=== PATIENT | male | born 1935 | race Caucasian/White ===

== ENCOUNTER → 2017-10-11 14:30 | Outpatient (CLI) | payer MEDICARE, OTHER, SELFPAY ==
[2016-02-13 13:00] VITALS: BMI 25.7
[2016-02-25 13:01] VITALS: BMI 23.8
[2016-02-25 14:18] VITALS: BP 111/87; BP 119/60; BP 97/48
[2016-02-25 15:38] VITALS: BP 110/47
[2017-10-11 15:34] LABS: Absolute Lymphocyte Count 1.27 X10^3/ul (0.83-4.51); Absolute Neutrophil Count 0.9 X10^3/uL (2.0-7.7); Eosinophil# 0.01 X10^3/uL; Eosinophils% 0.4 % (0-5); Hematocrit 30.5 % (40-54); Hemoglobin 10.1 g/dl (13.0-16.5); Lymphocyte # 1.27 X10^3/ul (4.0); Lymphocyte % 46.7 % (19-41); Mean Corp Hgb Conc 33.1 g/gl (32-36); Mean Corpuscular Hgb 30.1 pg (27.0-32.0); Mean Platelet Vol. 11.2 fl (6.2-12.0); Monocyte# 0.53 X10^3/uL; Monocyte% 19.5 % (0-10); Platelet Count 86 K/mm3 (150-450); RBC Distribution Width CV 15.6 % (11.6-14.6); RBC Distribution Width SD 50.6 fl (35.1-43.9); Red Blood Count 3.35 M/mm3 (4.6-6.2); White Blood Count 2.7 K/mm3 (4.4-11.0)
[2017-10-11 15:35] LABS: Differential Indicated SCAN CRITERIA MET; POSITIVE COUNT NO; POSITIVE DIFFERENTIAL YES; POSITIVE MORPHOLOGY NO
[2017-10-11 15:52] LABS: Differential Comment SCANNED
[2017-10-11 15:56] LABS: ALB/GLOB Ratio 1.3 RATIO (0.9-2.4); AST(SGOT) 17 U/L (15-37); Alanine Aminotransfer ALT/SGPT 32 U/L (16-61); Albumin, Serum 4.1 g/dL (3.2-5.0); Alkaline Phosphatase 85 U/L (45-117); Anion Gap 8 (5-15); BUN 29 mg/dL (7-18); BUN/Creat Ratio 25.7 RATIO (10-20); Calcium,Total 9.1 mg/dL (8.5-10.1); Chloride 102 mmol/L (98-107); Creatinine, Serum 1.13 mg/dL (0.70-1.30); EST Glomerular Filtration Rate 66 mL/min (>60); Est Glom Filt Rate - Afr Amer 80 mL/min (>60); Globulin 3.1 g/dL (2.2-4.2); Glucose 96 mg/dL (74-106); Potassium 4.6 mmol/L (3.5-5.1); Protein, Total 7.2 g/dL (6.4-8.2); Sodium Level 143 mmol/L (136-145)
== END ==
PROVIDERS: Family Provider Internal Medicine; PCP Internal Medicine; Visit Provider Internal Medicine Rheumatology
DX: M06.00 Rheumatoid arthritis without rheumatoid factor, unspecified site (principal); E11.9 Type 2 diabetes mellitus without complications; F32.89 Other specified depressive episodes; D46.9 Myelodysplastic syndrome, unspecified; I48.91 Unspecified atrial fibrillation; H35.52 Pigmentary retinal dystrophy
CPT/HCPCS: 36415; 80053; 85025

== ENCOUNTER → 2018-03-28 14:52 | Outpatient (CLI) | payer MEDICARE, OTHER, SELFPAY ==
[2016-02-13 13:00] VITALS: BMI 25.7
[2018-03-28 17:58] LABS: Absolute Lymphocyte Count 1.26 X10^3/ul (0.83-4.51); Absolute Neutrophil Count 2.6 X10^3/uL (2.0-7.7); Basophil# 0.01 X10^3/uL; Basophil% 0.2 % (0-1); Eosinophil# 0.01 X10^3/uL; Eosinophils% 0.2 % (0-5); Hematocrit 33.3 % (40-54); Hemoglobin 11.4 g/dl (13.0-16.5); Lymphocyte # 1.26 X10^3/ul (4.0); Lymphocyte % 25.7 % (19-41); Mean Corp Hgb Conc 34.2 g/gl (32-36); Mean Corpuscular Hgb 31.3 pg (27.0-32.0); Mean Corpuscular Volume 91.5 fL (80-94); Mean Platelet Vol. 12.3 fl (6.2-12.0); Monocyte# 0.98 X10^3/uL; Neutrophil # 2.63 X10^3/uL (2.7-7.7); Neutrophil % 53.5 % (47-70); Platelet Count 100 K/mm3 (150-450); RBC Distribution Width CV 14.8 % (11.6-14.6); RBC Distribution Width SD 48.1 fl (35.1-43.9); Red Blood Count 3.64 M/mm3 (4.6-6.2); White Blood Count 4.9 K/mm3 (4.4-11.0)
[2018-03-28 18:00] LABS: ALB/GLOB Ratio 1.2 RATIO (0.9-2.4); AST(SGOT) 16 U/L (15-37); Alanine Aminotransfer ALT/SGPT 37 U/L (16-61); Albumin, Serum 4.2 g/dL (3.2-5.0); Alkaline Phosphatase 97 U/L (45-117); Anion Gap 7 (5-15); BUN 32 mg/dL (7-18); BUN/Creat Ratio 26.4 RATIO (10-20); Calcium,Total 9.5 mg/dL (8.5-10.1); Chloride 102 mmol/L (98-107); Creatinine, Serum 1.21 mg/dL (0.70-1.30); EST Glomerular Filtration Rate 61 mL/min (>60); Est Glom Filt Rate - Afr Amer 74 mL/min (>60); Globulin 3.4 g/dL (2.2-4.2); Glucose 148 mg/dL (74-106); Potassium 4.9 mmol/L (3.5-5.1); Protein, Total 7.6 g/dL (6.4-8.2); Sodium Level 143 mmol/L (136-145)
[2018-03-28 18:21] LABS: POSITIVE COUNT NO; POSITIVE DIFFERENTIAL NO; POSITIVE MORPHOLOGY NO
== END ==
PROVIDERS: Family Provider Internal Medicine; PCP Internal Medicine; Visit Provider Internal Medicine Rheumatology
DX: M06.00 Rheumatoid arthritis without rheumatoid factor, unspecified site (principal); E11.9 Type 2 diabetes mellitus without complications; F32.89 Other specified depressive episodes; D46.9 Myelodysplastic syndrome, unspecified; I48.91 Unspecified atrial fibrillation; H35.52 Pigmentary retinal dystrophy
CPT/HCPCS: 36415; 80053; 85025

== ENCOUNTER → 2018-08-02 11:06 | Outpatient (CLI) | payer MEDICARE, OTHER, SELFPAY ==
[2016-02-13 13:00] VITALS: BMI 25.7
[2016-02-25 13:01] VITALS: BMI 23.8
[2018-08-02 12:02] LABS: AST(SGOT) 14 U/L (15-37); Alanine Aminotransfer ALT/SGPT 31 U/L (16-61); Albumin, Serum 4.1 g/dL (3.2-5.0); Alkaline Phosphatase 89 U/L (45-117); Bilirubin, Direct 0.18 mg/dL (0.00-0.30); Cholesterol 91 mg/dL (200); Globulin 3.2 g/dL (2.2-4.2); High Density Lipoprotein 39 mg/dL; Protein, Total 7.3 g/dL (6.4-8.2); Triglycerides 58 mg/dL; Very Low Density Lipoprotein 12 mg/dL (5-40)
--- OUTSIDE RECORDS SUMMARY | 2018-09-14 02:54 | XMS RPT_ITS ---
:1935 Author Organization OHIP Care Team Providers Name Role Phone VAN LOPEZ Referring Unavailable KRISTIN MCKAYMAN Referring Unavailable WOODY, LAPMAN Referring Unavailable WOODY, LAPMAN Referring Unavailable WOODY, KRISTINMAN Referring Unavailable WOODY, MOHIT Referring Unavailable PRESLEY ORTIZ Attending Unavailable PRESLEY ORTIZ Referring Unavailable KRISTIN MCKAYMAN Referring Unavailable KRISTIN MCKAYMAN Attending Unavailable KRISTIN MCKAYMAN Referring Unavailable WOODY LAPMAN Referring Unavailable SAMPSON LOVELL Referring Unavailable SAMPSON LOVELL Attending Unavailable DEBBIE MENDIETA) Attending Unavailable DEBBIE MENDIETA (SHIVAM) Referring Unavailable DEBBIE MENDIETA) Referring Unavailable MOHIT MCKAY Referring Unavailable WOODY, MOHIT Referring Unavailable SAMPSON LOVELL Referring Unavailable SAMPSON LOVELL Attending Unavailable SAMPSON LOVELL Referring Unavailable WOODY, LAPMAN Referring Unavailable WOODY, LAPMAN Referring Unavailable TESTRAKE, PRESLEY Attending Unavailable TESTRAKE, PRESLEY Referring Unavailable WOODY, LAPMAN Referring Unavailable WOODY, LAPMAN Referring Unavailable WOODY, LAPMAN Referring Unavailable WOODY, LAPMAN Referring Unavailable WOODY, LAPMAN Referring Unavailable WOODY, LAPMAN Referring Unavailable WOODY, LAPMAN Referring Unavailable WOODY, LAPMAN Referring Unavailable MASCI, VAN A Referring Unavailable WOODY, LAPMAN Referring Unavailable WOODY, LAPMAN Referring Unavailable WOODY, LAPMAN Attending Unavailable WOODY, LAPMAN Referring Unavailable WOODY, LAPMAN Referring Unavailable LOVELL, KYLE Attending Unavailable LOVELL, KYLE Referring Unavailable Vellanki, Margaux Attending Unavailable Vellanki, Margaux Referring Unavailable Lovell, Sampson Primary Care Unavailable Vellanki, Margaux Attending Unavailable Vellanki, Margaux Referring Unavailable Lovell, Sampson Primary Care Unavailable Praneeth, [place] Attending Unavailable Praneeth, Roland Referring Unavailable Lovell, Sampson Primary Care Unavailable Praneeth, [place] Attending Unavailable Lovell, Sampson Referring Unavailable PROBLEMS PROBLEMS DATE TYPE CONDITION / CODE ATTENDING STATUS SOURCE 08/04/2018 Unknown I48.92 - Praneeth, Roland Active [facility] atrial flutter / Hospital I48.92(ICD-10) Repository 08/04/2018 Unknown E78.5 - Praneeth, [place] Active [facility] Hyperlipidemia, Community unspecified / Hospital E78.5(ICD-10) Repository 12/24/2017 Active Other nursing home NA Active [facility] (current) drug [facility] [place] therapy / Repository Z79.899(ICD-10) 10/16/2013 Active Anemia in other NA Active [facility] chronic diseases [facility] [place] classified Repository elsewhere / D63.8(ICD-10) 08/27/2017 Active Unknown / NA Active [facility] UNK(Unknown) [place] Repository 07/30/2010 Active 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 [address] [place] [address] OFFICE VISIT Date of Service: 08/04/18 MR#: [id number] Acct: [id number] Name: JULIANE FISHER Rep #: [id number] : 1935 Provider: Roland Dacosta MD Age/Sex: 82/M [place] [facility] [place] Status: Signed [facility] Chief Complaint: Follow-up visit Details: JULIANE FISHER, is a 82 M who presents to the office today for a follow-up visit. He is a gentleman with a history of paroxysmal atrial fibrillation, equivocal mitral valve prolapse, and diabetes mellitus. He returns for routine follow- up visit he has been doing quite well he denies any chest pain or shortness of breath or paroxysmal nocturnal dyspnea or pedal edema he has not had any recurrence of his atrial fibrillation flutter. He has been compliant with all his medications. His physical exam today demonstrates clear lung huston regular rate and rhythm and no pedal edema. 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 Accompanied by: Is patient in pain?: No Allergies No Known Allergies Allergy (Verified 08/04/18 13:12) Medications B6/FA/B12/Co Q10/Herb No.225 [Healthy Heart Complex Tablet] 1 ea PO DAILY 05/03/15 [History Confirmed 08/04/18] Metformin HCl [Glucophage] 1,000 mg PO BIDCM 05/03/15 [History Confirmed 08/04/18] Multivit-Min/FA/Lycopen/Lutein [Centrum Silver Tablet] 1 ea PO DAILY 05/03/15 [History Confirmed 08/04/18] Pioglitazone HCl 15 mg PO DAILY 05/03/15 [History Confirmed 08/04/18] Magnesium Oxide [Mag-Ox 400] 400 mg PO BIDCM #60 tab 08/29/15 [Rx Confirmed 08/04/18] Polyethylene Glycol 3350 [Miralax] 17 gm PO DAILY #30 packet 08/29/15 [Rx Confirmed 08/04/18] Prednisone 2.5 mg PO DAILY 09/03/15 [History Confirmed 08/04/18] Lactulose 30 gm PO DAILY #1 ml 01/21/16 [Rx Confirmed 08/04/18] metoprolol tartrate 25 mg tablet 12.5 mg PO BID #30 tab 10/12/17 [Rx Confirmed 08/04/18] PFSH Medical History Diabetes mellitus (Chronic) Surgical History History of corneal transplant (Resolved) History of prostate surgery (Resolved) Hx of cataract surgery (Resolved) Family History Father Cancer Diabetes Social History Smoking Status: Never smoker ROS Const Const: Negative for fatigue, weakness, night sweats, excessive sweating, frequent falls, headache(s) or daytime sleepiness Eyes Eyes: Negative for loss of peripheral vision, transient loss of vision, blind spots, double vision or blurry vision ENT ENT: Negative for headache(s), dizziness, balance problems, Nosebleed/epistaxis, tongue swelling or lip swelling Cardio Chest Pain: No Palpitations: No Edema: Bilateral Muscle aches with walking: None Resp Respiratory: Negative for SOB at rest, SOB orthopnea\SOB lying down, Cough, paroxysmal nocturnal dyspnea or SOB with activity GI GI: Negative nausea, vomiting, heartburn, black,tarry stools or bright, red blood in stools : Negative for hematuria Musc Musc: Negative for balance problems, muscle aches/ myalgia, muscle weakness or joint pain Skin Skin: Negative non-healing lesions, unusual bruising or rash Neuro Neuro: Negative for weakness, frequent falls, headache(s), double vision, dizziness, lightheadedness, orthostatic symptoms, blurry vision or lack of coordination Dante Hematologic/Lymphatic: Negative for easy bruising or easy bleeding Endo Endo: Negative for fatigue, excessive sweating, cold intolerance, heat intolerance, increased thirst/drinking or hair loss Psych Psych: Negative for anxiety or depression Allergy Allergy/Immunology: Negative for throat swelling, Negative for tongue swelling, Negative for hives, Negative for rash, Negative for lip swelling Cardiology Exam Const Appearance: cooperative, healthy appearing, well developed, well groomed and no acute distress Nutritional Appearance: well nourished and average body habitus Orientation: alert, awake and oriented x3 Head Head: normal to inspection, normocephalic and atraumatic Ears: hearing grossly normal bilaterally and external ears normal Nose: external nose normal, nasal mucous membranes and turbinates normal, nares normal, septum normal, no nasal discharge Face and Sinus: face symmetric Mouth: oral mucosae normal, tongue normal, oropharynx normal and moist mucous membranes Teeth and gingiva: dentition normal Throat: posterior oropharynx normal, tonsils normal and uvula midline Eyes General: appearance normal, both eyes and all related structures Eyelids: eyelids normal Conjunctivae: conjunctivae normal Pupils: PERRL, normal by confrontation and accommodation normal EOM: EOM intact bilaterally Neck Neck: normal visual inspection, trachea midline and no JVD JVD: +5 Carotids: normal carotid upstroke and bounding pulses Chest Chest inspection: normal inspection of the chest, symmetric chest movement and normal respiratory effort Auscultation: Bilateral: Clear to Auscultation Cardio Palpation: normal PMI Rate: regular rate Rhythm: regular rhythm Heart sounds: S1 normal, S2 normal and normal, physiologic split S2; negative rub, gallop or murmur GI GI: normal to inspection, soft, no hepatosplenomegaly and bowel sounds present Neuro General: alert, awake, oriented x3, no focal sensory deficit, gait normal and moves all extremities Skin Skin: no rashes or lesions noted Extremities Pulses: Normal: Right Femoral Pulse, Left Femoral Pulse, Right Dorsalis Pedis Pulse, Left Dorsalis Pedis Pulse, Right Posterior Tibial Pulse, Left Posterior Tibial Pulse, Right Radial Pulse, Left Radial Pulse Lower Extremity Edema: None: Bilateral Musculoskel Musculoskeletal: No joint tenderness Psych Psychological: normal affect Assessment AND Plan 1. Atrial flutter with rapid ventricular response I48.92 Plan He has had paroxysmal atrial fibrillation but no recurrences recently at this my recommendation be for him to remain on his beta-ronnie the same dose together with his aspirin. No other changes will be made. His last echocardiogram was reassuring with an ejection fraction of 55%, equivocal mitral valve prolapse, and mild mitral and tricuspid regurgitation. 2. Hyperlipidemia E78.5 Plan His lipid profile was also excellent with a total cholesterol of 91, LDL of 40, and HDL of 39. Thank you for allowing me to participate in the care of your patient. 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) Coding Level of Care Code Off vis,est,level 3 Diagnoses Atrial flutter with rapid ventricular response I48.92 Hyperlipidemia E78.5 Coding Level of Care Code Off vis,est,level 3 Diagnoses Atrial flutter with rapid ventricular response I48.92 Hyperlipidemia E78.5 08/04/18 1344 <Electronically signed by Roland Dacosta MD> Date Roland Dacosta MD Cosigner Signature: Date (if applicable) CC: Sampson Lovell MD LIVER PROFILE Collected: 08/02/2018 Status: F Source: [facility] 11:15 AM [facility] REPOSITORY Order Comment: Order Date: 08/06/17 Order Info: [id number] - *Hepatic Function Panel Order Info: [id number] - *Lipid Profile CC PCP Comments: 12 hours fasting, may have water. TYPE CODE TESTS RESULT OUT OF RANGE REFERENCE UNITS LAB L501.1500 6.4-8.2 g/dL Normal T PROT 7.3 LAB L501.1800 3.2-5.0 g/dL Normal ALB 4.1 LAB L501.1950 2.2-4.2 g/dL Normal GLOB 3.2 LAB L501.4100 15-37 U/L Low AST 14 LAB L501.4305 45-117 U/L Normal ALK P 89 LAB L501.4405 16-61 U/L Normal ALT 31 LAB L501.4600 0.20-1.00 mg/dL Normal T BILI 0.70 LAB L501.4700 0.00-0.30 mg/dL Normal D BILI 0.18 Performed By: #### L500.3400 #### [facility] [place], [address] LIPID PROFILE Collected: 08/02/2018 Status: F Source: [facility] 11:15 AM [facility] Order Comment: Order Date: 08/06/17 Order Info: [id number] - *Hepatic Function Panel Order Info: [id number] - *Lipid Profile CC PCP Comments: 12 hours fasting, may have water. TYPE CODE TESTS RESULT OUT OF RANGE REFERENCE UNITS LAB L501.4900 200 mg/dL Normal CHOL 91 Result Comment: <200 mg/dL Desirable 200-240 mg/dL Borderline >240 mg/dL High Risk LAB L501.5000 mg/dL Normal TRIG 58 Result Comment: The drugs N-Acetylcysteine and Metamizole may falsely depress this assay. Serum Triglycerides Reference Interval Normal <150 mg/dL Borderline high 150 - 199 mg/dL High 200 - 499 mg/dL Very High > or = 500 mg/dL LAB L501.6400 mg/dL Low HDL 39 Result Comment: The drugs N-Acetylcysteine and Metamizole may falsely depress this assay. Reference Range HDL <40 mg/dL Low HDL Cholesterol HDL >or= 60 mg/dL High HDL Cholesterol LAB L501.6500 0-130 mg/dL Normal LDL 40 LAB L501.6600 5-40 mg/dL Normal VLDL 12 Performed By: #### L500.4100 #### [facility] [address] [place] [address]. [place], [address] PROGRESS Observed: 07/04/2018 Status: COMPLETED Source: [place] 4:11 PM [facility] [place] REPOSITORY [facility] ID: [id number] Author: Sampson Lovell Service: (none) Author Type: Physician Type: Progress Notes Filed: 07/05/2018 8:54 AM Note Text: This note was created using NoteWriter. Subjective Juliane Fisher is a 82 year old male here for follow up. He was doing reasonably well. His listed conditions were controlled, and stable. His arthritis was controlled. His anemia was stable and monitoring was less frequent now. 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 magnesium oxide (MAG-OX) 400 mg tablet Take 1 tablet by mouth twice daily. blood sugar diagnostic (BLOOD GLUCOSE TEST) test strip Test blood sugar(s) two times daily. Insulin: No. labile blood glucoses, uncontrolled DM. No insulin. 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 aspirin, enteric coated (ASPIRIN, ENTERIC COATED) 81 mg EC tablet Take 1 tablet by mouth once daily. ketoconazole (NIZORAL) 2 % cream Apply 1 application to affected area twice daily. mirtazapine (REMERON) 15 mg tablet Take 1 tablet by mouth daily at bedtime. Dr. Blake memantine (NAMENDA) 10 mg tablet [address] Blake. donepezil (ARICEPT) 10 mg tablet Take 1 tablet by mouth daily at bedtime. metoprolol tartrate, short acting, (LOPRESSOR) 25 mg tablet Take 0.5 tablets by mouth twice daily. Blood-Glucose Meter monitoring kit Glucose Meter of Choice - Kit. Check 4 times a day. Hypoglycemia, labile blood glucoses, uncontrolled DM. No insulin. predniSONE (DELTASONE) 2.5 mg tablet Take 1 tablet by mouth once daily. No current facility-administered medications for this visit. Review of Systems Constitutional: Negative. HENT: Negative. Respiratory: Negative. Cardiovascular: Negative. Gastrointestinal: Negative. Genitourinary: Negative. Musculoskeletal: Negative. Neurological: Negative. Objective BP 120/58 (BP Site: Right Arm, BP Position: Sitting, BP Cuff Size: Regular Adult) Pulse 61 Temp 36.7 ?C (98 ?F) (Tympanic) Resp 14 Ht 174.5 cm (5' 8.7) Wt 77.1 kg (170 lb) SpO2 98% BMI 25.32 kg/m? Physical Exam Constitutional: No distress. HENT: Head: Normocephalic. Eyes: Conjunctivae are normal. Neck: No JVD present. Cardiovascular: Normal heart sounds. Exam reveals no gallop. No murmur heard. Pulmonary/Chest: Breath sounds normal. Abdominal: Soft. Musculoskeletal: He exhibits no edema or tenderness. Neurological: He is alert. A sensory deficit is present. He exhibits normal muscle tone. Coordination normal. Ambulatory with cane. Feet: Shoes and socks removed, No deformities, ulcers, calluses, normal distal pulses and not sensitive to monofilament in the toes. Component Latest Ref Rng AND Units 07/01/2018 Protein, Total 6.3 - 8.0 g/dL 6.8 Albumin 3.9 - 4.9 g/dL 4.5 Calcium 8.5 - 10.2 mg/dL 9.9 Bilirubin, Total 0.2 - 1.3 mg/dL 0.5 Alkaline Phosphatase 38 - 113 U/L 90 AST 14 - 40 U/L 22 Glucose 74 - 99 mg/dL 163 (H) BUN 7 - 21 mg/dL 29 (H) Creatinine 0.73 - 1.22 mg/dL 1.11 Sodium 136 - 144 mmol/L 136 Potassium 3.7 - 5.1 mmol/L 4.8 Chloride 97 - 105 mmol/L 98 CO2 22 - 30 mmol/L 32 (H) Anion Gap 9 - 18 mmol/L 6 (L) ALT 10 - 54 U/L 26 eGFR- >60 eGFR-All Other Races . >60 Hemoglobin A1C 4.3 - 5.6 % 6.5 (H) Estimated Average Glucose mg/dL 140 Assessment and Plan 1. Medicare annual wellness visit, subsequent - ICD9: V70.0, ICD10: Z00.00 (primary diagnosis) Other note. 2. 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 - Continue current medications 3. Senile dementia, uncomplicated - ICD9: 290.0, ICD10: F03.90 Stable. 4. FRENCH on CPAP - ICD9: 327.23, V46.8, ICD10: G47.33, Z99.89 Using CPAP. 5. Rheumatoid arthritis with negative rheumatoid factor, involving unspecified site (HCC) - ICD9: 714.0, ICD10: M06.00 Stable on treatment from Dr. Champagne. 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 Gallegos Signs: INH, Rifapentine, B6. - Actinic keratosis 1997 - Acute gastritis without mention of hemorrhage - Anemia of chronic disease 10/16/2013 - Anemia, unspecified - Devine's palsy 1995 - Cervical spondylosis without myelopathy 09/27/2012 - Delayed sleep phase syndrome 09/19/2014 - Dermatophytosis of foot 05/30/2010 - Dermatophytosis of nail 05/30/2010 - Diverticulosis of colon (without mention of hemorrhage) - Esophageal reflux 04/22/2005 - Hypertrophy of prostate with urinary obstruction and other lower urinary tract symptoms (LUTS) 04/26/2007 - Hypertrophy of prostate without urinary obstruction and other lower urinary tract symptoms (LUTS) 04/22/2005 - Internal hemorrhoids without mention of complication - Legal blindness, as defined in [place] 04/22/2005 - MDS (myelodysplastic syndrome), low grade (HCC) 07/30/2010 - Myelodysplastic syndrome, low grade (HCC) 07/31/2010 - FRENCH on CPAP 06/29/2017 - Paroxysmal atrial fibrillation (HCC) 04/11/2009 Dr. Ruperto Dacosta. - Personal history of skin cancer 06/26/2009 Dr. Yeni Adhikari. 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 Mckay Champagne. - Senile dementia, uncomplicated 06/29/2016 Dr. Blake - Squamous cell carcinoma of left hand 09/02/2015 - Thrombocytopenia (HCC) - Type II or unspecified type diabetes mellitus without mention of complication, uncontrolled 04/22/2005 - Unspecified constipation - Urge incontinence 04/07/2012 PAST SURGICAL HISTORY Procedure Laterality Date - COLONOSCOP W/ OR W/O [facility] SPEC 08/11/2001 Colonoscopy - COLONOSCOP W/ OR W/O [facility] SPEC 09/21/06 - COLONOSCOP W/ OR W/O [facility] SPEC 09/12/2015 Colonoscopy - CONTACT LASER VAPORIZATION PROSTATE 09/12/2013 - EGD W/O [facility] SPECIMEN W/BX 09/21/06 - PAST SURGICAL HISTORY OF 1979 Goiter removal - REMV 2ND CATARACT,CORN-SCLER SECTN Insert lens prosthesis - SKIN BX, 1 LESION Skin biopsy Patient has no known allergies. 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 Legally blind. Juliane is more or less sedentary occasionally exercising in the form of calisthenics. He watches his diet for sodium, low fat and low cholesterol some of the time. List of current specialists seen: Dr. Mckay, hematology. Dr. Champagne, rheumotology. Dr. Mariee, ophthalmology. Dr. Calle, retinal specialist. Dr. Ortiz, podiatry. Dr. Dacosta, cardiology. Dr. Brito, neurology. SHIVAM Amos urology. End of Live Planning discussed including patients advanced directive wishes: No I am willing to follow Juliane's advanced directives. Depression screen He in the past two weeks denies having felt down, depressed, hopeless or with little interest or pleasure in doing things. Functional Ability/Safety Screen 1. Was the patient's timed Up and Go test unsteady or longer than 30 seconds? No 2. Does the patient need help with the phone, transportation, shopping,preparing meals, housework, laundry, medications or managing money? No 3. Does your home have rugs in the hallway, lack of grab bars in the bathroom, lack of handrails on the stairs or have poor lighting? No Hearing Evaluation: hard of hearing PHYSICAL EXAM BP 120/58 (BP Site: Right Arm, BP Position: Sitting, BP Cuff Size: Regular Adult) Pulse 61 Temp 36.7 ?C (98 ?F) (Tympanic) Resp 14 Ht 174.5 cm (5' 8.7) Wt 77.1 kg (170 lb) SpO2 98% BMI 25.32 kg/m? Alert and oriented X 3: YES Body mass index is 25.32 kg/m?. Visual acuity: legally blind. ASSESSMENT/PLAN: 82 year old male The following prevention plan was discussed during the office visit and provided to the patient: - Fall avoidance - Vaccines recommended: Shingrix recommended previously, awaiting availability. Sampson Lovell MD CNOV Observed: 07/04/2018 Status: COMPLETED Source: [place] 3:00 PM [facility] REPOS[facility] Office Visit (INTMWS) JULIANE FISHER ([id number]) 1935 M BLD Date Time Provider Department 07/04/18 3:00 PM SAMPSON LOVELL INTMWS During your visit today, we recorded the following information about you: Temperature Pulse Respiration Blood pressure 98 degrees 61/minute 14/minute 120/58 Weight Height 77.1 kg 1.745 m Sampson Lovell MD 07/05/2018 8:54 AM Signed Medicare Yearly Visit Medical B eligibilty date 09/2000 Date of last exam 06/29/2017 PAST MEDICAL HISTORY Diagnosis Date - (QFT) 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 Gallegos Signs: INH, Rifapentine, B6. - Actinic keratosis 1997 - Acute gastritis without mention of hemorrhage - Anemia of chronic disease 10/16/2013 - Anemia, unspecified - Devine's palsy 1995 - Cervical spondylosis without myelopathy 09/27/2012 - Delayed sleep phase syndrome 09/19/2014 - Dermatophytosis of foot 05/30/2010 - Dermatophytosis of nail 05/30/2010 - Diverticulosis of colon (without mention of hemorrhage) - Esophageal reflux 04/22/2005 - Hypertrophy of prostate with urinary obstruction and other lower urinary tract symptoms (LUTS) 04/26/2007 - Hypertrophy of prostate without urinary obstruction and other lower urinary tract symptoms (LUTS) 04/22/2005 - Internal hemorrhoids without mention of complication - Legal blindness, as defined in [place] 04/22/2005 - MDS (myelodysplastic syndrome), low grade (HCC) 07/30/2010 - Myelodysplastic syndrome, low grade (HCC) 07/31/2010 - FRENCH on CPAP 06/29/2017 - Paroxysmal atrial fibrillation (HCC) 04/11/2009 Dr. Ruperto Dacosta. - Personal history of skin cancer 06/26/2009 Dr. Yeni Adhikari. 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 Mckay Champagne. - Senile dementia, uncomplicated 06/29/2016 Dr. Blake - Squamous cell carcinoma of left hand 09/02/2015 - Thrombocytopenia (HCC) - Type II or unspecified type diabetes mellitus without mention of complication, uncontrolled 04/22/2005 - Unspecified constipation - Urge incontinence 04/07/2012 PAST SURGICAL HISTORY Procedure Laterality Date - COLONOSCOP W/ OR W/O [facility] SPEC 08/11/2001 Colonoscopy - COLONOSCOP W/ OR W/O [facility] SPEC 09/21/06 - COLONOSCOP W/ OR W/O [facility] SPEC 09/12/2015 Colonoscopy - CONTACT LASER VAPORIZATION PROSTATE 09/12/2013 - EGD W/O [facility] SPECIMEN W/BX 09/21/06 - PAST SURGICAL HISTORY OF 1979 Goiter removal - REMV 2ND CATARACT,CORN-SCLER SECTN Insert lens prosthesis - SKIN BX, 1 LESION Skin biopsy Patient has no known allergies. 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 Legally blind. Juliane is more or less sedentary occasionally exercising in the form of calisthenics. He watches his diet for sodium, low fat and low cholesterol some of the time. List of current specialists seen: Dr. Mckay, hematology. Dr. Champagne, rheumotology. Dr. Mariee, ophthalmology. Dr. aClle, retinal specialist. Dr. Ortiz, podiatry. Dr. Dacosta, cardiology. Dr. Brito, neurology. Debbie Mendieta, PA urology. End of Live Planning discussed including patients advanced directive wishes: No I am willing to follow Juliane's advanced directives. Depression screen He in the past two weeks denies having felt down, depressed, hopeless or with little interest or pleasure in doing things. Functional Ability/Safety Screen 1. Was the patient's timed Up and Go test unsteady or longer than 30 seconds? No 2. Does the patient need help with the phone, transportation, shopping,preparing meals, housework, laundry, medications or managing money? No 3. Does your home have rugs in the hallway, lack of grab bars in the bathroom, lack of handrails on the stairs or have poor lighting? No Hearing Evaluation: hard of hearing PHYSICAL EXAM BP 120/58 (BP Site: Right Arm, BP Position: Sitting, BP Cuff Size: Regular Adult) Pulse 61 Temp 36.7 ?C (98 ?F) (Tympanic) Resp 14 Ht 174.5 cm (5' 8.7) Wt 77.1 kg (170 lb) SpO2 98% BMI 25.32 kg/m? Alert and oriented X 3: YES Body mass index is 25.32 kg/m?. Visual acuity: legally blind. ASSESSMENT/PLAN: 82 year old male The following prevention plan was discussed during the office visit and provided to the patient: - Fall avoidance - Vaccines recommended: Shingrix recommended previously, awaiting availability. MD Sampson Daniels MD 07/05/2018 8:54 AM Signed This note was created using Yillioriter. Subjective Juliane Fisher is a 82 year old male here for follow up. He was doing reasonably well. His listed conditions were controlled, and stable. His arthritis was controlled. His anemia was stable and monitoring was less frequent now. 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 magnesium oxide (MAG-OX) 400 mg tablet Take 1 tablet by mouth twice daily. blood sugar diagnostic (BLOOD GLUCOSE TEST) test strip Test blood sugar(s) two times daily. Insulin: No. labile blood glucoses, uncontrolled DM. No insulin. Uncontrolled type 2 diabetes with neuropathy ([facility]) - ICD9: 250.62, 357.2, ICD10: E11.40, E11.65 metFORMIN (GLUCOPHAGE) 1,000 mg tablet Take 1 tablet by mouth daily with breakfast. aspirin, enteric coated (ASPIRIN, ENTERIC COATED) 81 mg EC tablet Take 1 tablet by mouth once daily. ketoconazole (NIZORAL) 2 % cream Apply 1 application to affected area twice daily. mirtazapine (REMERON) 15 mg tablet Take 1 tablet by mouth daily at bedtime. Dr. Blake memantine (NAMENDA) 10 mg tablet [address] Blake. donepezil (ARICEPT) 10 mg tablet Take 1 tablet by mouth daily at bedtime. metoprolol tartrate, short acting, (LOPRESSOR) 25 mg tablet Take 0.5 tablets by mouth twice daily. Blood-Glucose Meter monitoring kit Glucose Meter of Choice - Kit. Check 4 times a day. Hypoglycemia, labile blood glucoses, uncontrolled DM. No insulin. predniSONE (DELTASONE) 2.5 mg tablet Take 1 tablet by mouth once daily. No current facility-administered medications for this visit. Review of Systems Constitutional: Negative. HENT: Negative. Respiratory: Negative. Cardiovascular: Negative. Gastrointestinal: Negative. Genitourinary: Negative. Musculoskeletal: Negative. Neurological: Negative. Objective BP 120/58 (BP Site: Right Arm, BP Position: Sitting, BP Cuff Size: Regular Adult) Pulse 61 Temp 36.7 ?C (98 ?F) (Tympanic) Resp 14 Ht 174.5 cm (5' 8.7) Wt 77.1 kg (170 lb) SpO2 98% BMI 25.32 kg/m? Physical Exam Constitutional: No distress. HENT: Head: Normocephalic. Eyes: Conjunctivae are normal. Neck: No JVD present. Cardiovascular: Normal heart sounds. Exam reveals no gallop. No murmur heard. Pulmonary/Chest: Breath sounds normal. Abdominal: Soft. Musculoskeletal: He exhibits no edema or tenderness. Neurological: He is alert. A sensory deficit is present. He exhibits normal muscle tone. Coordination normal. Ambulatory with cane. Feet: Shoes and socks removed, No deformities, ulcers, calluses, normal distal pulses and not sensitive to monofilament in the toes. Component Latest Ref Rng AND Units 07/01/2018 Protein, Total 6.3 - 8.0 g/dL 6.8 Albumin 3.9 - 4.9 g/dL 4.5 Calcium 8.5 - 10.2 mg/dL 9.9 Bilirubin, Total 0.2 - 1.3 mg/dL 0.5 Alkaline Phosphatase 38 - 113 U/L 90 AST 14 - 40 U/L 22 Glucose 74 - 99 mg/dL 163 (H) BUN 7 - 21 mg/dL 29 (H) Creatinine 0.73 - 1.22 mg/dL 1.11 Sodium 136 - 144 mmol/L 136 Potassium 3.7 - 5.1 mmol/L 4.8 Chloride 97 - 105 mmol/L 98 CO2 22 - 30 mmol/L 32 (H) Anion Gap 9 - 18 mmol/L 6 (L) ALT 10 - 54 U/L 26 eGFR- >60 eGFR-All Other Races . >60 Hemoglobin A1C 4.3 - 5.6 % 6.5 (H) Estimated Average Glucose mg/dL 140 Assessment and Plan 1. Medicare annual wellness visit, subsequent - ICD9: V70.0, ICD10: Z00.00 (primary diagnosis) Other note. 2. 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 - Continue current medications 3. Senile dementia, uncomplicated - ICD9: 290.0, ICD10: F03.90 Stable. 4. FRENCH on CPAP - ICD9: 327.23, V46.8, ICD10: G47.33, Z99.89 Using CPAP. 5. Rheumatoid arthritis with negative rheumatoid factor, involving unspecified site (HCC) - ICD9: 714.0, ICD10: M06.00 Stable on treatment from Dr. Champagne. Sampson Lovell MD Referring Provider: SAMPSON LOVELL [[id number]] Allergies As of Date: 07/04/2018 (No Known Allergies) Date Reviewed: 07/04/2018 Reviewed by: Phyllis Enciso [facility] - Fully Assessed Reason for Visit: Medicare Wellness Exam [4060] Primary Visit Diagnosis:Medicare annual wellness visit, subsequent [Z00.00] Other Visit Diagnoses:Controlled type 2 diabetes with neuropathy (HCC) [E11.40] Senile dementia, uncomplicated [F03.90] FRENCH on CPAP [G47.33, Z99.89] Rheumatoid arthritis with negative rheumatoid factor, involving unspecified site (HCC) [M06.00] Prescriptions as of 07/04/2018 Sig: PIOGLITAZONE 15 MG TABLET TAKE 1 TABLET BY MOUTH IN THE* POLYETHYLENE GLYCOL 3350 17 G* DISSOLVE 1 PACKET IN WATER AND * IPRATROPIUM BROMIDE 0.03 % NA* Use 2 Sprays in the nose ever* MAGNESIUM OXIDE 400 MG (241.3* Take 1 tablet by mouth twice * BLOOD SUGAR DIAGNOSTIC STRIPS Test blood sugar(s) two times* METFORMIN 1,000 MG TABLET Take 1 tablet by mouth daily * ASPIRIN 81 MG TABLET,DELAYED * Take 1 tablet by mouth once d* KETOCONAZOLE 2 % TOPICAL CREAM Apply 1 application to affect* MIRTAZAPINE 15 MG TABLET Take 1 tablet by mouth daily * MEMANTINE 10 MG TABLET [address] Anaya* DONEPEZIL 10 MG TABLET Take 1 tablet by mouth daily * METOPROLOL TARTRATE 25 MG TAB* Take 0.5 tablets by mouth twi* BLOOD-GLUCOSE METER KIT Glucose Meter of Choice - Kit* PREDNISONE 2.5 MG TABLET Take 1 tablet by mouth once d* Problem List As Of Date 07/04/2018 Noted Resolved DIABETES MELLITUS TYPE II-UNCOMPL [E11.9] INVALID FOR*06/05/2015 ESOPHAGEAL REFLUX [K21.9] INVALID FOR*07/05/2008 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 More... Ingrowing nail [L60.0] INVALID FOR*10/18/2013 Pain in limb [M79.609] INVALID FOR*09/06/2013 DM Neuro Manif Type II [E11.49] INVALID FOR*06/05/2015 Cellulitis and abscess of toe, unspecified [L03*INVALID FOR*09/06/2013 Thrombocytopenia [D69.6] INVALID FOR* MDS (myelodysplastic syndrome), low grade [D46.*INVALID FOR* Other acquired deformity of toe [M20.5X9] INVALID FOR*01/31/2014 Anemia [D64.9] INVALID FOR*10/16/2013 Frequency of urination [R35.0] INVALID FOR*01/31/2014 Urge incontinence [N39.41] INVALID FOR*01/31/2014 BPH (benign prostatic hyperplasia) [N40.0] INVALID FOR* Nocturia [R35.1] INVALID FOR* Cervical spondylosis without myelopathy [M47.81*INVALID FOR*01/31/2014 Cervicalgia [M54.2] INVALID FOR*09/06/2013 Pain due to onychomycosis of toenail [B35.1, M7*INVALID FOR*01/31/2014 Anemia of chronic disease [D63.8] INVALID FOR* (QFT) 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 Rheumatoid arthritis with negative rheumatoid f*INVALID FOR* More... 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 FRENCH on CPAP [G47.33, Z99.89] INVALID FOR* More... Urine retention [R33.9] INVALID FOR* Nocturnal leg cramps [G47.62] INVALID FOR* Disposition: Return in about 6 months (around 01/02/2019). Follow-up and Disposition History Recorded Encounter Status:Closed by SAMPSON LOVELL MD on 07/05/18 PROGRESS Observed: 07/01/2018 Status: COMPLETED Source: [place] 2:50 PM [facility] [place] REPOSITORY HNO ID: [id number] Author: Mohit Mckay Service: (none) Author Type: Physician Type: Progress Notes Filed: 07/02/2018 8:18 AM Note Text: PATIENT NAME: JULIANE FISHER ? CLINIC NO.: [id number] ? ATTENDING PHYSICIAN: Mohit Mckay MD ?? 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 HISTORY OF PRESENT ILLNESS: Mr. Fisher is a 82-year-old gentleman with a low-grade myelodysplastic syndrome/ refractory anemia. Patient had not require blood transfusion since his diagnosis of refractory anemia. ?? Current treatment: Aranesp - last injection was in November for refractory anemia ?? Interim history:? Patient denied fever, chills or night sweats. He has mild fatigue, but no shortness of breath. Patient denied increased bleeding or bruising despite thrombocytopenia.? Patient denies chest pain or palpitation. He has no?headaches or dizziness. 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 All medications AND?allergies updated reviewed by me. ?? PHYSICAL EXAM: Mr. Fisher appeared to be in no acute distress. ? performance status 80% BP 126/58 Pulse 54 Temp (Src) 98.6 (Oral) Wt 174 lb (78.9kg) HEENT: Sclerae anicteric. Neck: Supple, no palpable thyromegaly. Chest: Clear to auscultation. ? Cardiac is unremarkable. Abdomen: Soft and nontender, no masses or hepatosplenomegaly. Extremities show no edema, ecchymosis, or petechiae. Neurologic exam is nonfocal. He is alert and oriented ?3 ?? LABS: Component Latest Ref Rng AND Units 07/01/2018 WBC, [place] 3.70 - 11.00 k/uL 4.01 RBC, [place] 4.20 - 6.00 m/uL 3.54 (L) Hemoglobin, [place] 13.0 - 17.0 g/dL 10.8 (L) Hematocrit, [place] 39.0 - 51.0 % 32.6 (L) MCV, [place] 80.0 - 100.0 fL 92.1 MCH, [place] 26.0 - 34.0 pg 30.5 MCHC, [place] 30.5 - 36.0 g/dL 33.1 RDW, [place] 11.5 - 15.0 % 14.5 Platelet Cnt, [place] 150 - 400 k/uL 101 (L) MPV, [place] 9.0 - 12.7 fL 12.1 Absol Gran Count 1.45 - 7.50 k/uL 1.67 ? Component Latest Ref Rng AND Units 07/01/2018 Protein, Total 6.3 - 8.0 g/dL 6.8 Albumin 3.9 - 4.9 g/dL 4.5 Calcium 8.5 - 10.2 mg/dL 9.9 Bilirubin, Total 0.2 - 1.3 mg/dL 0.5 Alkaline Phosphatase 38 - 113 U/L 90 AST 14 - 40 U/L 22 Glucose 74 - 99 mg/dL 163 (H) BUN 7 - 21 mg/dL 29 (H) Creatinine 0.73 - 1.22 mg/dL 1.11 Sodium 136 - 144 mmol/L 136 Potassium 3.7 - 5.1 mmol/L 4.8 Chloride 97 - 105 mmol/L 98 CO2 22 - 30 mmol/L 32 (H) Anion Gap 9 - 18 mmol/L 6 (L) ALT 10 - 54 U/L 26 eGFR- >60 eGFR-All Other Races . >60 Iron 41 - 186 ug/dL 111 TIBC 232 - 386 ug/dL 249 Transferrin Saturation 15 - 57 % 45 LD 135 - 225 U/L 132 (L) Ferritin 30.3 - 565.7 ng/mL 255.2 IMPRESSION:?Mr. 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 Patient had pancytopenia (leukopenia and?thrombocytopenia), and?anemia had in stable for the last 6 months without any treatment. ?No signs of Active infection or bleeding. ? PLAN:? Continue aspirin 81 mg daily. Monitor CBC every other months X 3 Resume Aranesp if hemoglobin less than 10 gm/dL or if he is symptomatic from anemia. Repeat CBC, CMP, LDH and iron study office visit in 6?months. flu vaccine given today. Mohit Mckay MD [place] ABS GR + CBC Collected: 07/01/2018 Status: F Source: [place] 2:19 PM [facility] REPOSITORY TYPE CODE TESTS RESULT OUT OF REFERENCE UNITS RANGE LAB WWBC 3.70-11.00 k/uL [place] WBC 4.01 LAB WRBC 4.20-6.00 m/uL Low [place] RBC 3.54 LAB WHGB 13.0-17.0 g/dL Low [place] Hemoglobin 10.8 LAB WHCT 39.0-51.0 % Low [place] Hematocrit 32.6 LAB WMCV 80.0-100.0 fL [place] MCV 92.1 LAB WMCH 26.0-34.0 pg [place] MCH 30.5 LAB WMCHC 30.5-36.0 g/dL [place] MCHC 33.1 LAB WRDW 11.5-15.0 % [place] RDW 14.5 LAB WPLT 150-400 k/uL Low [place] Platelet Cnt 101 LAB WMPV 9.0-12.7 fL [place] MPV 12.1 Result Comment: Test performed at: [facility] [place], [address] [place] [address]. LAB ABGRAN 1.45-7.50 k/uL Absol Gran 1.67 Count COMP METABOLIC PANEL Collected: 07/01/2018 Status: F Source: [place] 2:19 PM [facility] REPOSITORY TYPE CODE TESTS RESULT OUT OF REFERENCE UNITS RANGE LAB TP 6.3-8.0 g/dL Protein, Total 6.8 LAB ALB 3.9-4.9 g/dL Albumin 4.5 LAB CA 8.5-10.2 mg/dL Calcium, Total 9.9 LAB TBIL 0.2-1.3 mg/dL Bilirubin, Total 0.5 LAB ALKP 38-113 U/L Alkaline Phosphatase 90 LAB AST 14-40 U/L AST 22 LAB GLU 74-99 mg/dL Glucose High 163 LAB BUN 7-21 mg/dL BUN High 29 LAB CRET 0.73-1.22 mg/dL Creatinine 1.11 LAB NA 136-144 mmol/L Sodium 136 LAB K 3.7-5.1 mmol/L Potassium 4.8 LAB CL 97-105 mmol/L Chloride 98 LAB CO2 22-30 mmol/L CO2 High 32 LAB AGAP 9-18 mmol/L Anion Gap Low 6 LAB ALT 10-54 U/L ALT 26 LAB GFRAA eGFR- >60 Amer. LAB GFRNAA . eGFR-All Other Races >60 Result Comment: eGFR (Estimated GFR) Units of measure: mL/min/1.73 meters squared eGFR is derived from the reexpressed MDRD Study equation using the following parameters: serum creatinine, age, gender and race. The creatinine assay has been calibrated to be traceable to IDMS. An eGFR <60 mL/min/1.73m2 for >3 months is consistent with chronic kidney disease. Refer to KDOQI guidelines for clinical interpretation. In patients with unstable renal function, e.g. those with acute kidney injury, the eGFR may not accurately reflect actual GFR. LD Collected: 07/01/2018 Status: F Source: [facility] 2:19 PM [facility] REPOSITORY TYPE CODE TESTS RESULT OUT OF RANGE REFERENCE UNITS LAB LD 135-225 U/L Low LD 132 Performed By: #### IRON, FERR #### [facility] [address] [place] [address] IRON AND TIBC Collected: 07/01/2018 Status: F Source: [place] 2:19 PM [facility] REPOSITORY TYPE CODE TESTS RESULT OUT OF REFERENCE UNITS RANGE LAB IRN 41-186 ug/dL Iron 111 LAB TIBC 232-386 ug/dL TIBC 249 LAB SAT 15-57 % Transferrin Saturatn 45 Performed By: #### IRON, FERR #### [facility] [address] [address] FERRITIN Collected: 07/01/2018 Status: F Source: [place] 2:19 PM [facility] REPOSITORY TYPE CODE TESTS RESULT OUT OF REFERENCE UNITS RANGE LAB FERR 30.3-565.7 ng/mL Ferritin 255.2 Performed By: #### IRON, FERR #### [facility] [address] [address] HEMOGLOBIN A1C Collected: 07/01/2018 Status: F Source: [place] 2:19 PM [facility] REPOSITORY TYPE CODE TESTS RESULT OUT OF REFERENCE UNITS RANGE LAB HGBA1C 4.3-5.6 % High Hemoglobin A1c 6.5 LAB HBA0 mg/dL Est. Average Glucose 140 Result Comment: eAG: (Estimated average glucose) is a calculated value from HgbA1c and is packaging sales representative of the average blood glucose level in the last 2-3 month period. Performed By: #### HBA1C #### [facility] [address] [address] CNOVSP Observed: 07/01/2018 Status: COMPLETED Source: [place] 2:10 PM [facility] REPOSITORY Visit (SP) Office ([facility]) JULIANE FISHER ([id number]) 1935 M BLD Date Time Provider Department 07/01/18 2:10 PM MOHIT MCKAY During your visit today, we recorded the following information about you: Temperature Pulse Blood pressure Weight 98.6 degrees 54/minute 126/58 78.9 kg Mohit Mckay MD 07/02/2018 8:18 AM Signed PATIENT NAME: JULIANE FISHER ? CLINIC NO.: [id number] ? ATTENDING PHYSICIAN: Mohit Mckay MD ?? 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 HISTORY OF PRESENT ILLNESS: Mr. Fisher is a 82-year-old gentleman with a low-grade myelodysplastic syndrome/ refractory anemia. Patient had not require blood transfusion since his diagnosis of refractory anemia. ?? Current treatment: Aranesp - last injection was in November for refractory anemia ?? Interim history:? Patient denied fever, chills or night sweats. He has mild fatigue, but no shortness of breath. Patient denied increased bleeding or bruising despite thrombocytopenia.? Patient denies chest pain or palpitation. He has no?headaches or dizziness. 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 All medications AND?allergies updated reviewed by me. ?? PHYSICAL EXAM: Mr. Fisher appeared to be in no acute distress. ? performance status 80% BP 126/58 Pulse 54 Temp (Src) 98.6 (Oral) Wt 174 lb (78.9kg) HEENT: Sclerae anicteric. Neck: Supple, no palpable thyromegaly. Chest: Clear to auscultation. ? Cardiac is unremarkable. Abdomen: Soft and nontender, no masses or hepatosplenomegaly. Extremities show no edema, ecchymosis, or petechiae. Neurologic exam is nonfocal. He is alert and oriented ?3 ?? LABS: Component Latest Ref Rng AND Units 07/01/2018 WBC, [place] 3.70 - 11.00 k/uL 4.01 RBC, [place] 4.20 - 6.00 m/uL 3.54 (L) Hemoglobin, [place] 13.0 - 17.0 g/dL 10.8 (L) Hematocrit, [place] 39.0 - 51.0 % 32.6 (L) MCV, [place] 80.0 - 100.0 fL 92.1 MCH, [place] 26.0 - 34.0 pg 30.5 MCHC, [place] 30.5 - 36.0 g/dL 33.1 RDW, [place] 11.5 - 15.0 % 14.5 Platelet Cnt, [place] 150 - 400 k/uL 101 (L) MPV, [place] 9.0 - 12.7 fL 12.1 Absol Gran Count 1.45 - 7.50 k/uL 1.67 ? Component Latest Ref Rng AND Units 07/01/2018 Protein, Total 6.3 - 8.0 g/dL 6.8 Albumin 3.9 - 4.9 g/dL 4.5 Calcium 8.5 - 10.2 mg/dL 9.9 Bilirubin, Total 0.2 - 1.3 mg/dL 0.5 Alkaline Phosphatase 38 - 113 U/L 90 AST 14 - 40 U/L 22 Glucose 74 - 99 mg/dL 163 (H) BUN 7 - 21 mg/dL 29 (H) Creatinine 0.73 - 1.22 mg/dL 1.11 Sodium 136 - 144 mmol/L 136 Potassium 3.7 - 5.1 mmol/L 4.8 Chloride 97 - 105 mmol/L 98 CO2 22 - 30 mmol/L 32 (H) Anion Gap 9 - 18 mmol/L 6 (L) ALT 10 - 54 U/L 26 eGFR- >60 eGFR-All Other Races . >60 Iron 41 - 186 ug/dL 111 TIBC 232 - 386 ug/dL 249 Transferrin Saturation 15 - 57 % 45 LD 135 - 225 U/L 132 (L) Ferritin 30.3 - 565.7 ng/mL 255.2 IMPRESSION:?Mr. 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 Patient had pancytopenia (leukopenia and?thrombocytopenia), and?anemia had in stable for the last 6 months without any treatment. ?No signs of Active infection or bleeding. ? PLAN:? Continue aspirin 81 mg daily. Monitor CBC every other months X 3 Resume Aranesp if hemoglobin less than 10 gm/dL or if he is symptomatic from anemia. Repeat CBC, CMP, LDH and iron study office visit in 6?months. flu vaccine given today. MD Brittany Mcgrath, SHAHANA, [employer]STRUCTION [employer]ER 07/01/2018 2:55 PM Signed Influenza Vaccine Documentation: ? Patient is identified by name and date of : Yes ? Patient is older than 6 months of age: Yes ? Patient denies a severe allergy to any vaccine component or to a previous dose of influenza vaccine: Yes FOR EGG ALLERGY CONCERNS, REFER TO PROVIDER. ? Denies allergy to gelatin, formaldehyde, thimerosol :Yes ? Patient is afebrile and not moderately or severely ill: Yes ? Does the patient have a history of Guillain ?[place] Syndrome (a severe paralytic illness): No ? Denies bone marrow transplant prior 6 months or solid organ transplant prior 3 months: Yes ? Denies a history of fainting after a prior injection or medical procedure? Yes If patient has fainted in the past, the CDC recommends sitting or lying down for 15 minutes after the vaccination. ? VIS sheet provided: Yes ? See Immunization Form in [facility] for details of immunizations administered today. If patient reports dizziness, vision changes or ringing in the ears post vaccination ? please have patient sit or lie down for 15 minutes. Flu vaccine administered, right deltiod, tolerated well, no immediate adverse reactions noted. Brittany Hicks LPN Referring Provider: MOHIT MCKAY [[id number]] Allergies As of Date: 07/01/2018 (No Known Allergies) Date Reviewed: 07/01/2018 Reviewed by: Dariana Aguirre - Fully Assessed Reason for Visit: Established Patient [175] Primary Visit Diagnosis:Senile dementia, uncomplicated [F03.90] Other Visit Diagnoses:Anemia of chronic disease [D63.8] MDS (myelodysplastic syndrome), low grade (HCC) [D46.20] Order(s):[] influenza vaccine 180 mcg (Patients 65 years and older) (PF) (FLUZONE HIGH DOSE )Disp: Rfl: Level of Service: EST PATIENT VISIT LEVEL 3 [02510] Disposition: Return in about 6 months (around 12/30/2018). Follow-up and Disposition History Recorded Prescriptions as of 07/01/2018 Sig: PIOGLITAZONE 15 MG TABLET TAKE 1 TABLET BY MOUTH IN THE* POLYETHYLENE GLYCOL 3350 17 G* DISSOLVE 1 PACKET IN WATER AND * IPRATROPIUM BROMIDE 0.03 % NA* Use 2 Sprays in the nose ever* MAGNESIUM OXIDE 400 MG (241.3* Take 1 tablet by mouth twice * BLOOD SUGAR DIAGNOSTIC STRIPS Test blood sugar(s) two times* METFORMIN 1,000 MG TABLET Take 1 tablet by mouth daily * ASPIRIN 81 MG TABLET,DELAYED * Take 1 tablet by mouth once d* KETOCONAZOLE 2 % TOPICAL CREAM Apply 1 application to affect* MIRTAZAPINE 15 MG TABLET Take 1 tablet by mouth daily * MEMANTINE 10 MG TABLET [address] Anaya* DONEPEZIL 10 MG TABLET Take 1 tablet by mouth daily * METOPROLOL TARTRATE 25 MG TAB* Take 0.5 tablets by mouth twi* BLOOD-GLUCOSE METER KIT Glucose Meter of Choice - Kit* PREDNISONE 2.5 MG TABLET Take 1 tablet by mouth once d* Problem List As Of Date 07/01/2018 Noted Resolved DIABETES MELLITUS TYPE II-UNCOMPL [E11.9] INVALID FOR*06/05/2015 ESOPHAGEAL REFLUX [K21.9] INVALID FOR*07/05/2008 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 More... Ingrowing nail [L60.0] INVALID FOR*10/18/2013 Pain in limb [M79.609] INVALID FOR*09/06/2013 DM Neuro Manif Type II [E11.49] INVALID FOR*06/05/2015 Cellulitis and abscess of toe, unspecified [L03*INVALID FOR*09/06/2013 Thrombocytopenia [D69.6] INVALID FOR* MDS (myelodysplastic syndrome), low grade [D46.*INVALID FOR* Other acquired deformity of toe [M20.5X9] INVALID FOR*01/31/2014 Anemia [D64.9] INVALID FOR*10/16/2013 Frequency of urination [R35.0] INVALID FOR*01/31/2014 Urge incontinence [N39.41] INVALID FOR*01/31/2014 BPH (benign prostatic hyperplasia) [N40.0] INVALID FOR* Nocturia [R35.1] INVALID FOR* Cervical spondylosis without myelopathy [M47.81*INVALID FOR*01/31/2014 Cervicalgia [M54.2] INVALID FOR*09/06/2013 Pain due to onychomycosis of toenail [B35.1, M7*INVALID FOR*01/31/2014 Anemia of chronic disease [D63.8] INVALID FOR* (QFT) 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 Rheumatoid arthritis with negative rheumatoid f*INVALID FOR* More... 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 FRENCH on CPAP [G47.33, Z99.89] INVALID FOR* More... Urine retention [R33.9] INVALID FOR* Nocturnal leg cramps [G47.62] INVALID FOR* Visit Notes: >> Brittany Gupta (Shahana) SHAHANA Hicks WedJul 01, 2018 2:53 PM Status: Signed Influenza Vaccine Documentation: ? Patient is identified by name and date of : Yes ? Patient is older than 6 months of age: Yes ? Patient denies a severe allergy to any vaccine component or to a previous dose of influenza vaccine: Yes FOR EGG ALLERGY CONCERNS, REFER TO PROVIDER. ? Denies allergy to gelatin, formaldehyde, thimerosol :Yes ? Patient is afebrile and not moderately or severely ill: Yes ? Does the patient have a history of Guillain ?[place] Syndrome (a severe paralytic illness): No ? Denies bone marrow transplant prior 6 months or solid organ transplant prior 3 months: Yes ? Denies a history of fainting after a prior injection or medical procedure? Yes If patient has fainted in the past, the CDC recommends sitting or lying down for 15 minutes after the vaccination. ? VIS sheet provided: Yes ? See Immunization Form in [facility] for details of immunizations administered today. If patient reports dizziness, vision changes or ringing in the ears post vaccination ? please have patient sit or lie down for 15 minutes. Flu vaccine administered, right deltiod, tolerated well, no immediate adverse reactions noted. Brittany Hicks LPN Encounter Status:Closed by MOHIT MCKAY MD on 07/02/18 [place] ABS GR + CBC Collected: 06/03/2018 Status: F Source: [place] 2:09 PM [facility] REPOSITORY TYPE CODE TESTS RESULT OUT OF REFERENCE UNITS RANGE LAB WWBC 3.70-11.00 k/uL [place] WBC 4.11 Result Comment: Result checked and verified No clot detected. LAB WRBC 4.20-6.00 m/uL [place] RBC Low 3.67 LAB WHGB 13.0-17.0 g/dL [place] Low Hemoglobin 11.3 LAB WHCT 39.0-51.0 % [place] Low Hematocrit 33.9 LAB WMCV 80.0-100.0 fL [place] MCV 92.4 LAB WMCH 26.0-34.0 pg [place] MCH 30.8 LAB WMCHC 30.5-36.0 g/dL [place] MCHC 33.3 LAB WRDW 11.5-15.0 % [place] RDW 14.4 LAB WPLT 150-400 k/uL [place] Low Platelet Cnt 94 LAB WMPV 9.0-12.7 fL [place] MPV 11.2 Result Comment: Test performed at: [address] [place] [address]. LAB ABGRAN 1.45-7.50 k/uL 1.68 Absol Gran Count LAB ABSNUC <0.01 k/uL Preliminary Absolute nRBC result. Interpret with caution. Final results may vary. Results requested and read back by: Result Comment: WBC=4.32 Performed By: #### WAGCBC #### [facility] [address] [place], [place] [address] [place] ABS GR + CBC Collected: 05/06/2018 Status: F Source: [place] 3:27 PM [facility] REPOSITORY TYPE CODE TESTS RESULT OUT OF REFERENCE UNITS RANGE LAB WWBC 3.70-11.00 k/uL [place] WBC 4.33 LAB WRBC 4.20-6.00 m/uL Low [place] RBC 3.46 LAB WHGB 13.0-17.0 g/dL Low [place] Hemoglobin 10.6 LAB WHCT 39.0-51.0 % Low [place] Hematocrit 31.9 LAB WMCV 80.0-100.0 fL [place] MCV 92.2 LAB WMCH 26.0-34.0 pg [place] MCH 30.6 LAB WMCHC 30.5-36.0 g/dL [place] MCHC 33.2 LAB WRDW 11.5-15.0 % [place] RDW 14.4 LAB WPLT 150-400 k/uL Low [place] Platelet Cnt 89 LAB WMPV 9.0-12.7 fL [place] MPV 11.2 Result Comment: Test performed at: [facility], [address] [place] [address] Rd[address] [place] [address]. LAB ABGRAN 1.45-7.50 k/uL 1.63 Absol Gran Count LAB ABSNUC <0.01 k/uL Preliminary Absolute nRBC result. Interpret with caution. Final results may vary. Results requested and read back by: Result Comment: WBC=4.37 Absolute NRBC=0.00 Performed By: #### WAGCBC #### [facility] [address] [place], [place] [address] [facility] ABS GR + CBC Collected: 04/08/2018 Status: F Source: [place] 2:29 PM [facility] REPOSITORY TYPE CODE TESTS RESULT OUT OF REFERENCE UNITS RANGE LAB WWBC 3.70-11.00 k/uL [place] WBC 5.10 Result Comment: Result rechecked. Sample checked for a clot. LAB WRBC 4.20-6.00 m/uL [place] RBC Low 3.56 LAB WHGB 13.0-17.0 g/dL [place] Low Hemoglobin 11.0 LAB WHCT 39.0-51.0 % [place] Low Hematocrit 32.8 LAB WMCV 80.0-100.0 fL [place] MCV 92.1 LAB WMCH 26.0-34.0 pg [place] MCH 30.9 LAB WMCHC 30.5-36.0 g/dL [place] MCHC 33.5 LAB WRDW 11.5-15.0 % [place] RDW 14.6 LAB WPLT 150-400 k/uL [place] Low Platelet Cnt 97 LAB WMPV 9.0-12.7 fL [place] MPV 10.8 Result Comment: Test performed at: [facility] [place], [address] [place] [address]. LAB ABGRAN 1.45-7.50 k/uL 2.13 Absol Gran Count LAB ABSNUC <0.01 k/uL Preliminary Absolute nRBC result. Interpret with caution. Final results may vary. Results requested and read back by: Result Comment: WBC=5.20 Performed By: #### WAGCBC #### [facility] [address] [place], [place] [address] COMPREHENSIVE METABOLIC Collected: 03/28/2018 Status: F Source: [place] 2:56 PM [facility] REPOSITORY TYPE CODE TESTS RESULT OUT OF RANGE REFERENCE UNITS LAB L501.0100 74-106 mg/dL High GLU 148 Result Comment: Fasting Glucose result greater than or equal to 126 mg/dL suggests DIABETES MELLITUS per A.D.A. criteria. Please note revised GLUCOSE reference range effective 2017. LAB L501.1000 7-18 mg/dL High BUN 32 LAB L501.1100 0.70-1.30 mg/dL Normal CREAT,SERUM 1.21 Result Comment: The validity of the calculated GFR AND GFRAA in patients over 70 years has not been determined. Clinical correlation is essential. LAB L501.1110 >60 mL/min Normal EST GFR 61 Result Comment: Non- GFR Calc LAB L501.1115 >60 mL/min Normal EST GFR - AA 74 Result Comment: GFR Calc LAB L501.1300 10-20 RATIO High BUN/CRE 26.4 LAB L501.1500 6.4-8.2 g/dL T Normal PROT 7.6 LAB L501.1800 3.2-5.0 g/dL Normal ALB 4.2 LAB L501.1950 2.2-4.2 g/dL Normal GLOB 3.4 LAB L501.2000 0.9-2.4 RATIO Normal A/G 1.2 LAB L501.2200 8.5-10.1 mg/dL CA Normal 9.5 LAB L501.4100 15-37 U/L Normal AST 16 LAB L501.4305 45-117 U/L Normal ALK P 97 LAB L501.4405 16-61 U/L Normal ALT 37 LAB L501.4600 0.20-1.00 mg/dL T Normal BILI 0.40 LAB L501.5300 136-145 mmol/L NA Normal 143 LAB L501.5600 3.5-5.1 mmol/L K Normal 4.9 LAB L501.5900 98-107 mmol/L CL Normal 102 LAB L501.6100 21.0-32.0 mmol/L High CO2 34.0 LAB L501.6200 5-15 Normal GAP 7 Performed By: #### L500.4050 #### [facility] [address] [place], [address] CBC W/DIFF, AUTOMATED Collected: 03/28/2018 Status: F Source: [place] 2:56 PM [facility] REPOSITORY TYPE CODE TESTS RESULT OUT OF RANGE REFERENCE UNITS LAB L100.1000 4.4-11.0 K/mm3 Normal WBC 4.9 LAB L100.1200 4.6-6.2 M/mm3 Low RBC 3.64 LAB L100.1300 13.0-16.5 g/dl Low HGB 11.4 LAB L100.1400 40-54 % Low HCT 33.3 LAB L100.1500 80-94 fL Normal MCV 91.5 LAB L100.1600 27.0-32.0 pg Normal MCH 31.3 LAB L100.1700 32-36 g/gl Normal MCHC 34.2 LAB L100.1810 11.6-14.6 % High [place]DW CV 14.8 LAB L100.1820 35.1-43.9 fl High RDW SD 48.1 LAB L100.1900 150-450 K/mm3 Low PLT 100 LAB L100.2000 6.2-12.0 fl High MPV 12.3 LAB L100.2100 47-70 % Normal NEUT% 53.5 LAB L100.2200 19-41 % Normal LY% 25.7 LAB L100.2300 0-10 % High MONO% 20.0 LAB L100.2400 0-5 % Normal EO% 0.2 LAB L100.2500 0-1 % Normal BASO% 0.2 LAB L100.2550 0.0-0.9 % Normal IM GRAN % 0.400 Result Comment: IG% - Immature Granulocytes (promyelocytes, myelocytes and metamyelocytes) > 1% indicates that a LEFT SHIFT is Present. LAB L100.2620 2.0-7.7 X10 3/uL Normal Absolute Neut 2.6 LAB L100.2720 0.83-4.51 X10 3/ul Normal Absolute Lymph 1.26 Performed By: #### L100.0100 #### [facility] [address] [facility]. [place], [place], [address] [facility] ABS GR + CBC Collected: 03/11/2018 Status: F Source: [place] 2:16 PM [facility] REPOSITORY TYPE CODE TESTS RESULT OUT OF REFERENCE UNITS RANGE LAB WWBC 3.70-11.00 k/uL [place] WBC 4.77 LAB WRBC 4.20-6.00 m/uL Low [place] RBC 3.50 LAB WHGB 13.0-17.0 g/dL Low [place] Hemoglobin 10.7 LAB WHCT 39.0-51.0 % Low [place] Hematocrit 32.5 LAB WMCV 80.0-100.0 fL [place] MCV 92.9 LAB WMCH 26.0-34.0 pg [place] MCH 30.6 LAB WMCHC 30.5-36.0 g/dL [place] MCHC 32.9 LAB WRDW 11.5-15.0 % [place] RDW 14.9 LAB WPLT 150-400 k/uL Low [place] Platelet Cnt 93 LAB WMPV 9.0-12.7 fL [place] MPV 11.0 Result Comment: Test performed at: [facility], [address] [place] [address] [address] [place] [address]. LAB ABGRAN 1.45-7.50 k/uL 2.06 Absol Gran Count LAB ABSNUC <0.01 k/uL Preliminary Absolute nRBC result. Interpret with caution. Final results may vary. Results requested and read back by: Result Comment: WBC=4.77,ARIEL Performed By: #### WAGCBC #### [facility] [address] [place], [place] [address] [place] ABS GR + CBC Collected: 02/11/2018 Status: F Source: [place] 2:26 PM [facility] REPOSITORY TYPE CODE TESTS RESULT OUT OF REFERENCE UNITS RANGE LAB WWBC 3.70-11.00 k/uL [place] WBC 4.98 LAB WRBC 4.20-6.00 m/uL Low [place] RBC 3.46 LAB WHGB 13.0-17.0 g/dL Low [place] Hemoglobin 10.5 LAB WHCT 39.0-51.0 % Low [place] Hematocrit 32.2 LAB WMCV 80.0-100.0 fL [place] MCV 93.1 LAB WMCH 26.0-34.0 pg [place] MCH 30.3 LAB WMCHC 30.5-36.0 g/dL [place] MCHC 32.6 LAB [place]DW 11.5-15.0 % [place] RDW 14.7 LAB WPLT 150-400 k/uL Low [place] Platelet Cnt 104 LAB WMPV 9.0-12.7 fL [place] MPV 11.5 Result Comment: Test performed at: [facility], [address] [place] [address] [address] [place] [address]. LAB ABGRAN 1.45-7.50 k/uL 2.11 Absol Gran Count LAB ABSNUC <0.01 k/uL Preliminary Absolute nRBC result. Interpret with caution. Final results may vary. Results requested and read back by: Result Comment: WBC=5.01,P.DROUHARD Performed By: #### WAGCBC #### [facility] [address] [place], [place] [address] PROGRESS Observed: 02/03/2018 Status: COMPLETED Source: [place] 3:17 PM [facility] REPOSITORY HNO ID: [id number] Author: Presley Ortiz Service: (none) Author Type: Physician Type: Progress Notes Filed: 02/03/2018 3:37 PM Note Text: Presley Ortiz DPM Department of Podiatry [address] [place] [address] Dept: [phone] Dept Diabetic Nail Care SUBJECTIVE: Follow up office visit: This 82 year old male presents to clinic c/o nail care. Patient admits to being diabetic and states that he did not check blood glucose this am. Patient denies claudication type symptoms when walking. No other pedal complaints at this time. No change in medications or medical history since last visit. OBJECTIVE: Patient presents to clinic ambulating in Diabetic Shoes. Vasc: DP and PT pulses are decreased bilateral. CFT is less than 5 seconds bilateral. Skin temperature is warm to cool proximal to distal bilateral. There is moderate edema or varicosities noted. Hair growth absent. Neuro: Protective sensation is absent to the foot and toes when tested with the 5.07 SWM bilateral. Vibratory sensation is absent at the hallux bilateral. significant neurological defecits. Derm: Inspection and palpation performed. Nails 1-5 b/l are discolored-yellow, thick, crumbly, dystrophic and with subungal debris. Skin is thin and shiny b/l. Pallor noted on elevation b/l. Skin is of normal turgor and texture. Hyperkeratosis no. NO ulcerations, scars, verruca or other lesions noted. Ortho: Ankle joint DF is decreased with the knee extended and decreased with knee flexed. No pain or crepitus noted. STJ, MTJ ROM are full and free of pain or crepitus. Muscle strength is 5/5 for dorsiflexors, plantarflexors, inverters, everters. ASSESSMENT: (B35.1) Onychomycosis (primary encounter diagnosis) q8 modifer (E11.42) Diabetic polyneuropathy associated with type 2 diabetes mellitus (HCC) (I87.2) Venous insufficiency PLAN: Patient was seen and evaluated. Nails 1-5 bilateral were debrided in length and thickness. Will have patient use avila wraps for swelling. Compression stockings were not covered by insurance. Patient with no wounds on exam. If wounds develop, he is to contact office immediately. Patient was instructed on the continued importance of diabetic foot care along with proper diet and keeping their blood sugar under control to prevent complications. Patient is to RTC in 3-4 months. Presley Ortiz DPM CNOV Observed: 02/03/2018 Status: COMPLETED Source: [place] 2:20 PM [facility] REPOSITORY Office Visit (PODIWS) PHILLIPJULIANE Aracely ([id number]) 1935 M BLD Date Time Provider Department 02/03/18 2:20 PM PRESLEY ORTIZ During your visit today, we recorded the following information about you: Presley Ortiz DPM 02/03/2018 3:37 PM Signed Presley Ortiz DPM Department of Podiatry [address] [facility] [address] Dept: [phone] Dept Diabetic Nail Care SUBJECTIVE: Follow up office visit: This 82 year old male presents to clinic c/o nail care. Patient admits to being diabetic and states that he did not check blood glucose this am. Patient denies claudication type symptoms when walking. No other pedal complaints at this time. No change in medications or medical history since last visit. OBJECTIVE: Patient presents to clinic ambulating in Diabetic Shoes. Vasc: DP and PT pulses are decreased bilateral. CFT is less than 5 seconds bilateral. Skin temperature is warm to cool proximal to distal bilateral. There is moderate edema or varicosities noted. Hair growth absent. Neuro: Protective sensation is absent to the foot and toes when tested with the 5.07 SWM bilateral. Vibratory sensation is absent at the hallux bilateral. significant neurological defecits. Derm: Inspection and palpation performed. Nails 1-5 b/l are discolored-yellow, thick, crumbly, dystrophic and with subungal debris. Skin is thin and shiny b/l. Pallor noted on elevation b/l. Skin is of normal turgor and texture. Hyperkeratosis no. NO ulcerations, scars, verruca or other lesions noted. Ortho: Ankle joint DF is decreased with the knee extended and decreased with knee flexed. No pain or crepitus noted. STJ, MTJ ROM are full and free of pain or crepitus. Muscle strength is 5/5 for dorsiflexors, plantarflexors, inverters, everters. ASSESSMENT: (B35.1) Onychomycosis (primary encounter diagnosis) q8 modifer (E11.42) Diabetic polyneuropathy associated with type 2 diabetes mellitus (HCC) (I87.2) Venous insufficiency PLAN: Patient was seen and evaluated. Nails 1-5 bilateral were debrided in length and thickness. Will have patient use avila wraps for swelling. Compression stockings were not covered by insurance. Patient with no wounds on exam. If wounds develop, he is to contact office immediately. Patient was instructed on the continued importance of diabetic foot care along with proper diet and keeping their blood sugar under control to prevent complications. Patient is to RTC in 3-4 months. Presley Ortiz DPM Referring Provider: PRESLEY ORTZI [[id number]] Allergies As of Date: 02/03/2018 (No Known Allergies) Date Reviewed: 12/28/2017 Reviewed by: Katie Juarez LPN - Fully Assessed Reason for Visit: Diabetic Foot Care [916] Primary Visit Diagnosis:Onychomycosis [B35.1] Other Visit Diagnoses:Diabetic polyneuropathy associated with type 2 diabetes mellitus (HCC) [E11.42] Venous insufficiency [I87.2] Prescriptions as of 02/03/2018 Sig: IPRATROPIUM BROMIDE 0.03 % NA* Use 2 Sprays in the nose ever* MAGNESIUM OXIDE 400 MG TABLET Take 1 tablet by mouth twice * BLOOD SUGAR DIAGNOSTIC STRIPS Test blood sugar(s) two times* METFORMIN 1,000 MG TABLET Take 1 tablet by mouth daily * POLYETHYLENE GLYCOL 3350 17 G* Take 1 Packet by mouth once d* PIOGLITAZONE 15 MG TABLET Take 1 tablet by mouth every * ASPIRIN 81 MG TABLET,DELAYED * Take 1 tablet by mouth once d* KETOCONAZOLE 2 % TOPICAL CREAM Apply 1 application to affect* MIRTAZAPINE 15 MG TABLET Take 1 tablet by mouth daily * MEMANTINE 10 MG TABLET [address] 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 More... Ingrowing nail [L60.0] INVALID FOR*10/18/2013 Pain in limb [M79.609] INVALID FOR*09/06/2013 DM Neuro Manif Type II [E11.49] INVALID FOR*06/05/2015 Cellulitis and abscess of toe, unspecified [L03*INVALID FOR*09/06/2013 Thrombocytopenia [D69.6] INVALID FOR* MDS (myelodysplastic syndrome), low grade [D46.*INVALID FOR* Other acquired deformity of toe [M20.5X9] INVALID FOR*01/31/2014 Anemia [D64.9] INVALID FOR*10/16/2013 Frequency of urination [R35.0] INVALID FOR*01/31/2014 Urge incontinence [N39.41] INVALID FOR*01/31/2014 BPH (benign prostatic hyperplasia) [N40.0] INVALID FOR* Nocturia [R35.1] INVALID FOR* Cervical spondylosis without myelopathy [M47.81*INVALID FOR*01/31/2014 Cervicalgia [M54.2] INVALID FOR*09/06/2013 Pain due to onychomycosis of toenail [B35.1, M7*INVALID FOR*01/31/2014 Anemia of chronic disease [D63.8] INVALID FOR* (QFT) 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 Rheumatoid arthritis with negative rheumatoid f*INVALID FOR* More... 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 FRENCH on CPAP [G47.33, Z99.89] INVALID FOR* More... Urine retention [R33.9] INVALID FOR* Nocturnal leg cramps [G47.62] INVALID FOR* Encounter Status:Closed by PRESLEY ORTIZ DPM on 02/03/18 [place] ABS GR + CBC Collected: 01/14/2018 Status: F Source: [place] 2:57 PM [facility] REPOSITORY TYPE CODE TESTS RESULT OUT OF REFERENCE UNITS RANGE LAB WWBC 3.70-11.00 k/uL [place] WBC 4.10 Result Comment: Result rechecked. No clot detected. LAB WRBC 4.20-6.00 m/uL [place] RBC Low 3.54 LAB WHGB 13.0-17.0 g/dL [place] Low Hemoglobin 10.7 LAB WHCT 39.0-51.0 % [place] Low Hematocrit 32.8 LAB WMCV 80.0-100.0 fL [place] MCV 92.7 LAB WMCH 26.0-34.0 pg [place] MCH 30.2 LAB WMCHC 30.5-36.0 g/dL [place] MCHC 32.6 LAB WRDW 11.5-15.0 % [place] RDW 14.5 LAB WPLT 150-400 k/uL [place] Low Platelet Cnt 104 LAB WMPV 9.0-12.7 fL [place] MPV 11.7 Result Comment: Test performed at: [facility], [address] [place] [address]. LAB ABGRAN 1.45-7.50 k/uL Absol Gran 2.17 Count Performed By: #### WAGCBC #### [facility] [address] [place], [place] [address] PROGRESS Observed: 12/28/2017 Status: COMPLETED Source: [place] 3:32 PM [facility] REPOSITORY HNO ID: [id number] Author: Sampson Lovell Service: (none) Author Type: Physician Type: Progress Notes Filed: 12/28/2017 3:36 PM Note Text: This note was created using NoteWriter. Subjective Juliane Fisher is a 82 year old male here for follow up. DM was controlled. Symptoms of hypoglycemia were infrequent. He complained of nocturnal leg cramps for several weeks, easily relieved by getting up and applying pressure on the feet. He slept curled on his side. Sleep was otherwise good. His sacral pain resolved with removal of his indwelling mahmood catheter. 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 blood sugar diagnostic (BLOOD GLUCOSE TEST) test strip Test blood sugar(s) two times daily. Insulin: No. labile blood glucoses, uncontrolled DM. No insulin. 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 polyethylene glycol 3350 (MIRALAX, GLYCOLAX) 17 gram packet Take 1 Packet by mouth once daily. pioglitazone (ACTOS) 15 mg tablet Take 1 tablet by mouth every morning. aspirin, enteric coated (ASPIRIN, ENTERIC COATED) 81 mg EC tablet Take 1 tablet by mouth once daily. ketoconazole (NIZORAL) 2 % cream Apply 1 application to affected area twice daily. mirtazapine (REMERON) 15 mg tablet Take 1 tablet by mouth daily at bedtime. Dr. Blake memantine (NAMENDA) 10 mg tablet [address] Blake. donepezil (ARICEPT) 10 mg tablet Take 1 tablet by mouth daily at bedtime. metoprolol tartrate, short acting, (LOPRESSOR) 25 mg tablet Take 0.5 tablets by mouth twice daily. Blood-Glucose Meter monitoring kit Glucose Meter of Choice - Kit. Check 4 times a day. Hypoglycemia, labile blood glucoses, uncontrolled DM. No insulin. predniSONE (DELTASONE) 2.5 mg tablet Take 1 tablet by mouth once daily. Ipratropium [place] (ATROVENT) 0.03 % nasal spray Use 2 Sprays in the nose every 12 hours. No current facility-administered medications for this visit. Review of Systems Constitutional: Negative. HENT: Positive for postnasal drip, rhinorrhea and sneezing. Respiratory: Negative. Cardiovascular: Negative. Genitourinary: Negative. Musculoskeletal: See HPI. Objective BP 128/56 (BP Site: Left Arm, BP Position: Sitting, BP Cuff Size: Regular Adult) Pulse (!) 56 Temp 36.2 ?C (97.1 ?F) (Left Tympanic) Resp 16 Wt 73 kg (161 lb) BMI 22.45 kg/m2 Physical Exam Constitutional: No distress. Cardiovascular: Normal heart sounds. Pulmonary/Chest: Breath sounds normal. Musculoskeletal: He exhibits no edema or tenderness. Neurological: He is alert. Coordination normal. Hemoglobin A1C (%) Date Value 12/24/2017 6.1 06/25/2017 6.0 ) Cholesterol, Total (mg/dL) Date Value 12/24/2017 90 12/25/2016 86 HDL Cholesterol (mg/dL) Date Value 12/24/2017 35 12/25/2016 38 LDL Cholesterol (mg/dL) Date Value 12/24/2017 45 12/25/2016 38 Triglyceride (mg/dL) Date Value 12/24/2017 52 12/25/2016 50 Assessment and Plan ASSESSMENT/PLAN: 1. 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 - Continue current medications - ALBUMIN/CREAT RATIO RND UR - BASIC METABOLIC PNL - HGB A1C 2. Postnasal drip - ICD9: 784.91, ICD10: R09.82 Discussed medication dosage, usage, goals of therapy, and side effects. - IPRATROPIUM BROMIDE 0.03 % NASAL SPRAY 3. Nocturnal leg cramps - ICD9: 327.52, ICD10: G47.62 Options discussed. Symptoms were easily relieved by position change. No medication recommended. Avoid sleeping with ankle in dorsiflexion. 4. Paroxysmal atrial fibrillation (HCC) - ICD9: 427.31, ICD10: I48.0 Controlled. Sampson Lovell MD CNOV Observed: 12/28/2017 Status: COMPLETED Source: [place] 2:00 PM [facility] REPOSITORY Office Visit (INTMWS) JULIANE FISHER ([id number]) 1935 M BLD Date Time Provider Department 12/28/17 2:00 PM SAMPSON LOVELL INTMWS During your visit today, we recorded the following information about you: Temperature Pulse Respiration Blood pressure 97.1 degrees 56/minute 16/minute 128/56 Weight 73 kg Sampson Lovell MD 12/28/2017 3:36 PM Signed This note was created using [employer]. Subjective Juliane Fisher is a 82 year old male here for follow up. DM was controlled. Symptoms of hypoglycemia were infrequent. He complained of nocturnal leg cramps for several weeks, easily relieved by getting up and applying pressure on the feet. He slept curled on his side. Sleep was otherwise good. His sacral pain resolved with removal of his indwelling mahmood catheter. 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 blood sugar diagnostic (BLOOD GLUCOSE TEST) test strip Test blood sugar(s) two times daily. Insulin: No. labile blood glucoses, uncontrolled DM. No insulin. 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 polyethylene glycol 3350 (MIRALAX, GLYCOLAX) 17 gram packet Take 1 Packet by mouth once daily. pioglitazone (ACTOS) 15 mg tablet Take 1 tablet by mouth every morning. aspirin, enteric coated (ASPIRIN, ENTERIC COATED) 81 mg EC tablet Take 1 tablet by mouth once daily. ketoconazole (NIZORAL) 2 % cream Apply 1 application to affected area twice daily. mirtazapine (REMERON) 15 mg tablet Take 1 tablet by mouth daily at bedtime. Dr. Blake memantine (NAMENDA) 10 mg tablet [address] Blake. donepezil (ARICEPT) 10 mg tablet Take 1 tablet by mouth daily at bedtime. metoprolol tartrate, short acting, (LOPRESSOR) 25 mg tablet Take 0.5 tablets by mouth twice daily. Blood-Glucose Meter monitoring kit Glucose Meter of Choice - Kit. Check 4 times a day. Hypoglycemia, labile blood glucoses, uncontrolled DM. No insulin. predniSONE (DELTASONE) 2.5 mg tablet Take 1 tablet by mouth once daily. Ipratropium [place] (ATROVENT) 0.03 % nasal spray Use 2 Sprays in the nose every 12 hours. No current facility-administered medications for this visit. Review of Systems Constitutional: Negative. HENT: Positive for postnasal drip, rhinorrhea and sneezing. Respiratory: Negative. Cardiovascular: Negative. Genitourinary: Negative. Musculoskeletal: See HPI. Objective BP 128/56 (BP Site: Left Arm, BP Position: Sitting, BP Cuff Size: Regular Adult) Pulse (!) 56 Temp 36.2 ?C (97.1 ?F) (Left Tympanic) Resp 16 Wt 73 kg (161 lb) BMI 22.45 kg/m2 Physical Exam Constitutional: No distress. Cardiovascular: Normal heart sounds. Pulmonary/Chest: Breath sounds normal. Musculoskeletal: He exhibits no edema or tenderness. Neurological: He is alert. Coordination normal. Hemoglobin A1C (%) Date Value 12/24/2017 6.1 06/25/2017 6.0 ) Cholesterol, Total (mg/dL) Date Value 12/24/2017 90 12/25/2016 86 HDL Cholesterol (mg/dL) Date Value 12/24/2017 35 12/25/2016 38 LDL Cholesterol (mg/dL) Date Value 12/24/2017 45 12/25/2016 38 Triglyceride (mg/dL) Date Value 12/24/2017 52 12/25/2016 50 Assessment and Plan ASSESSMENT/PLAN: 1. 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 - Continue current medications - ALBUMIN/CREAT RATIO RND UR - BASIC METABOLIC PNL - HGB A1C 2. Postnasal drip - ICD9: 784.91, ICD10: R09.82 Discussed medication dosage, usage, goals of therapy, and side effects. - IPRATROPIUM BROMIDE 0.03 % NASAL SPRAY 3. Nocturnal leg cramps - ICD9: 327.52, ICD10: G47.62 Options discussed. Symptoms were easily relieved by position change. No medication recommended. Avoid sleeping with ankle in dorsiflexion. 4. Paroxysmal atrial fibrillation (HCC) - ICD9: 427.31, ICD10: I48.0 Controlled. 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) [E11.40] Other Visit Diagnoses:Postnasal drip [R09.82] Nocturnal leg cramps [G47.62] Paroxysmal atrial fibrillation (HCC) [I48.0] Order(s):ALBUMIN/CREAT RATIO RND UR [SQUACR] Order #: [id number] FUTURE Ipratropium [place] (ATROVENT) 0.03 % nasal sprayUse 2 Sprays in the nose every 12 hours.Disp: 1 BottleRfl: 1 BASIC METABOLIC PNL [SQBMP] Order #: [id number] FUTURE HGB A1C [LBNKA4S] Order #: [id number] FUTURE Prescriptions as of 12/28/2017 Sig: MAGNESIUM OXIDE 400 MG TABLET Take 1 tablet by mouth twice * BLOOD SUGAR DIAGNOSTIC STRIPS Test blood sugar(s) two times* METFORMIN 1,000 MG TABLET Take 1 tablet by mouth daily * POLYETHYLENE GLYCOL 3350 17 G* Take 1 Packet by mouth once d* PIOGLITAZONE 15 MG TABLET Take 1 tablet by mouth every * ASPIRIN 81 MG TABLET,DELAYED * Take 1 tablet by mouth once d* KETOCONAZOLE 2 % TOPICAL CREAM Apply 1 application to affect* MIRTAZAPINE 15 MG TABLET Take 1 tablet by mouth daily * MEMANTINE 10 MG TABLET [address] Anaya* DONEPEZIL 10 MG TABLET Take 1 tablet by mouth daily * METOPROLOL TARTRATE 25 MG TAB* Take 0.5 tablets by mouth twi* BLOOD-GLUCOSE METER KIT Glucose Meter of Choice - Kit* PREDNISONE 2.5 MG TABLET Take 1 tablet by mouth once d* IPRATROPIUM BROMIDE 0.03 % NA* Use 2 Sprays in the nose ever* Medication notes this encounter KETOCONAZOLE 2 % TOPICAL CREAM >> Katie Juarez LPN 12/28/2017 2:08 PM >> KATIE JUAREZ LPN WedDec 28, 2017 2:08 PM PRN BLOOD-GLUCOSE METER KIT >> Katie Juarez LPN 12/28/2017 2:07 PM >> KATIE JUAREZ LPN WedDec 28, 2017 2:07 PM Patient testing blood sugars x2 daily. Problem List As Of Date 12/28/2017 Noted Resolved DIABETES MELLITUS TYPE II-UNCOMPL [E11.9] INVALID FOR*06/05/2015 ESOPHAGEAL REFLUX [K21.9] INVALID FOR*07/05/2008 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 More... Ingrowing nail [L60.0] INVALID FOR*10/18/2013 Pain in limb [M79.609] INVALID FOR*09/06/2013 DM Neuro Manif Type II [E11.49] INVALID FOR*06/05/2015 Cellulitis and abscess of toe, unspecified [L03*INVALID FOR*09/06/2013 Thrombocytopenia [D69.6] INVALID FOR* MDS (myelodysplastic syndrome), low grade [D46.*INVALID FOR* Other acquired deformity of toe [M20.5X9] INVALID FOR*01/31/2014 Anemia [D64.9] INVALID FOR*10/16/2013 Frequency of urination [R35.0] INVALID FOR*01/31/2014 Urge incontinence [N39.41] INVALID FOR*01/31/2014 BPH (benign prostatic hyperplasia) [N40.0] INVALID FOR* Nocturia [R35.1] INVALID FOR* Cervical spondylosis without myelopathy [M47.81*INVALID FOR*01/31/2014 Cervicalgia [M54.2] INVALID FOR*09/06/2013 Pain due to onychomycosis of toenail [B35.1, M7*INVALID FOR*01/31/2014 Anemia of chronic disease [D63.8] INVALID FOR* (QFT) 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 Rheumatoid arthritis with negative rheumatoid f*INVALID FOR* More... 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 FRENCH on CPAP [G47.33, Z99.89] INVALID FOR* More... Urine retention [R33.9] INVALID FOR* Nocturnal leg cramps [G47.62] INVALID FOR* Prescriptions ordered this encounter Disp Refills Start End IPRATROPIUM BROMIDE 0.03 % NASAL SPR* 1 Jarad* 1 12/28/2017 Route: NASAL Sig: Use 2 Sprays in the nose every 12 hours. Disposition: Return in about 6 months (around 06/29/2018). Follow-up and Disposition History Recorded Encounter Status:Closed by SAMPSON LOVELL MD on 12/28/17 LIPID PANEL, BASIC Collected: 12/24/2017 Status: F Source: [place] 7:58 AM [facility] [place] REPOSITORY TYPE CODE TESTS RESULT OUT OF REFERENCE UNITS RANGE LAB CHOL <200 mg/dL Cholesterol 90 Result Comment: <200 mg/dL, Desirable 200-239 mg/dL, Borderline high >239 mg/dL, High LAB TRIGLY <150 mg/dL Triglyceride 52 Result Comment: <150 mg/dL, Normal 150-199 mg/dL, Borderline high 200-499 mg/dL, High >499 mg/dL, Very high LAB HDL >39 mg/dL HDL-Cholesterol Low 35 Result Comment: 40-59 mg/dL, Acceptable >59 mg/dL, High: Negative risk factor for coronary heart disease <40 mg/dL, Low: Positive risk factor for coronary heart disease LAB LDL <100 mg/dL LDL-Cholesterol 45 Result Comment: <100 mg/dL, Optimal 100-129 mg/dL, Near optimal/above optimal 130-159 mg/dL, Borderline high 160-189 mg/dL, High >189 mg/dL, Very high Secondary prevention optimal LDL Cholesterol levels are recommended to be < 70 mg/dL LAB NONHDL <130 mg/dL Non HDL Cholesterol 55 Result Comment: <130 mg/dL, Optimal 130-159 mg/dL, Near optimal/above optimal 160-189 mg/dL, Borderline high 190-219 mg/dL, High >219 mg/dL, Very high Secondary prevention optimal non HDL Cholesterol levels are recommended to be < 100 mg/dL LAB FT hrs Fasting Time 12 LAB VLDL <30 mg/dL VLDL Cholesterol 10 LAB TCHDL <5.10 TC:HDL Ratio 2.57 LAB LDLHDL <2.54 LDL:HDL Ratio 1.29 Result Comment: Reference: 1. National Cholesterol Education Program ATP III Guideline At-A-Glance Quick Desk Reference: National Heart, Lung, and Blood [place]. National Institutes of Health. 2001: NIH Publication No. 01-3305. 2. An International Atherosclerosis Society position paper: global recommendations for the management of dyslipidemia: executive summary, Atherosclerosis. 2014: 232(2):410-413. Performed By: #### LIPB, HBA1C #### [facility] [address] [place], [place] [address] HEMOGLOBIN A1C Collected: 12/24/2017 Status: F Source: [place] 7:58 AM [facility] REPOSITORY TYPE CODE TESTS RESULT OUT OF REFERENCE UNITS RANGE LAB HGBA1C 4.3-5.6 % High Hemoglobin A1c 6.1 LAB HBA0 mg/dL Est. Average Glucose 128 Result Comment: eAG: (Estimated average glucose) is a calculated value from HgbA1c and is packaging sales representative of the average blood glucose level in the last 2-3 month period. Performed By: #### LIPB, HBA1C #### [facility] [address] [id number] LAURENCE ABS GR + CBC Collected: 12/17/2017 Status: F Source: [place] 2:36 PM [facility] REPOSITORY TYPE CODE TESTS RESULT OUT OF REFERENCE UNITS RANGE LAB WWBC 3.70-11.00 k/uL [place] WBC 4.28 Result Comment: Result rechecked. LAB WRBC 4.20-6.00 m/uL [place] RBC Low 3.39 LAB WHGB 13.0-17.0 g/dL [place] Hemoglobin 10.4 LAB WHCT 39.0-51.0 % [place] Hematocrit 31.5 LAB WMCV 80.0-100.0 fL [place] MCV 92.9 LAB WMCH 26.0-34.0 pg [place] MCH 30.7 LAB WMCHC 30.5-36.0 g/dL [place] MCHC 33.0 LAB WRDW 11.5-15.0 % [place] RDW 14.3 LAB WPLT 150-400 k/uL [place] Platelet Cnt 98 LAB WMPV 9.0-12.7 fL [place] MPV 11.1 Result Comment: Test performed at: [facility] [place], [address] [place] [address]. LAB ABGRAN 1.45-7.50 k/uL Absol Gran 1.66 Count Performed By: #### WAGCBC #### [facility] [address] [place], [place] [address] CNNURSE Observed: 12/16/2017 Status: COMPLETED Source: [place] 2:00 PM [facility] RE[facility]IT[facility] Nurse Visit (UROLWS) JULIANE FISHER ([id number]) 1935 M BLD Date Time Provider Department 12/16/17 2:00 PM NURSE UROL [facility] UROLWS During your visit today, we recorded the following information about you: Francheska Fernandez Ma 12/17/2017 3:26 PM Signed Pt had mahmood removed last week. States he has been voiding comfortably with no leakage. Voided within the hour and unable to void currently. Bladder scan ordered per Debbie Mendieta PA-C was 188 ml. Per SHIVAM Amos this is improved and pt to follow up as needed. Francheska Fernandez Ma Referring Provider: DEBBIE MENDIETA (SHIVAM) [[id number]] Allergies As of Date: 12/16/2017 (No Known Allergies) Date Reviewed: 12/10/2017 Reviewed by: Francheska Fernandez Ma - Fully Assessed Reason for Visit: Nurse Visit [792] bladder scan [Other] Primary Visit Diagnosis:Urine retention [R33.9] Order(s):US MSR POST-VOID RESID URINE [[id number]] Order #: [id number] Prescriptions as of 12/16/2017 Sig: MAGNESIUM OXIDE 400 MG TABLET Take 1 tablet by mouth twice * BLOOD SUGAR DIAGNOSTIC STRIPS Test blood sugar(s) two times* METFORMIN 1,000 MG TABLET Take 1 tablet by mouth daily * POLYETHYLENE GLYCOL 3350 17 G* Take 1 Packet by mouth once d* PIOGLITAZONE 15 MG TABLET Take 1 tablet by mouth every * ASPIRIN 81 MG TABLET,DELAYED * Take 1 tablet by mouth once d* KETOCONAZOLE 2 % TOPICAL CREAM Apply 1 application to affect* MIRTAZAPINE 15 MG TABLET Take 1 tablet by mouth daily * MEMANTINE 10 MG TABLET [address] Anaya* DONEPEZIL 10 MG TABLET Take 1 tablet by mouth daily * METOPROLOL TARTRATE 25 MG TAB* Take 0.5 tablets by mouth twi* BLOOD-GLUCOSE METER KIT Glucose Meter of Choice - Kit* PREDNISONE 2.5 MG TABLET Take 1 tablet by mouth once d* Problem List As Of Date 12/16/2017 Noted Resolved DIABETES MELLITUS TYPE II-UNCOMPL [E11.9] INVALID FOR*06/05/2015 ESOPHAGEAL REFLUX [K21.9] INVALID FOR*07/05/2008 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 More... Ingrowing nail [L60.0] INVALID FOR*10/18/2013 Pain in limb [M79.609] INVALID FOR*09/06/2013 DM Neuro Manif Type II [E11.49] INVALID FOR*06/05/2015 Cellulitis and abscess of toe, unspecified [L03*INVALID FOR*09/06/2013 Thrombocytopenia [D69.6] INVALID FOR* MDS (myelodysplastic syndrome), low grade [D46.*INVALID FOR* Other acquired deformity of toe [M20.5X9] INVALID FOR*01/31/2014 Anemia [D64.9] INVALID FOR*10/16/2013 Frequency of urination [R35.0] INVALID FOR*01/31/2014 Urge incontinence [N39.41] INVALID FOR*01/31/2014 BPH (benign prostatic hyperplasia) [N40.0] INVALID FOR* Nocturia [R35.1] INVALID FOR* Cervical spondylosis without myelopathy [M47.81*INVALID FOR*01/31/2014 Cervicalgia [M54.2] INVALID FOR*09/06/2013 Pain due to onychomycosis of toenail [B35.1, M7*INVALID FOR*01/31/2014 Anemia of chronic disease [D63.8] INVALID FOR* (QFT) 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 Rheumatoid arthritis with negative rheumatoid f*INVALID FOR* More... 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 FRENCH on CPAP [G47.33, Z99.89] INVALID FOR* More... Urine retention [R33.9] INVALID FOR* Encounter Status:Closed by DEBBIE MENDIETA PA-C on 12/17/17 PROGRESS Observed: 12/16/2017 Status: COMPLETED Source: [place] 1:31 PM [facility] REPOSIT[facility] HNO ID: [id number] Author: Francheska Fernandez Ma Service: (none) Author Type: (none) Type: Progress Notes Filed: 12/17/2017 3:26 PM Note Text: Pt had mahmood removed last week. States he has been voiding comfortably with no leakage. Voided within the hour and unable to void currently. Bladder scan ordered per Debbie Mendieta PA-C was 188 ml. Per SHIVAM Amos this is improved and pt to follow up as needed. Francheska Fernandez Ma CNPTOUTREACH Observed: 12/14/2017 Status: COMPLETED Source: [place] 12:00 AM [facility] REPOSIT[facility] Patient Outreach (INTMWH) JULIANE FISHER ([id number]) 1935 M BLD Date Time Provider Department [facility]/14[facility] During your visit today, we recorded the following information about you: Allergies As of Date: 12/14/2017 (No Known Allergies) Date Reviewed: 12/10/2017 Reviewed by: Franhceska Fernandez Ma - Fully Assessed Visit Diagnosis:Medication management [Z79.899] Order(s):HGB A1C [[id number]] Order #: [id number] FUTURE LIPID PANEL BASIC [SQLIPB] Order #: [id number] FUTURE Prescriptions as of 12/14/2017 Sig: MAGNESIUM OXIDE 400 MG (241.3* Take 1 tablet by mouth twice * BLOOD SUGAR DIAGNOSTIC STRIPS Test blood sugar(s) two times* METFORMIN 1,000 MG TABLET Take 1 tablet by mouth daily * X POLYETHYLENE GLYCOL 3350 17 G* Take 1 Packet by mouth once d* X PIOGLITAZONE 15 MG TABLET Take 1 tablet by mouth every * ASPIRIN 81 MG TABLET,DELAYED * Take 1 tablet by mouth once d* KETOCONAZOLE 2 % TOPICAL CREAM Apply 1 application to affect* MIRTAZAPINE 15 MG TABLET Take 1 tablet by mouth daily * MEMANTINE 10 MG TABLET [address] Anaya* DONEPEZIL 10 MG TABLET Take 1 tablet by mouth daily * METOPROLOL TARTRATE 25 MG TAB* Take 0.5 tablets by mouth twi* BLOOD-GLUCOSE METER KIT Glucose Meter of Choice - Kit* PREDNISONE 2.5 MG TABLET Take 1 tablet by mouth once d* Problem List As Of Date 12/14/2017 Noted Resolved DIABETES MELLITUS TYPE II-UNCOMPL [E11.9] INVALID FOR*06/05/2015 ESOPHAGEAL REFLUX [K21.9] INVALID FOR*07/05/2008 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 More... Ingrowing nail [L60.0] INVALID FOR*10/18/2013 Pain in limb [M79.609] INVALID FOR*09/06/2013 DM Neuro Manif Type II [E11.49] INVALID FOR*06/05/2015 Cellulitis and abscess of toe, unspecified [L03*INVALID FOR*09/06/2013 Thrombocytopenia [D69.6] INVALID FOR* MDS (myelodysplastic syndrome), low grade [D46.*INVALID FOR* Other acquired deformity of toe [M20.5X9] INVALID FOR*01/31/2014 Anemia [D64.9] INVALID FOR*10/16/2013 Frequency of urination [R35.0] INVALID FOR*01/31/2014 Urge incontinence [N39.41] INVALID FOR*01/31/2014 BPH (benign prostatic hyperplasia) [N40.0] INVALID FOR* Nocturia [R35.1] INVALID FOR* Cervical spondylosis without myelopathy [M47.81*INVALID FOR*01/31/2014 Cervicalgia [M54.2] INVALID FOR*09/06/2013 Pain due to onychomycosis of toenail [B35.1, M7*INVALID FOR*01/31/2014 Anemia of chronic disease [D63.8] INVALID FOR* (QFT) 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 Rheumatoid arthritis with negative rheumatoid f*INVALID FOR* More... 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 FRENCH on CPAP [G47.33, Z99.89] INVALID FOR* More... Urine retention [R33.9] INVALID FOR* Encounter Status:Closed by OLEG MICHELLEUSER on 06/17/18 PROGRESS Observed: 12/10/2017 Status: COMPLETED Source: [place] 4:26 PM [facility] RE[facility] HNO ID: [id number] Author: Francheska Fernandez Ma Service: (none) Author Type: (none) Type: Progress Notes Filed: 12/21/2017 12:38 PM Note Text: Patient here for Trial Void bladder filled with 300cc of sterile water. Catheter removed without difficulty. Patient voided spontaneously around the mahmood, mahmood removed and then voided another 30cc of clear yellow urine spontaneously without control. Bladder Scan was 134cc Per Debbie Mendieta order and pt's request, mahmood was left out and pt will RTO next week for repeat Bladder scan. Pt will remain off of the Oxybutynin and monitor voiding ability and incontinence. ER if unable to void. . Patient instructed to call office with any questions or concerns. Francheska Fernandez Ma CNOV Observed: 12/10/2017 Status: COMPLETED Source: [place] 2:00 PM [facility] RE[facility] Office Visit (UROLWS) JULIANE FISHER ([id number]) 1935 M BLD Date Time Provider Department 12/10/17 2:00 PM DEBBIE MENDIETA) UROLWS During your visit today, we recorded the following information about you: Pulse Blood pressure Weight 64/minute 130/64 73.5 kg Francheska Fernandez Ma 12/10/2017 4:31 PM Signed Patient here for Trial Void bladder filled with 300cc of sterile water. Catheter removed without difficulty. Patient voided spontaneously around the mahmood, mahmood removed and then voided another 30cc of clear yellow urine spontaneously without control. Bladder Scan was 134cc Per Debbie Mendieta order and pt's request, mahmood was left out and pt will RTO next week for repeat Bladder scan. Pt will remain off of the Oxybutynin and monitor voiding ability and incontinence. ER if unable to void. . Patient instructed to call office with any questions or concerns. Francheska Fernandez Ma Referring Provider: DEBBIE MENDIETA (SHIVAM) [[id number]] Allergies As of Date: 12/10/2017 (No Known Allergies) Date Reviewed: 12/10/2017 Reviewed by: Francheska Fernandez Ma - Fully Assessed Reason for Visit: Follow Up [171] BPH [1368] Mahmood [344] Reason For Visit History Recorded Primary Visit Diagnosis:Urinary retention [R33.9] Prescriptions as of 12/10/2017 Sig: MAGNESIUM OXIDE 400 MG TABLET Take 1 tablet by mouth twice * BLOOD SUGAR DIAGNOSTIC STRIPS Test blood sugar(s) two times* TRAMADOL 50 MG TABLET Take 1 tablet by mouth every * METFORMIN 1,000 MG TABLET Take 1 tablet by mouth daily * POLYETHYLENE GLYCOL 3350 17 G* Take 1 Packet by mouth once d* PIOGLITAZONE 15 MG TABLET Take 1 tablet by mouth every * ASPIRIN 81 MG TABLET,DELAYED * Take 1 tablet by mouth once d* KETOCONAZOLE 2 % TOPICAL CREAM Apply 1 application to affect* MIRTAZAPINE 15 MG TABLET Take 1 tablet by mouth daily * MEMANTINE 10 MG TABLET [address] Anaya* DONEPEZIL 10 MG TABLET Take 1 tablet by mouth daily * METOPROLOL TARTRATE 25 MG TAB* Take 0.5 tablets by mouth twi* BLOOD-GLUCOSE METER KIT Glucose Meter of Choice - Kit* PREDNISONE 2.5 MG TABLET Take 1 tablet by mouth once d* Problem List As Of Date 12/10/2017 Noted Resolved DIABETES MELLITUS TYPE II-UNCOMPL [E11.9] INVALID FOR*06/05/2015 ESOPHAGEAL REFLUX [K21.9] INVALID FOR*07/05/2008 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 More... Ingrowing nail [L60.0] INVALID FOR*10/18/2013 Pain in limb [M79.609] INVALID FOR*09/06/2013 DM Neuro Manif Type II [E11.49] INVALID FOR*06/05/2015 Cellulitis and abscess of toe, unspecified [L03*INVALID FOR*09/06/2013 Thrombocytopenia [D69.6] INVALID FOR* MDS (myelodysplastic syndrome), low grade [D46.*INVALID FOR* Other acquired deformity of toe [M20.5X9] INVALID FOR*01/31/2014 Anemia [D64.9] INVALID FOR*10/16/2013 Frequency of urination [R35.0] INVALID FOR*01/31/2014 Urge incontinence [N39.41] INVALID FOR*01/31/2014 BPH (benign prostatic hyperplasia) [N40.0] INVALID FOR* Nocturia [R35.1] INVALID FOR* Cervical spondylosis without myelopathy [M47.81*INVALID FOR*01/31/2014 Cervicalgia [M54.2] INVALID FOR*09/06/2013 Pain due to onychomycosis of toenail [B35.1, M7*INVALID FOR*01/31/2014 Anemia of chronic disease [D63.8] INVALID FOR* (QFT) 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 Rheumatoid arthritis with negative rheumatoid f*INVALID FOR* More... 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 FRENCH on CPAP [G47.33, Z99.89] INVALID FOR* More... Urine retention [R33.9] INVALID FOR* Encounter Status:Closed by DBEBIE MENDIETA PA-C on 12/21/17 PROGRESS Observed: 12/04/2017 Status: COMPLETED Source: [place] 10:14 AM [facility] [place] REPOSITORY HNO ID: [id number] Author: Sampson Lovell Service: (none) Author Type: Physician Type: Progress Notes Filed: 12/04/2017 11:05 AM Note Text: This note was created using Yillioriter. Subjective Juliane Fisher is a 82 year old male was here for buttock pain. Patient reports low back pain with acute onset 5 days ago. The pain is located in sacroiliac region and gluteal region bilaterally without radiation and described as vague, 6/10. Pain is worse with sitting and lying down and better with standing. Other factors were recent insertion of indwelling mahmood for urinary retention. Spouse noted some cloudiness in the tube, one bloody speck, but patient otherwise felt well. He had no abdominal pain or distention to begin with. He came in for medication refill and was found to have urine retention. Follow up with urology was next week. Questions about hydration were discussed. 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 Questions about constipation were discussed. Review of Systems Constitutional: Negative. Gastrointestinal: Positive for constipation. Negative for abdominal pain, nausea, rectal pain and vomiting. Genitourinary: Positive for hematuria. Negative for difficulty urinating and dysuria. Musculoskeletal: Positive for back pain. Objective BP 110/62 Pulse 68 Temp 36.5 ?C (97.7 ?F) (Temporal Artery) Wt 72.1 kg (159 lb) BMI 22.18 kg/m2 Physical Exam Constitutional: No distress. Abdominal: Soft. He exhibits no mass. There is no tenderness. Musculoskeletal: He exhibits no tenderness or deformity. Lumbar back: He exhibits normal range of motion, no tenderness, no bony tenderness and no spasm. Neurological: He is alert. He has normal strength. Coordination normal. Steady gait considering poor vision. Assessment and Plan 1. Urine retention - ICD9: 788.20, ICD10: R33.9 (primary diagnosis) Reassured that some debris is expected with indwelling mahmood. Continue to monitor. Call for pain, fever. 2. Constipation, unspecified constipation type - ICD9: 564.00, ICD10: K59.00 Controlled. - MAGNESIUM OXIDE 400 MG TABLET 3. 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 - BLOOD SUGAR DIAGNOSTIC STRIPS 4. Sacral back pain - ICD9: 724.6, ICD10: M53.3 Acute. Use donut. Discussed medication dosage, usage, goals of therapy, and side effects. - TRAMADOL 50 MG TABLET Sampson Lovell MD CNOV Observed: 12/04/2017 Status: COMPLETED Source: [place] 9:20 AM [facility] REPOSIT[facility] Office Visit (INTMWS) JULIANE FISHER ([id number]) 1935 M [facility] Date Time Provider Department 12/04/17 9:20 AM SAMPSON LOVELL INTMWS During your visit today, we recorded the following information about you: Temperature Pulse Blood pressure Weight 97.7 degrees 68/minute 110/62 72.1 kg Sampson Lovell MD 12/04/2017 11:05 AM Signed This note was created using NoteWriter. Subjective Juliane Fisher is a 82 year old male was here for buttock pain. Patient reports low back pain with acute onset 5 days ago. The pain is located in sacroiliac region and gluteal region bilaterally without radiation and described as vague, 6/10. Pain is worse with sitting and lying down and better with standing. Other factors were recent insertion of indwelling mahmood for urinary retention. Spouse noted some cloudiness in the tube, one bloody speck, but patient otherwise felt well. He had no abdominal pain or distention to begin with. He came in for medication refill and was found to have urine retention. Follow up with urology was next week. Questions about hydration were discussed. 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 Questions about constipation were discussed. Review of Systems Constitutional: Negative. Gastrointestinal: Positive for constipation. Negative for abdominal pain, nausea, rectal pain and vomiting. Genitourinary: Positive for hematuria. Negative for difficulty urinating and dysuria. Musculoskeletal: Positive for back pain. Objective BP 110/62 Pulse 68 Temp 36.5 ?C (97.7 ?F) (Temporal Artery) Wt 72.1 kg (159 lb) BMI 22.18 kg/m2 Physical Exam Constitutional: No distress. Abdominal: Soft. He exhibits no mass. There is no tenderness. Musculoskeletal: He exhibits no tenderness or deformity. Lumbar back: He exhibits normal range of motion, no tenderness, no bony tenderness and no spasm. Neurological: He is alert. He has normal strength. Coordination normal. Steady gait considering poor vision. Assessment and Plan 1. Urine retention - ICD9: 788.20, ICD10: R33.9 (primary diagnosis) Reassured that some debris is expected with indwelling mahmood. Continue to monitor. Call for pain, fever. 2. Constipation, unspecified constipation type - ICD9: 564.00, ICD10: K59.00 Controlled. - MAGNESIUM OXIDE 400 MG TABLET 3. 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 - BLOOD SUGAR DIAGNOSTIC STRIPS 4. Sacral back pain - ICD9: 724.6, ICD10: M53.3 Acute. Use donut. Discussed medication dosage, usage, goals of therapy, and side effects. 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 Insulin: No. labile blood glucoses, uncontrolled DM. No insulin. Uncontrolled type 2 diabetes with neuropathy (HCC) - ICD9: 250.62, 357.2, ICD10: E11.40, E11.65Disp: Rfl: 3 traMADol (ULTRAM) 50 mg tabletTake 1 tablet by mouth every 6 hours as needed for Pain for up to 7 days.Disp: 28 tabletRfl: 0 Prescriptions as of 12/04/2017 Sig: MAGNESIUM OXIDE 400 MG TABLET Take 1 tablet by mouth twice * BLOOD SUGAR DIAGNOSTIC STRIPS Test blood sugar(s) two times* METFORMIN 1,000 MG TABLET Take 1 tablet by mouth daily * POLYETHYLENE GLYCOL 3350 17 G* Take 1 Packet by mouth once d* PIOGLITAZONE 15 MG TABLET Take 1 tablet by mouth every * ASPIRIN 81 MG TABLET,DELAYED * Take 1 tablet by mouth once d* KETOCONAZOLE 2 % TOPICAL CREAM Apply 1 application to affect* MIRTAZAPINE 15 MG TABLET Take 1 tablet by mouth daily * MEMANTINE 10 MG TABLET [address] 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 More... Ingrowing nail [L60.0] INVALID FOR*10/18/2013 Pain in limb [M79.609] INVALID FOR*09/06/2013 DM Neuro Manif Type II [E11.49] INVALID FOR*06/05/2015 Cellulitis and abscess of toe, unspecified [L03*INVALID FOR*09/06/2013 Thrombocytopenia [D69.6] INVALID FOR* MDS (myelodysplastic syndrome), low grade [D46.*INVALID FOR* Other acquired deformity of toe [M20.5X9] INVALID FOR*01/31/2014 Anemia [D64.9] INVALID FOR*10/16/2013 Frequency of urination [R35.0] INVALID FOR*01/31/2014 Urge incontinence [N39.41] INVALID FOR*01/31/2014 BPH (benign prostatic hyperplasia) [N40.0] INVALID FOR* Nocturia [R35.1] INVALID FOR* Cervical spondylosis without myelopathy [M47.81*INVALID FOR*01/31/2014 Cervicalgia [M54.2] INVALID FOR*09/06/2013 Pain due to onychomycosis of toenail [B35.1, M7*INVALID FOR*01/31/2014 Anemia of chronic disease [D63.8] INVALID FOR* (QFT) 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 Rheumatoid arthritis with negative rheumatoid f*INVALID FOR* More... 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 FRENCH on CPAP [G47.33, Z99.89] INVALID FOR* More... Urine retention [R33.9] INVALID FOR* Prescriptions ordered this encounter Disp Refills Start End MAGNESIUM OXIDE 400 MG TABLET 180 * 3 12/04/2017 Route: ORAL Sig: Take 1 tablet by mouth twice daily. BLOOD SUGAR DIAGNOSTIC STRIPS 3 12/04/2017 Class: Med Update Sig: Test blood sugar(s) two times daily. Insulin: No. labile blood glucoses, uncontrolled DM. No insulin. Uncontrolled type 2 diabetes with neuropathy (HCC) - ICD9: 250.62, 357.2, ICD10: E11.40, E11.65 TRAMADOL 50 MG TABLET 28 t* 0 12/04/2017 12/11/2017 Class: Print RX Route: ORAL Sig: Take 1 tablet by mouth every 6 hours as needed for Pain for up to 7 days. Medications Discontinued During This Encounter azithromycin (ZITHROMAX Z-ESTEPHANIA) 250 m* 1 Pa* 0 07/28/2017 12/04/2017 Class: Historical Med Sig: Take 2 tablets day one, then, 1 tablet daily until gone. Disc: Course of therapy completed oxybutynin ER (DITROPAN XL) 10 mg 24* 90 t* 4 11/10/2016 12/04/2017 Route: ORAL Sig: Take 1 tablet by mouth once daily. Disc: Reason for discontinue is not on file. magnesium oxide (MAG-OX) 400 mg tabl* 180 * 3 12/11/2016 12/04/2017 Cmt: This prescription was filled today(08/08/2016). Any refills authorized will be placed on file. Route: ORAL Sig: Take 1 tablet by mouth twice daily. Disc: Reason for discontinue is not on file. blood sugar diagnostic (BLOOD GLUCOS* 450 * 3 11/05/2015 12/04/2017 Class: Print RX Sig: Test blood sugar(s) 5 times daily. Insulin: No. Frequent hypoglycemia, labile blood glucoses, uncontrolled DM. No insulin. 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 Disposition: Return if symptoms worsen or fail to improve. Follow-up and Disposition History Recorded Encounter Status:Closed by SAMPSON LOVELL MD on 12/04/17 CNNURSE Observed: 11/26/2017 Status: COMPLETED Source: [place] 10:00 AM [facility] RE[facility]IT[facility] Nurse Visit (UROLWS) JULIANE FISHER ([id number]) 1935 [facility] Date Time Provider Department 11/26/17 10:00 AM NURSE UROL [facility] UROLWS During your visit today, we recorded the following information about you: Marce Saenz RN 11/26/2017 9:57 AM Signed Patient here to evaluate post void residual. He attempted to empty his bladder and was then scanned for 403 cc residual urine. Debbie LANGLEY notified. Marce Saenz RN 11/26/2017 10:29 AM Signed Sterile technique was used to insert an 18fr coude tip catheter. Leg bag was applied as well as a cath secure bandage. Bladder was drained of a large amount of clear yellow urine. Patient tolerated the procedure well. Patient and were instructed to call with any concerns or questions and follow up appointment was made. Patient was also sent home with a larger mahmood bag for overnight use. Marce Saenz RN Referring Provider: SAMPSON LOVELL [[id number]] Allergies As of Date: 11/26/2017 (No Known Allergies) Date Reviewed: 11/19/2017 Reviewed by: Marissa Espionza LPN - Fully Assessed Primary Visit Diagnosis:Urinary retention [R33.9] Prescriptions as of 11/26/2017 Sig: AZITHROMYCIN 250 MG TABLET Take 2 tablets day one, then,* METFORMIN 1,000 MG TABLET Take 1 tablet by mouth daily * POLYETHYLENE GLYCOL 3350 17 G* Take 1 Packet by mouth once d* PIOGLITAZONE 15 MG TABLET Take 1 tablet by mouth every * MAGNESIUM OXIDE 400 MG TABLET Take 1 tablet by mouth twice * OXYBUTYNIN CHLORIDE ER 10 MG * Take 1 tablet by mouth once d* ASPIRIN 81 MG TABLET,DELAYED * Take 1 tablet by mouth once d* KETOCONAZOLE 2 % TOPICAL CREAM Apply 1 application to affect* MIRTAZAPINE 15 MG TABLET Take 1 tablet by mouth daily * MEMANTINE 10 MG TABLET [address] 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 More... Ingrowing nail [L60.0] INVALID FOR*10/18/2013 Pain in limb [M79.609] INVALID FOR*09/06/2013 DM Neuro Manif Type II [E11.49] INVALID FOR*06/05/2015 Cellulitis and abscess of toe, unspecified [L03*INVALID FOR*09/06/2013 Thrombocytopenia [D69.6] INVALID FOR* MDS (myelodysplastic syndrome), low grade [D46.*INVALID FOR* Other acquired deformity of toe [M20.5X9] INVALID FOR*01/31/2014 Anemia [D64.9] INVALID FOR*10/16/2013 Frequency of urination [R35.0] INVALID FOR*01/31/2014 Urge incontinence [N39.41] INVALID FOR*01/31/2014 BPH (benign prostatic hyperplasia) [N40.0] INVALID FOR* Nocturia [R35.1] INVALID FOR* Cervical spondylosis without myelopathy [M47.81*INVALID FOR*01/31/2014 Cervicalgia [M54.2] INVALID FOR*09/06/2013 Pain due to onychomycosis of toenail [B35.1, M7*INVALID FOR*01/31/2014 Anemia of chronic disease [D63.8] INVALID FOR* (QFT) 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 Rheumatoid arthritis with negative rheumatoid f*INVALID FOR* More... 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 FRENCH on CPAP [G47.33, Z99.89] INVALID FOR* More... Visit Notes: >> Marce Saenz RN WedNov 26, 2017 9:56 AM Status: Signed Patient here to evaluate post void residual. He attempted to empty his bladder and was then scanned for 403 cc residual urine. Debbie LANGLEY notified. Marce Saenz RN >> Marce Saenz RN WedNov 26, 2017 10:23 AM Status: Signed Sterile technique was used to insert an 18fr coude tip catheter. Leg bag was applied as well as a cath secure bandage. Bladder was drained of a large amount of clear yellow urine. Patient tolerated the procedure well. Patient and were instructed to call with any concerns or questions and follow up appointment was made. Patient was also sent home with a larger mahmood bag for overnight use. Marce Saenz RN Encounter Status:Closed by MARCE SAENZ RN on 11/29/17 PROGRESS Observed: 11/19/2017 Status: COMPLETED Source: [place] 1:51 PM [facility] REPOSITORY HNO ID: [id number] Author: Mohit Mckay Service: (none) Author Type: Physician Type: Progress Notes Filed: 11/20/2017 9:36 AM Note Text: PATIENT NAME: JULIANE FISHER ? CLINIC NO.: [id number] ? ATTENDING PHYSICIAN: Mohit Mckay MD ?? 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 HISTORY OF PRESENT ILLNESS: Mr. Fisher is a 82-year-old gentleman with a low-grade myelodysplastic syndrome/ refractory anemia. Patient had not require blood transfusion since his diagnosis of refractory anemia. ?? Current treatment: Aranesp for refractory anemia ?? Interim history:? Patient denied fever, chills or night sweats. He has mild fatigue, but no shortness of breath. Patient denied increased bleeding or bruising despite thrombocytopenia.? Patient denies chest pain or palpitation. He has no?headaches or dizziness. His appetitie and?weight loss have improved.?No swelling of his leg or ankles. Blood pressure is normal ?? All medications AND?allergies updated reviewed by me. ?? Physical exam: Mr. Fisher appeared to be in no acute distress. ? performance status 80% ?BP 154/70 Pulse 56 Temp 97.8 Wt 163 lb 8 oz (74.2kg) HEENT: Sclerae anicteric. Neck: Supple, no palpable thyromegaly. Chest: Clear to auscultation. ? Cardiac is unremarkable. Abdomen: Soft and nontender, no masses or hepatosplenomegaly. Extremities show no edema, ecchymosis, or petechiae. Neurologic exam is nonfocal. He is alert and oriented ?3 ?? LABS: Component Latest Ref Rng AND Units 11/19/2017 WBC, Laurence 3.70 - 11.00 k/uL 3.19 (L) RBC, Derwent 4.20 - 6.00 m/uL 3.47 (L) Hemoglobin, Laurence 13.0 - 17.0 g/dL 10.6 (L) Hematocrit, Laurence 39.0 - 51.0 % 31.9 (L) MCV, [place]went 80.0 - 100.0 fL 91.9 MCH, [place]went 26.0 - 34.0 pg 30.5 MCHC, [place]went 30.5 - 36.0 g/dL 33.2 RDW, Laurence 11.5 - 15.0 % 14.8 Platelet Cnt, Laurence 150 - 400 k/uL 93 (L) MPV, Laurence 9.0 - 12.7 fL 11.7 Absol Gran Count 1.45 - 7.50 k/uL 1.12 (L) Component Latest Ref Rng AND Units 11/19/2017 Iron 41 - 186 ug/dL 95 TIBC 232 - 386 ug/dL 271 Transferrin Saturation 15 - 57 % 35 Ferritin 30.3 - 565.7 ng/mL 309.1 Component Latest Ref Rng AND Units 11/19/2017 Protein, Total 6.3 - 8.0 g/dL 7.4 Albumin 3.9 - 4.9 g/dL 4.8 Calcium 8.5 - 10.2 mg/dL 9.7 Bilirubin, Total 0.2 - 1.3 mg/dL 0.4 Alkaline Phosphatase 36 - 108 U/L 71 AST 14 - 40 U/L 34 Glucose 74 - 99 mg/dL 129 (H) BUN 9 - 24 mg/dL 25 (H) Creatinine 0.73 - 1.22 mg/dL 1.15 Sodium 136 - 144 mmol/L 142 Potassium 3.7 - 5.1 mmol/L 4.7 Chloride 97 - 105 mmol/L 100 CO2 22 - 30 mmol/L 33 (H) Anion Gap 9 - 18 mmol/L 9 ALT 10 - 54 U/L 48 eGFR- >60 eGFR-All Other Races . >60 LD 135 - 225 U/L 107 (L) IMPRESSION:?Mr. 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 Patient had moderate pancytopenia (leukopenia and?thrombocytopenia), and anemia had improved?with Aranesp injection. ?No signs of infection or bleeding. PLAN:?Continue ?Aranesp 200 ?g subcutaneous every 4?weeks if hemoglobin less than 10.0 gm/dL for refractory anemia. Continue aspirin 81 mg daily. Monitor CBC every 28 days?x 6. Repeat CBC, CMP, LDH and iron study office visit in 6?months. ?? Mohit Mckay MD CNOVSP Observed: 11/19/2017 Status: COMPLETED Source: [place] 1:50 PM [facility] RE[facility] Visit (SP) Office ([place]) JULIANE FISHER ([id number]) 1935 M [facility] Date Time Provider Department 11/19/17 1:50 PM MOHIT MCKAY During your visit today, we recorded the following information about you: Temperature Pulse Blood pressure Weight 97.8 degrees 56/minute 154/70 74.2 kg Marissa Espinoza LPN 11/19/2017 2:08 PM Signed Est patient. Four month ov. Discuss recent labs. Marissa Mckay MD 11/20/2017 9:36 AM Signed PATIENT NAME: JULIANE FISHER ? CLINIC NO.: [id number] ? ATTENDING PHYSICIAN: Mohit Mckay MD ?? 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 HISTORY OF PRESENT ILLNESS: Mr. Fisher is a 82-year-old gentleman with a low-grade myelodysplastic syndrome/ refractory anemia. Patient had not require blood transfusion since his diagnosis of refractory anemia. ?? Current treatment: Aranesp for refractory anemia ?? Interim history:? Patient denied fever, chills or night sweats. He has mild fatigue, but no shortness of breath. Patient denied increased bleeding or bruising despite thrombocytopenia.? Patient denies chest pain or palpitation. He has no?headaches or dizziness. His appetitie and?weight loss have improved.?No swelling of his leg or ankles. Blood pressure is normal ?? All medications ANDamp;?allergies updated reviewed by me. ?? Physical exam: Mr. Fisher appeared to be in no acute distress. ? performance status 80% ?BP 154/70 Pulse 56 Temp 97.8 Wt 163 lb 8 oz (74.2kg) HEENT: Sclerae anicteric. Neck: Supple, no palpable thyromegaly. Chest: Clear to auscultation. ? Cardiac is unremarkable. Abdomen: Soft and nontender, no masses or hepatosplenomegaly. Extremities show no edema, ecchymosis, or petechiae. Neurologic exam is nonfocal. He is alert and oriented ?3 ?? LABS: Component Latest Ref Rng ANDamp; Units 11/19/2017 WBC, [place] 3.70 - 11.00 k/uL 3.19 (L) RBC, [place] 4.20 - 6.00 m/uL 3.47 (L) Hemoglobin, [place] 13.0 - 17.0 g/dL 10.6 (L) Hematocrit, [place] 39.0 - 51.0 % 31.9 (L) MCV, [place] 80.0 - 100.0 fL 91.9 MCH, [place] 26.0 - 34.0 pg 30.5 MCHC, [place] 30.5 - 36.0 g/dL 33.2 RDW, [place] 11.5 - 15.0 % 14.8 Platelet Cnt, [place] 150 - 400 k/uL 93 (L) MPV, [place] 9.0 - 12.7 fL 11.7 Absol Gran Count 1.45 - 7.50 k/uL 1.12 (L) Component Latest Ref Rng ANDamp; Units 11/19/2017 Iron 41 - 186 ug/dL 95 TIBC 232 - 386 ug/dL 271 Transferrin Saturation 15 - 57 % 35 Ferritin 30.3 - 565.7 ng/mL 309.1 Component Latest Ref Rng ANDamp; Units 11/19/2017 Protein, Total 6.3 - 8.0 g/dL 7.4 Albumin 3.9 - 4.9 g/dL 4.8 Calcium 8.5 - 10.2 mg/dL 9.7 Bilirubin, Total 0.2 - 1.3 mg/dL 0.4 Alkaline Phosphatase 36 - 108 U/L 71 AST 14 - 40 U/L 34 Glucose 74 - 99 mg/dL 129 (H) BUN 9 - 24 mg/dL 25 (H) Creatinine 0.73 - 1.22 mg/dL 1.15 Sodium 136 - 144 mmol/L 142 Potassium 3.7 - 5.1 mmol/L 4.7 Chloride 97 - 105 mmol/L 100 CO2 22 - 30 mmol/L 33 (H) Anion Gap 9 - 18 mmol/L 9 ALT 10 - 54 U/L 48 eGFR- ANDgt;60 eGFR-All Other Races . ANDgt;60 LD 135 - 225 U/L 107 (L) IMPRESSION:?Mr. 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 Patient had moderate pancytopenia (leukopenia and?thrombocytopenia), and anemia had improved?with Aranesp injection. ?No signs of infection or bleeding. PLAN:?Continue ?Aranesp 200 ?g subcutaneous every 4?weeks if hemoglobin less than 10.0 gm/dL for refractory anemia. Continue aspirin 81 mg daily. Monitor CBC every 28 days?x 6. Repeat CBC, CMP, LDH and iron study office visit in 6?months. ?? Mohit Mckay MD Referring Provider: MOHIT MCKAY [[id number]] Allergies As of Date: 11/19/2017 (No Known Allergies) Date Reviewed: 11/19/2017 Reviewed by: Marissa Espinoza LPN - Fully Assessed Reason for Visit: Established Patient [175] Primary Visit Diagnosis:MDS (myelodysplastic syndrome), low grade (HCC) [D46.20] Other Visit Diagnoses:Anemia of chronic disease [D63.8] Thrombocytopenia (HCC) [D69.6] Level of Service: EST PATIENT VISIT LEVEL 3 [[id number]] Disposition: Return in about 6 months (around 05/22/2018). Follow-up and Disposition History Recorded Prescriptions as of 11/19/2017 Sig: METFORMIN 1,000 MG TABLET Take 1 tablet by mouth daily * POLYETHYLENE GLYCOL 3350 17 G* Take 1 Packet by mouth once d* PIOGLITAZONE 15 MG TABLET Take 1 tablet by mouth every * MAGNESIUM OXIDE 400 MG TABLET Take 1 tablet by mouth twice * OXYBUTYNIN CHLORIDE ER 10 MG * Take 1 tablet by mouth once d* ASPIRIN 81 MG TABLET,DELAYED * Take 1 tablet by mouth once d* KETOCONAZOLE 2 % TOPICAL CREAM Apply 1 application to affect* MIRTAZAPINE 15 MG TABLET Take 1 tablet by mouth daily * MEMANTINE 10 MG TABLET [address] Anaya* DONEPEZIL 10 MG TABLET Take 1 tablet by mouth daily * BLOOD SUGAR DIAGNOSTIC STRIPS Test blood sugar(s) 5 times d* METOPROLOL TARTRATE 25 MG TAB* Take 0.5 tablets by mouth twi* BLOOD-GLUCOSE METER KIT Glucose Meter of Choice - Kit* PREDNISONE 2.5 MG TABLET Take 1 tablet by mouth once d* AZITHROMYCIN 250 MG TABLET Take 2 tablets day one, then,* Medication notes this encounter AZITHROMYCIN 250 MG TABLET >> Marissa Espinoza LPN 11/19/2017 1:46 PM >> MARISSA ESPINOZA LPN Fri Nov 19, 2017 1:46 PM completed Problem List As Of Date 11/19/2017 Noted Resolved DIABETES MELLITUS TYPE II-UNCOMPL [E11.9] INVALID FOR*06/05/2015 ESOPHAGEAL REFLUX [K21.9] INVALID FOR*07/05/2008 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 More... Ingrowing nail [L60.0] INVALID FOR*10/18/2013 Pain in limb [M79.609] INVALID FOR*09/06/2013 DM Neuro Manif Type II [E11.49] INVALID FOR*06/05/2015 Cellulitis and abscess of toe, unspecified [L03*INVALID FOR*09/06/2013 Thrombocytopenia [D69.6] INVALID FOR* MDS (myelodysplastic syndrome), low grade [D46.*INVALID FOR* Other acquired deformity of toe [M20.5X9] INVALID FOR*01/31/2014 Anemia [D64.9] INVALID FOR*10/16/2013 Frequency of urination [R35.0] INVALID FOR*01/31/2014 Urge incontinence [N39.41] INVALID FOR*01/31/2014 BPH (benign prostatic hyperplasia) [N40.0] INVALID FOR* Nocturia [R35.1] INVALID FOR* Cervical spondylosis without myelopathy [M47.81*INVALID FOR*01/31/2014 Cervicalgia [M54.2] INVALID FOR*09/06/2013 Pain due to onychomycosis of toenail [B35.1, M7*INVALID FOR*01/31/2014 Anemia of chronic disease [D63.8] INVALID FOR* (QFT) 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 Rheumatoid arthritis with negative rheumatoid f*INVALID FOR* More... 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 FRENCH on CPAP [G47.33, Z99.89] INVALID FOR* More... Visit Notes: >> Marissa Espinoza LPN WedNov 19, 2017 1:47 PM Status: Signed Est patient. Four month ov. Discuss recent labs. Marissa Espinoza LPN Encounter Status:Closed by MOHIT MCKAY MD on 11/20/17 [place] ABS GR + CBC Collected: 11/19/2017 Status: F Source: [place] 1:35 PM [facility] REPOSITORY TYPE CODE TESTS RESULT OUT OF REFERENCE UNITS RANGE LAB WWBC 3.70-11.00 k/uL Low [place] WBC 3.19 LAB WRBC 4.20-6.00 m/uL Low [place] RBC 3.47 LAB WHGB 13.0-17.0 g/dL Low [place] Hemoglobin 10.6 LAB WHCT 39.0-51.0 % Low [place] Hematocrit 31.9 LAB WMCV 80.0-100.0 fL [place] MCV 91.9 LAB WMCH 26.0-34.0 pg [place] MCH 30.5 LAB WMCHC 30.5-36.0 g/dL [place] MCHC 33.2 LAB [place] 11.5-15.0 % [place] RDW 14.8 LAB WPLT 150-400 k/uL Low [place] Platelet Cnt 93 LAB WMPV 9.0-12.7 fL [place] MPV 11.7 Result Comment: Test performed at: [facility] [place], [address] [place] [address]. LAB ABGRAN 1.45-7.50 k/uL Low Absol 1.12 Gran Count COMP METABOLIC PANEL Collected: 11/19/2017 Status: F Source: [place] 1:35 PM [facility] [place] REPOSITORY TYPE CODE TESTS RESULT OUT OF REFERENCE UNITS RANGE LAB TP 6.3-8.0 g/dL Protein, Total 7.4 LAB ALB 3.9-4.9 g/dL Albumin 4.8 LAB CA 8.5-10.2 mg/dL Calcium, Total 9.7 LAB TBIL 0.2-1.3 mg/dL Bilirubin, Total 0.4 LAB ALKP 36-108 U/L Alkaline Phosphatase 71 LAB AST 14-40 U/L AST 34 LAB GLU 74-99 mg/dL Glucose High 129 Result Comment: The [place] [employer] (ADA) provides guidance for cutoff values for fasting glucose and random glucose. The ADA defines fasting as no caloric intake for at least 8 hours. Fas ting plasma glucose results between 100 to 125 mg/dL indicate increased risk for diabetes (prediabetes). Fasting plasma glucose results greater than or equal to 126 mg/dL meet the criteria for diagnosis of diabetes. In the absence of unequivocal hyperglycemia, results should be confirmed by repeat testing. In a patient with classic symptoms of hyperglycemia or hyperglycemic crisis, random plasma glucose results greater than or equal to 200 mg/dL meet the criteria for diagnosis of diabetes. Reference: Standards of Medical Care in Diabetes 2016, [place] [employer]. Diabetes Care. 2016.39(Suppl 1). LAB BUN 9-24 mg/dL BUN High 25 LAB CRET 0.73-1.22 mg/dL Creatinine 1.15 LAB NA 136-144 mmol/L Sodium 142 LAB K 3.7-5.1 mmol/L Potassium 4.7 LAB CL 97-105 mmol/L Chloride 100 LAB CO2 22-30 mmol/L CO2 High 33 LAB AGAP 9-18 mmol/L Anion Gap 9 LAB ALT 10-54 U/L ALT 48 LAB GFRAA eGFR- Amer. >60 LAB GFRNAA . eGFR-All Other Races >60 Result Comment: eGFR (Estimated GFR) Units of measure: mL/min/1.73 meters squared eGFR is derived from the reexpressed MDRD Study equation using the following parameters: serum creatinine, age, gender and race. The creatinine assay has been calibrated to be traceable to IDMS. An eGFR <60 mL/min/1.73m2 for >3 months is consistent with chronic kidney disease. Refer to KDOQI guidelines for clinical interpretation. In patients with unstable renal function, e.g. those with acute kidney injury, the eGFR may not accurately reflect actual GFR. Performed By: #### CMP, IRON, LD6, FERR #### [facility] [address] [place] [address] IRON AND TIBC Collected: 11/19/2017 Status: F Source: [place] 1:35 PM [facility] REPOSITORY TYPE CODE TESTS RESULT OUT OF REFERENCE UNITS RANGE LAB IRN 41-186 ug/dL Iron 95 LAB TIBC 232-386 ug/dL TIBC 271 LAB SAT 15-57 % Transferrin Saturatn 35 Performed By: #### CMP, IRON, LD6, FERR #### [facility] [address] [place] [address] LD Collected: 11/19/2017 Status: F Source: [facility] 1:35 PM [facility] REPOSITORY TYPE CODE TESTS RESULT OUT OF RANGE REFERENCE UNITS LAB LD 135-225 U/L Low LD 107 Performed By: #### CMP, IRON, LD6, FERR #### [facility] [place] [address] FERRITIN Collected: 11/19/2017 Status: F Source: [place] 1:35 PM [facility] REPOSITORY TYPE CODE TESTS RESULT OUT OF REFERENCE UNITS RANGE LAB FERR 30.3-565.7 ng/mL Ferritin 309.1 Performed By: #### CMP, IRON, LD6, FERR #### [facility] [address] [place] [address] PROGRESS Observed: 11/04/2017 Status: COMPLETED Source: [place] 1:57 PM [facility] REPOSITORY HNO ID: [id number] Author: Presley Ortiz Service: (none) Author Type: Physician Type: Progress Notes Filed: 11/04/2017 2:05 PM Note Text: Subjective: Patient presents to clinic c/o painful toenails. They state that the nails are especially painful with shoe gear and pressure. Patient states that nails b/l hallux are painful. Patient admits to being diabetic and states that their blood sugar was 120-140 mg/dL this AM. Patient does complain of swelling of feet but no pain. No other pedal complaints at this time. Patient states no change in medications or medical history since last visit. Objective: Patient presents to clinic ambulating in diabetic shoes Vasc: DP and PT pulses are faint bilateral. CFT is less than 5 seconds bilateral. Skin temperature is warm to cool proximal to distal bilateral. There is moderate edema or varicosities noted. Neuro: Protective sensation is decreased to the foot and toes when tested with the 5.07 SWM bilateral. Vibratory sensation is absent at the hallux IPJ bilateral. The hallux is downgoing bilateral. Derm: Nails 1-5 b/l are painful, discolored-yellow, thick, crumbly, dystrophic and with subungal debris. Skin is of normal turgor, texture and hair growth is present bilateral. There are no hyperkeratosis, ulcerations, scars, verruca or other lesions noted. Ortho: Muscle strength is 5/5 for all pedal groups tested. Ankle joint DF is decreased with the knee extended with no pain or crepitus noted. 1st MPJ ROM is decreased bilateral. Assessment: (B35.1) Onychomycosis (primary encounter diagnosis) (M79.675) Pain in toe of left foot (M79.674) Pain in toe of right foot (E11.42) Diabetic polyneuropathy associated with type 2 diabetes mellitus (HCC) (I87.2) Venous insufficiency Plan: Patient was seen and evaluated. Nails 1-5 bilateral were debrided in length and thickness. Compression stockings ordered for swelling. Patient was instructed on the continued importance of diabetic foot care along with proper diet and keeping their blood sugar under control to prevent complications. Patient is to RTC in 3-4 months. Presley Ortiz DPM CNOV Observed: 11/04/2017 Status: COMPLETED Source: [place] 1:20 PM [facility] REPOSITORY Office Visit (PODIWS) JULIANE FISHER ([id number]) 1935 M BLD Date Time Provider Department 11/04/17 1:20 PM PRESLEY ORTIZ PODIWS During your visit today, we recorded the following information about you: Presley Ortiz DPM 11/04/2017 2:05 PM Signed Subjective: Patient presents to clinic c/o painful toenails. They state that the nails are especially painful with shoe gear and pressure. Patient states that nails b/l hallux are painful. Patient admits to being diabetic and states that their blood sugar was 120-140 mg/dL this AM. Patient does complain of swelling of feet but no pain. No other pedal complaints at this time. Patient states no change in medications or medical history since last visit. Objective: Patient presents to clinic ambulating in diabetic shoes Vasc: DP and PT pulses are faint bilateral. CFT is less than 5 seconds bilateral. Skin temperature is warm to cool proximal to distal bilateral. There is moderate edema or varicosities noted. Neuro: Protective sensation is decreased to the foot and toes when tested with the 5.07 SWM bilateral. Vibratory sensation is absent at the hallux IPJ bilateral. The hallux is downgoing bilateral. Derm: Nails 1-5 b/l are painful, discolored-yellow, thick, crumbly, dystrophic and with subungal debris. Skin is of normal turgor, texture and hair growth is present bilateral. There are no hyperkeratosis, ulcerations, scars, verruca or other lesions noted. Ortho: Muscle strength is 5/5 for all pedal groups tested. Ankle joint DF is decreased with the knee extended with no pain or crepitus noted. 1st MPJ ROM is decreased bilateral. Assessment: (B35.1) Onychomycosis (primary encounter diagnosis) (M79.675) Pain in toe of left foot (M79.674) Pain in toe of right foot (E11.42) Diabetic polyneuropathy associated with type 2 diabetes mellitus (HCC) (I87.2) Venous insufficiency Plan: Patient was seen and evaluated. Nails 1-5 bilateral were debrided in length and thickness. Compression stockings ordered for swelling. Patient was instructed on the continued importance of diabetic foot care along with proper diet and keeping their blood sugar under control to prevent complications. Patient is to RTC in 3-4 months. Presley Ortiz DPM Referring Provider: PRESLEY ORTIZ [[id number]] Allergies As of Date: 11/04/2017 (No Known Allergies) Date Reviewed: 11/04/2017 Reviewed by: Amy Garcia Ma - Fully Assessed Reason for Visit: Diabetic Foot Care [916] Primary Visit Diagnosis:Onychomycosis [B35.1] Other Visit Diagnoses:Pain in toe of left foot [M79.675] Pain in toe of right foot [M79.674] Diabetic polyneuropathy associated with type 2 diabetes mellitus (HCC) [E11.42] Venous insufficiency [I87.2] Order(s):CHAUNCEY KNEE HI 20-30WT [[id number]] Order #: [id number] Prescriptions as of 11/04/2017 Sig: AZITHROMYCIN 250 MG TABLET Take 2 tablets day one, then,* METFORMIN 1,000 MG TABLET Take 1 tablet by mouth daily * POLYETHYLENE GLYCOL 3350 17 G* Take 1 Packet by mouth once d* PIOGLITAZONE 15 MG TABLET Take 1 tablet by mouth every * MAGNESIUM OXIDE 400 MG TABLET Take 1 tablet by mouth twice * OXYBUTYNIN CHLORIDE ER 10 MG * Take 1 tablet by mouth once d* ASPIRIN 81 MG TABLET,DELAYED * Take 1 tablet by mouth once d* KETOCONAZOLE 2 % TOPICAL CREAM Apply 1 application to affect* MIRTAZAPINE 15 MG TABLET Take 1 tablet by mouth daily * MEMANTINE 10 MG TABLET [address] 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 More... Ingrowing nail [L60.0] INVALID FOR*10/18/2013 Pain in limb [M79.609] INVALID FOR*09/06/2013 DM Neuro Manif Type II [E11.49] INVALID FOR*06/05/2015 Cellulitis and abscess of toe, unspecified [L03*INVALID FOR*09/06/2013 Thrombocytopenia [D69.6] INVALID FOR* MDS (myelodysplastic syndrome), low grade [D46.*INVALID FOR* Other acquired deformity of toe [M20.5X9] INVALID FOR*01/31/2014 Anemia [D64.9] INVALID FOR*10/16/2013 Frequency of urination [R35.0] INVALID FOR*01/31/2014 Urge incontinence [N39.41] INVALID FOR*01/31/2014 BPH (benign prostatic hyperplasia) [N40.0] INVALID FOR* Nocturia [R35.1] INVALID FOR* Cervical spondylosis without myelopathy [M47.81*INVALID FOR*01/31/2014 Cervicalgia [M54.2] INVALID FOR*09/06/2013 Pain due to onychomycosis of toenail [B35.1, M7*INVALID FOR*01/31/2014 Anemia of chronic disease [D63.8] INVALID FOR* (QFT) 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 Rheumatoid arthritis with negative rheumatoid f*INVALID FOR* More... 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 FRENCH on CPAP [G47.33, Z99.89] INVALID FOR* More... Encounter Status:Closed by PRESLEY ORTIZ DPM on 11/04/17 [place] ABS GR + CBC Collected: 10/22/2017 Status: F Source: [place] 2:45 PM [facility] REPOSITORY TYPE CODE TESTS RESULT OUT OF REFERENCE UNITS RANGE LAB WWBC 3.70-11.00 k/uL [place] WBC 3.72 LAB WRBC 4.20-6.00 m/uL Low [place] RBC 3.40 LAB WHGB 13.0-17.0 g/dL Low [place] Hemoglobin 10.3 LAB WHCT 39.0-51.0 % Low [place] Hematocrit 31.2 LAB WMCV 80.0-100.0 fL [place] MCV 91.8 LAB WMCH 26.0-34.0 pg [place] MCH 30.3 LAB WMCHC 30.5-36.0 g/dL [place] MCHC 33.0 LAB [place] 11.5-15.0 % [place] High [place] 15.4 LAB WPLT 150-400 k/uL Low [place] Platelet Cnt 93 LAB WMPV 9.0-12.7 fL [place] MPV 11.8 Result Comment: Test performed at: [facility] [place] [address] [place], [place] [address] [place] [address]. LAB ABGRAN 1.45-7.50 k/uL Absol Gran 1.45 Count Performed By: #### WAGCBC #### [facility] [address] [place], [place] [address] CBC W/DIFF, AUTOMATED Collected: 10/11/2017 Status: F Source: [place] 2:37 PM [facility] REPOSITORY TYPE CODE TESTS RESULT OUT OF RANGE REFERENCE UNITS LAB L100.1000 4.4-11.0 K/mm3 Low WBC 2.7 LAB L100.1200 4.6-6.2 M/mm3 Low RBC 3.35 LAB L100.1300 13.0-16.5 g/dl Low HGB 10.1 LAB L100.1400 40-54 % Low HCT 30.5 LAB L100.1500 80-94 fL Normal MCV 91.0 LAB L100.1600 27.0-32.0 pg Normal MCH 30.1 LAB L100.1700 32-36 g/gl Normal MCHC 33.1 LAB L100.1810 11.6-14.6 % High [place] CV 15.6 LAB L100.1820 35.1-43.9 fl High [place] SD 50.6 LAB L100.1900 150-450 K/mm3 Low PLT 86 LAB L100.2000 6.2-12.0 fl Normal MPV 11.2 LAB L100.2100 47-70 % Low NEUT% 33.0 LAB L100.2200 19-41 % High LY% 46.7 LAB L100.2300 0-10 % High MONO% 19.5 LAB L100.2400 0-5 % Normal EO% 0.4 LAB L100.2500 0-1 % Normal BASO% 0.0 LAB L100.2550 0.0-0.9 % Normal IM GRAN % 0.400 Result Comment: IG% - Immature Granulocytes (promyelocytes, myelocytes and metamyelocytes) > 1% indicates that a LEFT SHIFT is Present. LAB L100.2620 2.0-7.7 X10 3/uL Low Absolute Neut 0.9 LAB L100.2720 0.83-4.51 X10 3/ul Normal Absolute Lymph 1.27 LAB L100.4500 Normal SMEAR COMMENT SCANNED Result Comment: NEUTROPENIA NOTED Performed By: #### L100.0100 #### [facility] [address] [place], [address] COMPREHENSIVE METABOLIC Collected: 10/11/2017 Status: F Source: [place] GONZAL[facility] 2:37 PM [facility] REPOSITORY TYPE CODE TESTS RESULT OUT OF RANGE REFERENCE UNITS LAB L501.0100 74-106 mg/dL Normal GLU 96 LAB L501.1000 7-18 mg/dL High BUN 29 LAB L501.1100 0.70-1.30 mg/dL Normal 1.13 CREAT,SERUM Result Comment: The validity of the calculated GFR AND GFRAA in patients over 70 years has not been determined. Clinical correlation is essential. LAB L501.1110 >60 mL/min Normal EST GFR 66 Result Comment: Non- GFR Calc LAB L501.1115 >60 mL/min Normal EST GFR - AA 80 Result Comment: GFR Calc LAB L501.1300 10-20 RATIO High BUN/CRE 25.7 LAB L501.1500 6.4-8.2 g/dL T Normal PROT 7.2 LAB L501.1800 3.2-5.0 g/dL Normal ALB 4.1 LAB L501.1950 2.2-4.2 g/dL Normal GLOB 3.1 LAB L501.2000 0.9-2.4 RATIO Normal A/G 1.3 LAB L501.2200 8.5-10.1 mg/dL CA Normal 9.1 LAB L501.4100 15-37 U/L Normal AST 17 LAB L501.4305 45-117 U/L Normal ALK P 85 LAB L501.4405 16-61 U/L Normal ALT 32 Result Comment: Please note revised ALT reference range effective 2017. LAB L501.4600 0.20-1.00 mg/dL Normal T BILI 0.60 LAB L501.5300 136-145 mmol/L Normal NA 143 LAB L501.5600 3.5-5.1 mmol/L Normal K 4.6 LAB L501.5900 98-107 mmol/L Normal CL 102 LAB L501.6100 21.0-32.0 mmol/L High CO2 33.0 LAB L501.6200 5-15 Normal GAP 8 Performed By: #### L500.4050 #### [facility] [address], [address] HOSP Observed: 09/24/2017 Status: COMPLETED Source: [place] 2:15 PM [facility] REPOSITORY Infusion Center ([facility]) JULIANE [place] ([id number]) 1935 M BLD Date Time Provider Department 09/24/17 2:15 PM [facility] During your visit today, we recorded the following information about you: Marissa Espinoza LPN 09/24/2017 2:45 PM Signed Injection deferred, parameters not met. Hgb 10.3. Marissa Espinoza LPN Referring Provider: MOHIT MCKAY [[id number]] Allergies As of Date: 09/24/2017 (No Known Allergies) Date Reviewed: 07/28/2017 Reviewed by: Carrol Mcgill Medical Sonographer - Fully Assessed Primary Visit Diagnosis:Anemia of chronic disease [D63.8] Prescriptions as of 09/24/2017 Sig: AZITHROMYCIN 250 MG TABLET Take 2 tablets day one, then,* METFORMIN 1,000 MG TABLET Take 1 tablet by mouth daily * POLYETHYLENE GLYCOL 3350 17 G* Take 1 Packet by mouth once d* PIOGLITAZONE 15 MG TABLET Take 1 tablet by mouth every * MAGNESIUM OXIDE 400 MG TABLET Take 1 tablet by mouth twice * OXYBUTYNIN CHLORIDE ER 10 MG * Take 1 tablet by mouth once d* ASPIRIN 81 MG TABLET,DELAYED * Take 1 tablet by mouth once d* KETOCONAZOLE 2 % TOPICAL CREAM Apply 1 application to affect* MIRTAZAPINE 15 MG TABLET Take 1 tablet by mouth daily * MEMANTINE 10 MG TABLET [address] Anaya* DONEPEZIL 10 MG TABLET Take 1 tablet by mouth daily * BLOOD SUGAR DIAGNOSTIC STRIPS Test blood sugar(s) 5 times d* METOPROLOL TARTRATE 25 MG TAB* Take 0.5 tablets by mouth twi* BLOOD-GLUCOSE METER KIT Glucose Meter of Choice - Kit* PREDNISONE 2.5 MG TABLET Take 1 tablet by mouth once d* Problem List As Of Date 09/24/2017 Noted Resolved DIABETES MELLITUS TYPE II-UNCOMPL [E11.9] INVALID FOR*06/05/2015 ESOPHAGEAL REFLUX [K21.9] INVALID FOR*07/05/2008 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 More... Ingrowing nail [L60.0] INVALID FOR*10/18/2013 Pain in limb [M79.609] INVALID FOR*09/06/2013 DM Neuro Manif Type II [E11.49] INVALID FOR*06/05/2015 Cellulitis and abscess of toe, unspecified [L03*INVALID FOR*09/06/2013 Thrombocytopenia [D69.6] INVALID FOR* MDS (myelodysplastic syndrome), low grade [D46.*INVALID FOR* Other acquired deformity of toe [M20.5X9] INVALID FOR*01/31/2014 Anemia [D64.9] INVALID FOR*10/16/2013 Frequency of urination [R35.0] INVALID FOR*01/31/2014 Urge incontinence [N39.41] INVALID FOR*01/31/2014 BPH (benign prostatic hyperplasia) [N40.0] INVALID FOR* Nocturia [R35.1] INVALID FOR* Cervical spondylosis without myelopathy [M47.81*INVALID FOR*01/31/2014 Cervicalgia [M54.2] INVALID FOR*09/06/2013 Pain due to onychomycosis of toenail [B35.1, M7*INVALID FOR*01/31/2014 Anemia of chronic disease [D63.8] INVALID FOR* (QFT) 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 Rheumatoid arthritis with negative rheumatoid f*INVALID FOR* More... 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 FRENCH on CPAP [G47.33, Z99.89] INVALID FOR* More... Visit Notes: >> Marissa Espinoza LPN WedSep 24, 2017 2:43 PM Status: Signed Injection deferred, parameters not met. Hgb 10.3. Marissa Espinoza LPN Encounter Status:Closed by MARISSA ESPINOZA LPN on 09/24/17 ALURENCE ABS GR + CBC Collected: 09/24/2017 Status: F Source: [place] 2:08 PM [facility] [place] REPOSITORY TYPE CODE TESTS RESULT OUT OF REFERENCE UNITS RANGE LAB WWBC 3.70-11.00 k/uL [place] WBC 3.17 LAB WRBC 4.20-6.00 m/uL [place] RBC 3.50 LAB WHGB 13.0-17.0 g/dL Low [place] Hemoglobin 10.3 LAB WHCT 39.0-51.0 % [place] Hematocrit 31.6 LAB WMCV 80.0-100.0 fL [place] MCV 90.3 LAB WMCH 26.0-34.0 pg [place] MCH 29.4 LAB WMCHC 30.5-36.0 g/dL [place] MCHC 32.6 LAB WRDW 11.5-15.0 % [place] High RDW 15.5 LAB WPLT 150-400 k/uL [place] Platelet Cnt 84 LAB WMPV 9.0-12.7 fL [place] MPV 11.8 Result Comment: Test performed at: [facility] [place] [address] [place], [place] [address]norberto [address] [place] [address]. LAB ABGRAN 1.45-7.50 k/uL Low Absol 1.12 Gran Count HOSP Observed: 08/27/2017 Status: COMPLETED Source: [place] 2:15 PM [facility] ([facility]) JULIANE FISHER ([id number]) 1935 M BLD Date Time Provider Department 08/27/17 2:15 PM [facility] During your visit today, we recorded the following information about you: Marissa Espinoza LPN 08/27/2017 2:16 PM Signed Injection deferred, parameters not met, HGB 11.1. Marissa Espinoza LPN Referring Provider: MOHIT MCKAY [[id number]] Allergies As of Date: 08/27/2017 (No Known Allergies) Date Reviewed: 07/28/2017 Reviewed by: Carrol Mcgill Medical Sonographer - Fully Assessed Primary Visit Diagnosis:Anemia of chronic disease [D63.8] Prescriptions as of 08/27/2017 Sig: AZITHROMYCIN 250 MG TABLET Take 2 tablets day one, then,* METFORMIN 1,000 MG TABLET Take 1 tablet by mouth daily * POLYETHYLENE GLYCOL 3350 17 G* Take 1 Packet by mouth once d* PIOGLITAZONE 15 MG TABLET Take 1 tablet by mouth every * MAGNESIUM OXIDE 400 MG TABLET Take 1 tablet by mouth twice * OXYBUTYNIN CHLORIDE ER 10 MG * Take 1 tablet by mouth once d* ASPIRIN 81 MG TABLET,DELAYED * Take 1 tablet by mouth once d* KETOCONAZOLE 2 % TOPICAL CREAM Apply 1 application to affect* MIRTAZAPINE 15 MG TABLET Take 1 tablet by mouth daily * MEMANTINE 10 MG TABLET [address] Anaya* DONEPEZIL 10 MG TABLET Take 1 tablet by mouth daily * BLOOD SUGAR DIAGNOSTIC STRIPS Test blood sugar(s) 5 times d* METOPROLOL TARTRATE 25 MG TAB* Take 0.5 tablets by mouth twi* BLOOD-GLUCOSE METER KIT Glucose Meter of Choice - Kit* PREDNISONE 2.5 MG TABLET Take 1 tablet by mouth once d* Problem List As Of Date 08/27/2017 Noted Resolved DIABETES MELLITUS TYPE II-UNCOMPL [E11.9] INVALID FOR*06/05/2015 ESOPHAGEAL REFLUX [K21.9] INVALID FOR*07/05/2008 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 More... Ingrowing nail [L60.0] INVALID FOR*10/18/2013 Pain in limb [M79.609] INVALID FOR*09/06/2013 DM Neuro Manif Type II [E11.49] INVALID FOR*06/05/2015 Cellulitis and abscess of toe, unspecified [L03*INVALID FOR*09/06/2013 Thrombocytopenia [D69.6] INVALID FOR* MDS (myelodysplastic syndrome), low grade [D46.*INVALID FOR* Other acquired deformity of toe [M20.5X9] INVALID FOR*01/31/2014 Anemia [D64.9] INVALID FOR*10/16/2013 Frequency of urination [R35.0] INVALID FOR*01/31/2014 Urge incontinence [N39.41] INVALID FOR*01/31/2014 BPH (benign prostatic hyperplasia) [N40.0] INVALID FOR* Nocturia [R35.1] INVALID FOR* Cervical spondylosis without myelopathy [M47.81*INVALID FOR*01/31/2014 Cervicalgia [M54.2] INVALID FOR*09/06/2013 Pain due to onychomycosis of toenail [B35.1, M7*INVALID FOR*01/31/2014 Anemia of chronic disease [D63.8] INVALID FOR* (QFT) 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 Rheumatoid arthritis with negative rheumatoid f*INVALID FOR* More... 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 FRENCH on CPAP [G47.33, Z99.89] INVALID FOR* More... Visit Notes: >> Marissa Espinoza LPN WedAug 27, 2017 2:16 PM Status: Signed Injection deferred, parameters not met, HGB 11.1. Marissa Espinoza LPN Encounter Status:Closed by MARISSA ESPINOZA LPN on 08/27/17 LAURENCE ABS GR + CBC Collected: 08/27/2017 Status: F Source: [place] 1:06 PM [facility] REPOSITORY TYPE CODE TESTS RESULT OUT OF REFERENCE UNITS RANGE LAB WWBC 3.70-11.00 k/uL [place] WBC 2.99 LAB WRBC 4.20-6.00 m/uL [place] RBC 3.83 LAB WHGB 13.0-17.0 g/dL [place] Hemoglobin 11.1 LAB WHCT 39.0-51.0 % Low [place] Hematocrit 33.5 LAB WMCV 80.0-100.0 fL [place] MCV 87.5 LAB WMCH 26.0-34.0 pg [place] MCH 29.0 LAB WMCHC 30.5-36.0 g/dL [place] MCHC 33.1 LAB WRDW 11.5-15.0 % [place] RDW 14.8 LAB WPLT 150-400 k/uL Low [place] Platelet Cnt 78 LAB WMPV 9.0-12.7 fL [place] MPV 11.4 Result Comment: Test performed at: [facility] [address] [place] [address]. LAB ABGRAN 1.45-7.50 k/uL Low Absol 0.93 Gran Count ALLERGIES ALLERGIES DATE TYPE / CODE NAME / CODE REACTION SEVERITY SOURCE 08/04/[address] [facility] Allergy/416 Allergies/L83761 Hospital 945224(SNOM 0388(RXNORM) Repository ED CT) Drug NO KNOWN [facility] Class/56684 ALLERGIES [facility] [place] 1003(SNOMED Repository CT) ENCOUNTERS ENCOUNTERS ADMIT/DISCHARGE ACCOUNT ADMITTING ENCOUNTER LOCATION SOURCE NUMBER CLASS 08/04/2018/08/04/20 [id number] Ambulatory BMSBuilding:B [place] 18 [facility] Repository 08/02/2018 [id number] Ambulatory [facility] ing:LAB Repository 07/04/2018/07/06/20 [id number] Ambulatory [place] [facility] [place] Repository 07/01/2018/07/01/20 [id number] Ambulatory [address] [place] Repository 07/01/2018/07/01/20 [id number] Ambulatory [address] [facility] [place] Repository 07/01/2018/07/06/20 [id number] Ambulatory [facility] [place] Repository 06/03/2018/06/03/20 [id number] Ambulatory [place] [facility] [place] Repository 06/03/2018/06/03/20 [id number] Ambulatory [facility] [place] Repository 05/06/2018/05/06/20 [id number] Ambulatory [facility] [place] Repository 05/06/2018/05/06/20 [id number] Ambulatory [facility] [place] Repository 04/08/2018/04/08/20 [id number] Ambulatory [place] [facility] [place] Repository 04/08/2018/04/08/20 [id number] Ambulatory [facility] [place] Repository 03/28/2018 [id number] Ambulatory [facility] ing:MTLAB Repository 03/11/2018/03/11/20 [id number] Ambulatory [place] [facility] [place] Repository 03/11/2018/03/11/20 [id number] Ambulatory [place] 18 [facility] [place] Repository 02/11/2018/02/12/20 [id number] Ambulatory [place] [facility] [place] Repository 02/11/2018/02/12/20 [id number] Ambulatory [place] [facility] [place] Repository 02/03/2018/02/05/20 [id number] Ambulatory [facility] [place] Repository 01/14/2018/01/15/20 [id number] Ambulatory [facility] [place] Repository 01/14/2018/01/15/20 [id number] Ambulatory [facility] [place] Repository 12/28/2017/12/30/19 [id number] Ambulatory [facility] [place] Repository 12/24/2017/12/25/19 [id number] Ambulatory [facility] [place] Repository 12/17/2017/12/18/19 [id number] Ambulatory [facility] [place] Repository 12/17/2017/12/18/19 [id number] Ambulatory [facility] [place] Repository 12/16/2017/12/22/19 [id number] Ambulatory [facility] [place] Repository 12/10/2017/12/22/19 [id number] Ambulatory [facility] [place] Repository 12/04/2017/12/05/19 [id number] Ambulatory [facility] [place] Repository 11/26/2017/11/27/19 [id number] Ambulatory [facility] [place] Repository 11/19/2017/11/20/19 [id number] Ambulatory [facility] [place] Repository 11/19/2017/11/20/19 [id number] Ambulatory [facility] [place] Repository 11/19/2017/11/23/19 [id number] Ambulatory [facility] [place] Repository 11/04/2017/11/10/19 [id number] Ambulatory [facility] [place] Repository 10/22/2017/10/22/19 [id number] Ambulatory [facility] [place] Repository 10/22/2017 [id number] [facility] [place] Repository 10/11/2017 [id number] Ambulatory [facility] ing:MTLAB Repository 09/24/2017/09/24/19 [id number] Ambulatory [facility] [place] Repository 09/24/2017/09/24/19 [id number] Ambulatory [facility] [place] Repository 08/27/2017/08/27/20 [id number] Ambulatory [facility] [place] Repository 08/27/2017/08/27/[id number] Repository PAYERS PAYERS ENCOUNTER GUARANTOR PAYER SUBSCRIBER SOURCE 08/04/2018 JULIANE J Primary JULIANE J [place] [id number] Insurance:MEDICARE MARTINDOB: Community SILVER PART A [place]lic [id number] Number[place] Repository [id number]: [phone] [id number] [phone] (HP) Date:2017-08-18 08/04/2018 Secondary UJLIANE J [place] Insurance:AETNA SR MARTINDOB: Community SUPPLEMENT INSPolicy [id number] Hospital Number: Repository [id number] Date:[id number] SENIOR SUPPLEMENT [address] [place] [address]ET: 08/04/2018 Tertiary NOT GIVENUNK [place] Insurance:SELF PAY [facility] Number: Effective Repository Date:2018-08-04 08/02/2018 JULIANE J Primary JULIANE J [place] [id number] Insurance:MEDICARE MARTINDOB: Community SILVER PART A [facility] [id number] Number: Repository [id number]: 330 [id number] [phone] () Date:2018-08-02 08/02/2018 Secondary JULIANE J [place] Insurance:AETNA SR MARTINDOB: Community [facility] [id number] Hospital Number: Repository [id number] Date:[id number] SENIOR SUPPLEMENT [address] [place] [id number]: 08/02/2018 Tertiary NOT GIVENUNK [place] Insurance:SELF PAY [facility] Number: Effective Repository Date:2018-08-02 03/28/2018 Juliane J Primary Juliane J [place] [id number] Insurance:MEDICARE MartinDOB: Community Silver PART A [facility] [id number] Number: Repository [id number]: [phone] [id number] [phone] () Date:2018-03-28 03/28/2018 Secondary Juliane J [place] Insurance:AETNA SR FisherDOB: Community SUPPLEMENT [facility] [id number] Hospital Number: Repository [id number] Date:[id number] SENIOR SUPPLEMENT [address] [address] [address]JF: 03/28/2018 Tertiary NOT GIVENUNK [place] Insurance:SELF PAY [facility] Number: Effective Repository Date:2018-03-28 10/11/2017 Juliane J Primary Juliane J [place] [id number] Insurance:MEDICARE PhillipB: Community Silver PART A [facility] [id number] Number: Repository [id number]: [phone] [id number] [phone] () Date:2017-10-11 10/11/2017 Secondary Juliane J [place] [facility]FER [facility] SU[facility]LEMENT [facility] [id number] Hospital Number: Repository [id number] Date:4296-07-24EHBRI SENIOR SUPPLEMENT [address] [address], [place] [address]GQ: 10/11/2017 Tertiary NOT GIVENUNK [place] Insurance:SELF PAY [facility] Number: Effective Repository Date:2017-10-11
== END ==
PROVIDERS: Family Provider Internal Medicine; PCP Internal Medicine; Referring Provider Internal Medicine Cardiovascular Disease; Visit Provider Internal Medicine Cardiovascular Disease
DX: I34.1 Nonrheumatic mitral (valve) prolapse (principal); I48.0 Paroxysmal atrial fibrillation; I36.1 Nonrheumatic tricuspid (valve) insufficiency; E11.9 Type 2 diabetes mellitus without complications
CPT/HCPCS: 36415; 80061; 80076

== ENCOUNTER → 2018-11-04 15:24 | Outpatient (CLI) | payer MEDICARE, OTHER, SELFPAY ==
[2016-02-13 13:00] VITALS: BMI 25.7
[2018-08-04 13:11] VITALS: BMI 26.4
[2018-11-04 17:35] LABS: Absolute Lymphocyte Count 1.28 X10^3/ul (0.83-4.51); Absolute Neutrophil Count 1.3 X10^3/uL (2.0-7.7); Eosinophil# 0.01 X10^3/uL; Eosinophils% 0.3 % (0-5); Hematocrit 33.1 % (40-54); Hemoglobin 11.2 g/dl (13.0-16.5); Lymphocyte # 1.28 X10^3/ul (4.0); Lymphocyte % 37.4 % (19-41); Mean Corp Hgb Conc 33.8 g/gl (32-36); Mean Corpuscular Hgb 31.6 pg (27.0-32.0); Mean Corpuscular Volume 93.5 fL (80-94); Mean Platelet Vol. 11.8 fl (6.2-12.0); Monocyte# 0.78 X10^3/uL; Monocyte% 22.8 % (0-10); Neutrophil # 1.34 X10^3/uL (2.7-7.7); Neutrophil % 39.2 % (47-70); Platelet Count 90 K/mm3 (150-450); RBC Distribution Width CV 14.5 % (11.6-14.6); RBC Distribution Width SD 47.1 fl (35.1-43.9); Red Blood Count 3.54 M/mm3 (4.6-6.2); White Blood Count 3.4 K/mm3 (4.4-11.0)
[2018-11-04 17:38] LABS: POSITIVE COUNT NO; POSITIVE DIFFERENTIAL NO; POSITIVE MORPHOLOGY NO
[2018-11-04 17:41] LABS: ALB/GLOB Ratio 1.4 RATIO (0.9-2.4); AST(SGOT) 16 U/L (15-37); Alanine Aminotransfer ALT/SGPT 31 U/L (16-61); Albumin, Serum 4.2 g/dL (3.2-5.0); Alkaline Phosphatase 88 U/L (45-117); Anion Gap 8 (5-15); BUN 28 mg/dL (7-18); BUN/Creat Ratio 23.7 RATIO (10-20); Chloride 103 mmol/L (98-107); Creatinine, Serum 1.18 mg/dL (0.70-1.30); EST Glomerular Filtration Rate 63 mL/min (>60); Est Glom Filt Rate - Afr Amer 76 mL/min (>60); Globulin 3.1 g/dL (2.2-4.2); Glucose 146 mg/dL (74-106); Potassium 4.7 mmol/L (3.5-5.1); Protein, Total 7.3 g/dL (6.4-8.2); Sodium Level 143 mmol/L (136-145)
== END ==
PROVIDERS: Family Provider Internal Medicine; PCP Internal Medicine; Referring Provider Internal Medicine Rheumatology; Visit Provider Internal Medicine Rheumatology
DX: M06.00 Rheumatoid arthritis without rheumatoid factor, unspecified site (principal); E11.9 Type 2 diabetes mellitus without complications; F32.89 Other specified depressive episodes; D46.9 Myelodysplastic syndrome, unspecified; I48.91 Unspecified atrial fibrillation; H35.52 Pigmentary retinal dystrophy
CPT/HCPCS: 36415; 80053; 85025

== ENCOUNTER → 2019-04-25 20:24 | Outpatient (CLI) | payer MEDICARE, OTHER, SELFPAY ==
[2016-02-13 13:00] VITALS: BMI 25.7
[2018-08-04 13:11] VITALS: BMI 26.4
== END ==
PROVIDERS: Family Provider Internal Medicine; PCP Internal Medicine; Referring Provider Nurse Practitioner Family; Visit Provider Nurse Practitioner Family
DX: G47.33 Obstructive sleep apnea (adult) (pediatric) (principal)
CPT/HCPCS: 95811

== ENCOUNTER → 2019-07-04 13:08 | Outpatient (CLI) | payer MEDICARE, OTHER, SELFPAY ==
[2016-02-13 13:00] VITALS: BMI 25.7
[2018-08-04 13:11] VITALS: BMI 26.4
[2019-07-04 15:21] LABS: Absolute Lymphocyte Count 1.35 X10^3/uL (0.83-4.51); Absolute Neutrophil Count 2.2 X10^3/uL (2.0-7.7); Basophil# 0.01 X10^3/uL; Basophil% 0.2 % (0-1); Eosinophil# 0.01 X10^3/uL; Eosinophils% 0.2 % (0-5); Hematocrit 34.8 % (40-54); Hemoglobin 11.7 g/dL (13.0-16.5); Lymphocyte # 1.35 X10^3/ul (4.0); Lymphocyte % 29.9 % (19-41); Mean Corp Hgb Conc 33.6 g/dL (32-36); Mean Corpuscular Hgb 30.2 pg (27.0-32.0); Mean Corpuscular Volume 89.7 fL (80-94); Monocyte# 0.88 X10^3/uL; Monocyte% 19.5 % (0-10); NRBC Flagged by Analyzer 0 % (0-5); Neutrophil # 2.21 X10^3/uL (2.7-7.7); Neutrophil % 49.1 % (47-70); Platelet Count 135 K/mm3 (150-450); RBC Distribution Width SD 45.3 fl (35.1-43.9); Red Blood Count 3.88 M/mm3 (4.6-6.2); White Blood Count 4.5 K/mm3 (4.4-11.0)
[2019-07-04 15:44] LABS: ALB/GLOB Ratio 1.2 RATIO (0.9-2.4); AST(SGOT) 14 U/L (15-37); Alanine Aminotransfer ALT/SGPT 27 U/L (16-61); Albumin, Serum 4.1 g/dL (3.2-5.0); Alkaline Phosphatase 106 U/L (45-117); BUN 38 mg/dL (7-18); BUN/Creat Ratio 27.3 RATIO (10-20); Calcium,Total 9.8 mg/dL (8.5-10.1); Creatinine, Serum 1.39 mg/dL (0.70-1.30); EST Glomerular Filtration Rate 52 mL/min (>60); Est Glom Filt Rate - Afr Amer 63 mL/min (>60); Globulin 3.5 g/dL (2.2-4.2); Glucose 252 mg/dL (74-106); Protein, Total 7.6 g/dL (6.4-8.2)
[2019-07-04 15:45] LABS: Anion Gap 4 (5-15); Chloride 100 mmol/L (98-107); Potassium 4.1 mmol/L (3.5-5.1); Sodium Level 138 mmol/L (136-145)
== END ==
PROVIDERS: Family Provider Internal Medicine; PCP Internal Medicine; Referring Provider Internal Medicine Rheumatology; Visit Provider Internal Medicine Rheumatology
DX: M06.00 Rheumatoid arthritis without rheumatoid factor, unspecified site (principal); E11.9 Type 2 diabetes mellitus without complications; F32.89 Other specified depressive episodes; D46.9 Myelodysplastic syndrome, unspecified; I48.91 Unspecified atrial fibrillation; H35.52 Pigmentary retinal dystrophy
CPT/HCPCS: 36415; 80053; 85025

== ENCOUNTER → 2019-07-10 10:00 | Outpatient (CLI) | payer MEDICARE, OTHER, SELFPAY ==
[2016-02-13 13:00] VITALS: BMI 25.7
[2018-08-04 13:11] VITALS: BMI 26.4
== END ==
PROVIDERS: Family Provider Internal Medicine; PCP Internal Medicine; Referring Provider Nurse Practitioner Family; Visit Provider Nurse Practitioner Family
DX: Z46.89 Encounter for fitting and adjustment of other specified devices (principal)
CPT/HCPCS: 98960; G0463

== ENCOUNTER → 2019-08-08 11:42 | Outpatient (CLI) | payer MEDICARE, OTHER, SELFPAY ==
[2016-02-13 13:00] VITALS: BMI 25.7
[2018-08-04 13:11] VITALS: BMI 26.4
[2019-08-08 12:53] LABS: AST(SGOT) 16 U/L (15-37); Alanine Aminotransfer ALT/SGPT 31 U/L (16-61); Albumin, Serum 4.2 g/dL (3.2-5.0); Alkaline Phosphatase 106 U/L (45-117); Bilirubin, Direct 0.15 mg/dL (0.00-0.30); Cholesterol 105 mg/dL (200); Globulin 3.4 g/dL (2.2-4.2); High Density Lipoprotein 36 mg/dL; Protein, Total 7.6 g/dL (6.4-8.2); Triglycerides 94 mg/dL; Very Low Density Lipoprotein 19 mg/dL (5-40)
== END ==
PROVIDERS: Family Provider Internal Medicine; PCP Internal Medicine; Referring Provider Internal Medicine Cardiovascular Disease; Visit Provider Internal Medicine Cardiovascular Disease
DX: E78.00 Pure hypercholesterolemia, unspecified (principal)
CPT/HCPCS: 36415; 80061; 80076

== ENCOUNTER → 2020-07-10 09:30 | Outpatient (CLI) | payer MEDICARE, OTHER, SELFPAY ==
[2016-02-13 13:00] VITALS: BMI 25.7
[2019-08-10 12:59] VITALS: BMI 27.0
== END ==
PROVIDERS: PCP Internal Medicine; Referring Provider Physician Assistant Medical; Visit Provider Physician Assistant Medical
DX: I48.92 Unspecified atrial flutter (principal)
CPT/HCPCS: 93225; 93226

== ENCOUNTER → 2020-08-21 16:43 | Outpatient (CLI) | payer MEDICARE, OTHER, SELFPAY ==
[2016-02-13 13:00] VITALS: BMI 25.7
[2020-08-13 09:42] VITALS: BMI 27.2
[2020-08-21 17:07] LABS: Absolute Lymphocyte Count 1.55 X10^3/uL (0.83-4.51); Absolute Neutrophil Count 2.3 X10^3/uL (2.0-7.7); Eosinophil# 0.01 X10^3/uL; Eosinophils% 0.2 % (0-5); Hematocrit 35.8 % (40-54); Hemoglobin 11.7 g/dL (13.0-16.5); Lymphocyte # 1.55 X10^3/ul (4.0); Lymphocyte % 30.7 % (19-41); Mean Corp Hgb Conc 32.7 g/dL (32-36); Mean Corpuscular Hgb 29.9 pg (27.0-32.0); Mean Corpuscular Volume 91.6 fL (80-94); Mean Platelet Vol. 10.6 fl (6.2-12.0); Monocyte# 1.09 X10^3/uL; Monocyte% 21.6 % (0-10); NRBC Flagged by Analyzer 0 % (0-5); Neutrophil # 2.34 X10^3/uL (2.7-7.7); Neutrophil % 46.3 % (47-70); Platelet Count 155 K/mm3 (150-450); RBC Distribution Width CV 13.6 % (11.6-14.6); Red Blood Count 3.91 M/mm3 (4.6-6.2); White Blood Count 5.1 K/mm3 (4.4-11.0)
[2020-08-21 17:22] LABS: ALB/GLOB Ratio 1.1 RATIO (0.9-2.4); AST(SGOT) 14 U/L (15-37); Alanine Aminotransfer ALT/SGPT 25 U/L (16-61); Albumin, Serum 3.9 g/dL (3.2-5.0); Alkaline Phosphatase 105 U/L (45-117); Anion Gap 4 (5-15); BUN 24 mg/dL (7-18); BUN/Creat Ratio 20.7 RATIO (10-20); Chloride 101 mmol/L (98-107); Creatinine, Serum 1.16 mg/dL (0.70-1.30); EST Glomerular Filtration Rate 64 mL/min (>60); Est Glom Filt Rate - Afr Amer 77 mL/min (>60); Globulin 3.5 g/dL (2.2-4.2); Glucose 214 mg/dL (74-106); Potassium 4.2 mmol/L (3.5-5.1); Protein, Total 7.4 g/dL (6.4-8.2); Sodium Level 138 mmol/L (136-145)
== END ==
PROVIDERS: PCP Internal Medicine; Referring Provider Internal Medicine Rheumatology; Visit Provider Internal Medicine Rheumatology
DX: M06.00 Rheumatoid arthritis without rheumatoid factor, unspecified site (principal); E11.9 Type 2 diabetes mellitus without complications; F32.89 Other specified depressive episodes; D46.9 Myelodysplastic syndrome, unspecified; I48.91 Unspecified atrial fibrillation; H35.52 Pigmentary retinal dystrophy
CPT/HCPCS: 36415; 80053; 85025

== ENCOUNTER → 2020-10-01 20:00 | Outpatient (CLI) | payer MEDICARE, OTHER, SELFPAY ==
[2016-02-13 13:00] VITALS: BMI 25.7
[2020-08-13 09:42] VITALS: BMI 27.2
[2020-10-01] MEDS: Mirtazapine 30 MG Tablet PO (21:36)
--- NOTE | 2020-10-01 21:39 | NURSING ---
This RN administered 30 mg Mirtazapine tablet. No ID bracelet on pt so manual V-number applied and verified name/birthday verbally with patient.
== END ==
PROVIDERS: PCP Internal Medicine; Visit Provider Psychiatry & Neurology Sleep Medicine
DX: G47.33 Obstructive sleep apnea (adult) (pediatric) (principal); F51.04 Psychophysiologic insomnia; G47.20 Circadian rhythm sleep disorder, unspecified type
CPT/HCPCS: 95810

== ENCOUNTER 2021-04-30 22:07 | Observation (INO) | payer MEDICARE, OTHER, SELFPAY ==
[2016-02-13 13:00] VITALS: BMI 25.7
[2021-04-30] VITALS (8 sets, daily range): BP systolic 141–142; BP diastolic 59–61; PULSE 60–65; RESP 14–18; TEMP 36.6; O2SAT 97–100; BMI 23.4
--- NOTE | 2021-04-30 22:19 | CT_ITS ---
STUDY: CT HEAD STROKE PROTOCOL W/O CONTRAST INJECTION REASON FOR EXAM: Male, 85 years old. No deficit. Acute stroke suspected. Expressive aphasia, now resolved. TECHNIQUE: Transaxial CT imaging of the brain was performed without administration of intravenous contrast material. Individualized dose optimization techniques were used for this CT. COMPARISON: MRI of the brain, 09/25/2015. FINDINGS: Normal soft tissue structures. Normal calvarium. There is mild cerebral atrophy with widening of the extra-axial spaces and ventricular dilatation. There are areas of decreased attenuation within the white matter tracts of the supratentorial brain, consistent with microvascular disease changes. Normal basal ganglia and thalami. Normal brainstem. Normal cerebellum. There is no intracranial hemorrhage. There are no findings of an acute ischemic infarction. Normal visualized paranasal sinuses. ASPECT score: 10 CT/STROKE Brain/Head without Cont IMPRESSION: Chronic involutional changes without acute intracranial or calvarial abnormality. N.B. : The above Results were Read Back by Jason Shepherd DO to Carter Baker MD, and understanding confirmed on 04/30/2021 23:04:48 (ET). Electronically Signed: Jason Shepherd DO at 23:06 EDT Tel [phone], Service support ,
--- NOTE | 2021-04-30 22:19 | EKG12_ITS ---
Test Reason : NEURO Blood Pressure : / mmHG Vent. Rate : 067 BPM Atrial Rate : 067 BPM P-R Int : 184 ms QRS Dur : 082 ms QT Int : 416 ms P-R-T Axes : 050 -17 009 degrees QTc Int : 439 ms Normal sinus rhythm Normal ECG Confirmed by JOE DUKES, VAN ([id number]), newspaper managing editor MAXIMUS COVINGTON ([id number]) on 05/05/2021 10:41:12 AM Referred By: Confirmed By:VAN DIAZ MD
[2021-04-30 22:29] LABS: Absolute Lymphocyte Count 1.83 X10^3/uL (0.83-4.51); Absolute Neutrophil Count 1.7 X10^3/uL (2.0-7.7); Eosinophil# 0.02 X10^3/uL; Eosinophils% 0.4 % (0-5); Hematocrit 33.9 % (40-54); Lymphocyte # 1.83 X10^3/ul (0.83-4.51); Lymphocyte % 34.9 % (19-41); Mean Corp Hgb Conc 32.4 g/dL (32-36); Mean Corpuscular Hgb 30.3 pg (27.0-32.0); Mean Corpuscular Volume 93.4 fL (80-94); Mean Platelet Vol. 10.2 fl (6.2-12.0); Monocyte# 1.68 X10^3/uL; Monocyte% 32.1 % (0-10); NRBC Flagged by Analyzer 0 % (0-5); Neutrophil # 1.69 X10^3/uL (2.7-7.7); Neutrophil % 32.2 % (47-70); POSITIVE DIFFERENTIAL YES; Platelet Count 173 K/mm3 (150-450); RBC Distribution Width CV 13.9 % (11.6-14.6); RBC Distribution Width SD 47.8 fl (35.1-43.9); Red Blood Count 3.63 M/mm3 (4.6-6.2); White Blood Count 5.2 K/mm3 (4.4-11.0)
--- NOTE | 2021-04-30 22:32 | ED.RN ---
Pt legally blind in both eyes.
[2021-04-30 22:33] LABS: Differential Indicated SCAN CRITERIA MET
[2021-04-30 22:41] LABS: International Normalized Ratio 1.2; Prothrombin Time (Protime)PT. 14.5 SECONDS (11.7-14.9)
[2021-04-30 22:42] LABS: Partial Thromboplast Time 34.2 Seconds (24.1-36.2)
[2021-04-30 22:49] LABS: Anion Gap -1 (5-15); BUN 28 mg/dL (7-18); BUN/Creat Ratio 17.9 RATIO (10-20); Calcium,Total 9.5 mg/dL (8.5-10.1); Chloride 108 mmol/L (98-107); Creatinine, Serum 1.56 mg/dL (0.70-1.30); EST Glomerular Filtration Rate 45 mL/min (>60); Est Glom Filt Rate - Afr Amer 55 mL/min (>60); Estimated Creatinine Clearance 36.87 ml/min; Glucose 115 mg/dL (74-106); Potassium 3.9 mmol/L (3.5-5.1); Sodium Level 144 mmol/L (136-145); Troponin-I HS 12 pg/mL (3.0-78.0)
[2021-04-30 22:59] LABS: Differential Comment SCANNED
--- NOTE | 2021-04-30 23:05 | RAD_ITS ---
STUDY: X-RAY CHEST REASON FOR EXAM: Male, 85 years old. Deficit. Acute stroke suspected. Expressive aphasia now resolved. TECHNIQUE: Single AP portable view of the chest. COMPARISON: 09/25/2015. FINDINGS: Improvement inspiratory effort when compared to the prior study. There is a stable small granuloma in the lateral aspect of the right upper lobe no acute infiltrate or mass. There is no demonstrated pleural abnormality. Normal size heart. Normal mediastinum and jatinder. Normal visualized pulmonary arteries. There is atherosclerotic calcification of the aortic arch with tortuosity. Normal visualized thoracic spine. There is degenerative osteoarthritis of the bilateral shoulders. There is no demonstrated abnormality of the visualized soft tissue structures of the upper abdomen. RAD/Chest 1 View IMPRESSION: Old granulomatous disease without acute cardiopulmonary process. Electronically Signed: Jason Shepherd DO at 23:29 EDT Tel [phone], Service support ,
--- NOTE | 2021-04-30 23:35 | ED.VIS.STROK ---
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 Stroke order set was initiated. Son states onset was 2139. Duration was 15 minutes. He presently has no complaints. He states he is okay and would like to go home. Prior similar symptoms: No Recent Illness/Hospitalization: No [facility] Medical History (Updated 04/30/21 @ 23:[address] Carter Baker MD) Anemia of chronic disease Atrial flutter with rapid ventricular response (09/2015) Cellulitis and abscess Chronic constipation Chronic rheumatic arthritis Diabetes mellitus MDS (myelodysplastic syndrome) Obstructive sleep apnea Paroxysmal atrial flutter Personal history of immunosupression therapy Home Medications [id number] U96-dzis no.225 1 ea PO DAILY 05/03/15 [History Last Taken 08/23/15] metformin 1,000 mg PO DAILY 05/03/15 [History Last Taken 09/23/15] erqrllbl-qmm-IJ-lycopen-lutein 1 ea PO DAILY 05/03/15 [History Last Taken 09/23/15] magnesium oxide 400 mg PO BIDCM #60 tab 08/29/15 [Rx Last Taken 09/23/15] polyethylene glycol 3350 17 gm PO DAILY #30 packet 08/29/15 [Rx Last Taken 09/23/15] prednisone 2.5 mg PO DAILY 09/03/15 [History Last Taken 09/23/15] aspirin 81 mg tablet,delayed release 81 mg PO DAILY 08/10/19 [History Last Taken Unknown] donepezil 10 mg tablet 10 mg PO QHS 08/10/19 [History Last Taken Unknown] hydrochlorothiazide 12.5 mg capsule 12.5 mg PO DAILY #90 cap 08/10/19 [History Last Taken Unknown] memantine 10 mg tablet 10 mg PO BID 08/10/19 [History Last Taken Unknown] metoprolol tartrate 25 mg tablet 12.5 mg PO BID #90 ea 09/18/20 [Rx Last Taken Unknown] Glipizide 5 mg PO DAILY 11/05/20 [History Last Taken Unknown] Melatonin 3 mg Tablet 3 mg PO QHS 11/05/20 [History Last Taken Unknown] Mirtazapine 30 mg PO QHS 11/05/20 [History Last Taken Unknown] Allergy/AdvReac Type Severity Reaction Status Date / Time No Known Allergies Allergy Verified 04/30/21 22:10 Family History Father Cancer Diabetes Surgical History History of corneal transplant History of prostate surgery Hx of cataract surgery Social History (Updated 04/30/21 @ 23:[address] 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 ; Denies blurry vision, change in vision or diplopia ENT ENT ED: Denies ear pain, rhinorrhea or sore throat Cardiovascular Cardiovascular: Denies chest pain, palpitations or racing heartbeat Respiratory/Chest Respiratory/Chest: Denies cough, dyspnea or dyspnea on exertion Gastrointestinal Gastrointestinal: Denies abdominal pain, diarrhea, nausea or vomiting Genitourinary Genitourinary ED: Denies dysuria or urinary frequency Musculoskeletal Musculoskeletal: Denies arthralgias, myalgias or neck pain Neurologic Neurologic: Denies headache(s), paresthesias or weakness Endocrine Endocrinology: Denies polydipsia, polyphagia or polyuria Hematologic/Lymphatic Hematologic/Lymphatic: Denies easy bleeding or easy bruising EXAM Physical Exam Const Vital Signs: 04/30/21 22:08 04/30/21 22:19 04/30/21 22:25 Temperature 98 F Temperature Source Temporal Pulse Rate 65 64 Respiratory Rate 18 15 Blood Pressure 141/59 H Blood Pressure Mean 86 Pulse Ox 97 100 100 Oxygen Delivery Method Room Air Room Air Room Air 04/30/21 22:49 04/30/21 23:07 04/30/21 23:19 Temperature Temperature Source Pulse Rate 60 61 63 Respiratory Rate 15 14 Blood Pressure 142/61 H Blood Pressure Mean 88 Pulse Ox 98 98 Oxygen Delivery Method Room Air Room Air Positive well nourished and well developed General Appearance ED: well developed and NAD HEENT Reports TM's clear and moist mucous membranes atraumatic Tympanic Membrane ED: Yes TM's clear Eyes EOMs intact bilaterally; Negative for PERRL General Eye ED: Negative for pale conjunctiva or scleral icterus Neck no lymphadenopathy, supple and no JVD Neck Narrative: Trachea is midline. There is no carotid bruit. Chest Wall inspection of chest normal and palpation of chest normal Resp normal respiratory effort and clear to auscultation bilaterally Cardio no murmurs Rate: regular rate Rhythm: regular rhythm Heart Sounds: S1 normal and S2 normal GI normal to inspection, nondistended, normoactive bowel sounds, soft to palpation and non-tender Back/Spine no CVA tenderness Cervical Spine: Negative for cervical spine tenderness Thoracic Spine / Upper Back: Negative for thoracic spinal tenderness Lumbar Spine / Lower Back: Negative for lumbar spinal tenderness Extremity normal to inspection General Extremety ED: Negative for deformity, edema or tenderness General Extremity: Negative for deformity or edema Neuro oriented x3, CN's II-XII intact bilaterally and no sensory deficits noted [place] Coma Scale: document GCS findings Spontaneous Obeys Commands Oriented 15 Sensorium / Orientation: alert Motor Exam: strength 5/5 throughout Psych mental status grossly normal Skin no wounds Lesions: no lesions Rashes: no rashes STROKE Vital Signs/Narrative: Vital Signs Temp Pulse Resp BP Pulse Ox 04/30/21 23:19 63 14 98 04/30/21 23:07 61 04/30/21 22:49 60 15 142/61 H 98 04/30/21 22:25 100 04/30/21 22:19 64 15 100 04/30/21 22:08 98 F 65 18 141/59 H 97 NIHSS Initial: 1a Level of Consciousness: 0 1b LOC Questions (Score 2 if aphasic/stupor): 0 1c LOC Commands (Only score 1st attempt): 0 2 Best Gaze (If aphasic, use reflexive mvmts.): 0 3 Visual: 0 (Patient is blind and unable to assess) 4 Facial Palsy: 0 5 Motor Arm Right (UN = amputation/fusion): 0 5 Motor Arm Left: 0 6 Motor Leg Right: 0 6 Motor Leg Left: 0 7 Limb ataxia (Only + if out of proportion): 0 8 Sensory (Aphasia/stupor=0 or 1, coma=2): 0 9 Best Language: 0 10 Dysarthria (mute, coma=2, intubated=UN): 0 11 Extinction and Inattention (only scored if +): 0 Total Score: 0 MDM MDM MDM Narrative Medical decision making narrative: Patient presents with strokelike symptoms. Symptoms are resolved. Onset 2139. Patient family states he is never had a stroke before. Lab Data Attestation: I reviewed the patient's lab results. Labs: Laboratory Results - last 24 hr 04/30/21 04/30/21 04/30/21 22:22 22:22 22:27 WBC 5.2 RBC 3.63 L Hgb 11.0 L Hct 33.9 L MCV 93.4 MCH 30.3 MCHC 32.4 RDW Std Deviation 47.8 H RDW Coeff of Zak 13.9 Plt Count 173 MPV 10.2 Immature Gran % (Auto) 0.400 Neut % (Auto) 32.2 L Lymph % (Auto) 34.9 [place] % (Auto) 32.1 H Eos % (Auto) 0.4 Baso % (Auto) 0.0 Absolute Neuts (auto) 1.7 L Absolute Lymphs (auto) 1.83 Nucleated RBC % 0 Differential Comment SCANNED PT 14.5 INR 1.2 APTT 34.2 Sodium 144 Potassium 3.9 Chloride 108 H Carbon Dioxide 37.0 H Anion Gap -1 L BUN 28 H Creatinine 1.56 H Estim Creat Clear Calc 36.87 Est GFR (MDRD) Af Amer 55 L Est GFR (MDRD) Non-Af 45 L BUN/Creatinine Ratio 17.9 Glucose 115 H Calcium 9.5 Troponin I High Sens 12 Radiography Diagnostic Testing: Radiology Impression Brain CT 04/30/21 22:19 IMPRESSION: Chronic involutional changes without acute intracranial or calvarial abnormality. N.B. : The above Results were Read Back by Jason Shepherd DO to Carter Baker MD, and understanding confirmed on 04/30/2021 23:04:48 (ET). Electronically Signed: Jason Shepherd DO at 23:06 EDT Tel [phone], Service support , ADDENDUM: 04/30/21 2313 IMPRESSION: Chronic involutional changes without acute intracranial or calvarial abnormality. N.B. : The above Results were Read Back by Jason Shepherd DO to Carter Baker MD, and understanding confirmed on 04/30/2021 23:04:48 (ET). Electronically Signed: Jason Shepherd DO at 23:06 EDT Tel [phone], Service support , Chest X-Ray 04/30/21 23:05 IMPRESSION: Old granulomatous disease without acute cardiopulmonary process. Electronically Signed: Jason Shepherd DO at 23:29 EDT Tel [phone], Service support , EKG Initial EKG: Attestation: I personally reviewed and interpreted this EKG as follows: Interpretation: Sinus Rhythm (The EKG is normal. Ventricular rate is 67. 4 ms. QS duration 82 ms. QT duration 460 ms. [place] is normal.) Stroke Documentation Questions Stroke Team Activated: No Reviewed Inclusion/Exclusion criteria: No Was Patient considered for Endovascular Intervention?: No IV Alteplase (t-PA) Administered: No No contraindications for IV Alteplase (t-PA) administration.: No Alteplase (t-PA) risks, benefits, alternative discussed: No Discharge Plan Triage Chief Complaint: Neuro S/Sx ED Provider: Carter Baker Dx/Rx/DC Orders Clinical Impression: Brain TIA Prescriptions: No Action donepezil 10 mg tablet 10 mg PO QHS RF: 0 memantine 10 mg tablet 10 mg PO BID RF: 0 hydrochlorothiazide 12.5 mg capsule 12.5 mg PO DAILY Qty: 90 RF: 0 aspirin [Adult Aspirin Regimen] 81 mg tablet,delayed release (DR/EC) 81 mg PO DAILY RF: 0 metformin 1,000 MG tablet 1,000 mg PO DAILY RF: 0 mzabqcam-cto-IM-lycopen-lutein 1 EACH tablet 1 ea PO DAILY RF: 0 [id number] Q73-ukkd no.225 1 EACH tablet 1 ea PO DAILY RF: 0 polyethylene glycol 3350 17 GM packet 17 gm PO DAILY Qty: 30 RF: 0 magnesium oxide 400 MG tablet 400 mg PO BIDCM Qty: 60 RF: 0 prednisone 2.5 MG tablet 2.5 mg PO DAILY RF: 0 Mirtazapine 30 MG tablet 30 mg PO QHS RF: 0 Melatonin 3 mg Tablet 3 MG tablet 3 mg PO QHS RF: 0 Glipizide 5 MG tablet 5 mg PO DAILY RF: 0 metoprolol tartrate 25 mg tablet 12.5 mg PO BID Qty: 90 RF: 3 Primary Care Provider: Sampson Penny Referrals: Sampson Penny MD [Primary Care Provider] - Disposition Disposition: [facility]
--- NOTE | 2021-04-30 23:54 | HP.PCM_ITS ---
Documented by User: LUIGI Cummins 05/01/21 00:14 HPI - General General Date of Admission: 04/30/21 Date of Service: 04/30/21 Chief Complaint: Disorientation HPI Narrative JULIANE SANDOVAL, is a 85 M who presents with reports of disorientation in a.m. trouble word finding. Patient states that he was on the phone with his family when he began to be confused. Family reports that patient was talking but words did not make sense. Patient currently able to speak in comprehensible sentences. Patient family reports episode lasted approximately 15 minutes. Patient reports that he did take his nighttime medications including Remeron prior to episode. Patient denies other symptoms. FORMERLY [facility], [facility] Medical History Anemia of chronic disease Atrial flutter with rapid ventricular response (09/2015) Cellulitis and abscess Chronic constipation Chronic rheumatic arthritis Diabetes mellitus MDS (myelodysplastic syndrome) Obstructive sleep apnea Paroxysmal atrial flutter Personal history of immunosupression therapy Home Medications [id number]-co L25-lkyb no.225 1 ea PO DAILY 05/03/15 [History Last Taken 08/23/15] metformin 1,000 mg PO DAILY 05/03/15 [History Last Taken 09/23/15] etvivdsj-xfc-JQ-lycopen-lutein 1 ea PO DAILY 05/03/15 [History Last Taken 09/23/15] magnesium oxide 400 mg PO BIDCM #60 tab 08/29/15 [Rx Last Taken 09/23/15] polyethylene glycol 3350 17 gm PO DAILY #30 packet 08/29/15 [Rx Last Taken 09/23/15] prednisone 2.5 mg PO DAILY 09/03/15 [History Last Taken 09/23/15] aspirin 81 mg tablet,delayed release 81 mg PO DAILY 08/10/19 [History Last Taken Unknown] donepezil 10 mg tablet 10 mg PO QHS 08/10/19 [History Last Taken Unknown] hydrochlorothiazide 12.5 mg capsule 12.5 mg PO DAILY #90 cap 08/10/19 [History Last Taken Unknown] memantine 10 mg tablet 10 mg PO BID 08/10/19 [History Last Taken Unknown] metoprolol tartrate 25 mg tablet 12.5 mg PO BID #90 ea 09/18/20 [Rx Last Taken Unknown] Glipizide 5 mg PO DAILY 11/05/20 [History Last Taken Unknown] Melatonin 3 mg Tablet 3 mg PO QHS 11/05/20 [History Last Taken Unknown] Mirtazapine 30 mg PO QHS 11/05/20 [History Last Taken Unknown] Allergy/AdvReac Type Severity Reaction Status Date / Time No Known Allergies Allergy Verified 04/30/21 22:10 Family History Father Cancer Diabetes Surgical History History of corneal transplant History of prostate surgery Hx of cataract surgery Social History (Updated 05/01/21 @ 00:42 by Margret Rodriguez) household members: spouse and children housing: house current occupational status: retired Smoking Status: Never smoker alcohol intake: current alcohol intake frequency: other substance use type: does not use ROS Constitutional Constitutional: Denies anorexia, chills, fatigue, malaise or weakness Cardiovascular Cardiovascular: Denies chest pain, edema or syncope Respiratory/Chest Respiratory/Chest: Denies cough, shortness of breath at rest, shortness of breath with exertion or wheezing Gastrointestinal Gastrointestinal: Denies abdominal pain, constipation, diarrhea, nausea or vomiting Genitourinary Genitourinary: Denies dysuria Musculoskeletal Musculoskeletal: Denies back pain, extremity pain, joint pain or joint stiffness Integumentary Integumentary: Denies dry skin Neurologic Neurologic: Reports abnormal speech; Denies abnormal gait, dizziness, focal weakness, syncope or weakness Psychiatric Psychiatric: Denies anxiety or depression Endocrine Endocrinology: Denies change in body appearance Hematologic/Lymphatic Hematologic/Lymphatic: Denies easy bleeding or easy bruising Vital Signs Vital Signs Vital Signs: 04/30/21 22:08 04/30/21 22:19 04/30/21 22:25 Temperature 98 F Temperature Source Temporal Pulse Rate 65 64 Respiratory Rate 18 15 Blood Pressure 141/59 H Blood Pressure Mean 86 Pulse Ox 97 100 100 Oxygen Delivery Method Room Air Room Air Room Air 04/30/21 22:49 04/30/21 23:07 04/30/21 23:19 Temperature Temperature Source Pulse Rate 60 61 63 Respiratory Rate 15 14 Blood Pressure 142/61 H Blood Pressure Mean 88 Pulse Ox 98 98 Oxygen Delivery Method Room Air Room Air 04/30/21 23:30 04/30/21 23:46 Temperature 98 F Temperature Source Temporal Pulse Rate 61 61 Respiratory Rate 14 14 Blood Pressure 142/59 H 142/61 H Blood Pressure Mean 86 88 Pulse Ox 98 98 Oxygen Delivery Method Room Air Room Air Weight Weight: 167 lb 15.876 oz Body Mass Index (BMI) 23.4 Physical Exam Const alert, oriented x3 and no apparent distress General Appearance: cooperative HEENT normocephalic and head/scalp atraumatic Eyes conjunctivae normal and no scleral icterus Neck supple and no JVD General: trachea midline Resp normal respiratory effort, normal air movement and clear to auscultation bilaterally Cardio regular rate, regular rhythm, S1 normal heart sound, S2 normal heart sound and peripheral pulses 2+ throughout GI normal to inspection, nondistended, normoactive bowel sounds, soft to palpation and non-tender Extremity normal capillary refill and no clubbing, cyanosis or edema General Extremity: no tenderness to palpation of joints or extremities Skin General Skin Exam: no breakdown and turgor normal Lesions: no lesions Rashes: no rashes Neuro oriented x3, moves all extremities, no focal motor deficits and no sensory deficits noted Coordination / Balance: [id number]-ja-[id number] test normal and [id number]-xt-[id number] test normal Speech: speech normal Sensory Exam: double simultaneous stimulation for sensation normal Motor Exam: muscle tone normal throughout Psych thought process normal, cooperative and affect normal Appearance: appropriate Results Lab / Micro Data Result Diagrams: 04/30/21 22:22 04/30/21 22:22 Labs: Laboratory Results - last 24 hr 04/30/21 22:22: WBC 5.2, RBC 3.63 L, Hgb 11.0 L, Hct 33.9 L, MCV 93.4, MCH 30.3, MCHC 32.4, RDW Std Deviation 47.8 H, RDW Coeff of Zak 13.9, Plt Count 173, MPV 10.2, Immature Gran % (Auto) 0.400, Neut % (Auto) 32.2 L, Lymph % (Auto) 34.9, [place] % (Auto) 32.1 H, Eos % (Auto) 0.4, Baso % (Auto) 0.0, Absolute Neuts (auto) 1.7 L, Absolute Lymphs (auto) 1.83, Nucleated RBC % 0, Differential Comment SCANNED 04/30/21 22:22: Sodium 144, Potassium 3.9, Chloride 108 H, Carbon Dioxide 37.0 H , Anion Gap -1 L, BUN 28 H, Creatinine 1.56 H, Estim Creat Clear Calc 36.87, Est GFR (MDRD) Af Amer 55 L, Est GFR (MDRD) Non-Af 45 L, BUN/Creatinine Ratio 17.9, Glucose 115 H, Calcium 9.5, Troponin I High Sens 12 04/30/21 22:27: PT 14.5, INR 1.2, APTT 34.[address] 04/30/21 22:19 IMPRESSION: Chronic involutional changes without acute intracranial or calvarial abnormality. N.B. : The above Results were Read Back by Jason Shepherd DO to Carter Baker MD, and understanding confirmed on 04/30/2021 23:04:48 (ET). Electronically Signed: Jason Shepherd DO at 23:06 EDT Tel [phone], Service support , ADDENDUM: 04/30/21 2313 IMPRESSION: Chronic involutional changes without acute intracranial or calvarial abnormality. N.B. : The above Results were Read Back by Jason Shepherd DO to Carter Baker MD, and understanding confirmed on 04/30/2021 23:04:48 (ET). Electronically Signed: Jason Shepherd DO at 23:06 EDT Tel [phone], Service support , Chest X-Ray 04/30/21 23:05 IMPRESSION: Old granulomatous disease without acute cardiopulmonary process. Electronically Signed: Jason Shepherd DO at 23:29 EDT Tel [phone], Service support , Assessment & Plan Assessment/Plan (1) Brain TIA: PLAN: 1. TIA -Admit to PCU for cardiac monitoring and NIH stroke scale evaluation, NIH 0 upon presentation to ER -Obtain echocardiogram in morning -MRI brain and MRA head ordered for a.m. along with carotid duplex -We will obtain CBC, CMP, TSH, magnesium, lipid panel, hemoglobin A1c. -PT and OT to eval and treat -Trend cardiac enzymes -Consult case management for discharge planning -Continuous pulse ox -N.p.o. pending bedside dysphagia screen -Will start on atorvastatin 2. Acute kidney injury superimposed on chronic kidney disease -Normal saline 75 ml/hr -Daily CMP, trend BUN, creatinine and GFR -We will hold Metformin, glipizide, hydrochlorothiazide. 3. Hypertension -Continue home medication regimen 4. Diabetes mellitus type 2 -AC at bedtime blood sugars with sliding scale insulin ordered -We will hold p.o. antidiabetic medications due to NOAH 5. Alzheimer's disease -Continue home medication regimen 6. Myelodysplastic syndrome -Review of labs consistent with baseline. DVT prophylaxis-not indicated, encourage ambulation This patient was seen by RACHEL CumminsC under the supervision of Dr. Funk. Documented by User: Dr. Tawanna Funk MD 05/01/21 01:15 HPI - General General Date of Admission: 04/30/21 FOR[facility]LY [facility], [facility] Medical History Anemia of chronic disease Atrial flutter with rapid ventricular response (09/2015) Cellulitis and abscess Chronic constipation Chronic rheumatic arthritis Diabetes mellitus MDS (myelodysplastic syndrome) Obstructive sleep apnea Paroxysmal atrial flutter Personal history of immunosupression therapy Home Medications [id number]-co E13-liok no.225 1 ea PO DAILY 05/03/15 [History Last Taken 08/23/15] metformin 1,000 mg PO DAILY 05/03/15 [History Last Taken 09/23/15] ylepqxwt-urj-KL-lycopen-lutein 1 ea PO DAILY 05/03/15 [History Last Taken 09/23/15] magnesium oxide 400 mg PO BIDCM #60 tab 08/29/15 [Rx Last Taken 09/23/15] polyethylene glycol 3350 17 gm PO DAILY #30 packet 08/29/15 [Rx Last Taken 09/23/15] prednisone 2.5 mg PO DAILY 09/03/15 [History Last Taken 09/23/15] aspirin 81 mg tablet,delayed release 81 mg PO DAILY 08/10/19 [History Last Taken Unknown] donepezil 10 mg tablet 10 mg PO QHS 08/10/19 [History Last Taken Unknown] hydrochlorothiazide 12.5 mg capsule 12.5 mg PO DAILY #90 cap 08/10/19 [History Last Taken Unknown] memantine 10 mg tablet 10 mg PO BID 08/10/19 [History Last Taken Unknown] metoprolol tartrate 25 mg tablet 12.5 mg PO BID #90 ea 09/18/20 [Rx Last Taken Unknown] Glipizide 5 mg PO DAILY 11/05/20 [History Last Taken Unknown] Melatonin 3 mg Tablet 3 mg PO QHS 11/05/20 [History Last Taken Unknown] Mirtazapine 30 mg PO QHS 11/05/20 [History Last Taken Unknown] Allergy/AdvReac Type Severity Reaction Status Date / Time No Known Allergies Allergy Verified 04/30/21 22:10 Family History Father Cancer Diabetes Surgical History History of corneal transplant History of prostate surgery Hx of cataract surgery Social History (Updated 05/01/21 @ 00:42 by Margret Rodriguez) household members: spouse and children housing: house current occupational status: retired Smoking Status: Never smoker alcohol intake: current alcohol intake frequency: other substance use type: does not use Results Lab / Micro Data Result Diagrams: 04/30/21 22:22 04/30/21 22:22
[2021-05-01] VITALS (12 sets, daily range): BP systolic 119–126; BP diastolic 49–58; PULSE 52–72; RESP 12–16; TEMP 36.6–37; O2SAT 94–98; BMI 24.0
--- NOTE | 2021-05-01 00:17 | CDU_ITS ---
Reason For Study: CVA Rt. Velocities/BP Lt. Velocities/BP Prox CCA 55.2/12.1 cm/sec. Prox CCA 73.9/12.4 cm/sec. Mid CCA 61.7/8.2 cm/sec. Mid CCA 72.8/14.6 cm/sec. Dist CCA 65.6/10.8 cm/sec. Dist CCA 55.3/8 cm/sec. Prox ICA 70.6/11.3 cm/sec. Prox ICA 52/11.3 cm/sec. Mid ICA 61.9/8 cm/sec. Mid ICA 73.9/13.5 cm/sec. Dist ICA 53.1/13.5 cm/sec. Dist ICA 70.6/16.8 cm/sec. Rt. ICA/CCA = 1.14. Lt. ICA/CCA = 1.02. Prox ECA 50.9 cm/sec. Prox ECA 97 cm/sec. Rt. Vert. 47.6/9.1 cm/sec. Lt. Vert. 33.3/10.2 cm/sec. Right Extracranial There is heterogeneous, irregular atherosclerotic plaque noted in the right common carotid artery. There is heterogeneous, irregular atherosclerotic plaque noted in the right internal carotid artery. There is intimal thickening but no significant atherosclerotic plaque noted in the right external carotid artery. Antegrade flow is noted in the right vertebral artery. Left Extracranial There is heterogeneous, irregular atherosclerotic plaque noted in the left common carotid artery. There is homogeneous, irregular atherosclerotic plaque noted in the left internal carotid artery. There is heterogeneous, irregular atherosclerotic plaque noted in the left external carotid artery. Antegrade flow is noted in the left vertebral artery. Procedure Carotid Duplex 44937. This is a Carotid Duplex examination using B-mode, color flow and specral Doppler. Exam performed portable in patient room. 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 Performed By: Smitha Gandhi RVT
--- NOTE | 2021-05-01 00:17 | MRI_ITS ---
ACR Level 3 findings have been noted. An addendum which confirms receipt of the report will follow. HISTORY: CVA, speech difficulty. TECHNIQUE: Multiplanar and multisequence MR images of the brain were obtained without gadolinium. # of images incl. paperwork: 282. COMPARISON: CT prior day, MR 09/25/2015. FINDINGS: BRAIN PARENCHYMA: Moderate-severe T2 FLAIR hyperintense signal in the periventricular white matter. Small foci of restricted diffusion in the bilateral cerebellar hemispheres, adjacent to small chronic infarcts. INTRACRANIAL HEMORRHAGE: No acute intracranial hemorrhage. CSF SPACES: Moderate generalized volume loss. No midline shift or other significant mass effect. No extra-axial fluid collection. VASCULAR SYSTEM: Major intracranial flow-voids maintained. ORBITS: Bilateral lens resections. PARANASAL SINUSES AND MASTOID AIR CELLS: Clear. MRI/Brain without Contrast IMPRESSION: Small acute bilateral cerebellar infarcts. Small chronic bilateral cerebellar infarcts. Advanced chronic small vessel ischemic gliosis and volume loss. at 1048 Reported and signed by: Maile Recio MD Electronically Signed: Maile Recio MD at 10:46 EDT Tel , Service support ,
--- NOTE | 2021-05-01 00:17 | ECHOCS_ITS ---
Version 2 Reason For Study: TIA/CVA Procedure This was a 2D Doppler, Color Flow transthoracic echocardiogram. The study was technically difficult. Contrast injection was performed. Exam performed portable in patient room. Left Ventricle Normal LV size. Left ventricular systolic function is normal. The estimated ejection fraction is 60 %. No regional wall motion abnormalities noted. Right Ventricle Normal RV size. Normal systolic function. Atria Normal left atrium. Normal right atrium. Mitral Valve Normal mitral valve. Mild (1+) mitral valve insufficiency. Tricuspid Valve Normal tricuspid valve. Mild tricuspid valve insufficiency. Pulmonary artery systolic pressure is 37 mmHg. Aortic Valve Trisinus/trileaflet aortic valve. Pulmonic Valve Normal pulmonic valve. Great Vessels Normal aortic root. The pulmonary artery is normal size. Normal inferior vena cava. Pericardium/Pleural No pericardial effusion. Medication Diluted definity 4.0ml given slow IV push to enhance endocardial definition. Performed a rapid injection of agitated mix of 9 cc saline and 1cc air to assess for atrial septal defect. MMode/2D Measurements & Calculations LVIDd: 5.2 cm IVSd: 0.80 cm Ao root diam: 3.7 cm LVIDs: 3.7 cm LVPWd: 0.88 cm RVDd: 4.2 cm FS: 28.6 % LAV(MOD-bp): 46.4 ml LVAd ap4: 37.1 cm2 LVAd ap2: 31.3 cm2 LAV(MOD-bp) Indexed: 23.8 ml/m2 LVLd ap4: 9.0 cm LVLd ap2: 8.1 cm LAV(MOD-sp2): 44.2 ml EDV(MOD-sp4): 130.2 ml EDV(MOD-sp2): 100.6 ml LAV(MOD-sp4): 47.3 ml EDV(sp4-el): 129.2 ml EDV(sp2-el): 101.9 ml LVAs ap4: 22.6 cm2 LVAs ap2: 20.5 cm2 LVLs ap4: 7.6 cm LVLs ap2: 6.8 cm ESV(MOD-sp4): 56.6 ml ESV(MOD-sp2): 52.7 ml ESV(sp4-el): 57.2 ml ESV(sp2-el): 52.6 ml EF(MOD-sp4): 56.6 % EF(MOD-sp2): 47.6 % EF(sp4-el): 55.7 % SV(MOD-sp4): 73.7 ml SV(MOD-sp2): 47.9 ml SV(sp4-el): 72.0 ml LA A4 area: 17.1 cm2 LA dimension(2D): 3.8 cm RA A4 area: 14.8 cm2 Time Measurements MV dec time: 0.21 sec Doppler Measurements & Calculations MV E max prasanth: 91.4 cm/sec Lat Peak E' Prasanth: 9.2 cm/sec Med Peak E' Prasanth: 7.9 cm/sec MV A max prasanth: 78.2 cm/sec E/E' lat: 10.0 E/E' med: 11.5 MV E/A: 1.2 Ao V2 max: 108.1 cm/sec LV V1 max: 74.6 cm/sec PA V2 max: 64.3 cm/sec Ao max P.7 mmHg LV V1 max P.2 mmHg PI end-d prasanth: 74.3 cm/sec TR max prasanth: 287.6 cm/sec TR max P.1 mmHg ECHO/Echo Complete W/ Contrast Interpretation Summary Normal LV size. Left ventricular systolic function is normal. The estimated ejection fraction is 60 %. Mild (1+) mitral valve insufficiency. Pulmonary artery systolic pressure is 37 mmHg. Contrast injection was performed. Ordering Physician: Shira Cutler Referring Physician: Sampson Penny M.D. Performed By: Clarisa Prado, CHRIS, RVT
--- NOTE | 2021-05-01 00:17 | MRI_ITS ---
HISTORY: CVA, speech difficulty. TECHNIQUE: Routine [place]/brain 3D time of flight MR angiogram protocol was performed without gadolinium. 3D reconstructions were reviewed. Number of images including paperwork: 195. COMPARISON: 09/25/2015. FINDINGS: RIGHT VERTEBRAL ARTERY: No occlusion, significant stenosis, or aneurysm. LEFT VERTEBRAL ARTERY: No occlusion, significant stenosis, or aneurysm. BASILAR ARTERY: No occlusion, significant stenosis, or aneurysm. RIGHT SLAT GRADER: No occlusion, significant stenosis, or aneurysm. origin. LEFT SLAT GRADER: No occlusion, significant stenosis, or aneurysm. RIGHT ICA:No occlusion, significant stenosis, or aneurysm. LEFT ICA: No occlusion, significant stenosis, or aneurysm. RIGHT MCA:No occlusion, significant stenosis, or aneurysm. LEFT MCA: No occlusion, significant stenosis, or aneurysm. BILATERAL GUIDO: No occlusion or significant stenosis. Possible small fenestration or variant vessel of the left anterior cerebral artery near the anterior communicating artery again seen. MRI/MRA Head ONLY without Contrast IMPRESSION: No evidence for occlusion or significant stenosis in the [place] region. at 1053 Reported and signed by: Maile Recio MD Electronically Signed: Maile Recio MD at 10:52 EDT Tel , Service support ,
--- NOTE | 2021-05-01 00:23 | PCS.PANDOC ---
PANDEMIC DOCUMENTATION INITIATED: Date: 05/01/2021 Time: 22
[2021-05-01 00:30] LABS: Magnesium 2.3 mg/dL (1.6-2.6); Troponin-I HS 12 pg/mL (3.0-78.0)
[2021-05-01] MEDS: 0.9% Normal Saline 1,000 ML 75 ML IV (01:42)
[2021-05-01] MEDS: 0.9% Saline Lock 10 ML Syringe IV (01:43)
[2021-05-01 02:08] LABS: Hemoglobin A1c 6.9 % (3.8-5.6)
--- NOTE | 2021-05-01 02:15 | CPS ---
Patient states he does not wear a cpap at home and refused to use one when asked about it
[2021-05-01 05:12] LABS: Absolute Lymphocyte Count 1.67 X10^3/uL (0.83-4.51); Absolute Neutrophil Count 1.4 X10^3/uL (2.0-7.7); Eosinophil# 0.01 X10^3/uL; Eosinophils% 0.2 % (0-5); Hematocrit 32.3 % (40-54); Hemoglobin 10.4 g/dL (13.0-16.5); Lymphocyte # 1.67 X10^3/ul (0.83-4.51); Lymphocyte % 36.8 % (19-41); Mean Corp Hgb Conc 32.2 g/dL (32-36); Mean Corpuscular Hgb 29.9 pg (27.0-32.0); Mean Corpuscular Volume 92.8 fL (80-94); Mean Platelet Vol. 11.1 fl (6.2-12.0); Monocyte# 1.42 X10^3/uL; Monocyte% 31.3 % (0-10); NRBC Flagged by Analyzer 0 % (0-5); Neutrophil # 1.42 X10^3/uL (2.7-7.7); Neutrophil % 31.3 % (47-70); Platelet Count 159 K/mm3 (150-450); RBC Distribution Width CV 13.8 % (11.6-14.6); RBC Distribution Width SD 46.4 fl (35.1-43.9); Red Blood Count 3.48 M/mm3 (4.6-6.2); White Blood Count 4.5 K/mm3 (4.4-11.0)
[2021-05-01 06:14] LABS: AST(SGOT) 10 U/L (15-37); Alanine Aminotransfer ALT/SGPT 17 U/L (16-61); Albumin, Serum 3.2 g/dL (3.2-5.0); Alkaline Phosphatase 89 U/L (45-117); Anion Gap 5 (5-15); BUN 26 mg/dL (7-18); BUN/Creat Ratio 20.8 RATIO (10-20); Calcium,Total 8.7 mg/dL (8.5-10.1); Chloride 109 mmol/L (98-107); Cholesterol 68 mg/dL (200); Creatinine, Serum 1.25 mg/dL (0.70-1.30); EST Glomerular Filtration Rate 58 mL/min (>60); Est Glom Filt Rate - Afr Amer 71 mL/min (>60); Estimated Creatinine Clearance 44.61 ml/min; Globulin 3.1 g/dL (2.2-4.2); Glucose 119 mg/dL (74-106); High Density Lipoprotein 24 mg/dL; Potassium 3.6 mmol/L (3.5-5.1); Protein, Total 6.3 g/dL (6.4-8.2); Sodium Level 145 mmol/L (136-145); Thyroid Stim Hormone (TSH) 1.48 uIU/mL (0.358-3.74); Triglycerides 67 mg/dL; Troponin-I HS 12 pg/mL (3.0-78.0); Very Low Density Lipoprotein 13 mg/dL (5-40)
[2021-05-01 09:01] LABS: Bedside Glucose 114 mg/dL (70-110)
[2021-05-01] MEDS: Glucerna Shake 120 ML LIQUID PO (09:08)
[2021-05-01] MEDS: Aspirin E.C. 81 MG Tablet PO (09:09)
[2021-05-01] MEDS: Polyethylene Glycol 3350 17 GM PACKET PO (09:09)
[2021-05-01] MEDS: Memantine Hydrochloride 10 MG Tablet PO (09:09)
[2021-05-01] MEDS: Magnesium Chloride 64 MG Delay Rel.Tablet 128 MG PO (09:09)
[2021-05-01] MEDS: APIXABAN 2.5 MG TABLET PO (09:09)
[2021-05-01] MEDS: Multivitamins,Ther W-Minerals Tablet 1 TABLET PO (09:09)
[2021-05-01] MEDS: Metoprolol Tartrate 25 MG Tablet 12.5 MG PO (09:09)
[2021-05-01] MEDS: predniSONE 5 MG Tablet 2.5 MG PO (09:10)
[2021-05-01 11:35] LABS: Bedside Glucose 203 mg/dL (70-110)
--- NOTE | 2021-05-01 11:44 | TELEMED_ITS ---
[facility] Telemed has confirmed receipt of a request for visit. This document confirms receipt of the order initiating the consult. To find the results of the consultation, please view the patient's reports for the scanned Telemed Consult.
[2021-05-01] MEDS: Insulin Lispro 100 UNIT/ML INSULN.PEN SC (12:06)
--- NOTE | 2021-05-01 14:00 | PCM.DC ---
Discharge Instructions Diet Discharge Diet: Low fat / Low cholesterol, 1800 Calorie Control Diet and 2000 mg Sodium Diet Activity Discharge Activity: May Not Drive (Legally blind.) and - Weight Bearing Status: Weight bearing as tolerated Dressing / Incision Call your doctor if you observe: Fever of 101 or Higher, Coldness, Increased Pain, Numbness or Tingling, Change in Color, Inability to urinate, Inability to have a bowel movement, Shortness of breath, Dizziness, Fainting spells, Swelling in the ankles, Chest pain, Prolonged hiccupping, Increased palpitations (irregular heartbeat), Calf discomfort and Uncontrolled pain Follow Up Care Test Results: Test results from this visit will be discussed in further detail at your follow-up appointment, if applicable. Discharge Plan Admission Admit Date/Time: 04/30/21 23:53 Primary Reason for Your Visit: Bilateral acute cerebellar stroke Attending Provider: Joe Aburto Primary Care Provider: Sampson Penny Discharge Orders/Prescriptions Prescriptions: New atorvastatin 40 mg tablet 40 mg PO QHS Qty: 30 RF: 2 Continued donepezil 10 mg tablet 10 mg PO QHS RF: 0 memantine 10 mg tablet 10 mg PO BID RF: 0 hydrochlorothiazide 12.5 mg capsule 12.5 mg PO DAILY Qty: 90 RF: 0 aspirin [Adult Aspirin Regimen] 81 mg tablet,delayed release (DR/EC) 81 mg PO DAILY RF: 0 metformin 1,000 MG tablet 1,000 mg PO DAILY RF: 0 rlebzesd-spv-VO-lycopen-lutein 1 EACH tablet 1 ea PO DAILY RF: 0 [id number]-co O34-pxfe no.225 1 EACH tablet 1 ea PO DAILY RF: 0 polyethylene glycol 3350 17 GM packet 17 gm PO DAILY Qty: 30 RF: 0 magnesium oxide 400 MG tablet 400 mg PO BIDCM Qty: 60 RF: 0 prednisone 2.5 MG tablet 2.5 mg PO DAILY RF: 0 Mirtazapine 30 MG tablet 30 mg PO QHS RF: 0 Melatonin 3 mg Tablet 3 MG tablet 3 mg PO QHS RF: 0 Glipizide 5 MG tablet 5 mg PO DAILY RF: 0 metoprolol tartrate 25 mg tablet 12.5 mg PO BID Qty: 90 RF: 3 Referrals / Follow Up: Sampson Penny MD [Primary Care Provider] - Disposition Disposition (needs filled in before D/C Order can be placed): Home, Self Care
--- NOTE | 2021-05-01 14:06 | PCM.DC.SUM ---
Providers Date of Admission: 04/30/21 Primary Care Physician: Dr. Sampson Penny MD Reason For Visit: TIA Diagnosis Discharge Diagnosis (1) Brain TIA: Status: Acute Code(s): G45.9 - Transient cerebral ischemic attack, unspecified Medications at Discharge Home Medications [id number]-co R21-juvx no.225 1 ea PO DAILY 05/03/15 metformin 1,000 mg PO DAILY 05/03/15 noilmtio-hju-VY-lycopen-lutein 1 ea PO DAILY 05/03/15 magnesium oxide 400 mg PO BIDCM #60 tab 08/29/15 polyethylene glycol 3350 17 gm PO DAILY #30 packet 08/29/15 prednisone 2.5 mg PO DAILY 09/03/15 aspirin 81 mg tablet,delayed release 81 mg PO DAILY 08/10/19 donepezil 10 mg tablet 10 mg PO QHS 08/10/19 hydrochlorothiazide 12.5 mg capsule 12.5 mg PO DAILY #90 cap 08/10/19 memantine 10 mg tablet 10 mg PO BID 08/10/19 metoprolol tartrate 25 mg tablet 12.5 mg PO BID #90 ea 09/18/20 Glipizide 5 mg PO DAILY 11/05/20 Melatonin 3 mg Tablet 3 mg PO QHS 11/05/20 Mirtazapine 30 mg PO QHS 11/05/20 atorvastatin 40 mg PO QHS #30 tab 05/01/21 Hospital Course Summary of Care Provided Hospital Course: This 85-year-old gentleman was admitted for trouble finding words, disorientation, confusion and incomprehensible speech. His symptoms lasted for 15 minutes and was resolved by the time of admission. On telemetry, patient cardiac rhythm sinus. NIH 0 at time of admission. Troponin negative. Stroke work-up was completed. MRI shows bilateral small acute cerebellar stroke. Head MRA did not show evidence of occlusion or significant stenosis in [place]. Carotid duplex reported less than 50% stenosis of the right internal and external carotid and less than 50% left internal and external carotid. 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 Patient is on baby aspirin and atorvastatin. Patient was well hydrated. 2D echo EF 60% with normal left atrium. Patient follows perinatal coordinator Dr. Dacosta and on review of cardiology visit on 08/13/2020 for paroxysmal A. fib. His Holter monitor did not show evidence of A. fib and therefore not on rate control and also high risk of bleeding/fall with history of legal blindness. NOAH resolved. Creatinine was 1.56, proved to 1.25. 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 Discharge medication reconciliation done. Discharge follow-up instructions completed. Discharge process discussed with the patient and all questions were answered to patient's satisfaction. Total time spent, exact 35 minutes on discharge meds reconciliation, examination, coordination of care with nurses and ancillary staff, review of imaging and blood test and discussion with the patient on follow-up instructions Physical Exam Narrative Patient symptoms of trouble finding words, confusion and sensory aphasia resolved. 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 General: Alert, Oriented x3, Cooperative HEENT: Atraumatic, Normocephalic, legally blind. Oral: No Gingival or Mucosal Lesions/ Ulcerations Neck: Supple, No JVD, Negative Carotid Bruits Lungs: Air entry diminished in bilateral lung bases. No crepitation/rhonchi Cardiovascular: Regular rate, Regular Rhythm, Normal S1, Normal S2, No murmurs Abdomen: Bowel Sounds Present, Soft, Non Tender, Non-Distended : No renal angle tenderness. No suprapubic tenderness. Extremities: No edema, Capillary Refill Less than 3 Seconds Skin: No rashes, No breakdown Musculoskeletal: No Tenderness to Palpation of Joints or Extremities Neurological: Cranial nerves II-XII grossly intact, DTR 2+/4. No appreciable speech abnormality. Psych/Mental Status: Normal Affect, Appropriate. Weight / BMI Weight Weight: 167 lb 12.348 oz Body Mass Index (BMI) 24.0 ABG / Lab / Microbiology Data Result Diagrams: 05/01/21 04:48 05/01/21 04:48 Laboratory: Laboratory Results - last 24 hr 04/30/21 22:22: WBC 5.2, RBC 3.63 L, Hgb 11.0 L, Hct 33.9 L, MCV 93.4, MCH 30.3, MCHC 32.4, RDW Std Deviation 47.8 H, RDW Coeff of Zak 13.9, Plt Count 173, MPV 10.2, Immature Gran % (Auto) 0.400, Neut % (Auto) 32.2 L, Lymph % (Auto) 34.9, [place] % (Auto) 32.1 H, Eos % (Auto) 0.4, Baso % (Auto) 0.0, Absolute Neuts (auto) 1.7 L, Absolute Lymphs (auto) 1.83, Nucleated RBC % 0, Differential Comment SCANNED 04/30/21 22:22: Sodium 144, Potassium 3.9, Chloride 108 H, Carbon Dioxide 37.0 H, Anion Gap -1 L, BUN 28 H, Creatinine 1.56 H, Estim Creat Clear Calc 36.87, Est GFR (MDRD) Af Amer 55 L, Est GFR (MDRD) Non-Af 45 L, BUN/Creatinine Ratio 17.9, Glucose 115 H, Calcium 9.5, Troponin I High Sens 12 04/30/21 22:22: Hemoglobin A1c 6.9 H 04/30/21 22:27: PT 14.5, INR 1.2, APTT 34.2 05/01/21 00:05: Magnesium 2.3, Troponin I High Sens 12 05/01/21 04:48: WBC 4.5, RBC 3.48 L, Hgb 10.4 L, Hct 32.3 L, MCV 92.8, MCH 29.9, MCHC 32.2, RDW Std Deviation 46.4 H, RDW Coeff of Zak 13.8, Plt Count 159, MPV 11.1, Immature Gran % (Auto) 0.400, Neut % (Auto) 31.3 L, Lymph % (Auto) 36.8, [place] % (Auto) 31.3 H, Eos % (Auto) 0.2, Baso % (Auto) 0.0, Absolute Neuts (auto) 1.4 L, Absolute Lymphs (auto) 1.67, Nucleated RBC % 0 05/01/21 04:48: Sodium 145, Potassium 3.6, Chloride 109 H, Carbon Dioxide 31.0, Anion Gap 5, BUN 26 H, Creatinine 1.25, Estim Creat Clear Calc 44.61, Est GFR (MDRD) Af Amer 71, Est GFR (MDRD) Non-Af 58 L, BUN/Creatinine Ratio 20.8 H, Glucose 119 H, Calcium 8.7, Total Bilirubin 0.30, AST 10 L, ALT 17, Alkaline Phosphatase 89, Troponin I High Sens 12, Total Protein 6.3 L, Albumin 3.2, Globulin 3.1, Albumin/Globulin Ratio 1.0, Triglycerides 67, Cholesterol 68, LDL Cholesterol 31, VLDL Cholesterol 13, HDL Cholesterol 24 L, TSH 1.48 05/01/21 06:58: POC Glucose 114 H 05/01/21 11:31: POC Glucose 203 H Radiography Diagnostic Testing: Radiology Impression Brain CT 04/30/21 22:19 IMPRESSION: Chronic involutional changes without acute intracranial or calvarial abnormality. N.B. : The above Results were Read Back by Jason Shepherd DO to Carter Baker MD, and understanding confirmed on 04/30/2021 23:04:48 (ET). Electronically Signed: Jason Shepherd DO at 23:06 EDT Tel [phone], Service support , ADDENDUM: 04/30/21 2313 IMPRESSION: Chronic involutional changes without acute intracranial or calvarial abnormality. N.B. : The above Results were Read Back by Jason Shepherd DO to Carter Baker MD, and understanding confirmed on 04/30/2021 23:04:48 (ET). Electronically Signed: Jason Shepherd DO at 23:06 EDT Tel [phone], Service support , Chest X-Ray 04/30/21 23:05 IMPRESSION: Old granulomatous disease without acute cardiopulmonary process. Electronically Signed: Jason Shepherd DO at 23:29 EDT Tel [phone], Service support , Brain MRI 05/01/21 00:17 IMPRESSION: Small acute bilateral cerebellar infarcts. Small chronic bilateral cerebellar infarcts. Advanced chronic small vessel ischemic gliosis and volume loss. at 1048 Reported and signed by: Maile Recio MD Electronically Signed: Maile Recio MD at 10:46 EDT Tel , Service support , ADDENDUM: 05/01/21 1124 IMPRESSION: Small acute bilateral cerebellar infarcts. Small chronic bilateral cerebellar infarcts. Advanced chronic small vessel ischemic gliosis and volume loss. at 1048 Reported and signed by: Maile Recio MD N.B. : Luciana Bejarano;[phone], RN, confirmed on 05/01/2021 11:17:03 (ET) that the healthcare facility has received the radiology report. 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 Performed By: Smitha Gandhi RVT Head MRA 05/01/21 00:17 IMPRESSION: No evidence for occlusion or significant stenosis in the [place] region. at 1053 Reported and signed by: Maile Recio MD Electronically Signed: Maile Recio MD at 10:52 EDT Tel , Service support , D/C Instructions Discharge Diet: Low fat / Low cholesterol, 1800 Calorie Control Diet and 2000 mg Sodium Diet Weight Bearing Status: Weight bearing as tolerated Call your doctor if you observe: Fever of 101 or Higher, Coldness, Increased Pain, Numbness or Tingling, Change in Color, Inability to urinate, Inability to have a bowel movement, Shortness of breath, Dizziness, Fainting spells, Swelling in the ankles, Chest pain, Prolonged hiccupping, Increased palpitations (irregular heartbeat), Calf discomfort and Uncontrolled pain Meaningful Use Info Meaningful Use Diagnoses (Choose all that apply): Ischemic CVA CVA Therapy Assessed for PT,OT and/or ST?: Yes Ischemic Stroke Antithrombotic order at d/c?: Yes Dx of Atrial fib/flutter?: No Anticoagulant at discharge?: Yes Statins at discharge?: Yes Primary Dx Acute Ischemic CVA?: Yes IV tPA ordered during stay?: No Reason IV t-PA not ordered: Medical Contraindication Discharge Plan Admission Admit Date/Time: 04/30/21 23:53 Primary Reason for Your Visit: Bilateral acute cerebellar stroke Attending Provider: Joe Aburto Primary Care Provider: Sampson Penny Instructions Additional Instructions / Restrictions: Patient Problems: Altered Health Status related to Hospitalization Patient Goals: *Optimal Level of Health *Keep Appointments *Medication Compliance *Remain Safe Discharge Orders/Prescriptions Prescriptions: New atorvastatin 40 mg tablet 40 mg PO QHS Qty: 30 RF: 2 Continued donepezil 10 mg tablet 10 mg PO QHS RF: 0 memantine 10 mg tablet 10 mg PO BID RF: 0 hydrochlorothiazide 12.5 mg capsule 12.5 mg PO DAILY Qty: 90 RF: 0 aspirin [Adult Aspirin Regimen] 81 mg tablet,delayed release (DR/EC) 81 mg PO DAILY RF: 0 metformin 1,000 MG tablet 1,000 mg PO DAILY RF: 0 hinvnuya-dio-KE-lycopen-lutein 1 EACH tablet 1 ea PO DAILY RF: 0 N6-ML-O50-co B60-hold no.225 1 EACH tablet 1 ea PO DAILY RF: 0 polyethylene glycol 3350 17 GM packet 17 gm PO DAILY Qty: 30 RF: 0 magnesium oxide 400 MG tablet 400 mg PO BIDCM Qty: 60 RF: 0 prednisone 2.5 MG tablet 2.5 mg PO DAILY RF: 0 Mirtazapine 30 MG tablet 30 mg PO QHS RF: 0 Melatonin 3 mg Tablet 3 MG tablet 3 mg PO QHS RF: 0 Glipizide 5 MG tablet 5 mg PO DAILY RF: 0 metoprolol tartrate 25 mg tablet 12.5 mg PO BID Qty: 90 RF: 3 Referrals / Follow Up: Sampson Penny MD [Primary Care Provider] - Disposition Disposition (needs filled in before D/C Order can be placed): Home, Self Care Charges/Coding Visit Charges OBSV E&M: 66760 Observation care discharge
--- NOTE | 2021-05-01 14:34 | CHAPLAIN ---
Type of Pastoral Visit _x__ Initial Visit ___ Follow-up Visit ___ On-call Visit ___ General Patient Visit ___ Spiritual Assessment ___ Family Conference ___ Bereavement ___ Rapid Response ___ Code Blue ___ Other (describe below) Pastoral Care Referral From _x_ Patient ___ Family ___ Nurse ___ Physician ___ Combination Window Installer ___ Contingents Supervisor ___ Other (describe below) Sacrament/Intervention _x__ Active listening ___ Anointing ___ Nondenominational ___ Bereavement ___ Communion ___ Maria Luisa exploration ___ _x__ Life review _x__ Prayer ___ Reconciliation ___ Sacrament of Sick _x__ Supportive presence ___ Wedding ___ Other (describe below) Pastoral Comments patient is pleasant and welcoming of visit; pt states that his is also a patient; pt gives life review; no other concerns; prayer is welcomed
--- NOTE | 2021-05-01 14:56 | CASEMGMT ---
PHQ-9 completed w/pt, no indications of depression at this time. NANY Hernández
--- NOTE | 2021-05-01 16:00 | CASEMGMT ---
Addendum entered by Smitha Varma 05/02/21 09:05: 05/01/21 at 1630 This RN CM received a call back from Porsha at [facility] and she stated they can accept pt and will do SOC 05/02/21. Porsha aware to call son, Gallo, to set up SOC, voices understanding. Lucila BOBBY CM Original Note: Per Iefanyi ERNANDEZ, pt/daughter want to have [facility] set up for SN, PT/OT, aide, AWAIS. Call to Porsha at [facility] to notify of referral and pt discharge today, voices understanding and will call this RN CM back. Lucila BOBBY CM
--- NOTE | 2021-05-01 16:05 | PHA.DC.MR ---
Addendum entered and electronically signed by Amy Heller 05/01/21 16:33: Patient's daughter was in the room, counseled her on patient's Lipitor prescription. Answered all questions at this time. Original Note: Pharmacy Service has performed discharge medication reconciliation for this patient. per H/P patient is legally blind and has a history of dementia. Attempted x2 to group counselor patient with family in the room, but family was not in the room when attempted counseling. Medication reconciliation performed. Home Medications T7-[id number]-G80-co K50-dhev no.225 1 ea PO DAILY 05/03/15 metformin 1,000 mg PO DAILY 05/03/15 ujrldokm-lyz-CI-lycopen-lutein 1 ea PO DAILY 05/03/15 magnesium oxide 400 mg PO BIDCM #60 tab 08/29/15 polyethylene glycol 3350 17 gm PO DAILY #30 packet 08/29/15 prednisone 2.5 mg PO DAILY 09/03/15 aspirin 81 mg tablet,delayed release 81 mg PO DAILY 08/10/19 donepezil 10 mg tablet 10 mg PO QHS 08/10/19 hydrochlorothiazide 12.5 mg capsule 12.5 mg PO DAILY #90 cap 08/10/19 memantine 10 mg tablet 10 mg PO BID 08/10/19 metoprolol tartrate 25 mg tablet 12.5 mg PO BID #90 ea 09/18/20 Glipizide 5 mg PO DAILY 11/05/20 Melatonin 3 mg Tablet 3 mg PO QHS 11/05/20 Mirtazapine 30 mg PO QHS 11/05/20 atorvastatin 40 mg PO QHS #30 tab 05/01/21 The patient's discharge medication list was reviewed for discrepancies and discrepancies were resolved.
--- NOTE | 2021-05-01 16:16 | CASEMGMT ---
AWAIS spoke with patient's daughter in the hallway. She said they were working on getting patient into a memory care unit. She is trying to get the Medicaid application completed, but it is hard as she has to find their financial information. She said she and her brother have been doing everything. She is exhausted. She became tearful. SW provided emotional support. Patient did well with therapy and he wants to go home. They have been providing supervision. She was agreeable to home health. AWAIS said we could get SW on board as well. She asked that they call her brother. She would like [facility] since there is a Cna Pct. AWAIS passed along this information to RN QUIANA. Fern JAMA
== END 2021-05-01 14:06 | disposition home health service (06) ==
LOC: ED 23:42 → PCU 05-01 00:19
PROVIDERS: Nurse Practitioner Family; Admitting Provider Family Medicine; Emergency Provider Emergency Medicine; PCP Internal Medicine; Visit Provider Internal Medicine
DX: G45.9 Transient cerebral ischemic attack, unspecified (principal); I48.0 Paroxysmal atrial fibrillation; E11.22 Type 2 diabetes mellitus with diabetic chronic kidney disease; D63.8 Anemia in other chronic diseases classified elsewhere; M06.9 Rheumatoid arthritis, unspecified; G47.33 Obstructive sleep apnea (adult) (pediatric); D46.9 Myelodysplastic syndrome, unspecified; I48.92 Unspecified atrial flutter; N18.9 Chronic kidney disease, unspecified; N17.9 Acute kidney failure, unspecified; I12.9 Hypertensive chronic kidney disease with stage 1 through stage 4 chronic kidney disease, or unspecified chronic kidney disease; F02.80 Dementia in other diseases classified elsewhere, unspecified severity, without behavioral disturbance, psychotic disturbance, mood disturbance, and anxiety; G30.9 Alzheimer's disease, unspecified; F41.9 Anxiety disorder, unspecified; F32.9 Major depressive disorder, single episode, unspecified; R29.700 NIHSS score 0; R47.89 Other speech disturbances; H54.8 Legal blindness, as defined in USA; H35.52 Pigmentary retinal dystrophy; Z79.899 Other long term (current) drug therapy; Z79.52 Long term (current) use of systemic steroids; Z79.82 Long term (current) use of aspirin; Z79.84 Long term (current) use of oral hypoglycemic drugs; Z94.7 Corneal transplant status
CPT/HCPCS: 36415; 70450; 70544; 70551; 71045; 80048; 80053; 80061; 82962; 83036; 83735; 84443; 84484; 85025; 85610; 85730; 92523; 92610; 93005; 93306; 93880; 94762; 96360; 96361; 97162; 97166; 97802; 99218; 99251; 99285; J7030; Q9957; A4216; C8929; G0378; G0463; J3490

== ENCOUNTER 2021-06-27 00:04 | Emergency (ER) | payer MEDICARE, OTHER, SELFPAY ==
[2016-02-13 13:00] VITALS: BMI 25.7
[2021-06-27 00:05] VITALS: BP 112/78; PULSE 62; RESP 18; TEMP 36.6; O2SAT 97; BMI 25.1
--- NOTE | 2021-06-27 00:26 | RAD_ITS ---
STUDY: X-RAY CHEST REASON FOR EXAM: Male, 85 years old. Chest pain TECHNIQUE: PA and lateral views of the chest. COMPARISON: April 30, 2021 chest x-ray FINDINGS: There is a calcification 4 mm right lung periphery stable since prior study. There is no demonstrated pleural abnormality. Normal size heart. Normal mediastinum and jatinder. Normal visualized pulmonary arteries. There is atherosclerotic calcification of the aortic arch with tortuosity. There are diffuse degenerative changes of the visualized thoracic spine. Normal visualized ribs, clavicles, and shoulders. There is no demonstrated abnormality of the visualized soft tissue structures of the upper abdomen. RAD/Chest PA and Lateral IMPRESSION: No demonstrated acute cardiopulmonary process. Electronically Signed: Laura Grey MD at 1:16 EDT Tel , Service support ,
[2021-06-27] MEDS: Aspirin 81 MG TAB.CHEW 324 MG PO (00:46)
[2021-06-27 00:58] LABS: Absolute Lymphocyte Count 1.89 X10^3/uL (0.83-4.51); Absolute Neutrophil Count 2.8 X10^3/uL (2.0-7.7); Basophil# 0.01 X10^3/uL; Basophil% 0.2 % (0-1); Eosinophil# 0.06 X10^3/uL; Eosinophils% 0.9 % (0-5); Hematocrit 31.4 % (40-54); Hemoglobin 10.5 g/dL (13.0-16.5); Lymphocyte # 1.89 X10^3/ul (0.83-4.51); Lymphocyte % 29.1 % (19-41); Mean Corp Hgb Conc 33.4 g/dL (32-36); Mean Corpuscular Hgb 30.3 pg (27.0-32.0); Mean Corpuscular Volume 90.5 fL (80-94); Mean Platelet Vol. 11.2 fl (6.2-12.0); Monocyte# 1.73 X10^3/uL; Monocyte% 26.6 % (0-10); NRBC Flagged by Analyzer 0 % (0-5); Neutrophil # 2.78 X10^3/uL (2.7-7.7); Neutrophil % 42.7 % (47-70); POSITIVE DIFFERENTIAL YES; Platelet Count 197 K/mm3 (150-450); RBC Distribution Width SD 46.3 fl (35.1-43.9); Red Blood Count 3.47 M/mm3 (4.6-6.2); White Blood Count 6.5 K/mm3 (4.4-11.0)
[2021-06-27 01:12] LABS: Differential Indicated SCAN CRITERIA MET
[2021-06-27 01:13] LABS: Acanthocytes RARE; Ovalocyte RARE
[2021-06-27 01:21] LABS: Anion Gap 6 (5-15); BUN 26 mg/dL (7-18); BUN/Creat Ratio 22.8 RATIO (10-20); Calcium,Total 9.2 mg/dL (8.5-10.1); Chloride 95 mmol/L (98-107); Creatinine, Serum 1.14 mg/dL (0.70-1.30); EST Glomerular Filtration Rate 65 mL/min (>60); Est Glom Filt Rate - Afr Amer 78 mL/min (>60); Estimated Creatinine Clearance 50.46 ml/min; Glucose 117 mg/dL (74-106); Potassium 3.5 mmol/L (3.5-5.1); Sodium Level 135 mmol/L (136-145); Troponin-I HS 9 pg/mL (3.0-78.0)
--- NOTE | 2021-06-27 01:27 | EKG12_ITS ---
Test Reason : CP Blood Pressure : / mmHG Vent. Rate : 061 BPM Atrial Rate : 061 BPM P-R Int : 188 ms QRS Dur : 090 ms QT Int : 434 ms P-R-T Axes : 054 -24 023 degrees QTc Int : 436 ms Normal sinus rhythm Normal ECG Confirmed by SHWETA DUKES, QASIM ([id number]), assistant editor MAXIMUS COVINGTON ([id number]) on 07/01/2021 8:44:42 AM Referred By: RYLAN Confirmed By:QASIM ROCK MD
[2021-06-27 01:45] VITALS: PULSE 74; RESP 16; O2SAT 93
--- NOTE | 2021-06-27 03:14 | EDS_ITS ---
HPI History of Present Illness Chief Complaint: Chest Pain Narrative Narrative: Patient is an 85-year-old male who reports that he has had intermittent chest pain for the past 3 to 4 days. Reportedly the pain became more intense this evening and he told family about it and therefore he was brought to the hospital for evaluation. Upon arrival to the ER the patient reports the pain has resolved. He denies any nausea vomiting diaphoresis or shortness of breath associated with the pain. Patient denies any type of trauma prior to the pain beginning. However with his complex medical history there is concern this could be cardiac and he was brought in for evaluation [facility] Medical History (Updated 06/27/21 @ 03:[address] Rich Estrada, DO) Anemia of chronic disease Atrial flutter with rapid ventricular response (09/2015) Cellulitis and abscess Chronic constipation Chronic rheumatic arthritis Diabetes mellitus MDS (myelodysplastic syndrome) Obstructive sleep apnea Paroxysmal atrial flutter Personal history of immunosupression therapy Home Medications [id number] [id number]-[id number] no.225 1 ea PO DAILY 05/03/15 [History Last Taken 08/23/15] metformin 1,000 mg PO DAILY 05/03/15 [History Last Taken 09/23/15] isynvjrd-xeo-UE-lycopen-lutein 1 ea PO DAILY 05/03/15 [History Last Taken 09/23/15] magnesium oxide 400 mg PO BIDCM #60 tab 08/29/15 [Rx Last Taken 09/23/15] polyethylene glycol 3350 17 gm PO DAILY #30 packet 08/29/15 [Rx Last Taken 09/23/15] prednisone 2.5 mg PO DAILY 09/03/15 [History Last Taken 09/23/15] aspirin 81 mg tablet,delayed release 81 mg PO DAILY 08/10/19 [History Last Taken Unknown] donepezil 10 mg tablet 10 mg PO QHS 08/10/19 [History Last Taken Unknown] hydrochlorothiazide 12.5 mg capsule 12.5 mg PO DAILY #90 cap 08/10/19 [History Last Taken Unknown] memantine 10 mg tablet 10 mg PO BID 08/10/19 [History Last Taken Unknown] metoprolol tartrate 25 mg tablet 12.5 mg PO BID #90 ea 09/18/20 [Rx Last Taken Unknown] Glipizide 5 mg PO DAILY 11/05/20 [History Last Taken Unknown] Melatonin 3 mg Tablet 3 mg PO QHS 11/05/20 [History Last Taken Unknown] Mirtazapine 30 mg PO QHS 11/05/20 [History Last Taken Unknown] atorvastatin 40 mg PO QHS #30 tab 05/01/21 [Rx Last Taken Unknown] Allergy/AdvReac Type Severity Reaction Status Date / Time No Known Allergies Allergy Verified 06/27/21 00:07 Family History Father Cancer Diabetes Surgical History History of corneal transplant History of prostate surgery Hx of cataract surgery Social History (Updated 05/01/21 @ 00:42 by Margret Rodriguez) household members: spouse and children housing: house current occupational status: retired Smoking Status: Never smoker alcohol intake: current alcohol intake frequency: other substance use type: does not use ROS ROS ED Constitutional Constitutional ED: Denies chills or fever(s) ENT ENT ED: Denies sore throat Cardiovascular Cardiovascular: Reports chest pain; Denies palpitations or racing heartbeat Respiratory/Chest Respiratory/Chest: Denies cough or dyspnea Gastrointestinal Gastrointestinal: Denies abdominal pain, diarrhea, nausea or vomiting Genitourinary Genitourinary ED: Denies dysuria Musculoskeletal Musculoskeletal: Denies myalgias Integumentary Denies rash Neurologic Neurologic: Denies headache(s) Hematologic/Lymphatic Hematologic/Lymphatic: Denies easy bleeding or easy bruising EXAM Physical Exam Const Vital Signs: 06/27/21 00:05 06/27/21 01:45 Temperature 97.9 F Temperature Source Temporal Pulse Rate 62 74 Respiratory Rate 18 16 Blood Pressure 112/78 Blood Pressure Mean 89 Pulse Ox 97 93 Oxygen Delivery Method Room Air Room Air Positive well nourished and well developed General Appearance ED: well developed Eyes PERRL and EOMs intact bilaterally Neck supple Chest Wall palpation of chest normal Chest Narrative: No bony deformity or crepitance Resp normal respiratory effort and clear to auscultation bilaterally Cardio regular rate and regular rhythm Rate: other Other Details: Radial pulses are +2-4 bilaterally are equal and symmetric GI normal to inspection, nondistended, normoactive bowel sounds, non-tender and non-distended Auscultation: normoactive bowel sounds Palpation: soft Back/Spine no CVA tenderness Extremity normal to inspection Extremity Narrative: No asymmetric edema no pitting edema negative Homans' sign bilaterally Neuro CN's II-XII intact bilaterally Sensorium / Orientation: alert Psych Mood & Affect: depressed Skin no rashes or lesions noted Skin Narrative: No overlying soft tissue changes to suggest trauma or infection MDM MDM MDM Narrative Medical decision making narrative: Patient presented to the ER with spontaneous resolution of his chest pain. His report of chest discomfort was also not classic cardiac in nature. A cardiac work-up was obtained with a normal initial and delta troponin. Patient also had no elevation to his D-dimer to suggest pulmonary embolus as a cause of his symptoms. His chest x-ray revealed no pneumothorax infiltrate or widening of his mediastinum. On reevaluation he is resting comfortably and still reports resolution of his chest pain. Therefore at this time with overall negative work-up and spontaneous improvement of symptoms I feel he is safe for discharge with outpatient follow-up H:0 E:0 A:2 R:1 T:0 total: 3 Lab Data Attestation: I reviewed the patient's lab results. Labs: Laboratory Results - last 24 hr 06/27/21 06/27/21 06/27/21 00:52 00:52 00:52 WBC 6.5 RBC 3.47 L Hgb 10.5 L Hct 31.4 L MCV 90.5 MCH 30.3 MCHC 33.4 RDW Std Deviation 46.3 H RDW Coeff of Zak 14.0 Plt Count 197 MPV 11.2 Immature Gran % (Auto) 0.500 Neut % (Auto) 42.7 L Lymph % (Auto) 29.1 Posey % (Auto) 26.6 H Eos % (Auto) 0.9 Baso % (Auto) 0.2 Absolute Neuts (auto) 2.8 Absolute Lymphs (auto) 1.89 Nucleated RBC % 0 Ovalocytes RARE Acanthocytes (Spur) RARE D-Dimer Quant (PE/DVT) 0.40 Sodium 135 L Potassium 3.5 Chloride 95 L Carbon Dioxide 34.0 H Anion Gap 6 BUN 26 H Creatinine 1.14 Estim Creat Clear Calc 50.46 Est GFR (MDRD) Af Amer 78 Est GFR (MDRD) Non-Af 65 BUN/Creatinine Ratio 22.8 H Glucose 117 H Calcium 9.2 Troponin I High Sens 9 06/27/21 03:00 WBC RBC Hgb Hct MCV MCH MCHC RDW Std Deviation RDW Coeff of Zak Plt Count MPV Immature Gran % (Auto) Neut % (Auto) Lymph % (Auto) Posey % (Auto) Eos % (Auto) Baso % (Auto) Absolute Neuts (auto) Absolute Lymphs (auto) Nucleated RBC % Ovalocytes Acanthocytes (Spur) D-Dimer Quant (PE/DVT) Sodium Potassium Chloride Carbon Dioxide Anion Gap BUN Creatinine Estim Creat Clear Calc Est GFR (MDRD) Af Amer Est GFR (MDRD) Non-Af BUN/Creatinine Ratio Glucose Calcium Troponin I High Sens 9 Radiography Diagnostic Testing: Clinical Impression(s) from Imaging Studies Chest X-Ray 06/27/21 00:26 IMPRESSION: No demonstrated acute cardiopulmonary process. Electronically Signed: Laura Grey MD at 1:16 EDT Tel , Service support , Discharge Plan Triage Chief Complaint: Chest Pain ED Provider: Rich Estrada Dx/Rx/DC Orders Clinical Impression: Nonspecific chest pain Instructions: ED Chest Pain, Uncertain Cause Prescriptions: No Action donepezil 10 mg tablet 10 mg PO QHS RF: 0 memantine 10 mg tablet 10 mg PO BID RF: 0 hydrochlorothiazide 12.5 mg capsule 12.5 mg PO DAILY Qty: 90 RF: 0 aspirin [Adult Aspirin Regimen] 81 mg tablet,delayed release (DR/EC) 81 mg PO DAILY RF: 0 metformin 1,000 MG tablet 1,000 mg PO DAILY RF: 0 ooqutifj-xek-ZY-lycopen-lutein 1 EACH tablet 1 ea PO DAILY RF: 0 [id number]-co D74-oqyg no.225 1 EACH tablet 1 ea PO DAILY RF: 0 polyethylene glycol 3350 17 GM packet 17 gm PO DAILY Qty: 30 RF: 0 magnesium oxide 400 MG tablet 400 mg PO BIDCM Qty: 60 RF: 0 prednisone 2.5 MG tablet 2.5 mg PO DAILY RF: 0 Mirtazapine 30 MG tablet 30 mg PO QHS RF: 0 Melatonin 3 mg Tablet 3 MG tablet 3 mg PO QHS RF: 0 Glipizide 5 MG tablet 5 mg PO DAILY RF: 0 atorvastatin 40 mg tablet 40 mg PO QHS Qty: 30 RF: 2 metoprolol tartrate 25 mg tablet 12.5 mg PO BID Qty: 90 RF: 3 Primary Care Provider: Sampson Penny Referrals: Sampson Penny MD [Primary Care Provider] - Disposition Disposition: Home, Self Care
[2021-06-27 03:24] LABS: Troponin-I HS 9 pg/mL (3.0-78.0)
[2021-06-27 03:37] VITALS: RESP 17
== END 2021-06-27 03:51 | disposition home or self-care (01) ==
PROVIDERS: Emergency Provider Emergency Medicine; PCP Internal Medicine
DX: R07.9 Chest pain, unspecified (principal); I48.0 Paroxysmal atrial fibrillation; I48.92 Unspecified atrial flutter; E11.9 Type 2 diabetes mellitus without complications; D46.9 Myelodysplastic syndrome, unspecified; D63.8 Anemia in other chronic diseases classified elsewhere; M06.9 Rheumatoid arthritis, unspecified; Z79.82 Long term (current) use of aspirin; Z79.84 Long term (current) use of oral hypoglycemic drugs; Z79.899 Other long term (current) drug therapy
CPT/HCPCS: 71046; 80048; 84484; 85025; 85379; 93005; 99283; A4216

== ENCOUNTER 2021-08-21 13:30 | Outpatient (RCR) | payer MEDICARE, OTHER, SELFPAY ==
[2016-02-13 13:00] VITALS: BMI 25.7
--- NOTE | 2021-07-08 11:56 | HP.PTEVAL_ITS ---
Patient's Visit Information JULIANE SANDOVAL is a 85 year old M referred to Physical Therapy by Dr. Bishnu Blake MD with a diagnosis of CVA. Date of Evaluation: 07/08/21 Physical Therapist: Tasha Rivera DPT - Visit Plan Frequency: 2x /Week Duration: 4 Weeks Plan: Pt is blind Gait belt. Focus on LE and core strength/stabilization, ambulation, balance and functional mobility. - Subjective Patient with son today. Son reports that father has had a few strokes and now left leg and arm does not keep up. He lives with his and son- two story but he is on the first floor. He has 24 hour care. 2 steps to enter then 2 more to get inside- he can hold onto rail and he has no problems navigating. Son's biggest concerns is his balance and has fallen 4x in the last few months. When he gets up in the middle of the night to use the restroom- he wears a CPAP and he is taking it off and wobbly and moves very quickly. Son was taking him outside for walks- gait instability and not always smooth. No assistive device. He has very little to no vision- he has lost his vision in the last 1-1.5 years. He gets turned around a lot at home. They have noticed more left sided deficits and tapping of the right toes and humming. He has lost strength in both arms but mostly the left. He fell in the shower so he is hesitant- now has grab bars and a chair- does have help with bathing- and dressing (shoes and puts stuff on backwards). No aches or pains but he has lots of moans and groans. He sits 90% of the day- when he was taken in for the stroke- they had PT/OT at the house and he has been doing the exercises. They discharged him from home health in the beginning/end of May. They gave him sitting and standing exercises. Goals: balance- get moving better and safer. Sleep: light sleeper but no changes since stroke. PMHx/Meds: scanned in chart from Dr. Blake- no changes. - Objective Posture: FH, RS- can correct but does not maintain. Gait: ataxic left lower extremity- circumduction of the left lower leg when fatigued- requires CGA for safety. HR/TR: able with UE A bilateral. SLS: weight shift but unable to SLS. ROM: WFL in all planes with the exception of knee extension- decreased by 25% due to hamstring tightness. Flex: HS: severe- contractures with knee extension, Gastroc: severe. Strength: Core: fair minus, Hip: 4/5 bilateral, Knee: left: 4- /5, right:4+/5, Ankle: left: 4-/5, Right: 5/5. Stairs: step to pattern with CGA - Balance/Special Test Scores Lower Extremity Functional Score: 22 TUG Test Time Seconds: 36 30 Second Chair Rise Test Seconds: 11 - Goals Goal 1:: Patient will be I with HEP and progression Goal Time Frame: 4-6 Weeks Goal 2:: Patient will ambulate >300 feet with a normalized gait pattern with guide from adult Goal Time Frame: 4-6 Weeks Goal 3:: Patient will asc/desc 8 recip with 2 HR with SBA for safety Goal Time Frame: 4-6 Weeks Goal 4:: Patient will perform 11 sit to stands in 30 sec with 1 UE A Goal Time Frame: 4-6 Weeks Goal 5:: Patient will improve TUG test to less than 20 seconds with SBA for safety Goal Time Frame: 4-6 Weeks - Rehabilitation Potential Physical Therapy Diagnosis: Patient presents with hypomobility- he has decrease LE and core strength/stabilization, flexibility, proprioception and muscular endurance leading to poor posture, abnormal gait and decreased ability to perform ADL's safely. Rehabilitation Potential: Fair - Anticipated Interventions Patient/Client Instruction: Educate patient on: Benefits of Fitness Program Therapeutic Exercise to Include: Strength training, Endurance training, Balance training, Agility training, Body mechanics, Postural training, Flexibilty training, Gait and locomotor training, Neuromotor development, Dynamic Lumbar Stabilization For the Purpose of:: To improve muscle performance and motor function Thank you for the opportunity to evaluate your patient. For Medicare and Medicare HMO plans, please review the plan of care and approve it. It will need to be FAXED BACK to us at [phone] for Medicare purposes. For Medicare only, by signing this I certify the plan of care. Please let me know if there are questions or concerns regarding this plan of care. Physician Signature: Da te:
--- NOTE | 2021-07-16 07:50 | HP.OTEVAL ---
Patient's Visit Information JULIANE SANDOVAL is a 85 year old M, referred to Occupational Therapy by Dr. Bishnu Blake MD, with a diagnosis of CVA. Date of Evaluation: 07/15/21 Occupational Therapist: Jeanine Munoz, JENYR/Ella, CHT - Subjective This 85 year male was seen for OT eval with dx of CVA- son states he noticed difficulty with speech son took pt to ER. part may. pt had home therapy and was rec'd to continue outpatient therapy services. pt arrives with son who moved home to assist his parents. pt has 80 who per son does help pt with ADLs. pts son feels pt is weak and limited with safe mobility. - ROM ROM Comments: pt demo BUE ROM WNL - Strength Shoulder: right 4+/5 left 4-/5 Elbow: right 4+/5 left 4-/5 Spaghetti Press Helper: right 45# left 40# Lateral Pinch: right 10# left 8# Tripod Pinch: right 10# left 2# - Sensation Sensation Comments: denies - Quick DASH-Disab of Arm,Shoulder& Hand Quick DASH Score: 54.5450 - Goals Goal:: pt will demo MMT at 4+/5 of UB to increase pts ind. with functional tsf and performance of ADLs by d/C. pt will demo a increase in dwarf tree grower strength by 10# or greater by d.c Goal:: family and pt home modification ed. as needed to increase safety with ADLs. - Rehabilitation General Assessment: pt demo with generalized weakness of left UE following a CVA. this limits pts ind, with ADLs and IADLs and requirement of family to assist with daily tasks. pt would benefit from skilled OT services 2x week for 4 weeks to assist pt and family on exercises to increase pts general strength and endurance to perform ADls and IADLs. pt and pts son agree to POC. . Rehabilitation Potential: Good - Anticipated Interventions Strengthening, Neuro Reeducation, Education re assistive Equipment, Education re Diagnosis, Caregiver Training, Home Program - Visit Plan Frequency: 2-3x /Week Duration: 4 Weeks TEXT: Thank you for the opportunity to evaluate your patient. For Medicare and Medicare HMO plans, please review the plan of care and approve it. It will need to be FAXED BACK to us at [phone] for Medicare purposes. Please let me know if there are questions or concerns regarding this plan of care. Physician Signature: Date:
--- NOTE | 2021-08-06 07:27 | HP.PTREVAL ---
Dr. Bishnu Blake MD, It has been my pleasure to treat JULIANE SANDOVAL over the last 9 visits for CVA. Please see the progress note below for an update on the physical therapy plan of care! Subjective: Son reports that he thinks he is stronger but is still challenged with endurance, balance and ambulation. Worried about him getting up in the middle of the night Objective/Function: Posture: FH, RS- can correct but does not maintain. Gait: ataxic left lower extremity- circumduction of the left lower leg when fatigued- requires CGA for safety. HR/TR: able with UE A bilateral. SLS: weight shift but unable to SLS. ROM: WFL in all planes with the exception of knee extension- decreased by 25% due to hamstring tightness. Flex: HS: severe- contractures with knee extension, Gastroc: severe. Strength: Core: fair minus, Hip: 5/5 bilateral, Knee: 5/5, Ankle: 5/5. Stairs: step to pattern with CGA Plan Plan: Pt is blind Gait belt. Focus on LE and core strength/stabilization, ambulation, balance and functional mobility. 08/05/21: Continue 2x a week for 3 weeks- FOCUS on ambulation and balance Balance/Gait/Functional tests - Balance/Special Test Scores Lower Extremity Functional Score: 41 TUG Test Time Seconds: 36 Tug Test: >30sec.=impaired mobility 30 Second Chair Rise Test Seconds: 11 Goals Goal 1:: Patient will be I with HEP and progression Goal Time Frame: 4-6 Weeks Goal Progress: Progressing Goal 2:: Patient will ambulate >300 feet with a normalized gait pattern with guide from adult Goal Time Frame: 4-6 Weeks Goal Progress: Progressing Goal 3:: Patient will asc/desc 8 recip with 2 HR with SBA for safety Goal Time Frame: 4-6 Weeks Goal Progress: Progressing Goal 4:: Patient will perform 11 sit to stands in 30 sec with 1 UE A Goal Time Frame: 4-6 Weeks Goal Progress: Progressing Goal 5:: Patient will improve TUG test to less than 20 seconds with SBA for safety Goal Time Frame: 4-6 Weeks Goal Progress: Progressing Anticipated Interventions Patient/Client Instruction: Educate patient on: Benefits of Fitness Program Therapeutic Exercise to Include: Strength training, Endurance training, Balance training, Agility training, Body mechanics, Postural training, Flexibilty training, Gait and locomotor training, Neuromotor development, Dynamic Lumbar Stabilization For the Purpose of:: To improve muscle performance and motor function Please do not hesitate to contact me at [phone] by phone or if you have questions or concerns regarding this new plan of care! Sincerely, TREMAYNE GoldsteinT
--- NOTE | 2021-08-20 14:28 | HP.PTDCSUM ---
It has been my pleasure to treat JULIANE SANDOVAL referred by Dr. Bishnu Blake MD, with the diagnosis of CVA for a total of 14 visit(s). Discharge Date: Please see the following information for a summary of their discharge status. Subjective: Son reports no changes since last re-evaluation, he has complained of some back pains % Improvement: 50 Objective/Function: No significant changes since 2 weeks ago re-evaluation with mobility- printed off HEP for son and caregiver to continue at home. Goal 1:: Patient will be I with HEP and progression Goal Progress: Progressing Goal 2:: Patient will ambulate >300 feet with a normalized gait pattern with guide from adult Goal Progress: Progressing Goal 3:: Patient will asc/desc 8 recip with 2 HR with SBA for safety Goal Progress: Progressing Goal 4:: Patient will perform 11 sit to stands in 30 sec with 1 UE A Goal Progress: Progressing Goal 5:: Patient will improve TUG test to less than 20 seconds with SBA for safety Goal Progress: Progressing Plan: Discharge If there are questions or concerns regarding this patient's physical therapy, please feel free to call me at [phone]. Thank you for the referral of this patient. Sincerely, Tasha Rivera, TREMAYNET Balance/Gait/Functional tests - Balance/Special Test Scores Lower Extremity Functional Score: 41 TUG Test Time Seconds: 36 Tug Test: >30sec.=impaired mobility 30 Second Chair Rise Test Seconds: 11
--- NOTE | 2021-08-21 14:04 | HP.OTDCSUM_ITS ---
It has been my pleasure to treat JULIANE SANDOVAL under orders from Dr. Bishnu Blake MD, for the diagnosis of CVA for a total of 10 visit(s). Please see the following information for a summary of their discharge status. % Improvement: 70 Objective/Function: pt demo with increase in bilateral college service officer strength right college service officer 55# left college service officer 70#. pt demo with Increase in MMT of left UE 4+/5 grossly throughout-. pt has met goals and is D/C at this time Patient Goals: Regain Strength Goal:: pt will demo MMT at 4+/5 of UB to increase pts ind. with functional tsf and performance of ADLs by d/C. pt will demo a increase in college service officer strength by 10# or greater by d.c Goal:: family and pt home modification ed. as needed to increase safety with ADLs. Plan: D/C Discharge Comments: pt was seen for 10 OT visits and made gains in left UB strength- this has decreased need of sons assist with some tasks but pt feels he is back to his PLOF. If there are questions or concerns regarding this patient's occupational therapy, please fell free to call me at [phone]. Thank you for the referral of this patient. Sincerely, Jeanine Munoz, OTR/L, CHT
== END 2021-08-21 19:00 | disposition home or self-care (01) ==
LOC: OT 13:30
PROVIDERS: PCP Internal Medicine; Referring Provider Psychiatry & Neurology Sleep Medicine; Visit Provider Psychiatry & Neurology Sleep Medicine
DX: Z86.73 Personal history of transient ischemic attack (TIA), and cerebral infarction without residual deficits (principal)
CPT/HCPCS: 97110; 97162; 97164; 97166; 97530

== ENCOUNTER → 2021-09-01 12:10 | Outpatient (CLI) | payer MEDICARE, OTHER, SELFPAY ==
[2016-02-13 13:00] VITALS: BMI 25.7
[2021-09-01 15:06] LABS: Absolute Lymphocyte Count 1.51 X10^3/uL (0.83-4.51); Absolute Neutrophil Count 2.4 X10^3/uL (2.0-7.7); Hematocrit 34.5 % (40-54); Hemoglobin 11.5 g/dL (13.0-16.5); Lymphocyte # 1.51 X10^3/ul (0.83-4.51); Lymphocyte % 29.4 % (19-41); Mean Corp Hgb Conc 33.3 g/dL (32-36); Mean Corpuscular Hgb 30.3 pg (27.0-32.0); Mean Platelet Vol. 11.3 fl (6.2-12.0); Monocyte# 1.18 X10^3/uL; NRBC Flagged by Analyzer 0 % (0-5); Neutrophil # 2.43 X10^3/uL (2.7-7.7); Neutrophil % 47.2 % (47-70); Platelet Count 214 K/mm3 (150-450); RBC Distribution Width CV 14.6 % (11.6-14.6); RBC Distribution Width SD 48.6 fl (35.1-43.9); Red Blood Count 3.79 M/mm3 (4.6-6.2); White Blood Count 5.1 K/mm3 (4.4-11.0)
[2021-09-01 15:35] LABS: AST(SGOT) 32 U/L (15-37); Alanine Aminotransfer ALT/SGPT 55 U/L (16-61); Albumin, Serum 3.8 g/dL (3.2-5.0); Alkaline Phosphatase 161 U/L (45-117); Anion Gap 4 (5-15); BUN 30 mg/dL (7-18); BUN/Creat Ratio 22.4 RATIO (10-20); Chloride 102 mmol/L (98-107); Creatinine, Serum 1.34 mg/dL (0.70-1.30); EST Glomerular Filtration Rate 54 mL/min (>60); Est Glom Filt Rate - Afr Amer 65 mL/min (>60); Glucose 160 mg/dL (74-106); Potassium 4.3 mmol/L (3.5-5.1); Protein, Total 7.8 g/dL (6.4-8.2); Sodium Level 141 mmol/L (136-145)
== END ==
PROVIDERS: PCP Internal Medicine; Referring Provider Internal Medicine Rheumatology; Visit Provider Internal Medicine Rheumatology
DX: M06.00 Rheumatoid arthritis without rheumatoid factor, unspecified site (principal); E11.9 Type 2 diabetes mellitus without complications; F32.89 Other specified depressive episodes; D46.9 Myelodysplastic syndrome, unspecified; I48.0 Paroxysmal atrial fibrillation; H35.52 Pigmentary retinal dystrophy
CPT/HCPCS: 36415; 80053; 85025

== ENCOUNTER 2022-03-03 15:15 | Outpatient (CLI) | payer MEDICARE, OTHER, SELFPAY ==
[2016-02-13 13:00] VITALS: BMI 25.7
[2022-03-03 15:44] LABS: Absolute Lymphocyte Count 1.65 X10^3/uL (0.83-4.51); Absolute Neutrophil Count 3.2 X10^3/uL (2.0-7.7); Basophil# 0.01 X10^3/uL; Basophil% 0.2 % (0-1); Eosinophil# 0.01 X10^3/uL; Eosinophils% 0.2 % (0-5); Hematocrit 34.2 % (40-54); Hemoglobin 11.5 g/dL (13.0-16.5); Lymphocyte # 1.65 X10^3/ul (0.83-4.51); Lymphocyte % 26.3 % (19-41); Mean Corp Hgb Conc 33.6 g/dL (32-36); Mean Corpuscular Volume 92.2 fL (80-94); Mean Platelet Vol. 11.2 fl (6.2-12.0); Monocyte# 1.29 X10^3/uL; Monocyte% 20.6 % (0-10); NRBC Flagged by Analyzer 0 % (0-5); Neutrophil # 3.23 X10^3/uL (2.7-7.7); Neutrophil % 51.4 % (47-70); Platelet Count 196 K/mm3 (150-450); RBC Distribution Width SD 46.4 fl (35.1-43.9); Red Blood Count 3.71 M/mm3 (4.6-6.2); White Blood Count 6.3 K/mm3 (4.4-11.0)
[2022-03-03 16:15] LABS: ALB/GLOB Ratio 0.9 RATIO (0.9-2.4); AST(SGOT) 22 U/L (15-37); Alanine Aminotransfer ALT/SGPT 48 U/L (16-61); Albumin, Serum 3.7 g/dL (3.2-5.0); Alkaline Phosphatase 129 U/L (45-117); Anion Gap 7 (5-15); BUN 37 mg/dL (7-18); BUN/Creat Ratio 30.6 RATIO (10-20); Calcium,Total 9.8 mg/dL (8.5-10.1); Chloride 100 mmol/L (98-107); Creatinine, Serum 1.21 mg/dL (0.70-1.30); EST Glomerular Filtration Rate 60 mL/min (>60); Est Glom Filt Rate - Afr Amer 73 mL/min (>60); Globulin 3.9 g/dL (2.2-4.2); Glucose 175 mg/dL (74-106); Potassium 4.5 mmol/L (3.5-5.1); Protein, Total 7.6 g/dL (6.4-8.2); Sodium Level 138 mmol/L (136-145)
== END 2022-03-03 23:59 | disposition home or self-care (01) ==
LOC: LAB 15:17
PROVIDERS: PCP Internal Medicine; Visit Provider Internal Medicine Rheumatology
DX: M06.00 Rheumatoid arthritis without rheumatoid factor, unspecified site (principal); D46.9 Myelodysplastic syndrome, unspecified; I48.0 Paroxysmal atrial fibrillation; E11.9 Type 2 diabetes mellitus without complications; F32.89 Other specified depressive episodes; H35.52 Pigmentary retinal dystrophy; Z86.73 Personal history of transient ischemic attack (TIA), and cerebral infarction without residual deficits
CPT/HCPCS: 36415; 80053; 85025

== ENCOUNTER 2022-04-18 07:21 | Inpatient (IN) | payer MEDICARE, OTHER, SELFPAY ==
[2016-02-13 13:00] VITALS: BMI 25.7
[2022-04-18] VITALS (11 sets, daily range): BP systolic 75–140; BP diastolic 40–83; PULSE 71–140; RESP 16–20; TEMP 36.1–37.1; O2SAT 94–98; BMI 20.5; BMI 20.6
--- NOTE | 2022-04-18 07:41 | RAD_ITS ---
HISTORY: weakness. TECHNIQUE: XR Chest 1 View. COMPARISON: 06/27/2021. FINDINGS: CARDIOMEDIASTINAL BORDERS: Cardiac silhouette within normal limits in size. Mild tortuosity and calcification of the aorta again seen. LUNGS: Calcified granuloma in the right midlung. PLEURA: No pleural effusion or pneumothorax seen. OSSEOUS STRUCTURES: Degenerative change. RAD/Chest 1 View (Portable) IMPRESSION: No acute cardiopulmonary process identified. Electronically Signed: Maile Recio MD at 9:09 EDT ,
--- NOTE | 2022-04-18 07:41 | CT_ITS ---
HISTORY: Altered mental status. TECHNIQUE: Multiple axial images were obtained of the head without intravenous contrast. A radiation dose optimization technique was used for this scan. 496 images. COMPARISON: MR 05/01/2021. FINDINGS: BRAIN PARENCHYMA: Multiple foci and zones of low attenuation in the bilateral cerebral white matter compatible with chronic small vessel ischemic gliosis. Small chronic cerebellar infarcts. No acute intra-axial hemorrhage identified. CSF SPACES: Advanced generalized volume loss. No midline shift or other significant mass effect. No acute extra-axial hemorrhage seen. CALVARIUM: Intact. PARANASAL SINUSES AND MASTOID AIR CELLS: Clear. ORBITS: Bilateral lens resections. CT/Brain/Head without Contrast IMPRESSION: No acute intracranial process identified. Chronic small vessel ischemic gliosis and volume loss. Electronically Signed: Maile Recio MD at 9:12 EDT ,
--- NOTE | 2022-04-18 07:42 | EKG12_ITS ---
Test Reason : WEAKNESS Blood Pressure : / mmHG Vent. Rate : 086 BPM Atrial Rate : 086 BPM P-R Int : 180 ms QRS Dur : 086 ms QT Int : 370 ms P-R-T Axes : 050 -14 -12 degrees QTc Int : 442 ms Normal sinus rhythm Normal ECG Confirmed by JOE DUKES, VAN ([id number]), proposal editor MAXIMUS COVINGTON ([id number]) on 04/20/2022 9:59:22 AM Referred By: AISHA Confirmed By:VAN DIAZ MD
--- NOTE | 2022-04-18 07:43 | EX.ED.DYSGE1 ---
HPI History of Present Illness Chief Complaint: Weakness Narrative Narrative: 86-year-old male presenting with weakness and confusion. His son states that he was told by his mother that his father had the chills last night. This morning upon awakening he was confused and too weak to walk. He was helped to the restroom by family and when they tried to let him go he was too weak to stand. He reportedly became diaphoretic. His son reports that he was incontinent overnight. His son states he does not believe he has a history of UTIs. Son states that he does not normally get up this early, and he does have dementia but usually is alert and oriented. Sometimes he gets the year wrong. Did not check him for a fever because the thermometer is broken. His son states he was otherwise healthy last evening before going to bed besides the chills. The patient himself states he has no pain anywhere. He states he does not feel sick. He states I feel great. Son does state that he was recently off his glipizide because his blood sugars were good. He states that his father's dietitian had immediate specialized diet. His blood sugars have been running in the 200s to 300s at home. [facility] Medical History Anemia of chronic disease Atrial flutter with rapid ventricular response (09/2015) Cellulitis and abscess Chronic constipation Chronic rheumatic arthritis Diabetes mellitus MDS (myelodysplastic syndrome) Obstructive sleep apnea Paroxysmal atrial flutter Personal history of immunosupression therapy Home Medications B6 100 mg-FA 800 mcg-B12 200 mcg-co Q10 100 mg-herbal no.225 tablet 1 ea PO DAILY 05/03/15 [History Last Taken 08/23/15] metformin 1,000 mg tablet 1,000 mg PO DAILY 05/03/15 [History Last Taken 09/23/15] hpnbmwgi-zwy-prpfd acid 0.4 mg-lycopene 300 mcg-lutein 250 mcg tablet 1 ea PO DAILY 05/03/15 [History Last Taken 09/23/15] polyethylene glycol 3350 17 gram oral powder packet 17 g PO DAILY #30 packets 08/29/15 [Rx Last Taken 09/23/15] prednisone 2.5 mg tablet 2.5 mg PO DAILY 09/03/15 [History Last Taken 09/23/15] aspirin 81 mg tablet,delayed release (Adult Aspirin Regimen) 81 mg PO DAILY 08/10/19 [History Last Taken Unknown] donepezil 10 mg tablet 10 mg PO QHS 08/10/19 [History Last Taken Unknown] hydrochlorothiazide 12.5 mg capsule 12.5 mg PO DAILY #90 caps 08/10/19 [History Last Taken Unknown] memantine 10 mg tablet 10 mg PO BID 08/10/19 [History Last Taken Unknown] atorvastatin 40 mg tablet 40 mg PO QHS #30 tabs 05/01/21 [Rx Last Taken Unknown] glipizide 5 mg tablet, extended release 24 hr 5 mg PO DAILY 08/13/21 [History Last Taken Unknown] magnesium oxide 400 mg (241.3 mg magnesium) tablet 400 mg PO DAILY 08/13/21 [History Last Taken Unknown] melatonin 3 mg tablet 3 mg PO QHS 08/13/21 [History Last Taken Unknown] mirtazapine 30 mg tablet 30 mg PO QHS 08/13/21 [History Last Taken Unknown] metoprolol tartrate 25 mg tablet 12.5 mg PO BID #90 ea 09/29/21 [Rx Last Taken Unknown] Allergy/AdvReac Type Severity Reaction Status Date / Time No Known Allergies Allergy Verified 04/18/22 07:23 Family History Father Cancer Diabetes Surgical History History of corneal transplant History of prostate surgery Hx of cataract surgery Social History household members: spouse and children housing: house current occupational status: retired Smoking Status: Never smoker alcohol intake: current alcohol intake frequency: other substance use type: does not use ROS ROS ED Constitutional Constitutional ED: Reports chills and sweats Eyes Eyes: Denies change in vision or diplopia ENT ENT ED: Denies rhinorrhea or sore throat Cardiovascular Cardiovascular: Denies chest pain or palpitations Respiratory/Chest Respiratory/Chest: Denies cough or dyspnea Gastrointestinal Gastrointestinal: Denies abdominal pain, melena or nausea Genitourinary Genitourinary ED: Denies dysuria or hematuria Musculoskeletal Musculoskeletal: Denies back pain or neck pain Integumentary Denies Abrasions or rash Psychiatric Psychiatric: Denies anxiety EXAM Physical Exam Const Vital Signs: 04/18/22 07:23 04/18/22 07:23 04/18/22 08:15 Temperature 97.0 F L Temperature Source Temporal Pulse Rate 96 96 82 Respiratory Rate 16 17 20 H Respiratory Pattern Blood Pressure 84/40 L 75/47 L 104/53 L Blood Pressure Mean 54 56 70 Pulse Ox 98 97 96 Oxygen Delivery Method Room Air Room Air Room Air 04/18/22 08:16 04/18/22 10:00 Temperature 98.2 F Temperature Source Temporal Pulse Rate 89 Respiratory Rate 20 H Respiratory Pattern Normal Blood Pressure 140/83 H Blood Pressure Mean 102 Pulse Ox 98 Oxygen Delivery Method Room Air Positive well nourished General Appearance ED: NAD; Negative for pallor HEENT Reports moist mucous membranes HEENT Narrative: Conjunctiva pink Negative for trauma Eyes PERRL and EOMs intact bilaterally Chest Wall inspection of chest normal and palpation of chest normal Resp normal respiratory effort and clear to auscultation bilaterally Auscultation: Negative for rales, rhonchi or wheezes Cardio regular rate and regular rhythm GI normal to inspection, nondistended, normoactive bowel sounds Palpation: soft; Negative for tender Back/Spine no CVA tenderness Extremity normal to inspection Neuro CN's II-XII intact bilaterally Neuro Narrative: Alert to self. Sensorium / Orientation: orientation impaired Motor Exam: strength 5/5 throughout Skin no rashes or lesions noted and no wounds General Skin Exam: Negative for jaundice or pallor MDM MDM MDM Narrative Medical decision making narrative: 86-year-old male presenting with weakness. He is a poor informant and states that I feel fine. He is less oriented than his baseline per family. Patient's initial blood pressure was 84/40 and his second blood pressure was 75/47. Upon checking it in the room it is 104/53. Sepsis work-up was pursued. Patient pancultured. The patient is alert and talking. He has no complaints. He is heart rate, pulse ox, respiratory rate are normal. Lungs are clear to auscultation. No abdominal pain appreciated. No rashes. His conjunctiva are pink. No focal neurologic deficits. patient given IV fluids. Blood work is obtained. CBC shows a leukocytosis of 21.5. Hemoglobin stable at 10.8. Hematocrit 30.1. Platelets 177. Creatinine slightly elevated 1.51. Electrolytes appear within normal limits. LFTs are normal. Coagulation studies are normal. Lactic acid 2.1. EKG was obtained and on my interpretation there is a normal sinus rhythm with ventricular 86 bpm without sign of ischemic change. Chest x-ray on my interpretation shows no acute cardiopulmonary process and the radiologist agree. High-sensitivity troponin returned at 118. CT brain interpreted by the radiologist shows no acute findings. Patient's high-sensitivity troponin came back at 118. His delta troponin was 149. Given the abnormal cardiac enzymes I think he needs to be admitted to the hospital. His vital signs have been stable here. All findings discussed with his son. Discussed with hospitalist for admission. Impression: 1. Altered mental status 2. Near syncope 3. Elevated troponin 4. Acute kidney injury 5. Lactic acidosis 6. Chronic anemia Lab Data Attestation: I reviewed the patient's lab results. Labs: Laboratory Results - last 24 hr 04/18/22 04/18/22 04/18/22 08:01 08:01 08:25 WBC 21.5 H RBC 3.43 L Hgb 10.8 L Hct 32.1 L MCV 93.6 MCH 31.5 MCHC 33.6 RDW Std Deviation 48.2 H RDW Coeff of Zak 14.2 Plt Count 177 MPV 11.1 PT INR Sodium 137 Potassium 4.3 Chloride 102 Carbon Dioxide 29.0 Anion Gap 6 BUN 40 H Creatinine 1.51 H Estim Creat Clear Calc 33.12 Est GFR (MDRD) Af Amer 57 L Est GFR (MDRD) Non-Af 47 L BUN/Creatinine Ratio 26.5 H Glucose 186 H Lactic Acid 2.1 H* Calcium 9.0 Total Bilirubin 0.70 AST 25 ALT 46 Alkaline Phosphatase 113 Troponin I High Sens 118 H Total Protein 6.9 Albumin 3.5 Globulin 3.4 Albumin/Globulin Ratio 1.0 Urine Color Urine Clarity Urine pH Ur Specific [place] Urine Protein Urine Glucose (UA) Urine Ketones Urine Occult Blood Urine Nitrite Urine Bilirubin Urine Urobilinogen Ur Leukocyte Esterase Urine RBC Urine WBC Ur Squamous Epith Cells Urine Bacteria Urine Mucus 04/18/22 04/18/22 04/18/22 09:00 09:32 10:20 WBC RBC Hgb Hct MCV MCH MCHC RDW Std Deviation RDW Coeff of Zak Plt Count MPV PT 15.4 H INR 1.3 Sodium Potassium Chloride Carbon Dioxide Anion Gap BUN Creatinine Estim Creat Clear Calc Est GFR (MDRD) Af Amer Est GFR (MDRD) Non-Af BUN/Creatinine Ratio Glucose Lactic Acid Calcium Total Bilirubin AST ALT Alkaline Phosphatase Troponin I High Sens 149 H* Total Protein Albumin Globulin Albumin/Globulin Ratio Urine Color Yellow Urine Clarity Clear Urine pH 6.5 Ur Specific [place] 1.010 Urine Protein Negative Urine Glucose (UA) Normal Urine Ketones Negative Urine Occult Blood Negative Urine Nitrite Negative Urine Bilirubin Negative Urine Urobilinogen Normal Ur Leukocyte Esterase Negative Urine RBC 0 SEEN Urine WBC 0-5 SEEN Ur Squamous Epith Cells 0 SEEN Urine Bacteria 0 SEEN Urine Mucus 0 SEEN Radiography Diagnostic Testing: Clinical Impression(s) from Imaging Studies Brain CT 04/18/22 07:41 IMPRESSION: No acute intracranial process identified. Chronic small vessel ischemic gliosis and volume loss. Electronically Signed: Maile Recio MD at 9:12 EDT , Chest X-Ray 04/18/22 07:41 IMPRESSION: No acute cardiopulmonary process identified. Electronically Signed: Maile Recio MD at 9:09 EDT , Discharge Plan Triage Chief Complaint: Weakness ED Provider: Jhony Mistry Dx/Rx/DC Orders Prescriptions: No Action donepezil 10 mg tablet 10 mg PO QHS memantine 10 mg tablet 10 mg PO BID hydrochlorothiazide 12.5 mg capsule 12.5 mg PO DAILY Qty: 90 Label Comments: TAKE 1 CAPSULE BY MOUTH ONCE DAILY aspirin [Adult Aspirin Regimen] 81 mg tablet,delayed release (DR/EC) 81 mg PO DAILY glipizide 5 mg tablet extended release 24hr 5 mg PO DAILY magnesium oxide 400 mg (241.3 mg magnesium) tablet 400 mg PO DAILY Label Comments: supplement melatonin 3 mg tablet 3 mg PO QHS Label Comments: TAKE 1 TABLET BY MOUTH at 7PM EVERY EVENING mirtazapine 30 mg tablet 30 mg PO QHS metformin 1,000 MG tablet 1,000 mg PO DAILY Label Comments: Diabetes [id number]-[id number]-lycopen-lutein 1 EACH tablet 1 ea PO DAILY Label Comments: General health [id number] [id number]-cbat no.225 1 EACH tablet 1 ea PO DAILY Label Comments: General health polyethylene glycol 3350 17 GM packet 17 g PO DAILY Qty: 30 0RF Label Comments: constipation prednisone 2.5 MG tablet 2.5 mg PO DAILY Label Comments: steroid atorvastatin 40 mg tablet 40 mg PO QHS Qty: 30 2RF metoprolol tartrate 25 mg tablet 12.5 mg PO BID Qty: 90 3RF Primary Care Provider: Sampson Penny Referrals: Sampson Penny MD [Primary Care Provider] -
[2022-04-18 08:11] LABS: Hematocrit 32.1 % (40-54); Hemoglobin 10.8 g/dL (13.0-16.5); Mean Corp Hgb Conc 33.6 g/dL (32-36); Mean Corpuscular Hgb 31.5 pg (27.0-32.0); Mean Corpuscular Volume 93.6 fL (80-94); Mean Platelet Vol. 11.1 fl (6.2-12.0); Platelet Count 177 K/mm3 (150-450); RBC Distribution Width CV 14.2 % (11.6-14.6); RBC Distribution Width SD 48.2 fl (35.1-43.9); Red Blood Count 3.43 M/mm3 (4.6-6.2); White Blood Count 21.5 K/mm3 (4.4-11.0)
[2022-04-18 08:27] LABS: AST(SGOT) 25 U/L (15-37); Alanine Aminotransfer ALT/SGPT 46 U/L (16-61); Albumin, Serum 3.5 g/dL (3.2-5.0); Alkaline Phosphatase 113 U/L (45-117); Anion Gap 6 (5-15); BUN 40 mg/dL (7-18); BUN/Creat Ratio 26.5 RATIO (10-20); Chloride 102 mmol/L (98-107); Creatinine, Serum 1.51 mg/dL (0.70-1.30); EST Glomerular Filtration Rate 47 mL/min (>60); Est Glom Filt Rate - Afr Amer 57 mL/min (>60); Estimated Creatinine Clearance 33.12 ml/min; Globulin 3.4 g/dL (2.2-4.2); Glucose 186 mg/dL (74-106); Potassium 4.3 mmol/L (3.5-5.1); Protein, Total 6.9 g/dL (6.4-8.2); Sodium Level 137 mmol/L (136-145); Troponin-I HS 118 pg/mL (3.0-78.0)
[2022-04-18 09:21] LABS: Lactic Acid 2.1 mmol/L (0.4-1.9)
[2022-04-18 09:21] LABS: International Normalized Ratio 1.3; Prothrombin Time (Protime)PT. 15.4 SECONDS (11.7-14.9)
[2022-04-18 10:22] LABS: Bacteria 0 SEEN /hpf (None Seen); Mucous, Urine 0 SEEN /hpf (<or=2+); Red Blood Cells-Urine 0 SEEN /hpf (0-5); Squamous Epithelial Cells - UA 0 SEEN /hpf (0-5)
[2022-04-18 10:24] LABS: Color, Urine Yellow (Yellow); Glucose, Dipstick Normal (Normal); Ketone-Dipstick Negative (Negative); Leukocyte Esterase-Dipstick Negative /ul (Negative); Nitrite-Dipstick Negative (Negative); Occult Blood-Urine Negative /ul (Negative); Protein-Dipstick Negative (Negative); Urine Bilirubin Dipstick Negative (Negative); Urine Clarity Clear (Clear); Urine Urobilinogen Normal (Normal); Urine pH 6.5 (5.0 - 8.0)
[2022-04-18 10:32] LABS: White Blood Cells 0-5 SEEN /hpf (0-5)
[2022-04-18 10:51] LABS: Troponin-I HS 149 pg/mL (3.0-78.0)
--- NOTE | 2022-04-18 11:37 | ECHOD_ITS ---
Reason For Study: ELEVATED TROPONIN Procedure This was a 2D Doppler, Color Flow transthoracic echocardiogram. The study was technically difficult. Exam performed portable in patient room. Left Ventricle Normal LV size. Segmental dysfunction with preserved ejection fraction (see wall motion). The estimated ejection fraction is 60 %. No evidence for diastolic dysfunction. Infero-Basal: Hypokinetic. Mid-Inferior: Hypokinetic. Right Ventricle Normal RV size. Normal systolic function. Atria The left atrium is mildly enlarged. Normal right atrium. No doppler evidence for ASD. Mitral Valve There is no mitral annular calcification. Normal mitral valve. Mild (1+) eccentric mitral valve insufficiency. Tricuspid Valve Normal tricuspid valve. Trivial tricuspid valve insufficiency. Unable to estimate RV systolic pressure/pulmonary artery pressure due to technically difficult study. Aortic Valve Trisinus/trileaflet aortic valve. Normal aortic valve. Pulmonic Valve The pulmonic valve is not well visualized. Great Vessels Normal sized aortic root. Pericardium/Pleural No pericardial effusion. MMode/2D Measurements & Calculations LVIDd: 5.1 cm IVSd: 1.1 cm Ao root diam: 3.0 cm LVIDs: 3.5 cm LVPWd: 1.2 cm RVDd: 4.3 cm FS: 31.0 % LAV(MOD-bp): 48.1 ml LVAd ap4: 30.9 cm2 LVAd ap2: 29.7 cm2 LAV(MOD-bp) Indexed: 26.0 ml/m2 LVLd ap4: 8.0 cm LVLd ap2: 7.6 cm LAV(MOD-sp2): 43.6 ml EDV(MOD-sp4): 97.6 ml EDV(MOD-sp2): 94.2 ml LAV(MOD-sp4): 53.8 ml EDV(sp4-el): 101.5 ml EDV(sp2-el): 98.5 ml LVAs ap4: 19.7 cm2 LVAs ap2: 17.7 cm2 LVLs ap4: 7.1 cm LVLs ap2: 6.5 cm ESV(MOD-sp4): 45.6 ml ESV(MOD-sp2): 42.8 ml ESV(sp4-el): 46.2 ml ESV(sp2-el): 41.2 ml EF(MOD-sp4): 53.3 % EF(MOD-sp2): 54.5 % EF(sp4-el): 54.5 % SV(MOD-sp4): 52.0 ml SV(MOD-sp2): 51.4 ml SV(sp4-el): 55.3 ml LA dimension(2D): 4.0 cm LA A4 area: 18.7 cm2 RA A4 area: 19.8 cm2 Time Measurements MV dec time: 0.16 sec Doppler Measurements & Calculations MV E max prasanth: 75.6 cm/sec Lat Peak E' Prasanth: 11.6 cm/sec Med Peak E' Prasanth: 8.6 cm/sec MV A max prasanth: 80.6 cm/sec E/E' lat: 6.5 E/E' med: 8.8 MV E/A: 0.94 MV V2 max: 76.5 cm/sec MV dec slope: 479.4 cm/sec2 Ao V2 max: 99.7 cm/sec MV max P.3 mmHg Ao max P.0 mmHg MV V2 mean: 47.6 cm/sec Ao V2 mean: 68.3 cm/sec MV mean P.0 mmHg Ao mean P.1 mmHg MV V2 VTI: 26.2 cm Ao V2 VTI: 22.7 cm LV V1 max: 78.7 cm/sec PA V2 max: 64.2 cm/sec LV V1 max P.5 mmHg LV V1 mean P.4 mmHg LV V1 mean: 54.4 cm/sec LV V1 VTI: 18.6 cm ECHO/Echo Complete Interpretation Summary The study was technically difficult. Segmental dysfunction with preserved ejection fraction (see wall motion). The estimated ejection fraction is 60 %. The left atrium is mildly enlarged. Mild (1+) eccentric mitral valve insufficiency. Trivial tricuspid valve insufficiency. Unable to estimate RV systolic pressure/pulmonary artery pressure due to techni luci difficult study. No evidence for diastolic dysfunction. Ordering Physician: Santos Ashley Referring Physician: Sampson Penny M.D. Performed By: Monika Fu RCS
[2022-04-18 12:33] LABS: Reflex Lactate? Y
[2022-04-18] MEDS: 0.9% Normal Saline 1,000 ML 100 ML IV ×2 (12:34→21:17)
[2022-04-18 13:19] LABS: Lactic Acid 1.8 mmol/L (0.4-1.9)
[2022-04-18 14:40] LABS: Troponin-I HS 204 pg/mL (3.0-78.0)
[2022-04-18] MEDS: Insulin Lispro 100 UNIT/ML INSULN.PEN SC (16:26)
[2022-04-18 17:16] LABS: Bedside Glucose 232 mg/dL (74-106)
[2022-04-18] MEDS: Glucerna Shake 120 ML LIQUID PO ×2 (17:19→21:09)
[2022-04-18] MEDS: Metoprolol Tartrate 25 MG Tablet PO (18:23)
--- NOTE | 2022-04-18 19:02 | PCM.HP.STD ---
HPI - General General Date of Admission: 04/18/22 Date of Service: 04/18/22 Chief Complaint: Generalized weakness, diaphoresis HPI Narrative JULIANE SANDOVAL, is a 86 M who presents to the emergency room at [facility] after being brought in by his family due to generalized weakness and diaphoresis at home. According to the patient's family, patient was too weak to walk today. Patient has a history of Alzheimer's dementia and lives with his who aids in his care. Patient's son also aids in the patient's care. Work-up in the emergency room included a CBC which was abnormal for white blood cell count of 21.5, hemoglobin was 10.8. Patient's chemistry panel was abnormal for creatinine of 1.51, BUN was 40, lactic acid was 2.1, and glucose was 186. Patient's troponin was 149, urinalysis was unremarkable. Patient's EKG showed no evidence of an injury pattern. CT of the brain was performed which showed chronic small vessel ischemic changes and volume loss. Chest x-ray showed no acute cardiopulmonary process. Patient's blood pressure was low with systolic readings in the 70s and 80s when he was first evaluated in the ER, patient did however respond to fluid administration and his systolic blood pressure went up to 140. Patient will be admitted to PCU for elevated troponin and generalized debility, PT and OT will see the patient, cardiac enzymes will be cycled, patient will have an echocardiogram performed. I talked with the son briefly and he was unsure of the patient's CODE STATUS, he stated he would get back with me after talking with his mother. For now the patient will be a full code. [facility] Medical History (Updated 04/18/22 @ 19:[address] Santos Ashley, DO) Anemia of chronic disease Atrial flutter with rapid ventricular response (09/2015) Cellulitis and abscess Chronic constipation Chronic rheumatic arthritis Diabetes mellitus MDS (myelodysplastic syndrome) Obstructive sleep apnea Paroxysmal atrial flutter Personal history of immunosupression therapy Home Medications B6 100 mg-FA 800 mcg-B12 200 mcg-co Q10 100 mg-herbal no.225 tablet 1 ea PO DAILY 05/03/15 [History Last Taken 08/23/15] metformin 1,000 mg tablet 1,000 mg PO DAILY 05/03/15 [History Last Taken 09/23/15] siuwtdzt-ord-asdki acid 0.4 mg-lycopene 300 mcg-lutein 250 mcg tablet 1 ea PO DAILY 05/03/15 [History Last Taken 09/23/15] prednisone 2.5 mg tablet 2.5 mg PO DAILY 09/03/15 [History Last Taken 09/23/15] aspirin 81 mg tablet,delayed release (Adult Aspirin Regimen) 81 mg PO DAILY 08/10/19 [History Last Taken Unknown] donepezil 10 mg tablet 10 mg PO QHS 08/10/19 [History Last Taken Unknown] memantine 10 mg tablet 10 mg PO BID 08/10/19 [History Last Taken Unknown] atorvastatin 40 mg tablet 40 mg PO QHS #30 tabs 05/01/21 [Rx Last Taken Unknown] glipizide 5 mg tablet, extended release 24 hr 5 mg PO DAILY 08/13/21 [History Last Taken Unknown] magnesium oxide 400 mg (241.3 mg magnesium) tablet 400 mg PO DAILY 08/13/21 [History Last Taken Unknown] melatonin 3 mg tablet 3 mg PO QHS 08/13/21 [History Last Taken Unknown] mirtazapine 30 mg tablet 30 mg PO QHS 08/13/21 [History Last Taken Unknown] metoprolol tartrate 25 mg tablet 12.5 mg PO BID #90 ea 09/29/21 [Rx Last Taken Unknown] Allergy/AdvReac Type Severity Reaction Status Date / Time No Known Allergies Allergy Verified 04/18/22 07:23 Family History Father Cancer Diabetes Surgical History History of corneal transplant History of prostate surgery Hx of cataract surgery Social History household members: spouse and children housing: house current occupational status: retired Smoking Status: Never smoker alcohol intake: current alcohol intake frequency: other substance use type: does not use ROS ROS Narrative Review of systems was unobtainable due to the patient's history of dementia, medical information was obtained from family members present at the time of my examination. Vital Signs Vital Signs Vital Signs: 04/18/22 07:23 04/18/22 07:23 04/18/22 08:15 Temperature 97.0 F L Temperature Source Temporal Pulse Rate 96 96 82 Respiratory Rate 16 17 20 H Respiratory Effort Respiratory Depth Respiratory Pattern Blood Pressure 84/40 L 75/47 L 104/53 L Blood Pressure Mean 54 56 70 Blood Pressure Source Blood Pressure Position Blood Pressure Location Pulse Ox 98 97 96 Oxygen Delivery Method Room Air Room Air Room Air 04/18/22 08:16 04/18/22 10:00 04/18/22 11:37 Temperature 98.2 F 97.2 F L Temperature Source Temporal Temporal Pulse Rate 89 98 Respiratory Rate 20 H 20 H Respiratory Effort Respiratory Depth Respiratory Pattern Normal Blood Pressure 140/83 H 104/68 Blood Pressure Mean 102 80 Blood Pressure Source Blood Pressure Position Blood Pressure Location Pulse Ox 98 97 Oxygen Delivery Method Room Air Room Air 04/18/22 11:54 04/18/22 13:00 04/18/22 14:36 Temperature 97.2 F L Temperature Source Temporal Pulse Rate 71 71 Respiratory Rate 18 Respiratory Effort Normal Non-Labored Respiratory Depth Normal Respiratory Pattern Normal Blood Pressure 130/58 H Blood Pressure Mean 82 Blood Pressure Source Monitor Blood Pressure Position Semi-Fowlers Blood Pressure Location Left Arm Pulse Ox 97 Oxygen Delivery Method Room Air Room Air 04/18/22 17:53 04/18/22 18:01 04/18/22 18:23 Temperature 97.3 F L Temperature Source Temporal Pulse Rate 84 140 H 136 H Respiratory Rate 18 Respiratory Effort Respiratory Depth Respiratory Pattern Blood Pressure 115/51 L 115/51 L Blood Pressure Mean 72 Blood Pressure Source Monitor Blood Pressure Position Semi-Fowlers Blood Pressure Location Left Arm Pulse Ox 97 Oxygen Delivery Method Room Air Weight Weight: 67.1 kg Body Mass Index (BMI) 20.6 Physical Exam Const alert, no apparent distress and average body habitus Constitutional Narrative: Patient appears his stated age General Appearance: cooperative, well kempt and well developed Orientation / Consciousness: awake, oriented to person and confused HEENT normocephalic, head/scalp atraumatic, hearing grossly normal bilaterally and moist oral mucous membranes Eyes PERRL, EOMs intact bilaterally and conjunctivae normal Neck supple, no JVD, thyroid normal and no carotid bruits General: trachea midline Resp normal respiratory effort, no retractions, no use of accessory muscles and clear to auscultation bilaterally Auscultation: Negative for rales, rhonchi or wheezes Cardio regular rate, regular rhythm, S1 normal heart sound, S2 normal heart sound, no murmurs, no rub and no gallops GI normal to inspection, nondistended, normoactive bowel sounds, soft to palpation, non-tender and non-distended Extremity no clubbing, cyanosis or edema Skin no rashes or lesions noted General Skin Exam: no breakdown Neuro oriented x3, CN's II-XII intact bilaterally, moves all extremities, no focal motor deficits and no sensory deficits noted Sensorium / Orientation: awake and alert Speech: speech normal Psych Psych Narrative: Patient has flat affect with some confusion noted to be present Results Lab / Micro Data Result Diagrams: 04/18/22 08:01 04/18/22 08:01 Labs: Laboratory Results - last 24 hr 04/18/22 08:01: WBC 21.5 H, RBC 3.43 L, Hgb 10.8 L, Hct 32.1 L, MCV 93.6, MCH 31.5, MCHC 33.6, RDW Std Deviation 48.2 H, RDW Coeff of Zak 14.2, Plt Count 177, MPV 11.1 04/18/22 08:01: Sodium 137, Potassium 4.3, Chloride 102, Carbon Dioxide 29.0, Anion Gap 6, BUN 40 H, Creatinine 1.51 H, Estim Creat Clear Calc 33.12, Est GFR (MDRD) Af Amer 57 L, Est GFR (MDRD) Non-Af 47 L, BUN/Creatinine Ratio 26.5 H, Glucose 186 H, Calcium 9.0, Total Bilirubin 0.70, AST 25, ALT 46, Alkaline Phosphatase 113, Troponin I High Sens 118 H, Total Protein 6.9, Albumin 3.5, Globulin 3.4, Albumin/Globulin Ratio 1.0 04/18/22 08:25: Lactic Acid 2.1 H* 04/18/22 09:00: PT 15.4 H, INR 1.3 04/18/22 09:32: Urine Color Yellow, Urine Clarity Clear, Urine pH 6.5, Ur Specific [place] 1.010, Urine Protein Negative, Urine Glucose (UA) Normal, Urine Ketones Negative, Urine Occult Blood Negative, Urine Nitrite Negative, Urine Bilirubin Negative, Urine Urobilinogen Normal, Ur Leukocyte Esterase Negative, Urine RBC 0 SEEN, Urine WBC 0-5 SEEN, Ur Squamous Epith Cells 0 SEEN, Urine Bacteria 0 SEEN, Urine Mucus 0 SEEN 04/18/22 10:20: Troponin I High Sens 149 H* 04/18/22 12:37: Lactic Acid 1.8 04/18/22 14:05: Troponin I High Sens 204 H* 04/18/22 16:06: POC Glucose 232 H Micro: Microbiology 04/18/22 08:01 Nasal Secretion SARS-CoV-2 Antigen (Rapid) - Final Radiology Impression Brain CT 04/18/22 07:41 IMPRESSION: No acute intracranial process identified. Chronic small vessel ischemic gliosis and volume loss. Electronically Signed: Maile Recio MD at 9:12 EDT , Chest X-Ray 04/18/22 07:41 IMPRESSION: No acute cardiopulmonary process identified. Electronically Signed: Maile Recio MD at 9:09 EDT Reading Location ID and State: [facility] / [place] Tel , Service support , Echocardiogram 04/18/22 11:37 Interpretation Summary The study was technically difficult. Segmental dysfunction with preserved ejection fraction (see wall motion). The estimated ejection fraction is 60 %. The left atrium is mildly enlarged. Mild (1+) eccentric mitral valve insufficiency. Trivial tricuspid valve insufficiency. Unable to estimate RV systolic pressure/pulmonary artery pressure due to technically difficult study. No evidence for diastolic dysfunction. Ordering Physician: Santos Ashley Referring Physician: Sampson Penny M.D. Performed By: Monika uF RCS Assessment & Plan Assessment/Plan (1) Diabetes mellitus, type 2: PLAN: Plan 1. [id number] was admitted to PCU, he will undergo an echocardiogram today, patient is already on a beta-ronnie, statin, and aspirin at this time, I have elected not to add Plavix at this time. Cardiac enzymes will be cycled. #2 acute debility-secondary to #1 and Alzheimer's dementia-PT and OT will see the patient #3 Alzheimer's dementia-complicates care, medical management, recovery, and prognosis #4 type 2 diabetes-patient's blood sugars will be monitored, sliding scale insulin will be given as necessary #5 hyperlipidemia-patient is on atorvastatin #6 paroxysmal atrial flutter-patient is on rate limiting medication at this time, he is not on an anticoagulant-I do not think it is medically sound to place the patient on anticoagulant at this time due to his dementia. #7 leukocytosis-etiology unclear at this time, patient does not have a nidus of infection which is evident at the time of admission, patient's CBC will be monitored, he will be monitored for any change in his vital signs. #8 mild dehydration-patient will be given IV fluids, labs will be monitored Charges/Coding Visit Charges Inpatient E&M: 70550 Init Hosp L3
--- NOTE | 2022-04-18 20:36 | EKG12_ITS ---
Test Reason : rhythm change Blood Pressure : / mmHG Vent. Rate : 071 BPM Atrial Rate : 071 BPM P-R Int : 192 ms QRS Dur : 084 ms QT Int : 382 ms P-R-T Axes : 042 -25 -47 degrees QTc Int : 415 ms Normal sinus rhythm Normal ECG When compared with ECG of 18-APR-2022 07:52, MANUAL COMPARISON REQUIRED, DATA IS UNCONFIRMED Confirmed by SHWETA DUKES, QASIM ([id number]), map editor MAXIMUS COVINGTON ([id number]) on 04/20/2022 2:05:01 PM Referred By: Confirmed By:QASIM ROCK MD
[2022-04-18] MEDS: Memantine Hydrochloride 10 MG Tablet PO (21:04)
[2022-04-18] MEDS: Donepezil HCl 10 MG Tablet PO (21:04)
[2022-04-18] MEDS: Atorvastatin Calcium 40 MG Tablet PO (21:04)
[2022-04-18] MEDS: MELATONIN 3 MG TABLET PO (21:04)
[2022-04-18] MEDS: Metoprolol Tartrate 25 MG Tablet 12.5 MG PO (21:05)
[2022-04-18] MEDS: Mirtazapine 30 MG Tablet PO (21:08)
[2022-04-18] MEDS: Heparin Injection (Vial) 5,000 UNIT/ML VIAL 5000 UNIT SC (21:08)
[2022-04-18 23:25] LABS: Bedside Glucose 131 mg/dL (74-106)
[2022-04-19 03:00] VITALS: BP 143/56; PULSE 62; PULSE 67; RESP 16; TEMP 36.9; O2SAT 93
[2022-04-19] MEDS: 0.9% Normal Saline 1,000 ML 100 ML IV (06:36)
[2022-04-19 06:51] LABS: Absolute Lymphocyte Count 1.85 X10^3/uL (0.83-4.51); Absolute Neutrophil Count 7.6 X10^3/uL (2.0-7.7); Basophil# 0.01 X10^3/uL; Basophil% 0.1 % (0-1); Eosinophil# 0.01 X10^3/uL; Eosinophils% 0.1 % (0-5); Hematocrit 29.4 % (40-54); Hemoglobin 9.9 g/dL (13.0-16.5); Lymphocyte # 1.85 X10^3/ul (0.83-4.51); Lymphocyte % 12.2 % (19-41); Mean Corp Hgb Conc 33.7 g/dL (32-36); Mean Corpuscular Hgb 31.4 pg (27.0-32.0); Mean Corpuscular Volume 93.3 fL (80-94); Monocyte# 5.64 X10^3/uL; Monocyte% 37.2 % (0-10); NRBC Flagged by Analyzer 0 % (0-5); Neutrophil # 7.57 X10^3/uL (2.7-7.7); Neutrophil % 49.7 % (47-70); POSITIVE DIFFERENTIAL YES; Platelet Count 169 K/mm3 (150-450); RBC Distribution Width CV 14.3 % (11.6-14.6); RBC Distribution Width SD 48.2 fl (35.1-43.9); Red Blood Count 3.15 M/mm3 (4.6-6.2); White Blood Count 15.2 K/mm3 (4.4-11.0)
[2022-04-19 06:54] VITALS: PULSE 65
[2022-04-19 06:56] LABS: Differential Indicated SCAN CRITERIA MET
[2022-04-19 07:06] LABS: Differential Comment SCANNED
[2022-04-19 07:10] LABS: Anion Gap 3 (5-15); BUN 33 mg/dL (7-18); BUN/Creat Ratio 29.2 RATIO (10-20); Calcium,Total 8.7 mg/dL (8.5-10.1); Chloride 111 mmol/L (98-107); Creatinine, Serum 1.13 mg/dL (0.70-1.30); EST Glomerular Filtration Rate 65 mL/min (>60); Est Glom Filt Rate - Afr Amer 79 mL/min (>60); Estimated Creatinine Clearance 44.54 ml/min; Glucose 160 mg/dL (74-106); Potassium 4.2 mmol/L (3.5-5.1); Sodium Level 142 mmol/L (136-145)
[2022-04-19 07:16] LABS: Bedside Glucose 145 mg/dL (74-106)
[2022-04-19] MEDS: Heparin Injection (Vial) 5,000 UNIT/ML VIAL 5000 UNIT SC (08:06)
[2022-04-19] MEDS: Memantine Hydrochloride 10 MG Tablet PO (08:06)
[2022-04-19] MEDS: Aspirin E.C. 81 MG Tablet PO (08:06)
[2022-04-19 08:07] VITALS: BP 118/50; PULSE 66
[2022-04-19] MEDS: Glucerna Shake 120 ML LIQUID PO (08:07)
[2022-04-19] MEDS: Metoprolol Tartrate 25 MG Tablet 12.5 MG PO (08:07)
[2022-04-19] MEDS: predniSONE 5 MG Tablet 2.5 MG PO (08:07)
--- NOTE | 2022-04-19 08:15 | PCM.PN.HOSP ---
Subjective Subjective Patient was seen and examined today, he answers simple questions appropriately. Patient has no complaints of any chest pain. Patient's blood pressure has been stable since yesterday. Patient went into atrial fibs with a rate of around 110 yesterday afternoon, he was asymptomatic, he appears to be in normal sinus rhythm this morning at this time. Objective Data Objective Data Vital Signs: Vital Signs Temp Pulse Resp BP Pulse Ox O2 Del Method 98.4 F 66 16 118/50 L 93 Room Air 04/19/22 03:00 04/19/22 08:07 04/19/22 03:00 04/19/22 08:07 04/19/22 03:00 04/19/22 04:07 Oxygen Delivery Method Room Air Weight: 67.1 kg Body Mass Index (BMI) 20.6 Intake & Output: Intake and Output for Last 24 Hours 04/17/22 04/18/22 04/19/22 23:59 23:59 23:59 Intake Total 1851.67 / 2151.67 1531.67 / 1531.67 Output Total 325 / 575 700 / 700 Balance 1526.67 / 1576.67 831.67 / 831.67 Lab / Micro Data Result Diagrams: 04/19/22 06:35 04/19/22 06:35 Labs: Laboratory Results - last 24 hr 04/18/22 08:01: Sodium 137, Potassium 4.3, Chloride 102, Carbon Dioxide 29.0, Anion Gap 6, BUN 40 H, Creatinine 1.51 H, Estim Creat Clear Calc 33.12, Est GFR (MDRD) Af Amer 57 L, Est GFR (MDRD) Non-Af 47 L, BUN/Creatinine Ratio 26.5 H, Glucose 186 H, Calcium 9.0, Total Bilirubin 0.70, AST 25, ALT 46, Alkaline Phosphatase 113, Troponin I High Sens 118 H, Total Protein 6.9, Albumin 3.5, Globulin 3.4, Albumin/Globulin Ratio 1.0 04/18/22 08:25: Lactic Acid 2.1 H* 04/18/22 09:00: PT 15.4 H, INR 1.3 04/18/22 09:32: Urine Color Yellow, Urine Clarity Clear, Urine pH 6.5, Ur Specific [place] 1.010, Urine Protein Negative, Urine Glucose (UA) Normal, Urine Ketones Negative, Urine Occult Blood Negative, Urine Nitrite Negative, Urine Bilirubin Negative, Urine Urobilinogen Normal, Ur Leukocyte Esterase Negative, Urine RBC 0 SEEN, Urine WBC 0-5 SEEN, Ur Squamous Epith Cells 0 SEEN, Urine Bacteria 0 SEEN, Urine Mucus 0 SEEN 04/18/22 10:20: Troponin I High Sens 149 H* 04/18/22 12:37: Lactic Acid 1.8 04/18/22 14:05: Troponin I High Sens 204 H* 04/18/22 16:06: POC Glucose 232 H 04/18/22 21:16: POC Glucose 131 H 04/19/22 06:35: WBC 15.2 H, RBC 3.15 L, Hgb 9.9 L, Hct 29.4 L, MCV 93.3, MCH 31.4, MCHC 33.7, RDW Std Deviation 48.2 H, RDW Coeff of Zak 14.3, Plt Count 169, MPV 11.0, Immature Gran % (Auto) 0.700, Neut % (Auto) 49.7, Lymph % (Auto) 12.2 L, [place] % (Auto) 37.2 H, Eos % (Auto) 0.1, Baso % (Auto) 0.1, Absolute Neuts (auto) 7.6, Absolute Lymphs (auto) 1.85, Nucleated RBC % 0, Differential Comment SCANNED, Diff Path Review January04/19/22 06:35: Sodium 142, Potassium 4.2, Chloride 111 H, Carbon Dioxide 28.0, Anion Gap 3 L, BUN 33 H, Creatinine 1.13, Estim Creat Clear Calc 44.54, Est GFR (MDRD) Af Amer 79, Est GFR (MDRD) Non-Af 65, BUN/Creatinine Ratio 29.2 H, Glucose 160 H, Calcium 8.7 04/19/22 06:35: POC Glucose 145 H Micro: Microbiology 04/18/22 08:01 Nasal Secretion SARS-CoV-2 Antigen (Rapid) - Final Radiography Diagnostic Testing: Radiology Impression Brain CT 04/18/22 07:41 IMPRESSION: No acute intracranial process identified. Chronic small vessel ischemic gliosis and volume loss. Electronically Signed: Maile Recio MD at 9:12 EDT Reading Location ID and State: [facility] / [place] Tel , Service support , Chest X-Ray 04/18/22 07:41 IMPRESSION: No acute cardiopulmonary process identified. Electronically Signed: Maile Recio MD at 9:09 EDT Reading Location ID and State: [facility] / [place] Tel , Service support , Echocardiogram 04/18/22 11:37 Interpretation Summary The study was technically difficult. Segmental dysfunction with preserved ejection fraction (see wall motion). The estimated ejection fraction is 60 %. The left atrium is mildly enlarged. Mild (1+) eccentric mitral valve insufficiency. Trivial tricuspid valve insufficiency. Unable to estimate RV systolic pressure/pulmonary artery pressure due to technically difficult study. No evidence for diastolic dysfunction. Ordering Physician: Santos Ashley Referring Physician: Sampson Penny M.D. Performed By: Monika Fu RCS Physical Exam Const alert and no apparent distress Constitutional Narrative: Patient appears his stated age General Appearance: cooperative, well kempt and well developed Orientation / Consciousness: awake, oriented to person and oriented to place HEENT normocephalic, head/scalp atraumatic and moist oral mucous membranes Eyes PERRL, EOMs intact bilaterally and conjunctivae normal Neck supple, no JVD, thyroid normal and no carotid bruits General: trachea midline Resp normal respiratory effort, no retractions, no use of accessory muscles and clear to auscultation bilaterally Auscultation: Negative for rales, rhonchi or wheezes Cardio regular rate, regular rhythm, S1 normal heart sound, S2 normal heart sound, no murmurs, no rub and no gallops GI normal to inspection, nondistended, normoactive bowel sounds, soft to palpation, non-tender and non-distended Extremity no clubbing, cyanosis or edema Skin no rashes or lesions noted General Skin Exam: no breakdown Neuro oriented x3, CN's II-XII intact bilaterally, no focal motor deficits and no sensory deficits noted Sensorium / Orientation: awake and alert Speech: speech normal Psych affect normal Psych Narrative: Patient has flat affect with some confusion noted to be present Assessment & Plan Assessment/Plan (1) Diabetes mellitus, type 2: PLAN: Plan 1. [id number] remained stable and asymptomatic at this time, I will talk with the son concerning discharge planning today #2 acute debility-secondary to #1 and Alzheimer's dementia-PT and OT will see the patient #3 Alzheimer's dementia-complicates care, medical management, recovery, and prognosis #4 type 2 diabetes-patient's blood sugars will be monitored, sliding scale insulin will be given as necessary #5 hyperlipidemia-patient is on atorvastatin #6 paroxysmal atrial flutter/fib-patient is on rate limiting medication at this time, he is not on an anticoagulant-I do not think it is medically sound to place the patient on anticoagulant at this time due to his dementia. #7 leukocytosis-etiology unclear at this time, patient does not have a nidus of infection which is evident at the time of admission, patient's CBC will be monitored, he will be monitored for any change in his vital signs. Patient's white blood cell count is improved to 15.2 today #8 mild dehydration-patient's BUN is improved today Charges/Coding Visit Charges Inpatient E&M: 62911 Subs Hosp L2
[2022-04-19 09:10] VITALS: BP 118/54; PULSE 66; RESP 16; TEMP 36.7; O2SAT 94
[2022-04-19] MEDS: Insulin Lispro 100 UNIT/ML INSULN.PEN SC (11:27)
--- NOTE | 2022-04-19 12:16 | DCINST_ITS ---
Discharge Instructions Diet Discharge Diet: No restrictions Activity Discharge Activity: Return to Normal Activity Weight Bearing Status: Full weight bearing Follow Up Care Test Results: Test results from this visit will be discussed in further detail at your follow- up appointment, if applicable. Discharge Plan Admission Admit Date/Time: 04/18/22 15:31 Primary Reason for Your Visit: NSTEMI, hypotension Attending Provider: Santos Ashley Primary Care Provider: Sampson Penny Discharge Orders/Prescriptions Prescriptions: Continued donepezil 10 mg tablet 10 mg PO QHS memantine 10 mg tablet 10 mg PO BID aspirin [Adult Aspirin Regimen] 81 mg tablet,delayed release (DR/EC) 81 mg PO DAILY glipizide 5 mg tablet extended release 24hr 5 mg PO DAILY magnesium oxide 400 mg (241.3 mg magnesium) tablet 400 mg PO DAILY Label Comments: supplement melatonin 3 mg tablet 3 mg PO QHS Label Comments: TAKE 1 TABLET BY MOUTH at 7PM EVERY EVENING mirtazapine 30 mg tablet 30 mg PO QHS metformin 1,000 MG tablet 1,000 mg PO DAILY Label Comments: Diabetes toqixrig-sgn-WD-lycopen-lutein 1 EACH tablet 1 ea PO DAILY Label Comments: General health [id number] no.225 1 EACH tablet 1 ea PO DAILY Label Comments: General health prednisone 2.5 MG tablet 2.5 mg PO DAILY Label Comments: steroid atorvastatin 40 mg tablet 40 mg PO QHS Qty: 30 2RF metoprolol tartrate 25 mg tablet 12.5 mg PO BID Qty: 90 3RF Referrals / Follow Up: Sampson Penny MD [Primary Care Provider] - Within 1 Week Disposition Disposition (needs filled in before D/C Order can be placed): Home, Self Care
--- NOTE | 2022-04-19 12:24 | DS.PCM_ITS ---
Providers Date of Admission: 04/18/22 Date of Discharge: 04/19/22 Primary Care Physician: Dr. Sampson Penny MD Reason For Visit: DEBILITY, ELEVATED TROPONIN, DEHYDRATION Diagnosis Discharge Diagnosis (1) Diabetes mellitus, type 2: Status: Acute Code(s): E11.9 - Type 2 diabetes mellitus without complications Plan 1. [id number] remained stable and asymptomatic at this time, I will talk with the son concerning discharge planning today #2 acute debility-secondary to #1 and Alzheimer's dementia-PT and OT will see the patient #3 Alzheimer's dementia-complicates care, medical management, recovery, and prognosis #4 type 2 diabetes-patient's blood sugars will be monitored, sliding scale i nsulin will be given as necessary #5 hyperlipidemia-patient is on atorvastatin #6 paroxysmal atrial flutter/fib-patient is on rate limiting medication at this time, he is not on an anticoagulant-I do not think it is medically sound to place the patient on anticoagulant at this time due to his dementia. #7 leukocytosis-etiology unclear at this time, patient does not have a nidus of infection which is evident at the time of admission, patient's CBC will be monitored, he will be monitored for any change in his vital signs. Patient's white blood cell count is improved to 15.2 today #8 mild dehydration-patient's BUN is improved today Medications at Discharge Home Medications B6 100 mg-FA 800 mcg-B12 200 mcg-co Q10 100 mg-herbal no.225 tablet 1 ea PO DAILY 05/03/15 metformin 1,000 mg tablet 1,000 mg PO DAILY 05/03/15 bullpjlj-cjh-mcswf acid 0.4 mg-lycopene 300 mcg-lutein 250 mcg tablet 1 ea PO DAILY 05/03/15 prednisone 2.5 mg tablet 2.5 mg PO DAILY 09/03/15 aspirin 81 mg tablet,delayed release (Adult Aspirin Regimen) 81 mg PO DAILY 08/10/19 donepezil 10 mg tablet 10 mg PO QHS 08/10/19 memantine 10 mg tablet 10 mg PO BID 08/10/19 atorvastatin 40 mg tablet 40 mg PO QHS #30 tabs 05/01/21 glipizide 5 mg tablet, extended release 24 hr 5 mg PO DAILY 08/13/21 magnesium oxide 400 mg (241.3 mg magnesium) tablet 400 mg PO DAILY 08/13/21 melatonin 3 mg tablet 3 mg PO QHS 08/13/21 mirtazapine 30 mg tablet 30 mg PO QHS 08/13/21 metoprolol tartrate 25 mg tablet 12.5 mg PO BID #90 ea 09/29/21 Hospital Course Operations None Procedures 2-D Echocardiogram Summary of Care Provided Minutes Spent on Discharge: 31 Hospital Course: This 86-year-old white male was seen in the emergency room at [facility] after being brought in due to generalized weakness and diaphoresis at home. Patient has a history of Alzheimer's dementia and is cared for by his son and . Work-up in the emergency room included a CBC which showed an elevated white blood cell count of 21.5, hemoglobin was 10.8, chemistry panel was abnormal for creatinine of 1.51, BUN was 40, lactic acid was 2.1 and glucose was 186. Patient's troponin was 149, EKG showed no evidence of an injury pattern, CT of the brain was performed which showed chronic small vessel ischemic changes and volume loss. Chest x-ray showed no acute cardiopulmonary process. Patient's blood pressure was noted to be low in the emergency room he was given a fluid bolus with successful raising of his blood pressure. Patient was admitted to PCU for non-STEMI and dehydration, he was given IV fluids and serial cardiac enzymes were performed which showed elevated troponin. Patient had an e chocardiogram performed which showed a preserved ejection fraction, the echocardiogram was similar to 1 and had been performed previously on 05/01/2021. Due to the patient's advanced age and multiple medical problems including dementia, it was felt that the addition of Plavix would not be beneficial to the patient. Patient was seen by PT and OT during his hospitalization. On 04/19/2022, patient was seen and examined: On examination he appeared his stated age. Vital signs as documented. Skin warm and dry and without overt rashes. Neck without JVD, neck was supple, trachea midline, thyroid was normal. Lungs clear bilaterally, normal air movement was noted. Heart exam notable for regular rhythm, normal sounds and absence of murmurs, rubs or gallops. Abdomen unremarkable and without evidence of organomegaly, masses, or abdominal aortic enlargement. Bowel sounds are present, abdomen is not distended. Extremities nonedematous, no cyanosis was noted, no clubbing was noted. Neuro: Cranial nerves II through XII are grossly intact, no focal motor deficits were noted, sensation to light touch and pinprick intact, motor exam 5/5 throughout. Psych: Patient is alert and confused, he does not appear agitated or anxious On 04/19/2022, patient was seen and examined and felt to be stable for discharge home.. Weight / BMI Weight Weight: 67.1 kg Body Mass Index (BMI) 20.6 ABG / Lab / Microbiology Data Result Diagrams: 04/19/22 06:35 04/19/22 06:35 Laboratory: Laboratory Results - last 24 hr 04/18/22 12:37: Lactic Acid 1.8 04/18/22 14:05: Troponin I High Sens 204 H* 04/18/22 16:06: POC Glucose 232 H 04/18/22 21:16: POC Glucose 131 H 04/19/22 06:35: WBC 15.2 H, RBC 3.15 L, Hgb 9.9 L, Hct 29.4 L, MCV 93.3, MCH 31.4, MCHC 33.7, RDW Std Deviation 48.2 H, RDW Coeff of Zak 14.3, Plt Count 169, MPV 11.0, Immature Gran % (Auto) 0.700, Neut % (Auto) 49.7, Lymph % (Auto) 12.2 L, [place] % (Auto) 37.2 H, Eos % (Auto) 0.1, Baso % (Auto) 0.1, Absolute Neuts (auto) 7.6, Absolute Lymphs (auto) 1.85, Nucleated RBC % 0, Differential Comment SCANNED, Diff Path Review January foll 04/19/22 06:35: Sodium 142, Potassium 4.2, Chloride 111 H, Carbon Dioxide 28.0, Anion Gap 3 L, BUN 33 H, Creatinine 1.13, Estim Creat Clear Calc 44.54, Est GFR (MDRD) Af Amer 79, Est GFR (MDRD) Non-Af 65, BUN/Creatinine Ratio 29.2 H, Glucose 160 H, Calcium 8.7 04/19/22 06:35: POC Glucose 145 H Microbiology: Microbiology 04/18/22 09:32 Urine Catheter - Catheter Urine Culture - Preliminary Gram positive organism 04/18/22 08:01 Nasal Secretion SARS-CoV-2 Antigen (Rapid) - Final Radiography Diagnostic Testing: Radiology Impression Echocardiogram 04/18/22 11:37 Interpretation Summary The study was technically difficult. Segmental dysfunction with preserved ejection fraction (see wall motion). The estimated ejection fraction is 60 %. The left atrium is mildly enlarged. Mild (1+) eccentric mitral valve insufficiency. Trivial tricuspid valve insufficiency. Unable to estimate RV systolic pressure/pulmonary artery pressure due to technically difficult study. No evidence for diastolic dysfunction. Ordering Physician: Santos Ashley Referring Physician: Sampson Penny M.D. Performed By: Monika Fu RCS D/C Instructions Discharge Diet: No restrictions Weight Bearing Status: Full weight bearing Meaningful Use Info Meaningful Use Diagnoses (Choose all that apply): AMI AMI/Post PCI/Angioplasty Aspirin given w/in 24hrs of arrival?: Yes ASA at discharge?: Yes Antiplatelet Therapy at Discharge:: No Reason Antiplatelet Therapy not ordered:: Comorbidities Statins at discharge?: Yes Ciaran/ARB at discharge?: No Reason Ciaran/ARB not ordered:: Not indicated Beta Allen at discharge?: Yes Done w/ Acute NE measure.: Yes Documented LVEF (%): 60 Discharge Plan Admission Admit Date/Time: 04/18/22 15:31 Primary Reason for Your Visit: NSTEMI, hypotension Attending Provider: Santos Ashley Primary Care Provider: Sampson Penny Discharge Orders/Prescriptions Prescriptions: Continued donepezil 10 mg tablet 10 mg PO QHS memantine 10 mg tablet 10 mg PO BID aspirin [Adult Aspirin Regimen] 81 mg tablet,delayed release (DR/EC) 81 mg PO DAILY glipizide 5 mg tablet extended release 24hr 5 mg PO DAILY magnesium oxide 400 mg (241.3 mg magnesium) tablet 400 mg PO DAILY Label Comments: supplement melatonin 3 mg tablet 3 mg PO QHS Label Comments: TAKE 1 TABLET BY MOUTH at 7PM EVERY EVENING mirtazapine 30 mg tablet 30 mg PO QHS metformin 1,000 MG tablet 1,000 mg PO DAILY Label Comments: Diabetes ijfkzwku-qxg-GL-lycopen-lutein 1 EACH tablet 1 ea PO DAILY Label Comments: General health [id number] [id number] no.225 1 EACH tablet 1 ea PO DAILY Label Comments: General health prednisone 2.5 MG tablet 2.5 mg PO DAILY Label Comments: steroid atorvastatin 40 mg tablet 40 mg PO QHS Qty: 30 2RF metoprolol tartrate 25 mg tablet 12.5 mg PO BID Qty: 90 3RF Referrals / Follow Up: Sampson Penny MD [Primary Care Provider] - Within 1 Week Disposition Disposition (needs filled in before D/C Order can be placed): Home, Self Care Charges/Coding Visit Charges Inpatient E&M: 30040 Disch Hosp
[2022-04-19 13:01] LABS: Bedside Glucose 259 mg/dL (74-106)
[2022-04-21 07:26] LABS: Pathologist Review Reviewed
== END 2022-04-19 13:04 | disposition home or self-care (01) | DRG 280 ==
LOC: ED 11:33 → PCU 11:44
PROVIDERS: Admitting Provider Internal Medicine; Emergency Provider Student in an Organized Health Care Education/Training Program; PCP Internal Medicine; Visit Provider Internal Medicine
DX: I21.4 Non-ST elevation (NSTEMI) myocardial infarction (principal); E43 Unspecified severe protein-calorie malnutrition; N17.9 Acute kidney failure, unspecified; I48.92 Unspecified atrial flutter; E11.9 Type 2 diabetes mellitus without complications; E86.0 Dehydration; F02.80 Dementia in other diseases classified elsewhere, unspecified severity, without behavioral disturbance, psychotic disturbance, mood disturbance, and anxiety; D72.829 Elevated white blood cell count, unspecified; E78.5 Hyperlipidemia, unspecified; G30.9 Alzheimer's disease, unspecified; I48.0 Paroxysmal atrial fibrillation; R53.83 Other fatigue; Z68.20 Body mass index [BMI] 20.0-20.9, adult; Z79.82 Long term (current) use of aspirin; Z79.84 Long term (current) use of oral hypoglycemic drugs; Z79.899 Other long term (current) drug therapy
CPT/HCPCS: 36415; 70450; 71045; 80048; 80053; 81001; 82962; 83605; 84484; 85025; 85027; 85610; 87040; 87086; 87088; 87186; 87811; 93005; 93306; 97162; 97165; 97802; 99285; J7030; J7040; P9612; Q9957; A4216

== ENCOUNTER 2022-05-28 23:16 | Observation (INO) | payer MEDICARE, OTHER, SELFPAY ==
[2016-02-13 13:00] VITALS: BMI 25.7
--- NOTE | 2022-05-28 00:20 | RAD_ITS ---
EXAM: XR CHEST, 1 VIEW CLINICAL INDICATION: cough TECHNIQUE: Frontal view of the chest. This report was created using [employer] report generation technology. COMPARISON: June 27, 2021 FINDINGS: LUNGS AND PLEURAL SPACES: Calcified granuloma at the periphery of the right upper lobe. No pneumothorax. No effusion. HEART: Unremarkable. Cardiac silhouette not enlarged. MEDIASTINUM: Central airways and mediastinal contour are unremarkable. BONES/JOINTS: Unremarkable. SOFT TISSUES: Unremarkable. VASCULATURE: Atherosclerotic calcifications of the nonenlarged thoracic arch. Degenerative changes of the acromioclavicular joints and spine. RAD/Chest 1 View (Portable) IMPRESSION: No acute disease. Electronically Signed: Rich Schafer MD at 0:40 EDT ,
[2022-05-28 23:17] VITALS: BP 121/64; PULSE 87; RESP 18; TEMP 37.1; O2SAT 95; BMI 22.6
--- NOTE | 2022-05-28 23:36 | EKG12_ITS ---
Test Reason : DYSRHYTHMIA Blood Pressure : / mmHG Vent. Rate : 090 BPM Atrial Rate : 090 BPM P-R Int : 174 ms QRS Dur : 086 ms QT Int : 370 ms P-R-T Axes : 065 -28 -04 degrees QTc Int : 452 ms Normal sinus rhythm Nonspecific ST abnormality Abnormal ECG Confirmed by SHWETA DUKES, QASIM ([id number]), marketing editor [employer]IMUS COVINGTON ([id number]) on 06/01/2022 9:48:38 AM Referred By: DELANEY Confirmed By:QASIM ROCK MD
--- NOTE | 2022-05-28 23:37 | EX.ED.DYSGE1 ---
HPI History of Present Illness Chief Complaint: Confusion Informant: patient and family Onset/Context/Timing Onset: Today Narrative Narrative: Patient presents with son for evaluation secondary to increased confusion. Patient has a history of dementia. Son was leaving the home today but states his mother claims patient became more confused this afternoon. He had difficulty ambulating to the bathroom and even knowing where the bathroom was located. His speech sounds different. When son got home this evening he was told about these changes. Son states that sounds like his father is better at this time when compared to what his mother describes, but is certainly not back to his baseline. Patient has no complaints. There have been no falls that family knows of. [facility] Medical History Anemia of chronic disease Atrial flutter with rapid ventricular response (09/2015) Cellulitis and abscess Chronic constipation Chronic rheumatic arthritis Dementia Diabetes mellitus MDS (myelodysplastic syndrome) Obstructive sleep apnea Paroxysmal atrial flutter Personal history of immunosupression therapy Stroke/cerebrovascular accident Home Medications B6 100 mg-FA 800 mcg-B12 200 mcg-co Q10 100 mg-herbal no.225 tablet 1 ea PO DAILY 05/03/15 [History Last Taken 08/23/15] metformin 1,000 mg tablet 1,000 mg PO DAILY 05/03/15 [History Last Taken 09/23/15] ixfcrpgo-zgl-qvksv acid 0.4 mg-lycopene 300 mcg-lutein 250 mcg tablet 1 ea PO DAILY 05/03/15 [History Last Taken 09/23/15] prednisone 2.5 mg tablet 2.5 mg PO DAILY 09/03/15 [History Last Taken 09/23/15] aspirin 81 mg tablet,delayed release (Adult Aspirin Regimen) 81 mg PO DAILY 08/10/19 [History Last Taken Unknown] donepezil 10 mg tablet 10 mg PO QHS 08/10/19 [History Last Taken Unknown] memantine 10 mg tablet 10 mg PO BID 08/10/19 [History Last Taken Unknown] atorvastatin 40 mg tablet 40 mg PO QHS #30 tabs 05/01/21 [Rx Last Taken Unknown] glipizide 5 mg tablet, extended release 24 hr 5 mg PO DAILY 08/13/21 [History Last Taken Unknown] magnesium oxide 400 mg (241.3 mg magnesium) tablet 400 mg PO DAILY 08/13/21 [History Last Taken Unknown] melatonin 3 mg tablet 3 mg PO QHS 08/13/21 [History Last Taken Unknown] mirtazapine 30 mg tablet 30 mg PO QHS 08/13/21 [History Last Taken Unknown] metoprolol tartrate 25 mg tablet 12.5 mg PO BID #90 ea 09/29/21 [Rx Last Taken Unknown] Allergy/AdvReac Type Severity Reaction Status Date / Time No Known Allergies Allergy Verified 05/28/22 23:19 Family History Father Cancer Diabetes Surgical History History of corneal transplant History of prostate surgery Hx of cataract surgery Social History household members: spouse and children housing: house current occupational status: retired Smoking Status: Never smoker alcohol intake: current alcohol intake frequency: other substance use type: does not use ROS ROS ED Constitutional Constitutional ED: Denies chills or fever(s) Eyes Eyes: Denies change in vision or discharge from eye(s) ENT ENT ED: Denies discharge from eye(s), rhinorrhea or sore throat Cardiovascular Cardiovascular: Denies chest pain or palpitations Respiratory/Chest Respiratory/Chest: Denies cough or dyspnea Gastrointestinal Gastrointestinal: Denies abdominal pain, nausea or vomiting Genitourinary Genitourinary ED: Denies dysuria Musculoskeletal Musculoskeletal: Denies back pain or extremity pain Integumentary Denies Abrasions or rash Neurologic Neurologic: Denies headache(s) or weakness Allergic/Immunologic Allergic/Immunologic ED: Denies lip swelling or urticaria EXAM Physical Exam Const Vital Signs: 05/28/22 23:17 Temperature 98.7 F Temperature Source Temporal Pulse Rate 87 Respiratory Rate 18 Blood Pressure 121/64 H Blood Pressure Mean 83 Pulse Ox 95 Oxygen Delivery Method Room Air Positive well nourished and well developed General Appearance ED: well developed HEENT Reports normocephalic and head/scalp atraumatic Eyes PERRL and EOMs intact bilaterally Neck supple Chest Wall inspection of chest normal and palpation of chest normal Resp normal respiratory effort and clear to auscultation bilaterally Cardio regular rate and regular rhythm GI normal to inspection, nondistended, normoactive bowel sounds Palpation: soft Extremity normal to inspection Neuro Neuro Narrative: Patient is alert and answers questions appropriately. He is able to move all 4 extremities without difficulty. He has no facial asymmetry noted. Sensorium / Orientation: alert Skin no rashes or lesions noted MDM MDM MDM Narrative Medical decision making narrative: EKG, chest x-ray, head CT obtained. Lab work and urinalysis ordered. Lab Data Attestation: I reviewed the patient's lab results. Labs: Laboratory Results - last 24 hr 05/28/22 05/28/22 05/28/22 23:48 23:48 23:48 WBC 8.8 RBC 3.50 L Hgb 11.2 L Hct 33.3 L MCV 95.1 H MCH 32.0 MCHC 33.6 RDW Std Deviation 50.5 H RDW Coeff of Zak 14.6 Plt Count 177 MPV 11.2 Immature Gran % (Auto) 0.700 Neut % (Auto) 37.0 L Lymph % (Auto) 16.1 L [place] % (Auto) 46.1 H Eos % (Auto) 0.0 Baso % (Auto) 0.1 Absolute Neuts (auto) 3.3 Absolute Lymphs (auto) 1.42 Nucleated RBC % 0 Macrocytosis 1+ Acanthocytes (Spur) 1+ Sodium 141 Potassium 4.3 Chloride 101 Carbon Dioxide 31.0 Anion Gap 9 BUN 34 H Creatinine 1.37 H Estim Creat Clear Calc 37.99 Est GFR (MDRD) Af Amer 63 Est GFR (MDRD) Non-Af 52 L BUN/Creatinine Ratio 24.8 H Glucose 183 H Calcium 9.3 Total Bilirubin 0.40 Direct Bilirubin 0.18 AST 21 ALT 39 Alkaline Phosphatase 133 H Troponin I High Sens 11 Total Protein 7.4 Albumin 3.6 Globulin 3.8 Urine Color Urine Clarity Urine pH Ur Specific [place] Urine Protein Urine Glucose (UA) Urine Ketones Urine Occult Blood Urine Nitrite Urine Bilirubin Urine Urobilinogen Ur Leukocyte Esterase Urine RBC Urine WBC Ur Squamous Epith Cells Urine Bacteria Urine Mucus POC Glucose 182 H 05/29/22 00:00 WBC RBC Hgb Hct MCV MCH MCHC RDW Std Deviation RDW Coeff of Zak Plt Count MPV Immature Gran % (Auto) Neut % (Auto) Lymph % (Auto) [place] % (Auto) Eos % (Auto) Baso % (Auto) Absolute Neuts (auto) Absolute Lymphs (auto) Nucleated RBC % Macrocytosis Acanthocytes (Spur) Sodium Potassium Chloride Carbon Dioxide Anion Gap BUN Creatinine Estim Creat Clear Calc Est GFR (MDRD) Af Amer Est GFR (MDRD) Non-Af BUN/Creatinine Ratio Glucose Calcium Total Bilirubin Direct Bilirubin AST ALT Alkaline Phosphatase Troponin I High Sens Total Protein Albumin Globulin Urine Color Yellow Urine Clarity Clear Urine pH 6.5 Ur Specific [place] 1.015 Urine Protein 15 H Urine Glucose (UA) Normal Urine Ketones Negative Urine Occult Blood 10 H Urine Nitrite Negative Urine Bilirubin Negative Urine Urobilinogen Normal Ur Leukocyte Esterase Negative Urine RBC 0-5 SEEN Urine WBC 0 SEEN Ur Squamous Epith Cells 0 SEEN Urine Bacteria 1+ Urine Mucus 0 SEEN POC Glucose Radiography Chest X-Ray - ED: 1 View, Read by ED Physician, Chronic Changes and No Infiltrates Diagnostic Testing: Clinical Impression(s) from Imaging Studies Chest X-Ray 05/28/22 00:20 IMPRESSION: No acute disease. Electronically Signed: Rich Schafer MD at 0:40 EDT , Brain CT 05/29/22 23:36 IMPRESSION: 1. No evidence of acute intracranial pathology. 2. Diffuse involutional changes and chronic ischemic small vessel white matter disease. Electronically Signed: Rich Schafer MD at 0:43 EDT , EKG Initial EKG: Attestation: I personally reviewed and interpreted this EKG as follows: Interpretation: Sinus Rhythm (Sinus at 90 with no acute ischemia. Nonspecific ST change noted in the anterior and lateral precordial leads.) Treatment and Re-Evaluation Narrative: White count is normal. Hemoglobin is slightly low at 11.2, but this is improved when compared to prior values. Chemistry studies significant only for a creatinine of 1.37. This is only slightly increased when compared to most recent labs. LFTs normal. Urinalysis reveals no acute infection. Chest x-ray per my interpretation shows no infiltrate. Radiology interpretation is reviewed and concurs. Head CT shows no acute intracranial pathology. While patient does not have any focal findings to suggest stroke, son states that patient did act similarly in the past with a stroke. He also had similar presentation recently with an elevated troponin. Troponin today is normal. I will speak with hospitalist regarding admission for further work-up. Discharge Plan Triage Chief Complaint: Confusion ED Provider: Beth Coleman Dx/Rx/DC Orders Clinical Impression: Acute confusion, Unsteady gait Prescriptions: No Action donepezil 10 mg tablet 10 mg PO QHS memantine 10 mg tablet 10 mg PO BID aspirin [Adult Aspirin Regimen] 81 mg tablet,delayed release (DR/EC) 81 mg PO DAILY glipizide 5 mg tablet extended release 24hr 5 mg PO DAILY magnesium oxide 400 mg (241.3 mg magnesium) tablet 400 mg PO DAILY Label Comments: supplement melatonin 3 mg tablet 3 mg PO QHS Label Comments: TAKE 1 TABLET BY MOUTH at 7PM EVERY EVENING mirtazapine 30 mg tablet 30 mg PO QHS metformin 1,000 MG tablet 1,000 mg PO DAILY Label Comments: Diabetes gmpubblk-kqy-LX-lycopen-lutein 1 EACH tablet 1 ea PO DAILY Label Comments: General health [id number]-co U24-azzl no.225 1 EACH tablet 1 ea PO DAILY Label Comments: General health prednisone 2.5 MG tablet 2.5 mg PO DAILY Label Comments: steroid atorvastatin 40 mg tablet 40 mg PO QHS Qty: 30 2RF metoprolol tartrate 25 mg tablet 12.5 mg PO BID Qty: 90 3RF Primary Care Provider: Sampson Penny Referrals: Sampson Penny MD [Primary Care Provider] - Disposition Disposition: Acute Care Hospital [facility]
[2022-05-28 23:53] LABS: Absolute Lymphocyte Count 1.42 X10^3/uL (0.83-4.51); Absolute Neutrophil Count 3.3 X10^3/uL (2.0-7.7); Basophil# 0.01 X10^3/uL; Basophil% 0.1 % (0-1); Hematocrit 33.3 % (40-54); Hemoglobin 11.2 g/dL (13.0-16.5); Lymphocyte # 1.42 X10^3/ul (0.83-4.51); Lymphocyte % 16.1 % (19-41); Mean Corp Hgb Conc 33.6 g/dL (32-36); Mean Corpuscular Volume 95.1 fL (80-94); Mean Platelet Vol. 11.2 fl (6.2-12.0); Monocyte# 4.07 X10^3/uL; Monocyte% 46.1 % (0-10); NRBC Flagged by Analyzer 0 % (0-5); Neutrophil # 3.27 X10^3/uL (2.7-7.7); POSITIVE DIFFERENTIAL YES; Platelet Count 177 K/mm3 (150-450); RBC Distribution Width CV 14.6 % (11.6-14.6); RBC Distribution Width SD 50.5 fl (35.1-43.9); White Blood Count 8.8 K/mm3 (4.4-11.0)
[2022-05-28 23:55] LABS: Differential Indicated SCAN CRITERIA MET
[2022-05-29] VITALS (12 sets, daily range): BP systolic 99–150; BP diastolic 55–74; PULSE 65–98; RESP 12–18; TEMP 36.6–38.2; O2SAT 91–96; BMI 21.1
[2022-05-29 00:11] LABS: Mucous, Urine 0 SEEN /hpf (<or=2+); Squamous Epithelial Cells - UA 0 SEEN /hpf (0-5); White Blood Cells 0 SEEN /hpf (0-5)
[2022-05-29 00:11] LABS: Bedside Glucose 182 mg/dL (74-106)
[2022-05-29 00:12] LABS: Color, Urine Yellow (Yellow); Glucose, Dipstick Normal (Normal); Ketone-Dipstick Negative (Negative); Leukocyte Esterase-Dipstick Negative /ul (Negative); Nitrite-Dipstick Negative (Negative); Occult Blood-Urine 10 /ul (Negative); Protein-Dipstick 15 mg/dl (Negative); Specific Gravity, Urine 1.015 (1.002-1.030); Urine Bilirubin Dipstick Negative (Negative); Urine Clarity Clear (Clear); Urine Urobilinogen Normal (Normal); Urine pH 6.5 (5.0 - 8.0)
[2022-05-29 00:14] LABS: AST(SGOT) 21 U/L (15-37); Alanine Aminotransfer ALT/SGPT 39 U/L (16-61); Albumin, Serum 3.6 g/dL (3.2-5.0); Alkaline Phosphatase 133 U/L (45-117); Anion Gap 9 (5-15); BUN 34 mg/dL (7-18); BUN/Creat Ratio 24.8 RATIO (10-20); Bilirubin, Direct 0.18 mg/dL (0.00-0.30); Calcium,Total 9.3 mg/dL (8.5-10.1); Chloride 101 mmol/L (98-107); Creatinine, Serum 1.37 mg/dL (0.70-1.30); EST Glomerular Filtration Rate 52 mL/min (>60); Est Glom Filt Rate - Afr Amer 63 mL/min (>60); Estimated Creatinine Clearance 37.99 ml/min; Globulin 3.8 g/dL (2.2-4.2); Glucose 183 mg/dL (74-106); Potassium 4.3 mmol/L (3.5-5.1); Protein, Total 7.4 g/dL (6.4-8.2); Sodium Level 141 mmol/L (136-145); Troponin-I HS 11 pg/mL (3.0-78.0)
[2022-05-29 00:15] LABS: Acanthocytes 1+; Macrocytosis 1+
[2022-05-29 00:25] LABS: Bacteria 1+ /hpf (None Seen); Red Blood Cells-Urine 0-5 SEEN /hpf (0-5)
--- NOTE | 2022-05-29 00:58 | HP.PCM.HOS_ITS ---
HPI - General General Date of Admission: 05/29/22 Date of Service: 05/29/22 Chief Complaint: Increased confusion above baseline. HPI Narrative The patient is an 86 y/o M w/ PMHx: Hx CVA, CKD stage III unclear subtype, HTN, HLD, Chronic anemia/AOCD, Diabetes mellitus type II, MDS, PAF, Chronic constipation, Hx CVA, Rheumatoid arthritis on chronic low dose prednisone, Anxiety and Depression, Dementia unclear type with unclear behavioral di sturbance history, FRENCH who presents to the [facility] ED on 05/29/22 with history of increased confusion on day of presentation specifically in the afternoon with some difficulty ambulating to the bathroom even reportedly not recalling where the bathroom was which is not his baseline with altered speech although it did improve some but we did not return exactly to his baseline prompting family to bring him for evaluation. Patient's son does report that patient occasionally does have coughing episodes but not necessarily specifically when he is eating. Work-up in the ED included T98.7, heart rate 87, BP 121/64, respiratory rate 18, 95% room air, CBC with WC 8.8, hemoglobin 11.2, platelet 177 without marked shift, CMP with BUN/creat 34/1.37, glucose 183, alk phos 133 otherwise not marked appearing hepatic profile, troponin 11, urinalysis not marked appearing, chest x-ray with no acute cardiopulmonary finding, CT of the brain with diffuse involutional changes and chronic ischemic small vessel white matter disease with no acute intracranial pathology, EKG with sinus rhythm with nonspecific ST changes in the anterior and lateral precordial leads. [facility] Medical History Anemia of chronic disease Atrial flutter with rapid ventricular response (09/2015) Cellulitis and abscess Chronic constipation Chronic rheumatic arthritis Dementia Diabetes mellitus MDS (myelodysplastic syndrome) Obstructive sleep apnea Paroxysmal atrial flutter Personal history of immunosupression therapy Stroke/cerebrovascular accident Home Medications B6 100 mg-FA 800 mcg-B12 200 mcg-co Q10 100 mg-herbal no.225 tablet 1 ea PO DAILY 05/03/15 [History Last Taken 08/23/15] metformin 1,000 mg tablet 1,000 mg PO DAILY 05/03/15 [History Last Taken 09/23/15] gprrrkbg-puj-wgroz acid 0.4 mg-lycopene 300 mcg-lutein 250 mcg tablet 1 ea PO DAILY 05/03/15 [History Last Taken 09/23/15] prednisone 2.5 mg tablet 2.5 mg PO DAILY 09/03/15 [History Last Taken 09/23/15] aspirin 81 mg tablet,delayed release (Adult Aspirin Regimen) 81 mg PO DAILY 08/10/19 [History Last Taken Unknown] donepezil 10 mg tablet 10 mg PO QHS 08/10/19 [History Last Taken Unknown] memantine 10 mg tablet 10 mg PO BID 08/10/19 [History Last Taken Unknown] atorvastatin 40 mg tablet 40 mg PO QHS #30 tabs 05/01/21 [Rx Last Taken Unknown] glipizide 5 mg tablet, extended release 24 hr 5 mg PO DAILY 08/13/21 [History Last Taken Unknown] magnesium oxide 400 mg (241.3 mg magnesium) tablet 400 mg PO DAILY 08/13/21 [History Last Taken Unknown] melatonin 3 mg tablet 3 mg PO QHS 08/13/21 [History Last Taken Unknown] mirtazapine 30 mg tablet 30 mg PO QHS 08/13/21 [History Last Taken Unknown] metoprolol tartrate 25 mg tablet 12.5 mg PO BID #90 ea 09/29/21 [Rx Last Taken Unknown] Allergy/AdvReac Type Severity Reaction Status Date / Time No Known Allergies Allergy Verified 05/28/22 23:19 Family History Father Cancer Diabetes other (Patient son present denies any strong maternal family history of his father including HD, DM, CA.) Surgical History History of corneal transplant History of prostate surgery Hx of cataract surgery Social History household members: spouse and children housing: house current occupational status: retired Smoking Status: Never smoker alcohol intake: current alcohol intake frequency: other substance use type: does not use ROS Review of Systems ROS Unobtainable: due to mental status Vital Signs Vital Signs Vital Signs: 05/28/22 23:17 Temperature 98.7 F Temperature Source Temporal Pulse Rate 87 Respiratory Rate 18 Blood Pressure 121/64 H Blood Pressure Mean 83 Pulse Ox 95 Oxygen Delivery Method Room Air Weight Weight: 153 lb Body Mass Index (BMI) 22.6 Physical Exam Narrative Physical Examination: General: Patient extremely fatigued, sleeping, will awaken and is more alert, oriented to self and place but confused above baseline, speech altered. Skin: Normal color, normal turgor, no icterus, no cyanosis except occasional staged ecchymoses. HEENT: AT/NC, EOMI, PERRLA, mildly dry MM, no carotid bruits or JVD noted. Lungs: Mild diminished, greater bases, appropriate effort, no rales, ronchi or wheezing. Heart: Currently regular rate and rhythm; no gallop, rub audible. Abdomen: Soft, NTTP, ND, distant normal BS, no HSM. Extremities: No cyanosis, clubbing, or edema. Neurological: Patient extremely fatigued, sleeping, will awaken and is more alert, oriented to self and place but confused above baseline, speech altered per discussion with family, cognitive function decreased from baseline although he does have notable dementia underlying therefore it is decreased baseline, pupils equally reactive to light and accommodation, cranial nerves grossly normal, moving all 4 extremities, no specific focal deficits, unremarkable f kaitlin-nose/vghl-sh-fikx, equivocal Babinski, sensation subjectively intact. Psychiatric: Affect appears significantly fatigued, flat no acute evidence of depressive or anxiety feelings. Results Lab / Micro Data Result Diagrams: 05/28/22 23:48 05/28/22 23:48 Labs: Laboratory Results - last 24 hr 05/28/22 23:48: WBC 8.8, RBC 3.50 L, Hgb 11.2 L, Hct 33.3 L, MCV 95.1 H, MCH 32.0, MCHC 33.6, RDW Std Deviation 50.5 H, RDW Coeff of Zak 14.6, Plt Count 177, MPV 11.2, Immature Gran % (Auto) 0.700, Neut % (Auto) 37.0 L, Lymph % (Auto) 16.1 L, [place] % (Auto) 46.1 H, Eos % (Auto) 0.0, Baso % (Auto) 0.1, Absolute Neuts (auto) 3.3, Absolute Lymphs (auto) 1.42, Nucleated RBC % 0, Macrocytosis 1+, Acanthocytes (Spur) 1+ 05/28/22 23:48: Sodium 141, Potassium 4.3, Chloride 101, Carbon Dioxide 31.0, Anion Gap 9, BUN 34 H, Creatinine 1.37 H, Estim Creat Clear Calc 37.99, Est GFR (MDRD) Af Amer 63, Est GFR (MDRD) Non-Af 52 L, BUN/Creatinine Ratio 24.8 H, Glucose 183 H, Calcium 9.3, Total Bilirubin 0.40, Direct Bilirubin 0.18, AST 21, ALT 39, Alkaline Phosphatase 133 H, Troponin I High Sens 11, Total Protein 7.4, Albumin 3.6, Globulin 3.8 05/28/22 23:48: POC Glucose 182 H 05/29/22 00:00: Urine Color Yellow, Urine Clarity Clear, Urine pH 6.5, Ur Specific [place] 1.015, Urine Protein 15 H, Urine Glucose (UA) Normal, Urine Ketones Negative, Urine Occult Blood 10 H, Urine Nitrite Negative, Urine Bilirubin Negative, Urine Urobilinogen Normal, Ur Leukocyte Esterase Negative, Urine RBC 0-5 SEEN, Urine WBC 0 SEEN, Ur Squamous Epith Cells 0 SEEN, Urine Bacteria 1+, Urine Mucus 0 SEEN Radiology Impression Chest X-Ray 05/28/22 00:20 IMPRESSION: No acute disease. Electronically Signed: Rich Schafer MD at 0:40 EDT , Brain CT 05/29/22 23:36 IMPRESSION: 1. No evidence of acute intracranial pathology. 2. Diffuse involutional changes and chronic ischemic small vessel white matter disease. Electronically Signed: Rich Schafer MD at 0:43 EDT , Assessment & Plan Assessment/Plan (1) Acute confusion: (2) Unsteady gait: PLAN: Plan The patient is an 86 y/o M w/ PMHx: Hx CVA, CKD stage III unclear subtype, HTN, HLD, Chronic anemia/AOCD, Diabetes mellitus type II, MDS, PAF, Chronic constipation, Hx CVA, Rheumatoid arthritis on chronic low dose prednisone, Anxiety and Depression, Dementia unclear type with unclear behavioral disturbance history, FRENCH who presents to the [facility] ED on 05/29/22 with history of increased confusion on day of presentation specifically in the afternoon with some difficulty ambulating to the bathroom even reportedly not recalling where the bathroom was which is not his baseline with altered speech although it did improve some but we did not return exactly to his baseline prompting family to bring him for evaluation. #1. Altered Speech, Increased confusion concerning for CVA w/ Prior Hx: Will admit to PCU, will obtain MRI Brain, MRA Head and carotid US, will obtain ECHO, PT/OT/Speech/Nutrition evaluation per protocol. Will allow permissive HTN, maintain on asa, discussed addition of eliquis given PAF history w/ concern for potential falls and family does confirm that this is the reason he has not been on it prior secondary to poor eyesight and gait debility, maintain on statin w/ AM FLP, fall precautions. Mag, HgbA1c, TSH, FLP pending. Once further imaging and work-up obtained consider SOC neurology consultation. #2. Dementia, unclear type with unclear behavioral disturbance history: Compli cates presentation, maintain on memantine and donepezil regimen, PT/OT/case management consult as noted for discharge planning. #3. PAF: Will temporarily hold home BB for permissive HTN, not chronically anticoagulated previously secondary to high fall risk. #4. Hypertension: Maintain permissive HTN with PRN agents given #1. #5. Hyperlipidemia: We will continue patient on statin therapy. #6. Chronic Kidney Disease Stage III, unclear sub-: Admission BUN/Cr 34/1.3, baseline renal function primarily 1.1-1.3, repeat BMP in AM. #7. Diabetes mellitus type II: Hold oral home regimen, ADA diet, accu checks w/ ISS. #8. Anxiety and depression: We will continue patient home mirtazapine regimen. #9. Rheumatoid arthritis: We will continue patient home low-dose prednisone therapy. #10. DVT prophylaxis: SCDs, will hold off on anticoagulation given patient high fall risk which was discussed at length with son, will maintain on chemoprophylaxis only. #11. CODE status: Patient ADYOA is the patient's daughter and living will is currently in place. Discussed CODE status at length including difference between FULL code, DNR-CCA and DNR-CC status. Following discussions about the differe nces in these status, requested Full Code status. Advanced Care Planning Face to Face Time: 16 minutes. Charges/Coding Visit Charges OBSV E&M: 99769 Initial observation care L3 Procedures Hospitalists Procedures: 98192 Advncd Care Plan 30 Min
[2022-05-29 01:26] LABS: Magnesium 2.2 mg/dL (1.6-2.6)
--- NOTE | 2022-05-29 02:08 | CDU_ITS ---
Reason For Study: CVA Rt. Velocities/BP Lt. Velocities/BP Prox CCA 64.5/7.8 cm/sec. Prox CCA 87.6/12.6 cm/sec. Mid CCA 65.5/12.6 cm/sec. Mid CCA 86.3/17.6 cm/sec. Dist CCA 75.9/8.8 cm/sec. Dist CCA 88.8/13.9 cm/sec. Prox ICA 73/12.6 cm/sec. Prox ICA 67.9/18.8 cm/sec. Mid ICA 71.1/12.6 cm/sec. Mid ICA 79/11.4 cm/sec. Dist ICA 71.1/12.6 cm/sec. Dist ICA 60.9/12.8 cm/sec. Rt. ICA/CCA = 1.11. Lt. ICA/CCA = 0.90. Prox ECA 74/5 cm/sec. Prox ECA 171.9/11.6 cm/sec. Rt. Vert. 47.5/7.8 cm/sec. Lt. Vert. 45.4/12.4 cm/sec. Right Extracranial There is heterogeneous, irregular atherosclerotic plaque noted in the right common carotid artery. There is heterogeneous, irregular atherosclerotic plaque noted in the right internal carotid artery. There is intimal thickening but no significant atherosclerotic plaque noted in the right external carotid artery. Antegrade flow is noted in the right vertebral artery. Left Extracranial There is heterogeneous, smooth atherosclerotic plaque noted in the left common carotid artery. There is homogeneous, smooth atherosclerotic plaque noted in the left internal carotid artery. There is heterogeneous, irregular atherosclerotic plaque noted in the left external carotid artery. Antegrade flow is noted in the left vertebral artery. Procedure Carotid Duplex 50071. This is a Carotid Duplex examination using B-mode, color flow and specral Doppler. Exam performed portable in patient room. VL/Carotid Duplex Ultrasound Interpretation Summary Irregular calcific plaque with shadowing at the proximal right internal carotid artery with less than 50% stenosis Less than 50% stenosis right external carotid artery Smooth plaque at the proximal left internal carotid artery with less than 50% s tenosis Less than 50% stenosis left external carotid artery Patent and antegrade vertebral arteries bilaterally Ordering Physician: Tawanna Funk Referring Physician: Sampson Penny M.D. Performed By: Smitha Gandhi RVT
[2022-05-29] MEDS: 0.9% Normal Saline 1,000 ML 100 ML IV (02:43)
[2022-05-29] MEDS: Menthol/Lanolin/Calamine/Znox 113 GM Tube 1 APPLIC TOPICAL ×2 (03:20→10:11)
[2022-05-29 06:12] LABS: Absolute Lymphocyte Count 1.75 X10^3/uL (0.83-4.51); Absolute Neutrophil Count 2.7 X10^3/uL (2.0-7.7); Basophil# 0.01 X10^3/uL; Basophil% 0.1 % (0-1); Hematocrit 29.8 % (40-54); Lymphocyte # 1.75 X10^3/ul (0.83-4.51); Lymphocyte % 18.2 % (19-41); Mean Corp Hgb Conc 33.6 g/dL (32-36); Mean Corpuscular Hgb 31.4 pg (27.0-32.0); Mean Corpuscular Volume 93.7 fL (80-94); Mean Platelet Vol. 11.2 fl (6.2-12.0); Monocyte# 5.07 X10^3/uL; Monocyte% 52.6 % (0-10); NRBC Flagged by Analyzer 0 % (0-5); Neutrophil # 2.73 X10^3/uL (2.7-7.7); Neutrophil % 28.4 % (47-70); POSITIVE DIFFERENTIAL YES; Platelet Count 157 K/mm3 (150-450); RBC Distribution Width CV 14.5 % (11.6-14.6); RBC Distribution Width SD 49.6 fl (35.1-43.9); Red Blood Count 3.18 M/mm3 (4.6-6.2); White Blood Count 9.6 K/mm3 (4.4-11.0)
[2022-05-29 06:32] LABS: Acanthocytes 1+; Differential Comment SCANNED; Differential Indicated SCAN CRITERIA MET
[2022-05-29] MEDS: Enoxaparin 40 MG/0.4 ML Syringe SC (06:58)
[2022-05-29] MEDS: Acetaminophen 325 MG Tablet 650 MG PO (07:02)
[2022-05-29 07:22] LABS: ALB/GLOB Ratio 0.9 RATIO (0.9-2.4); AST(SGOT) 21 U/L (15-37); Alanine Aminotransfer ALT/SGPT 35 U/L (16-61); Albumin, Serum 3.2 g/dL (3.2-5.0); Alkaline Phosphatase 114 U/L (45-117); Anion Gap 6 (5-15); BUN 30 mg/dL (7-18); BUN/Creat Ratio 26.5 RATIO (10-20); Calcium,Total 9.2 mg/dL (8.5-10.1); Chloride 103 mmol/L (98-107); Cholesterol < 50 mg/dL (200); Creatinine, Serum 1.13 mg/dL (0.70-1.30); EST Glomerular Filtration Rate 65 mL/min (>60); Est Glom Filt Rate - Afr Amer 79 mL/min (>60); Estimated Creatinine Clearance 45.66 ml/min; Globulin 3.5 g/dL (2.2-4.2); Glucose 93 mg/dL (74-106); High Density Lipoprotein 30 mg/dL; Potassium 4.1 mmol/L (3.5-5.1); Protein, Total 6.7 g/dL (6.4-8.2); Sodium Level 141 mmol/L (136-145); Thyroid Stim Hormone (TSH) 0.75 uIU/mL (0.358-3.74); Triglycerides 31 mg/dL; Very Low Density Lipoprotein 6 mg/dL (5-40)
[2022-05-29 07:36] LABS: Bedside Glucose 121 mg/dL (74-106)
[2022-05-29 07:56] LABS: Hemoglobin A1c 6.8 % (3.8-5.6)
--- NOTE | 2022-05-29 09:03 | MRI_ITS ---
STUDY: MRA OF THE HEAD WITHOUT CONTRAST REASON FOR EXAM: Male, 86 years old. CVA TECHNIQUE: 3-D [id number] (TOF) imaging was performed with MIPs. The study was performed unenhanced. COMPARISON: None. FINDINGS: Normal bilateral petrous carotid arteries. Normal right cavernous carotid artery with a normal supraclinoid bifurcation. Normal left cavernous carotid artery with a normal supraclinoid bifurcation. Normal right A1 segments of the anterior cerebral artery. Normal left A1 segments of the anterior cerebral artery. Normal intact anterior communicating artery (ACOM). Normal bilateral A2 segments of the anterior cerebral arteries. Normal right M1 and M2 segments of the middle cerebral arteries, with a normal M1 bifurcation. Normal left M1 and M2 segments of the middle cerebral arteries, with a normal M1 bifurcation. Normal right posterior communicating artery (PCOM). No visible left posterior communicating artery (PCOM). Normal bilateral vertebral arteries. Normal basilar artery with a normal basilar bifurcation. The visualized bilateral superior cerebellar (SCA) arteries are normal. Normal bilateral P1, P2 and visualized P3 segments of the posterior cerebral arteries. The right P1 segment is hypoplastic. There is no demonstrated aneurysm of the resighini of Will. There is no major vessel occlusion or hemodynamically significant stenosis. MRI/MRA Head ONLY without Contrast IMPRESSION: Normal MRA of the head Electronically Signed: Panchito Caldwell MD at 10:15 EDT ,
--- NOTE | 2022-05-29 09:27 | MRI_ITS ---
EXAM: MR HEAD WITHOUT INTRAVENOUS CONTRAST CLINICAL INDICATION: CVA TECHNIQUE: Multiplanar and multisequence MR images of the brain were obtained without intravenous contrast. This report was created using [employer] report generation technology. COMPARISON: MRI brain without contrast 05/01/2021. FINDINGS: BRAIN AND EXTRA-AXIAL SPACES: No diffusion restriction to suspect acute or subacute ischemic infarcts throughout the brain parenchyma. Old linear cystic infarcts in the right cerebellum and tiny old lacunar cystic infarcts in the left cerebellum. Confluent periventricular white matter T2 FLAIR hyperintensity foci in both cerebral hemispheres and extending into the centrum semiovale. They are chronic white matter ischemic changes and unchanged. No intra- or extra-axial hemorrhage. No intracranial mass or mass effect. No hydrocephalus. Basal cisterns are patent. SELLA: Unremarkable. Normal sella turcica, pituitary gland, infundibular stalk, optic chiasm and hypothalamus. AUDITORY SYSTEM: Unremarkable. The internal auditory canals are patent. BONES/JOINTS: Unremarkable. No discrete lytic or blastic abnormalities. SINUSES: Unremarkable as visualized. Clear. MASTOID AIR CELLS: Unremarkable as visualized. Clear. ORBITS: Unremarkable as visualized. Both globes, extraocular muscles, optic nerves and retrobulbar fat appear unremarkable. VASCULATURE: Unremarkable as visualized. Normal flow voids in the major intracranial circulation. MRI/Brain without Contrast IMPRESSION: 1. No MRI evidence of acute or subacute ischemic infarct or acute intracranial abnormality. 2. Confluent chronic white matter ischemic changes in both cerebral hemispheres. 3. Old linear cystic infarct in the right cerebellum and old lacunar cystic infarcts in the left cerebellum. 4. No interval change when compared to 05/01/2021. Electronically Signed: Panchito Caldwell MD at 10:19 EDT ,
[2022-05-29] MEDS: predniSONE 5 MG Tablet 2.5 MG PO (10:11)
[2022-05-29] MEDS: Aspirin E.C. 81 MG Tablet PO (10:11)
[2022-05-29] MEDS: Memantine Hydrochloride 10 MG Tablet PO (10:11)
--- NOTE | 2022-05-29 10:37 | DCINST_ITS ---
Discharge Instructions Diet Discharge Diet: Low fat / Low cholesterol Activity Discharge Activity: Return to Normal Activity Dressing / Incision Call your doctor if you observe: Shortness of breath, Dizziness and Chest pain Follow Up Care Test Results: Test results from this visit will be discussed in further detail at your follow- up appointment, if applicable. Discharge Plan Admission Admit Date/Time: 05/29/22 01:10 Primary Reason for Your Visit: Stroke ruled out Attending Provider: Joe Aburto Primary Care Provider: Sampson Penny Consulting Providers: Tawanna Funk Discharge Orders/Prescriptions Prescriptions: Continued donepezil 10 mg tablet 10 mg PO QHS memantine 10 mg tablet 10 mg PO BID aspirin [Adult Aspirin Regimen] 81 mg tablet,delayed release (DR/EC) 81 mg PO DAILY glipizide 5 mg tablet extended release 24hr 5 mg PO DAILY magnesium oxide 400 mg (241.3 mg magnesium) tablet 400 mg PO DAILY Label Comments: supplement melatonin 3 mg tablet 3 mg PO QHS Label Comments: TAKE 1 TABLET BY MOUTH at 7PM EVERY EVENING mirtazapine 30 mg tablet 30 mg PO QHS metformin 1,000 MG tablet 1,000 mg PO DAILY Label Comments: Diabetes uminnjvl-irs-VZ-lycopen-lutein 1 EACH tablet 1 ea PO DAILY Label Comments: General health [id number] P09-hcpy no.225 1 EACH tablet 1 ea PO DAILY Label Comments: General health prednisone 2.5 MG tablet 2.5 mg PO DAILY Label Comments: steroid atorvastatin 40 mg tablet 40 mg PO QHS Qty: 30 2RF metoprolol tartrate 25 mg tablet 12.5 mg PO BID Qty: 90 3RF Referrals / Follow Up: Sampson ePnny MD [Primary Care Provider] - In 1 Week Disposition Disposition (needs filled in before D/C Order can be placed): Home, Self Care
--- NOTE | 2022-05-29 10:51 | PCM.DC.SUM ---
Documented by User: Gayle Donis NP, MMA FIGHTER-C 05/29/22 10:58 Providers Date of Admission: 05/29/22 Date of Discharge: 05/29/22 Primary Care Physician: Dr. Sampson Penny MD Reason For Visit: CVA Diagnosis Discharge Diagnosis (1) Acute confusion: Status: Acute Code(s): R41.0 - Disorientation, unspecified (2) Unsteady gait: Status: Acute Code(s): R26.81 - Unsteadiness on feet Medications at Discharge Home Medications B6 100 mg-FA 800 mcg-B12 200 mcg-co Q10 100 mg-herbal no.225 tablet 1 ea PO DAILY SUPPLEMENT 05/03/15 metformin 1,000 mg tablet 1,000 mg PO DAILY diabetes 05/03/15 aqodyuuk-gev-hapbc acid 0.4 mg-lycopene 300 mcg-lutein 250 mcg tablet 1 ea PO DAILY vitamin 05/03/15 prednisone 2.5 mg tablet 2.5 mg PO DAILY inflammation 09/03/15 aspirin 81 mg tablet,delayed release (Adult Aspirin Regimen) 81 mg PO DAILY HEART HEALTH 08/10/19 donepezil 10 mg tablet 10 mg PO QHS mentation 08/10/19 memantine 10 mg tablet 10 mg PO BID mentation 08/10/19 atorvastatin 40 mg tablet 40 mg PO QHS #30 tabs 05/01/21 glipizide 5 mg tablet, extended release 24 hr 5 mg PO DAILY DIABETES 08/13/21 magnesium oxide 400 mg (241.3 mg magnesium) tablet 400 mg PO DAILY supplement 08/13/21 melatonin 3 mg tablet 3 mg PO QHS sleep 08/13/21 mirtazapine 30 mg tablet 30 mg PO QHS mental health 08/13/21 metoprolol tartrate 25 mg tablet 12.5 mg PO BID #90 ea 09/29/21 Hospital Course Operations None Procedures None Summary of Care Provided Hospital Course: Patient is an 86-year-old male admitted 05/29/2022 due to altered speech and increased confusion. 1. Altered speech, increased confusion-CVA ruled out. MRI of brain, MRA of head without acute process. Previous echocardiogram 04/18/2022 with EF 60%. No evidence of infectious or metabolic etiology. Mental status now at baseline. NIH 0. Follow-up with PCP in 1 week. 2. Dementia, unclear behavioral disturbance history-on memantine, donepezil. Lives with family. 3. Paroxysmal atrial fibrillation-continue beta-ronnie. Not on anticoagulation due to high fall risk. 4. History of CVA-on aspirin, statin. 5. Hypertension-stable, continue home regimen. 6. Hyperlipidemia- continue statin. 7. Chronic kidney disease IIIa-at baseline. 8. Type 2 diabetes mellitus-resume home oral regimen at discharge. 9. Anxiety/depression-on mirtazapine. 10. Rheumatoid arthritis-on low-dose prednisone. Patient seen and examined prior to discharge. Physical assessment as noted below. Patient is stable for discharge with follow up recommendations as noted above. This patient was seen by LUIGI Asif under the supervision of Dr. Aburto. Time spent examining patient, reviewing data and subsequent management of care: 24 minutes Physical Exam Const alert and oriented x3 HEENT normocephalic and moist oral mucous membranes Eyes PERRL, EOMs intact bilaterally and conjunctivae normal Neck no lymphadenopathy Resp normal respiratory effort and clear to auscultation bilaterally Cardio regular rate, regular rhythm and no murmurs Peripheral Pulses: pulses 2+ throughout GI normal to inspection, nondistended, normoactive bowel sounds, non-tender and non-distended Extremity normal to inspection Skin no rashes or lesions noted Lesions: no lesions Rashes: no rashes Trauma: no lacerations or abrasions Neuro CN's II-XII intact bilaterally, no focal motor deficits, no sensory deficits noted and deep tendon reflexes 2+ bilaterally Psych mental status grossly normal and affect normal Weight / BMI Weight Weight: 151 lb 10.848 oz Body Mass Index (BMI) 21.1 ABG / Lab / Microbiology Data Result Diagrams: 05/29/22 05:55 05/29/22 05:55 Laboratory: Laboratory Results - last 24 hr 05/28/22 23:48: WBC 8.8, RBC 3.50 L, Hgb 11.2 L, Hct 33.3 L, MCV 95.1 H, MCH 32.0, MCHC 33.6, RDW Std Deviation 50.5 H, RDW Coeff of Zak 14.6, Plt Count 177, MPV 11.2, Immature Gran % (Auto) 0.700, Neut % (Auto) 37.0 L, Lymph % (Auto) 16.1 L, [place] % (Auto) 46.1 H, Eos % (Auto) 0.0, Baso % (Auto) 0.1, Absolute Neuts (auto) 3.3, Absolute Lymphs (auto) 1.42, Nucleated RBC % 0, Macrocytosis 1+, Acanthocytes (Spur) 1+ 05/28/22 23:48: Sodium 141, Potassium 4.3, Chloride 101, Carbon Dioxide 31.0, Anion Gap 9, BUN 34 H, Creatinine 1.37 H, Estim Creat Clear Calc 37.99, Est GFR (MDRD) Af Amer 63, Est GFR (MDRD) Non-Af 52 L, BUN/Creatinine Ratio 24.8 H, Glucose 183 H, Calcium 9.3, Total Bilirubin 0.40, Direct Bilirubin 0.18, AST 21, ALT 39, Alkaline Phosphatase 133 H, Troponin I High Sens 11, Total Protein 7.4, Albumin 3.6, Globulin 3.8 05/28/22 23:48: POC Glucose 182 H 05/28/22 23:48: Magnesium 2.2 05/29/22 00:00: Urine Color Yellow, Urine Clarity Clear, Urine pH 6.5, Ur Specific [place] 1.015, Urine Protein 15 H, Urine Glucose (UA) Normal, Urine Ketones Negative, Urine Occult Blood 10 H, Urine Nitrite Negative, Urine Bilirubin Negative, Urine Urobilinogen Normal, Ur Leukocyte Esterase Negative, Urine RBC 0-5 SEEN, Urine WBC 0 SEEN, Ur Squamous Epith Cells 0 SEEN, Urine Bacteria 1+, Urine Mucus 0 SEEN 05/29/22 05:55: WBC 9.6, RBC 3.18 L, Hgb 10.0 L, Hct 29.8 L, MCV 93.7, MCH 31.4, MCHC 33.6, RDW Std Deviation 49.6 H, RDW Coeff of Zak 14.5, Plt Count 157, MPV 11.2, Immature Gran % (Auto) 0.700, Neut % (Auto) 28.4 L, Lymph % (Auto) 18.2 L, [place] % (Auto) 52.6 H, Eos % (Auto) 0.0, Baso % (Auto) 0.1, Absolute Neuts (auto) 2.7, Absolute Lymphs (auto) 1.75, Nucleated RBC % 0, Differential Comment SCANNED, Acanthocytes (Spur) 1+ 05/29/22 05:55: Sodium 141, Potassium 4.1, Chloride 103, Carbon Dioxide 32.0, Anion Gap 6, BUN 30 H, Creatinine 1.13, Estim Creat Clear Calc 45.66, Est GFR (MDRD) Af Amer 79, Est GFR (MDRD) Non-Af 65, BUN/Creatinine Ratio 26.5 H, Glucose 93, Calcium 9.2, Total Bilirubin 0.50, AST 21, ALT 35, Alkaline Phosphatase 114, Total Protein 6.7, Albumin 3.2, Globulin 3.5, Albumin/Globulin Ratio 0.9, Triglycerides 31, Cholesterol < 50, LDL Cholesterol TNP, VLDL Cholesterol 6, HDL Cholesterol 30 L, TSH 0.75 05/29/22 05:55: Hemoglobin A1c 6.8 H 05/29/22 06:53: POC Glucose 121 H Radiography Diagnostic Testing: Radiology Impression Chest X-Ray 05/28/22 00:20 IMPRESSION: No acute disease. Electronically Signed: Rich Schafer MD at 0:40 EDT , Head MRA 05/29/22 09:03 IMPRESSION: Normal MRA of the head Electronically Signed: Panchito Caldwell MD at 10:15 EDT , Brain MRI 05/29/22 09:27 IMPRESSION: 1. No MRI evidence of acute or subacute ischemic infarct or acute intracranial abnormality. 2. Confluent chronic white matter ischemic changes in both cerebral hemispheres. 3. Old linear cystic infarct in the right cerebellum and old lacunar cystic infarcts in the left cerebellum. 4. No interval change when compared to 05/01/2021. Electronically Signed: Panchito Caldwell MD at 10:19 EDT , Brain CT 05/29/22 23:36 IMPRESSION: 1. No evidence of acute intracranial pathology. 2. Diffuse involutional changes and chronic ischemic small vessel white matter disease. Electronically Signed: Rich Schafer MD at 0:43 EDT Reading Location ID and State: [facility] / [place] Tel , Service support , D/C Instructions Discharge Diet: Low fat / Low cholesterol Call your doctor if you observe: Shortness of breath, Dizziness and Chest pain Meaningful Use Info Meaningful Use Diagnoses (Choose all that apply): None applicable Discharge Plan Admission Admit Date/Time: 05/29/22 01:10 Primary Reason for Your Visit: Stroke ruled out Attending Provider: Joe Aburto Primary Care Provider: Sampson Penny Consulting Providers: Tawanna uFnk Discharge Orders/Prescriptions Prescriptions: Continued donepezil 10 mg tablet 10 mg PO QHS memantine 10 mg tablet 10 mg PO BID aspirin [Adult Aspirin Regimen] 81 mg tablet,delayed release (DR/EC) 81 mg PO DAILY glipizide 5 mg tablet extended release 24hr 5 mg PO DAILY magnesium oxide 400 mg (241.3 mg magnesium) tablet 400 mg PO DAILY Label Comments: supplement melatonin 3 mg tablet 3 mg PO QHS Label Comments: TAKE 1 TABLET BY MOUTH at 7PM EVERY EVENING mirtazapine 30 mg tablet 30 mg PO QHS metformin 1,000 MG tablet 1,000 mg PO DAILY Label Comments: Diabetes gioqwgch-ona-XG-lycopen-lutein 1 EACH tablet 1 ea PO DAILY Label Comments: General health [id number]-co [id number]-irka no.225 1 EACH tablet 1 ea PO DAILY Label Comments: General health prednisone 2.5 MG tablet 2.5 mg PO DAILY Label Comments: steroid atorvastatin 40 mg tablet 40 mg PO QHS Qty: 30 2RF metoprolol tartrate 25 mg tablet 12.5 mg PO BID Qty: 90 3RF Referrals / Follow Up: Sampson Penny MD [Primary Care Provider] - In 1 Week Disposition Disposition (needs filled in before D/C Order can be placed): Home, Self Care Documented by User: Dr. Joe Aburto MD 05/29/22 16:13 Providers Date of Admission: 05/29/22 Reason For Visit: CVA Diagnosis Discharge Diagnosis (1) Acute confusion: Status: Acute Code(s): R41.0 - Disorientation, unspecified (2) Unsteady gait: Status: Acute Code(s): R26.81 - Unsteadiness on feet Medications at Discharge Home Medications B6 100 mg-FA 800 mcg-B12 200 mcg-co Q10 100 mg-herbal no.225 tablet 1 ea PO DAILY SUPPLEMENT 05/03/15 metformin 1,000 mg tablet 1,000 mg PO DAILY diabetes 05/03/15 eamnjtft-wsy-jjiwa acid 0.4 mg-lycopene 300 mcg-lutein 250 mcg tablet 1 ea PO DAILY vitamin 05/03/15 prednisone 2.5 mg tablet 2.5 mg PO DAILY inflammation 09/03/15 aspirin 81 mg tablet,delayed release (Adult Aspirin Regimen) 81 mg PO DAILY HEART HEALTH 08/10/19 donepezil 10 mg tablet 10 mg PO QHS mentation 08/10/19 memantine 10 mg tablet 10 mg PO BID mentation 08/10/19 atorvastatin 40 mg tablet 40 mg PO QHS #30 tabs 05/01/21 glipizide 5 mg tablet, extended release 24 hr 5 mg PO DAILY DIABETES 08/13/21 magnesium oxide 400 mg (241.3 mg magnesium) tablet 400 mg PO DAILY supplement 08/13/21 melatonin 3 mg tablet 3 mg PO QHS sleep 08/13/21 mirtazapine 30 mg tablet 30 mg PO QHS mental health 08/13/21 metoprolol tartrate 25 mg tablet 12.5 mg PO BID #90 ea 09/29/21 Hospital Course Summary of Care Provided Hospital Course: Patient is an 86-year-old male admitted 05/29/2022 due to altered speech and increased confusion. 1. Altered speech, increased confusion-CVA ruled out. MRI of brain, MRA of head without acute process. Previous echocardiogram 04/18/2022 with EF 60%. No evidence of infectious or metabolic etiology. Mental status now at baseline. NIH 0. Follow-up with PCP in 1 week. 2. Dementia, unclear behavioral disturbance history-on memantine, donepezil. Lives with family. 3. Paroxysmal atrial fibrillation-continue beta-ronnie. Not on anticoagulation due to high fall risk. 4. History of CVA-on aspirin, statin. 5. Hypertension-stable, continue home regimen. 6. Hyperlipidemia- continue statin. 7. Chronic kidney disease IIIa-at baseline. 8. Type 2 diabetes mellitus-resume home oral regimen at discharge. 9. Anxiety/depression-on mirtazapine. 10. Rheumatoid arthritis-on low-dose prednisone. Patient seen and examined prior to discharge. Physical assessment as noted below. Patient is stable for discharge with follow up recommendations as noted above. This patient was seen by LUIGI Asif under the supervision of Dr. Aburto. Time spent examining patient, reviewing data and subsequent management of care: 24 minutes This patient was seen in conjunction with MMA FIGHTERGayle. I have independently interviewed and examined the patient and reviewed pertinent history, examination findings, laboratory and plan of management. I have reviewed the note and agree with the documented findings with the few additional points. In brief, patient is 86-year-old male was admitted with confusion, altered mental status, unawareness of common things at home and altered speech. His further assessment, diagnosis, hospital course and management plan as mentioned below 1. Acute encephalopathy: Patient had MRI brain, MRA of head without acute process. MRI brain shows no acute or subacute infarct but old linear cystic infarct in the right cerebellum and old lacunar cystic infarcts in the left cerebellum. Carotid duplex shows less than 50% stenosis in the right ICA and ECA and less than 50% in the left ICA and ECA. Patient had recent 2D echo which was negative for interatrial shunt. Chest x-ray no acute disease. Acute encephalopathy most probably metabolic but exact etiology unclear. Acute encephalopathy resolved. 2. Anxiety depression and dementia of unclear behavioral disturbance: Patient is also legally blind therefore is disoriented to time and place. Patient is back to the normal wellbeing. 3. Paroxysmal A. fib not on anticoagulation due to high fall risk. 4. Other comorbidities include history of previous CVA as mentioned in MRI brain report, hypertension, dyslipidemia chronic kidney disease G3 a, type 2 diabetes mellitus, rheumatoid arthritis: Continue home medications. Discharge medication reconciliation done. Discharge follow-up instructions completed. Discharge process discussed with the patient and all questions were answered to patient's satisfaction. Total time spent, exact 35 minutes on discharge meds reconciliation, examination, coordination of care with nurses and ancillary staff, review of imaging and blood test and discussion with the patient on follow-up instructions. I have discussed my assessment with MMA FIGHTER, Gayle and orders have been reviewed. Clinical Impression(s) from Imaging Studies Chest X-Ray 05/28/22 00:20 IMPRESSION: No acute disease. Carotid Duplex 05/29/22 02:08 Interpretation Summary Irregular calcific plaque with shadowing at the proximal right internal carotid artery with less than 50% stenosis Less than 50% stenosis right external carotid artery Smooth plaque at the proximal left internal carotid artery with less than 50% stenosis Less than 50% stenosis left external carotid artery Patent and antegrade vertebral arteries bilaterally Head MRA 05/29/22 09:03 IMPRESSION: Normal MRA of the head Brain MRI 05/29/22 09:27 IMPRESSION: 1. No MRI evidence of acute or subacute ischemic infarct or acute intracranial abnormality. 2. Confluent chronic white matter ischemic changes in both cerebral hemispheres. 3. Old linear cystic infarct in the right cerebellum and old lacunar cystic infarcts in the left cerebellum. 4. No interval change when compared to 05/01/2021. Brain CT 05/29/22 23:36 IMPRESSION: 1. No evidence of acute intracranial pathology. 2. Diffuse involutional changes and chronic ischemic small vessel white matter disease. Physical Exam Narrative Patient was admitted with altered mental status worsening confusion as per the patient caregiver his son. Patient did not know where the bathroom is located. Physical exam General: Alert, Oriented x3, Cooperative HEENT: Patient is legally blind therefore but moves his eyeballs. Visual huston could not be checked. Atraumatic, Normocephalic Oral: No Gingival or Mucosal Lesions/ Ulcerations Neck: Supple, No JVD, Negative Carotid Bruits Lungs: Air entry diminished in bilateral lung bases. No crepitation/rhonchi Cardiovascular: Sinus rhythm on monitoring tech. Regular rate, Regular Rhythm, Normal S1, Normal S2, No murmurs Abdomen: Bowel Sounds Present, Soft, Non Tender, Non-Distended : No renal angle tenderness. No suprapubic tenderness. Extremities: No edema, Capillary Refill Less than 3 Seconds Skin: No rashes, No breakdown Musculoskeletal: No Tenderness to Palpation of Joints or Extremities, muscle strength 4+/5 at major joints of lower extremities and upper extremities. Neurological: Cranial nerves II-XII grossly intact, detailed neuro exam is notable as patient has mild dementia, visually impaired and blind. Psych/Mental Status: Flat affect, possible dementia ABG / Lab / Microbiology Data Result Diagrams: 05/29/22 05:55 05/29/22 05:55 Discharge Plan Admission Admit Date/Time: 05/29/22 01:10 Primary Reason for Your Visit: Stroke ruled out Attending Provider: Joe Aburto Primary Care Provider: Sampson Penny Consulting Providers: Tawanna Funk Discharge Orders/Prescriptions Prescriptions: Continued donepezil 10 mg tablet 10 mg PO QHS memantine 10 mg tablet 10 mg PO BID aspirin [Adult Aspirin Regimen] 81 mg tablet,delayed release (DR/EC) 81 mg PO DAILY glipizide 5 mg tablet extended release 24hr 5 mg PO DAILY magnesium oxide 400 mg (241.3 mg magnesium) tablet 400 mg PO DAILY Label Comments: supplement melatonin 3 mg tablet 3 mg PO QHS Label Comments: TAKE 1 TABLET BY MOUTH at 7PM EVERY EVENING mirtazapine 30 mg tablet 30 mg PO QHS metformin 1,000 MG tablet 1,000 mg PO DAILY Label Comments: Diabetes qiasqwok-hsy-HE-lycopen-lutein 1 EACH tablet 1 ea PO DAILY Label Comments: General health [id number]-co [id number] no.225 1 EACH tablet 1 ea PO DAILY Label Comments: General health prednisone 2.5 MG tablet 2.5 mg PO DAILY Label Comments: steroid atorvastatin 40 mg tablet 40 mg PO QHS Qty: 30 2RF metoprolol tartrate 25 mg tablet 12.5 mg PO BID Qty: 90 3RF Referrals / Follow Up: Sampson Penny MD [Primary Care Provider] - In 1 Week Disposition Disposition (needs filled in before D/C Order can be placed): Home, Self Care Charges/Coding Visit Charges OBSV E&M: 26606 Observation care discharge
--- NOTE | 2022-05-29 10:58 | CASEMGMT ---
SW did not complete a PHQ 9 with patient as he did not have a Stroke or TIA. Fern Velasquez INVESTIGATOR [employer]ILL [employer]PL[employer] WILEY
--- NOTE | 2022-05-29 11:01 | CASEMGMT ---
Patient has a Healthcare Power of Csr [employer] (HCPOA) and a Healthcare Living Will on file at [facility]. Patient's [place] is his HCPOA. Fern JAMA
--- NOTE | 2022-05-29 13:56 | PHA.DC.MR ---
Pharmacy Service has performed discharge medication reconciliation for this patient. No new medications at time of discharge review. Medications reviewed are from previously reported home medications. Home Medications B6 100 mg-FA 800 mcg-B12 200 mcg-co Q10 100 mg-herbal no.225 tablet 1 ea PO DAILY SUPPLEMENT 05/03/15 metformin 1,000 mg tablet 1,000 mg PO DAILY diabetes 05/03/15 yhybhcur-uyi-aakms acid 0.4 mg-lycopene 300 mcg-lutein 250 mcg tablet 1 ea PO DAILY vitamin 05/03/15 prednisone 2.5 mg tablet 2.5 mg PO DAILY inflammation 09/03/15 aspirin 81 mg tablet,delayed release (Adult Aspirin Regimen) 81 mg PO DAILY HEART HEALTH 08/10/19 donepezil 10 mg tablet 10 mg PO QHS mentation 08/10/19 memantine 10 mg tablet 10 mg PO BID mentation 08/10/19 atorvastatin 40 mg tablet 40 mg PO QHS #30 tabs 05/01/21 glipizide 5 mg tablet, extended release 24 hr 5 mg PO DAILY DIABETES 08/13/21 magnesium oxide 400 mg (241.3 mg magnesium) tablet 400 mg PO DAILY supplement 08/13/21 melatonin 3 mg tablet 3 mg PO QHS sleep 08/13/21 mirtazapine 30 mg tablet 30 mg PO QHS mental health 08/13/21 metoprolol tartrate 25 mg tablet 12.5 mg PO BID #90 ea 09/29/21 The patient's discharge medication list was reviewed for discrepancies and discrepancies were resolved.
--- NOTE | 2022-05-29 13:57 | CASEMGMT ---
Per therapy, pt would benefit from HHC at discharge and son is agreeable to PT/OT, SW and shima. cornell Zuñiga/c planning asst, to create pt choice list and provide to son. CM to follow. Lucila BOBBY CM
--- NOTE | 2022-05-29 13:59 | CASEMGMT ---
Discharge Manager Of Revenue This publicity writer met with patients son at bedside. This publicity writer provided a list of [facility] providers including quality and resource use data and consistent with the pt's preferred geographic region, medical needs, and insurance network printed from the Care Port guide. The patients son picked [facility]. Zara contacted Porsha at [facility] and Porsha will review. Will follow up. Plan: [facility], Waiting Acceptance. Zara Monet Discharge Manager Of Revenue
--- NOTE | 2022-05-29 14:14 | CASEMGMT ---
Discharge Painter Structural Steel Porsha from [facility] reached out. Patient has been accepted. Start of care can be started Wednesday06/01/2022. Zara spoke with son at bedside and son is okay with this start of care date. Porsha has been notified and will call the patients son. Plan: Home w/ [facility] Zara Monet Discharge Painter [employer]
--- NOTE | 2022-05-29 23:36 | CT_ITS ---
EXAM: CT HEAD WITHOUT INTRAVENOUS CONTRAST CLINICAL INDICATION: confusion TECHNIQUE: Multiple axial images were obtained of the head without intravenous contrast. CTDIvol = ( 44.99 ) mGy, DLP = ( 880.47 ) mGycm This CT exam was performed using one or more of the following dose reduction techniques: automated exposure control, adjustment of the mA and/or kV according to patient size, and/or use of iterative reconstruction technique. This report was created using [employer] report generation technology. COMPARISON: None. FINDINGS: BRAIN AND EXTRA-AXIAL SPACES: No acute intracranial hemorrhage, mass effect or edema. No evidence of acute cortical stroke. Periventricular small vessel ischemic change. No midline shift or hydrocephalus. Diffuse parenchymal atrophy. Posterior fossa structures are unremarkable. Basal cisterns are patent. BONES/JOINTS: Unremarkable. No discrete lytic or blastic abnormalities. VASCULATURE: Atherosclerotic calcifications of the carotid siphons and vertebrobasilar arteries. SINUSES: Unremarkable as visualized. Clear. MASTOID AIR CELLS: Visualized sinuses and mastoid air cells are clear. ORBITS: Visualized globes, extraocular muscles, optic nerves and retrobulbar fat appear unremarkable. CT/Brain/Head without Contrast IMPRESSION: 1. No evidence of acute intracranial pathology. 2. Diffuse involutional changes and chronic ischemic small vessel white matter disease. Electronically Signed: Rich Schafer MD at 0:43 EDT ,
== END 2022-05-29 10:48 | disposition home or self-care (01) ==
LOC: ED 05-29 00:56 → PCU 05-29 01:18
PROVIDERS: Admitting Provider Family Medicine; Emergency Provider Emergency Medicine; PCP Internal Medicine; Visit Provider Internal Medicine
DX: R41.0 Disorientation, unspecified (principal); D46.9 Myelodysplastic syndrome, unspecified; M06.9 Rheumatoid arthritis, unspecified; E11.22 Type 2 diabetes mellitus with diabetic chronic kidney disease; I48.0 Paroxysmal atrial fibrillation; G93.40 Encephalopathy, unspecified; Z79.82 Long term (current) use of aspirin; R90.82 White matter disease, unspecified; E78.5 Hyperlipidemia, unspecified; F41.9 Anxiety disorder, unspecified; I12.9 Hypertensive chronic kidney disease with stage 1 through stage 4 chronic kidney disease, or unspecified chronic kidney disease; R26.81 Unsteadiness on feet; N18.9 Chronic kidney disease, unspecified; R29.700 NIHSS score 0; Z86.73 Personal history of transient ischemic attack (TIA), and cerebral infarction without residual deficits; Z79.84 Long term (current) use of oral hypoglycemic drugs; Z79.899 Other long term (current) drug therapy; Z79.52 Long term (current) use of systemic steroids; D63.8 Anemia in other chronic diseases classified elsewhere; G47.33 Obstructive sleep apnea (adult) (pediatric)
CPT/HCPCS: 96360; 96361; 96372; 99285; 36415; 70450; 70544; 70551; 71045; 80048; 80053; 80061; 80076; 81001; 82962; 83036; 83735; 84443; 84484; 85025; 92610; 93005; 93880; 94762; 97162; 97166; 99218; J7030; P9612; A4216; G0378

== ENCOUNTER 2022-05-29 16:25 | Inpatient (IN) | payer MEDICARE, OTHER, SELFPAY ==
[2016-02-13 13:00] VITALS: BMI 25.7
[2022-05-29] VITALS (8 sets, daily range): BP systolic 100–124; BP diastolic 58–100; PULSE 82–155; RESP 18–20; TEMP 37–39.2; O2SAT 89–97; BMI 20.9; BMI 21.3
--- NOTE | 2022-05-29 17:20 | EKG12_ITS ---
Test Reason : WEAKNESS Blood Pressure : / mmHG Vent. Rate : 102 BPM Atrial Rate : 102 BPM P-R Int : 160 ms QRS Dur : 084 ms QT Int : 328 ms P-R-T Axes : 062 -30 027 degrees QTc Int : 427 ms Sinus tachycardia with Premature atrial complexes Left axis deviation Nonspecific ST and T wave abnormality Abnormal ECG Confirmed by SHWETA DUKES, QASIM ([id number]), content editor MAXIMUS COVINGTON ([id number]) on 06/01/2022 9:37:31 AM Referred By: Confirmed By:QASIM ROCK MD
--- NOTE | 2022-05-29 17:25 | RAD_ITS ---
EXAM: XR CHEST, 1 VIEW CLINICAL INDICATION: Cough and fever. TECHNIQUE: Frontal view of the chest. This report was created using [employer] report generation technology. COMPARISON: 05/29/2022 at 12:13 AM. FINDINGS: LUNGS AND PLEURAL SPACES: Calcified granuloma overlying the right posterior sixth rib is unchanged. No suspicious infiltrates. No pneumothorax. No effusion. HEART: Unremarkable. Cardiac silhouette not enlarged. MEDIASTINUM: Central airways and mediastinal contour are unremarkable. BONES/JOINTS: Unremarkable. SOFT TISSUES: Unremarkable. RAD/Chest 1 View (Portable) IMPRESSION: No acute findings in the chest and unchanged when compared to 05/29/2022 at 12:13 AM. Electronically Signed: Panchito Caldwell MD at 17:56 EDT ,
[2022-05-29] MEDS: Acetaminophen 500 MG Tablet 1000 MG PO (17:38)
--- NOTE | 2022-05-29 17:41 | EDS_ITS ---
HPI History of Present Illness Chief Complaint: Weakness Informant: patient and family Onset/Context/Timing Onset: Yesterday Context: Gradual Onset Timing: Continuous Quality: weak, lethargic Location: all over Current Severity: Severe Maximum Severity: Severe Worsened by: nothing Relieved by: nothing Associated Symptoms Associated Symptoms: cough, fever Narrative Narrative: Patient was seen here yesterday for similar symptoms worse today. Son states that he has history of dementia, he lives with him, he can perform most ADLs in a normal day but not now. He is chronically confused to some degree, it is a little worse now, but the more prominent symptom is generalized weakness and lethargy. He was admitted to the hospital last night for this in fact after his work-up was essentially unremarkable. There was concern for possible stroke even though his exam was nonlateralizing. 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 He had an MRI this morning it was negative and son states he was discharged from the hospital. He states while at home, he is more weak, has developed a fever up to 103.5 when he checked it at home, and he is coughing now. Patient denies any dyspnea, chest pain, abdominal pain, nausea, headache. He is able to perform good ROS, although he is weak and needs help sitting up from me and his son. [facility] Medical History Anemia of chronic disease Atrial flutter with rapid ventricular response (09/2015) Cellulitis and abscess Chronic constipation Chronic rheumatic arthritis Dementia Diabetes mellitus MDS (myelodysplastic syndrome) Obstructive sleep apnea Paroxysmal atrial flutter Personal history of immunosupression therapy Stroke/cerebrovascular accident Home Medications B6 100 mg-FA 800 mcg-B12 200 mcg-co Q10 100 mg-herbal no.225 tablet 1 ea PO DAILY SUPPLEMENT 05/03/15 [History Last Taken 08/23/15] metformin 1,000 mg tablet 1,000 mg PO DAILY diabetes 05/03/15 [History Last Taken 09/23/15] xtcopydh-asv-wunfo acid 0.4 mg-lycopene 300 mcg-lutein 250 mcg tablet 1 ea PO DAILY vitamin 05/03/15 [History Last Taken 09/23/15] prednisone 2.5 mg tablet 2.5 mg PO DAILY inflammation 09/03/15 [History Last Taken 09/23/15] aspirin 81 mg tablet,delayed release (Adult Aspirin Regimen) 81 mg PO DAILY HEART HEALTH 08/10/19 [History Last Taken Unknown] donepezil 10 mg tablet 10 mg PO QHS mentation 08/10/19 [History Last Taken Unknown] memantine 10 mg tablet 10 mg PO BID mentation 08/10/19 [History Last Taken Unknown] atorvastatin 40 mg tablet 40 mg PO QHS #30 tabs 05/01/21 [Rx Last Taken Unknown] glipizide 5 mg tablet, extended release 24 hr 5 mg PO DAILY DIABETES 08/13/21 [History Last Taken Unknown] magnesium oxide 400 mg (241.3 mg magnesium) tablet 400 mg PO DAILY supplement 08/13/21 [History Last Taken Unknown] melatonin 3 mg tablet 3 mg PO QHS sleep 08/13/21 [History Last Taken Unknown] mirtazapine 30 mg tablet 30 mg PO QHS mental health 08/13/21 [History Last Taken Unknown] metoprolol tartrate 25 mg tablet 12.5 mg PO BID #90 ea 09/29/21 [Rx Last Taken Unknown] nirmatrelvir 300 mg (150 mg x2)-ritonavir 100 mg tablet,dose pack(EUA) (Paxlovid) See Rx Instructions PO .COMPLEX #30 tabs 05/29/22 [Rx Last Taken Unknown] Allergy/AdvReac Type Severity Reaction Status Date / Time No Known Allergies Allergy Verified 05/28/22 23:19 Family History Father Cancer Diabetes Surgical History History of corneal transplant History of prostate surgery Hx of cataract surgery Social History household members: spouse and children housing: house current occupational status: retired Smoking Status: Never smoker alcohol intake: current alcohol intake frequency: other substance use type: does not use ROS ROS ED Review of Systems ROS Unobtainable: other Details: Due to some confusion and blind so unknown if he has hematuria, bleeding, etc. Constitutional Constitutional ED: Reports chills, fatigue, fever(s), lethargy and malaise; Denies body ache(s) Eyes Eyes: Reports other Details: Chronically legally blind ; Denies change in vision ENT ENT ED: Denies ear pain or sore throat Cardiovascular Cardiovascular: Denies chest pain or palpitations Respiratory/Chest Respiratory/Chest: Reports cough; Denies dyspnea or sputum Gastrointestinal Gastrointestinal: Denies abdominal pain, diarrhea, nausea or vomiting Genitourinary Genitourinary ED: Denies dysuria Musculoskeletal Musculoskeletal: Denies back pain or neck pain Integumentary Denies abscess or rash Neurologic Neurologic: Denies headache(s), paresthesias or weakness Psychiatric Psychiatric: Denies anxiety or suicidal thoughts EXAM Physical Exam Const Vital Signs: 05/29/22 16:26 05/29/22 16:30 05/29/22 17:23 Temperature 102.6 F H Temperature Source Oral Pulse Rate 102 H Respiratory Rate 18 Respiratory Pattern Normal Blood Pressure 124/64 H Blood Pressure Mean 84 Pulse Ox 92 97 Oxygen Delivery Method Room Air Room Air Oxygen Flow Rate (L/min) 05/29/22 18:56 05/29/22 19:05 05/29/22 19:05 Temperature 100.2 F H Temperature Source Temporal Pulse Rate 155 H Respiratory Rate 18 Respiratory Pattern Blood Pressure 122/58 H Blood Pressure Mean 79 Pulse Ox 92 89 94 Oxygen Delivery Method Room Air Room Air Nasal Cannula Oxygen Flow Rate (L/min) 2 Positive well nourished and well developed General Appearance ED: well developed and NAD HEENT Reports moist mucous membranes normocephalic and atraumatic Eyes EOMs intact bilaterally Eyes Narrative: Clouded corneas. Some tearing but no other discharge from either eye Neck full ROM, no lymphadenopathy and supple Neck Narrative: No meningismus Resp normal respiratory effort and clear to auscultation bilaterally Cardio regular rate, regular rhythm and no murmurs Rate: tachycardic GI non-tender and non-distended Auscultation: normoactive bowel sounds Palpation: soft Back/Spine no CVA tenderness General Back: other FROM Extremity normal to inspection General Extremety ED: Negative for edema, pulses abnormal or tenderness General Extremity: Negative for edema or pulses abnormal Neuro CN's II-XII intact bilaterally and no sensory deficits noted Neuro Narrative: Disoriented to all aspects of timing and the president. Otherwise oriented, and nonlateralizing neurologic exam. Sensorium / Orientation: awake and alert Motor Exam: strength 5/5 throughout Skin no rashes or lesions noted and no wounds MDM MDM MDM Narrative Medical decision making narrative: Work-up is positive for COVID. His lactic acid was nonspecifically slightly elevated he was given some fluids. When he went to sleep his oxygen levels went down to 88% on room air. His chest x-ray 1 view on my interpretation is negative for any acute radiology in agreement. his EKG initially was normal, however his paroxysmal atrial fibrillation kicked in, and he went in A. fib with RVR. He was asymptomatic with this. When he went to sleep, his rate went from the 140s down to the 110s, we watched him for a while and he stayed in it so we gave him some Cardizem. Son states they are still able to care for him at home. Patient is vaccinated. He meets criteria for oral antivirals. Will prescribe him the best one that is appropriate for his medication list, and he is on CPAP at home throughout the night. He most likely is just hypoxic because of sleeping, however I am sending him home on nasal cannula of oxygen that can also bleed into his CPAP machine just to make sure. Son has an oxygen sensor at home to keep an eye on him. This all changed when the patient got up to walk to the bathroom and desatted to 80% on room air. We got him back to the room and put back on oxygen. Discussed with hospitalist who admit the patient. Lab Data Attestation: I reviewed the patient's lab results. Labs: Laboratory Results - last 24 hr 05/29/22 05/29/22 05/29/22 16:40 16:45 16:45 WBC 8.1 RBC 3.57 L Hgb 11.2 L Hct 34.0 L MCV 95.2 H MCH 31.4 MCHC 32.9 RDW Std Deviation 50.8 H RDW Coeff of Zak 14.6 Plt Count 120 L MPV 11.8 Immature Gran % (Auto) 0.600 Neut % (Auto) 33.3 L Lymph % (Auto) 14.2 L [place] % (Auto) 51.8 H Eos % (Auto) 0.1 Baso % (Auto) 0.0 Absolute Neuts (auto) 2.7 Absolute Lymphs (auto) 1.15 Nucleated RBC % 0 Differential Comment Platelet Estimate SLT DEC RBC Morphology N CHROM Acanthocytes (Spur) 2+ Sodium 141 Potassium 4.6 Chloride 102 Carbon Dioxide 31.0 Anion Gap 8 BUN 28 H Creatinine 1.22 Estim Creat Clear Calc 41.86 Est GFR (MDRD) Af Amer 72 Est GFR (MDRD) Non-Af 60 BUN/Creatinine Ratio 23.0 H Glucose 211 H Lactic Acid 2.2 H* Calcium 9.3 Total Bilirubin 0.70 AST 32 ALT 48 Alkaline Phosphatase 110 Troponin I High Sens 16 Total Protein 7.4 Albumin 3.6 Globulin 3.8 Albumin/Globulin Ratio 0.9 Urine Color Urine Clarity Urine pH Ur Specific [place] Urine Protein Urine Glucose (UA) Urine Ketones Urine Occult Blood Urine Nitrite Urine Bilirubin Urine Urobilinogen Ur Leukocyte Esterase Urine RBC Urine WBC Ur Squamous Epith Cells Urine Bacteria Urine Mucus 05/29/22 17:55 WBC RBC Hgb Hct MCV MCH MCHC RDW Std Deviation RDW Coeff of Zak Plt Count MPV Immature Gran % (Auto) Neut % (Auto) Lymph % (Auto) [place] % (Auto) Eos % (Auto) Baso % (Auto) Absolute Neuts (auto) Absolute Lymphs (auto) Nucleated RBC % Differential Comment Platelet Estimate RBC Morphology Acanthocytes (Spur) Sodium Potassium Chloride Carbon Dioxide Anion Gap BUN Creatinine Estim Creat Clear Calc Est GFR (MDRD) Af Amer Est GFR (MDRD) Non-Af BUN/Creatinine Ratio Glucose Lactic Acid Calcium Total Bilirubin AST ALT Alkaline Phosphatase Troponin I High Sens Total Protein Albumin Globulin Albumin/Globulin Ratio Urine Color Yellow Urine Clarity Clear Urine pH 7.0 Ur Specific [place] 1.010 Urine Protein 30 H Urine Glucose (UA) 50 H Urine Ketones Negative Urine Occult Blood 25 H Urine Nitrite Negative Urine Bilirubin Negative Urine Urobilinogen Normal Ur Leukocyte Esterase Negative Urine RBC 0-5 SEEN Urine WBC 0 SEEN Ur Squamous Epith Cells 0 SEEN Urine Bacteria RARE Urine Mucus 0 SEEN Radiography Diagnostic Testing: Clinical Impression(s) from Imaging Studies Chest X-Ray 05/29/22 17:25 IMPRESSION: No acute findings in the chest and unchanged when compared to 05/29/2022 at 12:13 AM. Electronically Signed: Panchito Caldwell MD at 17:56 EDT , Discharge Plan Triage Chief Complaint: Weakness ED Provider: Ben Barrett Dx/Rx/DC Orders Clinical Impression: COVID-19, Hypoxemia, Atrial flutter with rapid ventricular response Instructions: Coronavirus Disease 2019 (COVID-19): Caring for Yourself or Others Prescriptions: New Paxlovid (EUA) 300 mg (150 mg x 2)-100 mg tablets,dose pack See Rx Instructions .ROUTE .COMPLEX Qty: 30 0RF Rx Instructions: take TWO 150 mg tablets of nirmatrelvir with ONE 100 mg tablet of ritonavir twice daily for 5 days Continued donepezil 10 mg tablet 10 mg PO QHS memantine 10 mg tablet 10 mg PO BID aspirin [Adult Aspirin Regimen] 81 mg tablet,delayed release (DR/EC) 81 mg PO DAILY glipizide 5 mg tablet extended release 24hr 5 mg PO DAILY magnesium oxide 400 mg (241.3 mg magnesium) tablet 400 mg PO DAILY Label Comments: supplement melatonin 3 mg tablet 3 mg PO QHS Label Comments: TAKE 1 TABLET BY MOUTH at 7PM EVERY EVENING mirtazapine 30 mg tablet 30 mg PO QHS metformin 1,000 MG tablet 1,000 mg PO DAILY Label Comments: Diabetes [id number]-lutein 1 EACH tablet 1 ea PO DAILY Label Comments: General health [id number] no.225 1 EACH tablet 1 ea PO DAILY Label Comments: General health prednisone 2.5 MG tablet 2.5 mg PO DAILY Label Comments: steroid metoprolol tartrate 25 mg tablet 12.5 mg PO BID Qty: 90 3RF Held atorvastatin 40 mg tablet 40 mg PO QHS Qty: 30 2RF Hold Instructions: Resume on 06/07/22. Primary Care Provider: Sampson Penny Referrals: Sampson Penny MD [Primary Care Provider] - 1 Week if not improving Activity Restrictions/Additional Instructions: Try to get a home portable pulse oximeter and closely watch your oxygen levels periodically. If you stay below 90% for more than a minute or so, and/or you are feeling like your breathing is getting worse, return to the emergency department for further evaluation. Currently, CDC recommendations state that you should stay home through day 5 of symptoms, then as long as symptoms are improving, if you need to go to work or somewhere else you may for days 6-10 as long as you are wearing a mask the entire time. If you are feeling better after day 10 you may resume life is normal. Be aware that the donepezil, memantine, and mirtazapine could cause increased drowsiness while on the new medication. If he is more drowsy than he was when he was seen in the emergency department, stop those 3 medications temporarily until 3 days after finishing the new medicine. Disposition Disposition: Acute Care Hospital [facility]
[2022-05-29 17:54] LABS: Lactic Acid 2.2 mmol/L (0.4-1.9)
[2022-05-29 17:58] LABS: Mucous, Urine 0 SEEN /hpf (<or=2+); Squamous Epithelial Cells - UA 0 SEEN /hpf (0-5); White Blood Cells 0 SEEN /hpf (0-5)
[2022-05-29 18:01] LABS: ALB/GLOB Ratio 0.9 RATIO (0.9-2.4); AST(SGOT) 32 U/L (15-37); Absolute Lymphocyte Count 1.15 X10^3/uL (0.83-4.51); Absolute Neutrophil Count 2.7 X10^3/uL (2.0-7.7); Alanine Aminotransfer ALT/SGPT 48 U/L (16-61); Albumin, Serum 3.6 g/dL (3.2-5.0); Alkaline Phosphatase 110 U/L (45-117); Anion Gap 8 (5-15); BUN 28 mg/dL (7-18); Calcium,Total 9.3 mg/dL (8.5-10.1); Chloride 102 mmol/L (98-107); Creatinine, Serum 1.22 mg/dL (0.70-1.30); EST Glomerular Filtration Rate 60 mL/min (>60); Eosinophil# 0.01 X10^3/uL; Eosinophils% 0.1 % (0-5); Est Glom Filt Rate - Afr Amer 72 mL/min (>60); Estimated Creatinine Clearance 41.86 ml/min; Globulin 3.8 g/dL (2.2-4.2); Glucose 211 mg/dL (74-106); Hemoglobin 11.2 g/dL (13.0-16.5); Lymphocyte # 1.15 X10^3/ul (0.83-4.51); Lymphocyte % 14.2 % (19-41); Mean Corp Hgb Conc 32.9 g/dL (32-36); Mean Corpuscular Hgb 31.4 pg (27.0-32.0); Mean Corpuscular Volume 95.2 fL (80-94); Mean Platelet Vol. 11.8 fl (6.2-12.0); Monocyte# 4.19 X10^3/uL; Monocyte% 51.8 % (0-10); NRBC Flagged by Analyzer 0 % (0-5); Neutrophil # 2.69 X10^3/uL (2.7-7.7); Neutrophil % 33.3 % (47-70); POSITIVE COUNT YES; POSITIVE DIFFERENTIAL YES; Platelet Count 120 K/mm3 (150-450); Potassium 4.6 mmol/L (3.5-5.1); Protein, Total 7.4 g/dL (6.4-8.2); RBC Distribution Width CV 14.6 % (11.6-14.6); RBC Distribution Width SD 50.8 fl (35.1-43.9); Red Blood Count 3.57 M/mm3 (4.6-6.2); Sodium Level 141 mmol/L (136-145); Troponin-I HS 16 pg/mL (3.0-78.0); White Blood Count 8.1 K/mm3 (4.4-11.0)
[2022-05-29 18:03] LABS: Color, Urine Yellow (Yellow); Glucose, Dipstick 50 mg/dl (Normal); Ketone-Dipstick Negative (Negative); Leukocyte Esterase-Dipstick Negative /ul (Negative); Nitrite-Dipstick Negative (Negative); Occult Blood-Urine 25 /ul (Negative); Protein-Dipstick 30 mg/dl (Negative); Urine Bilirubin Dipstick Negative (Negative); Urine Clarity Clear (Clear); Urine Urobilinogen Normal (Normal)
[2022-05-29 18:10] LABS: Differential Indicated SCAN CRITERIA MET
[2022-05-29 18:21] LABS: Bacteria RARE /hpf (None Seen); Red Blood Cells-Urine 0-5 SEEN /hpf (0-5)
[2022-05-29 18:59] LABS: Acanthocytes 2+; Platelet Estimate SLT DEC (ADEQ); Red Cell Morphology N CHROM NORMAL (NORM C&C)
--- NOTE | 2022-05-29 19:15 | EKG12_ITS ---
Test Reason : DYSRHYTHMIA Blood Pressure : / mmHG Vent. Rate : 145 BPM Atrial Rate : 290 BPM P-R Int : 000 ms QRS Dur : 100 ms QT Int : 338 ms P-R-T Axes : -43 -12 215 degrees QTc Int : 525 ms Atrial flutter with variable A-V block Marked ST abnormality, possible inferior subendocardial injury Marked ST abnormality, possible anterolateral subendocardial injury Abnormal ECG Confirmed by SHWETA DUKES, QASIM ([id number]), business editor [employer]IMUS COVINGTON ([id number]) on 06/01/2022 9:37:53 AM Referred By: BB Confirmed By:QASIM ROCK MD
[2022-05-29] MEDS: dilTIAZem 25 MG/5 ML Vial 10 MG IV BOLUS (21:14)
[2022-05-29 21:29] LABS: Reflex Lactate? Y
--- NOTE | 2022-05-29 21:56 | HP.PCM.HOS_ITS ---
HPI - General General Date of Admission: 05/29/22 Date of Service: 05/29/22 Chief Complaint: Cough, fever, chills onset. HPI Narrative The patient is an 86 y/o M w/ PMHx: Hx CVA w/ ataxia residually, CKD stage III unclear subtype, HTN, HLD, Chronic anemia/AOCD, Diabetes mellitus type II, MDS, PAF, Chronic constipation, Hx CVA, Rheumatoid arthritis on chronic low dose prednisone, Anxiety and Depression, Dementia unclear type with unclear behavioral disturbance history, FRENCH, recently discharged on 05/29/22 following work-up for increased confusion as well as altered speech with unremarkable MRI brain, MRA head, recent ECHO with negative bubble study with no obvious infectious or metabolic etiology with return to his baseline with discharge w/ planned PCP evaluation in 1 week with noted hemoglobin A1c at that time 6.8% who now re-presents to the [facility] ED on the same day 05/29/22 in the evening with similar symptoms as prior iniital presentation with worsening weakness, fatigue and lethargy with T 103.5 at home with onset cough with no dyspnea, abdominal pain, nausea, emesis, headache associated prompting ED return. Work-up in the ED included now onset of fevers with T-max 102.6, heart rate 102, BP 124/64, respiratory rate 18, patient oxygenation down to 89% on room air with improvement to 94% on 2 L nasal cannula, CBC with WBC 8.1, hemoglobin 11.2, MCV 95.2, platelet 120 without marked shift, CMP with BUN/creat 28/1.22, glucose 211, lactic acid 2.2, unremarkable hepatic profile, troponin 16, urinalysis with no obvious evidence of UTI with specific gravity normal range, chest x-ray with no acute cardiopulmonary findings unchanged from prior, blood culture x2 pending per ED, urine culture pending per ED, SARS COVID antigen positive and of note the patient did not have a COVID antigen performed prior to his recent admis kajal. In the ED patient ministered normal saline bolus as well as Tylenol. In the ED with walking oxygenation assessment patient decreased to 80% on RA. He also had notable ongoing PAF w/ RVR. EKG with atrial fib/flutter with rate 145. [facility] Medical History Anemia of chronic disease Atrial flutter with rapid ventricular response (09/2015) Cellulitis and abscess Chronic constipation Chronic rheumatic arthritis Dementia Diabetes mellitus MDS (myelodysplastic syndrome) Obstructive sleep apnea Paroxysmal atrial flutter Personal history of immunosupression therapy Stroke/cerebrovascular accident Home Medications B6 100 mg-FA 800 mcg-B12 200 mcg-co Q10 100 mg-herbal no.225 tablet 1 ea PO DAILY SUPPLEMENT 05/03/15 [History Last Taken 08/23/15] metformin 1,000 mg tablet 1,000 mg PO DAILY diabetes 05/03/15 [History Last Taken 09/23/15] joqefmgo-fyk-rrrza acid 0.4 mg-lycopene 300 mcg-lutein 250 mcg tablet 1 ea PO DAILY vitamin 05/03/15 [History Last Taken 09/23/15] prednisone 2.5 mg tablet 2.5 mg PO DAILY inflammation 09/03/15 [History Last Taken 09/23/15] aspirin 81 mg tablet,delayed release (Adult Aspirin Regimen) 81 mg PO DAILY [facility] 08/10/19 [History Last Taken Unknown] donepezil 10 mg tablet 10 mg PO QHS mentation 08/10/19 [History Last Taken Unknown] memantine 10 mg tablet 10 mg PO BID mentation 08/10/19 [History Last Taken Unknown] glipizide 5 mg tablet, extended release 24 hr 5 mg PO DAILY DIABETES 08/13/21 [History Last Taken Unknown] magnesium oxide 400 mg (241.3 mg magnesium) tablet 400 mg PO DAILY supplement 08/13/21 [History Last Taken Unknown] melatonin 3 mg tablet 3 mg PO QHS sleep 08/13/21 [History Last Taken Unknown] mirtazapine 30 mg tablet 30 mg PO QHS mental health 08/13/21 [History Last Taken Unknown] atorvastatin 40 mg tablet 40 mg PO QHS cholesterol 05/29/22 [History Last Taken Unknown] metoprolol tartrate 25 mg tablet 12.5 mg PO BID blood pressure 05/29/22 [History Last Taken Unknown] nirmatrelvir 300 mg (150 mg x2)-ritonavir 100 mg tablet,dose pack(EUA) (Paxlovid) See Rx Instructions PO .COMPLEX #30 tabs 05/29/22 [Rx Last Taken Unknown] Allergy/AdvReac Type Severity Reaction Status Date / Time No Known Allergies Allergy Verified 05/28/22 23:19 Family History Father Cancer Diabetes Surgical History History of corneal transplant History of prostate surgery Hx of cataract surgery Social History household members: spouse and children housing: house current occupational status: retired Smoking Status: Never smoker alcohol intake: current alcohol intake frequency: other substance use type: does not use ROS ROS Narrative Admission Review of Systems: CONSTITUTIONAL: No weight loss, + fever, chills, weakness or fatigue. HEENT: + Mild congestion, sore throat. Eyes: No visual loss, blurred vision, double vision or yellow sclerae. Ears, Nose, Throat: No hearing loss, sneezing. SKIN: No rash or itching, lesions, wounds. CARDIOVASCULAR: + Racing heart, palpitations. No chest pain, chest pressure or chest discomfort, edema, orthopnea, syncopal events. RESPIRATORY: + Mild nonproductive cough, denies SOB, No wheezing, hemoptysis. GASTROINTESTINAL: + anorexia, No nausea, vomiting or diarrhea, abdominal pain, melena, BRBPR. GENITOURINARY: No dysuria, frequency, urgency or retention. NEUROLOGICAL: + Increased confusion with underlying dementia, No headache, d izziness, syncope, paralysis, ataxia, numbness or tingling in the extremities, focal weakness, change in bowel or bladder control, seizure. MUSCULOSKELETAL: + muscle, back pain, joint pain or stiffness. HEMATOLOGIC: + anemia, bleeding or bruising. LYMPHATICS: No enlarged nodes. No history of splenectomy. PSYCHIATRIC: + history of depression or anxiety. ENDOCRINOLOGIC: No reports of sweating, cold or heat intolerance. No polyuria or polydipsia. ALLERGIES: No history of asthma, hives, eczema or rhinitis. Vital Signs Vital Signs Vital Signs: 05/29/22 16:26 05/29/22 16:30 05/29/22 17:23 Temperature 102.6 F H Temperature Source Oral Pulse Rate 102 H Respiratory Rate 18 Respiratory Pattern Normal Blood Pressure 124/64 H Blood Pressure Mean 84 Pulse Ox 92 97 Oxygen Delivery Method Room Air Room Air Oxygen Flow Rate (L/min) 05/29/22 18:56 05/29/22 19:05 05/29/22 19:05 Temperature 100.2 F H Temperature Source Temporal Pulse Rate 155 H Respiratory Rate 18 Respiratory Pattern Blood Pressure 122/58 H Blood Pressure Mean 79 Pulse Ox 92 89 94 Oxygen Delivery Method Room Air Room Air Nasal Cannula Oxygen Flow Rate (L/min) 2 Weight Weight: 150 lb 2.157 oz Body Mass Index (BMI) 20.9 Physical Exam Narrative Physical Examination: General: Awake, alert, oriented to self, place, does have underlying notable dementia, remains cooperative, laying in the ED bed, fatigued and ill-appearing, coughing throughout the exam. Skin: Normal color, normal turgor, no icterus, no cyanosis except for very staged ecchymoses. HEENT: AT/NC, EOMI, PERRLA, dry MM, no carotid bruits or JVD noted. Lungs: Significantly diminished, greater bases, mildly increased effort, coughing intermittently throughout the exam with some upper airway secretions noted, no rales, ronchi or wheezing. Heart: Irregular regular; no gallop, rub audible. Abdomen: Soft, NTTP, ND, hyperactive BS, no HSM. Extremities: No cyanosis, clubbing, or edema. Neurological: Patient awake, alert, oriented as noted, cognitive function decreased baseline with underlying dementia, suspect mildly decreased from his baseline given acute presentation; pupils equally reactive to light and accommodation, cranial nerves grossly normal, moving all 4 extremities, no focal deficits, strength severely global decrease secondary to acute presentation complicated by underlying history and notable dementia. Psychiatric: Affect appears ill, no acute evidence of depressive or anxiety feelings but does have underlying history. Results Lab / Micro Data Result Diagrams: 05/29/22 16:45 05/29/22 16:45 Labs: Laboratory Results - last 24 hr 05/29/22 16:40: Lactic Acid 2.2 H* 05/29/22 16:45: WBC 8.1, RBC 3.57 L, Hgb 11.2 L, Hct 34.0 L, MCV 95.2 H, MCH 31.4, MCHC 32.9, RDW Std Deviation 50.8 H, RDW Coeff of Zak 14.6, Plt Count 120 L, MPV 11.8, Immature Gran % (Auto) 0.600, Neut % (Auto) 33.3 L, Lymph % (Auto) 14.2 L, [place] % (Auto) 51.8 H, Eos % (Auto) 0.1, Baso % (Auto) 0.0, Absolute Neuts (auto) 2.7, Absolute Lymphs (auto) 1.15, Nucleated RBC % 0, Differential Comment , Platelet Estimate SLT DEC, RBC Morphology N CHROM, Acanthocytes (Spur) 2+ 05/29/22 16:45: Sodium 141, Potassium 4.6, Chloride 102, Carbon Dioxide 31.0, Anion Gap 8, BUN 28 H, Creatinine 1.22, Estim Creat Clear Calc 41.86, Est GFR (MDRD) Af Amer 72, Est GFR (MDRD) Non-Af 60, BUN/Creatinine Ratio 23.0 H, Glucose 211 H, Calcium 9.3, Total Bilirubin 0.70, AST 32, ALT 48, Alkaline Phosphatase 110, Troponin I High Sens 16, Total Protein 7.4, Albumin 3.6, Globulin 3.8, Albumin/Globulin Ratio 0.9 05/29/22 17:55: Urine Color Yellow, Urine Clarity Clear, Urine pH 7.0, Ur Specific [place] 1.010, Urine Protein 30 H, Urine Glucose (UA) 50 H, Urine Ketones Negative, Urine Occult Blood 25 H, Urine Nitrite Negative, Urine Bilirubin Negative, Urine Urobilinogen Normal, Ur Leukocyte Esterase Negative, Urine RBC 0-5 SEEN, Urine WBC 0 SEEN, Ur Squamous Epith Cells 0 SEEN, Urine Bacteria RARE, Urine Mucus 0 SEEN Micro: Microbiology 05/29/22 17:30 Nasal Secretion SARS-CoV-2 & FLU Antigen (Rapid) - Final SARS-CoV-2 (COVID 19) Radiology Impression Chest X-Ray 05/29/22 17:25 IMPRESSION: No acute findings in the chest and unchanged when compared to 05/29/2022 at 12:13 AM. Electronically Signed: Panchito Caldwell MD at 17:56 EDT , Assessment & Plan Assessment/Plan (1) COVID-19: (2) Atrial flutter with rapid ventricular response: PLAN: Plan The patient is an 86 y/o M w/ PMHx: Hx CVA w/ ataxia residually, CKD stage III unclear subtype, HTN, HLD, Chronic anemia/AOCD, Diabetes mellitus type II, MDS, PAF, Chronic constipation, Hx CVA, Rheumatoid arthritis on chronic low dose prednisone, Anxiety and Depression, Dementia unclear type with unclear behavioral disturbance history, FRENCH, recently discharged on 05/29/22 following work-up for increased confusion as well as altered speech with unremarkable MRI brain, MRA head, recent ECHO with negative bubble study with no obvious infectious or metabolic etiology with return to his baseline with discharge w/ planned PCP evaluation in 1 week with noted hemoglobin A1c at that time 6.8% who now re-presents to the [facility] ED on the same day 05/29/22 in the evening with similar symptoms as prior iniital presentation with worsening weakness, fatigue and lethargy with T 103.5 at home with onset cough with no dyspnea, abdominal pain, nausea, emesis, headache associated prompting ED return. #1. Acute Hypoxic Respiratory Failure (80% with ambulation on room air) and Acute Encephalopathy secondary to Acute Viral Syndrome, COVID-19 w/ associated Lactic Acidosis secondary to mild hypoxemia: Will admit to the [facility], maintain on COVID precautions, will maintain on oxygen with wean as tolerated to room air, PRN albuterol, HOB, IS parameters w/ pending sputum cultures, respiratory viral panel and urine antigens, will obtain D-dimer, procalcitonin, CRP, CPK, Ferritin, LDH and BNP, plan repeat trop to be cautious given notable hypoxia and RVR, continue supportive care including q 2 hour turning including prone given no prone bed availability and judicious hydration, closely monitor for worsening status for ARDS and multiorgan failure, will initiate and continue IV decadron x 10 doses, given presentation will also initiate IV remedesivir per length discussion with family/HCPOA eventually noted amenability if renal functi on/liver function appropriate. If respiratory status worsens and patient requires airvo or BIPAP transition will request Pulmonary consultation. #2. PAF/Flutter with RVR: Likely secondary to acute presentation number 1 and suspected missed metoprolol regimen given prolonged ED time and recent discharge from hospital, we will dose now with metoprolol but increase to 25 mg p.o. twice daily and additionally administer Cardizem 10 mg IV x1, if ongoing and persistent may need to transition to Cardizem drip with close BP monitoring, mag pending. Will repeat troponin to be cautious, initial in the ED 16. #3. Dementia, unclear type with unclear behavioral disturbance history: Complicates presentation, maintain on memantine and donepezil regimen, PT/OT/case management consult as noted for discharge planning. #4. Hypertension: We will increase metoprolol regimen as noted, dosing with Cardizem also 10 mg IV x1 now. As needed IV hydralazine. #5. Hyperlipidemia: We will continue patient on statin therapy. #6. Chronic Kidney Disease Stage III, unclear subtype: Admission BUN/Cr 28/1.22, baseline renal function primarily 1.1-1.3, repeat BMP in AM. #7. Diabetes mellitus type II: Hold oral home regimen, ADA diet, accu checks w/ ISS, recent admission w/ HgbA1c 6.8%. #8. Anxiety and depression: We will continue patient home mirtazapine regimen. #9. Rheumatoid arthritis: Hold home prednisone temporarily while on decadron, restart once completed. #10. FRENCH: CPAP q HS. #11. DVT prophylaxis: SCDs, given presentation will place on Lovenox. #12. CODE status: Patient HCPOA is the patient's daughter and living will is currently in place. Confirmed again full CODE STATUS with patient's son and daughter. Discussed consideration of antiviral treatments and steroids with daughter who is healthcare power of stripe matcher and following lengthy discussions as long as renal function and liver functions appropriate given his status she was amenable to antiviral treatments as well as steroids. Advanced Care Planning Face to Face Time: 16 minutes. Charges/Coding Visit Charges Inpatient E&M: 76649 Init Hosp L3 Procedures Hospitalists Procedures: 65386 Advncd Care Plan 30 Min
[2022-05-29 22:08] LABS: Lactic Acid 1.5 mmol/L (0.4-1.9)
[2022-05-29 23:00] LABS: D-Dimer Quantitative (DVT/PE) 0.77 FEU/ug/m (0.27-0.49)
[2022-05-29 23:02] LABS: Procalcitonin 0.94 ng/mL (0.00-0.09)
[2022-05-29 23:07] LABS: Ferritin 291 ng/mL (26-388); LDH 150 U/L (87-241); Magnesium 1.9 mg/dL (1.6-2.6); Troponin-I HS 816 pg/mL (3.0-78.0)
[2022-05-29 23:37] LABS: BNP,B-Type NATRIURETIC PEPTIDE 268.3 pg/mL (0-100)
[2022-05-29] MEDS: 0.9% Normal Saline 1,000 ML 100 ML IV (23:46)
[2022-05-29] MEDS: dexAMETHasone 4 MG/ML Vial 6 MG IV (23:56)
[2022-05-29] MEDS: Metoprolol Tartrate 25 MG Tablet PO (23:57)
[2022-05-30] VITALS (15 sets, daily range): BP systolic 101–116; BP diastolic 53–86; PULSE 54–90; RESP 15–20; TEMP 36.1–36.9; O2SAT 94–98
[2022-05-30 00:53] LABS: International Normalized Ratio 1.3; Prothrombin Time (Protime)PT. 16.1 SECONDS (11.7-14.9)
[2022-05-30 00:54] LABS: Partial Thromboplast Time 39.5 Seconds (24.1-36.2)
[2022-05-30 01:01] LABS: Troponin-I HS 2609 pg/mL (3.0-78.0)
[2022-05-30] MEDS: 0.9% Saline Lock 10 ML Syringe IV ×3 (01:35→10:53)
[2022-05-30] MEDS: Aspirin 81 MG TAB.CHEW 243 MG PO (01:35)
[2022-05-30] MEDS: Heparin Injection (Vial) 5,000 UNIT/ML VIAL 4500 UNIT IV (01:41)
[2022-05-30] MEDS: HEPARIN/D5w 25,000 UNITS 25,000 UNITS/250 ML IV.SOLN. 10 UNITS CONT INF (01:43)
[2022-05-30 03:14] LABS: Troponin-I HS 3791 pg/mL (3.0-78.0)
[2022-05-30 06:56] LABS: Absolute Neutrophil Count 9.7 X10^3/uL (2.0-7.7); Basophil# 0.01 X10^3/uL; Basophil% 0.1 % (0-1); Hematocrit 32.1 % (40-54); Hemoglobin 10.5 g/dL (13.0-16.5); Lymphocyte % 6.1 % (19-41); Mean Corp Hgb Conc 32.7 g/dL (32-36); Mean Corpuscular Hgb 30.8 pg (27.0-32.0); Mean Corpuscular Volume 94.1 fL (80-94); Mean Platelet Vol. 11.7 fl (6.2-12.0); Monocyte# 5.65 X10^3/uL; Monocyte% 34.3 % (0-10); NRBC Flagged by Analyzer 0 % (0-5); Neutrophil # 9.66 X10^3/uL (2.7-7.7); Neutrophil % 58.6 % (47-70); POSITIVE DIFFERENTIAL YES; Platelet Count 154 K/mm3 (150-450); RBC Distribution Width CV 14.6 % (11.6-14.6); RBC Distribution Width SD 50.1 fl (35.1-43.9); Red Blood Count 3.41 M/mm3 (4.6-6.2); White Blood Count 16.5 K/mm3 (4.4-11.0)
[2022-05-30 07:01] LABS: Differential Indicated SCAN CRITERIA MET
[2022-05-30] MEDS: Insulin Lispro 100 UNIT/ML INSULN.PEN SC ×4 (07:06→21:57)
[2022-05-30 07:25] LABS: Bedside Glucose 264 mg/dL (74-106)
[2022-05-30 07:25] LABS: Differential Comment SCANNED
[2022-05-30 07:36] LABS: ALB/GLOB Ratio 0.8 RATIO (0.9-2.4); AST(SGOT) 48 U/L (15-37); Alanine Aminotransfer ALT/SGPT 42 U/L (16-61); Albumin, Serum 3.1 g/dL (3.2-5.0); Alkaline Phosphatase 89 U/L (45-117); Anion Gap 8 (5-15); BUN 30 mg/dL (7-18); BUN/Creat Ratio 23.6 RATIO (10-20); Calcium,Total 8.7 mg/dL (8.5-10.1); Chloride 107 mmol/L (98-107); Cholesterol < 50 mg/dL (200); Creatinine, Serum 1.27 mg/dL (0.70-1.30); EST Glomerular Filtration Rate 57 mL/min (>60); Est Glom Filt Rate - Afr Amer 69 mL/min (>60); Estimated Creatinine Clearance 40.98 ml/min; Globulin 3.7 g/dL (2.2-4.2); Glucose 267 mg/dL (74-106); High Density Lipoprotein 32 mg/dL; Potassium 4.4 mmol/L (3.5-5.1); Protein, Total 6.8 g/dL (6.4-8.2); Sodium Level 143 mmol/L (136-145); Triglycerides 37 mg/dL; Troponin-I HS 5710 pg/mL (3.0-78.0); Very Low Density Lipoprotein 7 mg/dL (5-40)
[2022-05-30] MEDS: Multivitamins,Ther W-Minerals Tablet 1 TABLET PO (08:28)
[2022-05-30] MEDS: Magnesium Chloride 64 MG Delay Rel.Tablet 128 MG PO (08:28)
[2022-05-30] MEDS: Aspirin E.C. 81 MG Tablet PO (08:28)
[2022-05-30] MEDS: Metoprolol Tartrate 25 MG Tablet PO (08:29)
[2022-05-30] MEDS: dexAMETHasone 4 MG/ML Vial 6 MG IV (08:29)
[2022-05-30] MEDS: Memantine Hydrochloride 10 MG Tablet PO ×2 (08:29→21:49)
--- NOTE | 2022-05-30 10:11 | CT_ITS ---
STUDY: CTA CHEST REASON FOR EXAM: Male, 86 years old. Hypoxia, elevated dimer, covid + -- r/o PE RADIATION DOSAGE (If Supplied By Facility): CTDIvol = ( 9.00 ) mGy, DLP = ( 208.58 ) mGycm TECHNIQUE: The examination was performed with the intravenous administration of 100 CC ISOVUE 370. Post-processing of the angiographic images was performed, with multiplanar reformation and 3D reconstruction. Individualized dose optimization techniques were used for this CT. COMPARISON: None. FINDINGS: Normal enhancement of the main pulmonary artery and right and left pulmonary arteries. Normal enhancement of the bilateral peripheral pulmonary arteries. There is no demonstrated pulmonary embolism. Normal thoracic aorta and visualized great vessels. There is no demonstrated aortic dissection. Normal heart and pericardium. There are calcifications of the coronary arteries. Normal mediastinum. Normal hilar regions. There is peribronchial thickening. The lungs are well expanded. Chronic interstitial changes in both lung huston with scattered patchy airspace opacification suggesting multifocal pneumonitis. No organized infiltrate or effusion there are pleural calcifications. Normal chest wall structures. There are degenerative changes of thoracic spine. Normal visualized upper abdomen. CT/CTA Chest W/WO Contrast IMPRESSION: No demonstrated PE, or thoracic aortic aneurysm or dissection Chronic interstitial changes without organized infiltrate or effusion. Evidence of chronic bronchitis with multifocal pneumonitis. Calcified coronary vessels No suspicious adenopathy Degenerative bony changes Electronically Signed: Otis Romero MD at 11:47 EDT ,
--- NOTE | 2022-05-30 10:29 | PCM.PN.HOSP ---
Documented by User: Gayle Donis NP, [employer]ISH[employer]OR-C 05/30/22 10:44 Subjective Subjective Patient seen and examined. Sitting at edge of bed with therapy. Denies chest pain. Denies shortness of breath. On 2 L nasal cannula. Objective Data Objective Data Vital Signs: Vital Signs Temp Pulse Resp BP Pulse Ox O2 Del Method O2 Flow Rate 97.7 F L 60 15 101/57 L 98 Nasal Cannula 2 05/30/22 08:40 05/30/22 08:40 05/30/22 08:40 05/30/22 08:40 05/30/22 08:40 05/30/22 08:40 05/30/22 08:40 Oxygen Flow Rate (L/min) 2 Oxygen Delivery Method Nasal Cannula Weight: 153 lb 0.013 oz Body Mass Index (BMI) 21.3 Intake & Output: Intake and Output for Last 24 Hours 05/28/22 05/29/22 05/30/22 23:59 23:59 23:59 Intake Total 500 / 500 376.17 / 376.17 Output Total 0 / 0 Balance 500 / 500 376.17 / 376.17 Lab / Micro Data Result Diagrams: 05/30/22 06:23 05/30/22 06:23 Labs: Laboratory Results - last 24 hr 05/29/22 16:40: Lactic Acid 2.2 H* 05/29/22 16:45: WBC 8.1, RBC 3.57 L, Hgb 11.2 L, Hct 34.0 L, MCV 95.2 H, MCH 31.4, MCHC 32.9, RDW Std Deviation 50.8 H, RDW Coeff of Zak 14.6, Plt Count 120 L, MPV 11.8, Immature Gran % (Auto) 0.600, Neut % (Auto) 33.3 L, Lymph % (Auto) 14.2 L, Hooker % (Auto) 51.8 H, Eos % (Auto) 0.1, Baso % (Auto) 0.0, Absolute Neuts (auto) 2.7, Absolute Lymphs (auto) 1.15, Nucleated RBC % 0, Differential Comment , Platelet Estimate SLT DEC, RBC Morphology N CHROM, Acanthocytes (Spur) 2+ 05/29/22 16:45: Sodium 141, Potassium 4.6, Chloride 102, Carbon Dioxide 31.0, Anion Gap 8, BUN 28 H, Creatinine 1.22, Estim Creat Clear Calc 41.86, Est GFR (MDRD) Af Amer 72, Est GFR (MDRD) Non-Af 60, BUN/Creatinine Ratio 23.0 H, Glucose 211 H, Calcium 9.3, Total Bilirubin 0.70, AST 32, ALT 48, Alkaline Phosphatase 110, Troponin I High Sens 16, Total Protein 7.4, Albumin 3.6, Globulin 3.8, Albumin/Globulin Ratio 0.9 05/29/22 16:45: B-Natriuretic Peptide 268.3 H 05/29/22 17:55: Urine Color Yellow, Urine Clarity Clear, Urine pH 7.0, Ur Specific Cou[place]and 1.010, Urine Protein 30 H, Urine Glucose (UA) 50 H, Urine Ketones Negative, Urine Occult Blood 25 H, Urine Nitrite Negative, Urine Bilirubin Negative, Urine Urobilinogen Normal, Ur Leukocyte Esterase Negative, Urine RBC 0-5 SEEN, Urine WBC 0 SEEN, Ur Squamous Epith Cells 0 SEEN, Urine Bacteria RARE, Urine Mucus 0 SEEN 05/29/22 21:30: Lactic Acid 1.5 05/29/22 22:30: D-Dimer Quant (PE/DVT) 0.77 H* 05/29/22 22:30: Magnesium 1.9, Ferritin 291, Lactate Dehydrogenase 150, Troponin I High Sens 816 H*, C-React Prot Ext Range 29.40 H 05/29/22 22:30: Procalcitonin 0.94 H 05/30/22 00:35: PT 16.1 H, INR 1.3, APTT 39.5 H 05/30/22 00:35: Troponin I High Sens 2609 H* 05/30/22 02:30: Troponin I High Sens 3791 H* 05/30/22 06:23: WBC 16.5 H, RBC 3.41 L, Hgb 10.5 L, Hct 32.1 L, MCV 94.1 H, MCH 30.8, MCHC 32.7, RDW Std Deviation 50.1 H, RDW Coeff of Zak 14.6, Plt Count 154, MPV 11.7, Immature Gran % (Auto) 0.900, Neut % (Auto) 58.6, Lymph % (Auto) 6.1 L, Hooker % (Auto) 34.3 H, Eos % (Auto) 0.0, Baso % (Auto) 0.1, Absolute Neuts (auto) 9.7 H, Absolute Lymphs (auto) 1.00, Nucleated RBC % 0, Differential Comment SCANNED, Diff Path Review January05/30/22 06:23: Sodium 143, Potassium 4.4, Chloride 107, Carbon Dioxide 28.0, Anion Gap 8, BUN 30 H, Creatinine 1.27, Estim Creat Clear Calc 40.98, Est GFR (MDRD) Af Amer 69, Est GFR (MDRD) Non-Af 57 L, BUN/Creatinine Ratio 23.6 H, Glucose 267 H, Calcium 8.7, Total Bilirubin 0.50, AST 48 H, ALT 42, Alkaline Phosphatase 89, Troponin I High Sens 5710 H*, Total Protein 6.8, Albumin 3.1 L, Globulin 3.7, Albumin/Globulin Ratio 0.8 L, Triglycerides 37, Cholesterol < 50, LDL Cholesterol TNP, VLDL Cholesterol 7, HDL Cholesterol 32 L 05/30/22 07:03: POC Glucose 264 H 05/30/22 08:42: APTT 234.0 H* Micro: Microbiology 05/30/22 03:45 Mucosa - Nasopharyngeal Respiratory Panel (PCR) - Final 05/29/22 17:55 Urine, Clean Catch Legionella Antigen - Final 05/29/22 17:30 Nasal Secretion SARS-CoV-2 & FLU Antigen (Rapid) - Final SARS-CoV-2 (COVID 19) Radiography Diagnostic Testing: Radiology Impression Chest X-Ray 05/29/22 17:25 IMPRESSION: No acute findings in the chest and unchanged when compared to 05/29/2022 at 12:13 AM. Electronically Signed: Panchito Caldwell MD at 17:56 EDT , Physical Exam Const alert Orientation / Consciousness: awake, oriented to person and oriented to place HEENT normocephalic Mouth: dry mucous membranes Eyes PERRL, EOMs intact bilaterally and conjunctivae normal Neck no lymphadenopathy Resp clear to auscultation bilaterally Auscultation: diminished lung sounds Cardio regular rate, regular rhythm and no murmurs Peripheral Pulses: pulses 2+ throughout GI normal to inspection, nondistended, normoactive bowel sounds, non-tender and non-distended Extremity normal to inspection Skin no rashes or lesions noted Lesions: no lesions Rashes: no rashes Trauma: no lacerations or abrasions Neuro CN's II-XII intact bilaterally, no focal motor deficits, no sensory deficits noted and deep tendon reflexes 2+ bilaterally Psych mental status grossly normal and affect normal Assessment & Plan Assessment/Plan (1) Hypoxemia: (2) COVID-19: PLAN: Plan 1.? Acute hypoxic respiratory failure secondary to acute viral syndrome with [id number] supplemental oxygen to maintain O2 at or above 90%. IV Decadron. IV remdesivir. Oxygen currently stable on 2 L nasal cannula. Chest x-ray without infiltrate. D-dimer elevated. Obtain CTA to rule out PE. 2.?NSTEMI-recent echocardiogram 04/18/2022 with EF 60%, mildly enlarged left atrium, mild mitral valve insufficiency. Placed on heparin drip. Continue aspirin, beta-ronnie. Denies chest pain. 3.? Acute metabolic encephalopathy secondary to hypoxia related to #1-treat underlying processes. Complicated by underlying dementia. 4. Paroxysmal atrial fibrillation with RVR-IV Cardizem bolus on admission. Now sinus rhythm. Continue beta-ronnie.? Not on oral anticoagulation due to high fall risk. 5.? History of CVA-on aspirin, statin. 6.? Hypertension-stable, continue home regimen. 7. Hyperlipidemia- continue statin. 8. Chronic kidney disease IIIa-at baseline. 9. Type 2 diabetes mkbsuypi-Zhyr-Zntsk with sliding scale insulin. 10.? Anxiety/depression-on mirtazapine. 11.?Rheumatoid exygwhrog-oft-rpgt prednisone held due to decadron. 12. Dementia, unclear behavioral disturbance history-on memantine, donepezil.? Lives with family. DVT prophylaxis-Heparin drip This patient was seen by LUIGI Asif under the supervision of Dr. Aburto. Time spent examining patient, reviewing data and subsequent management of care: 17 minutes Documented by User: Dr. Joe Aburto MD 05/30/22 15:09 Subjective Subjective Patient seen and examined. Sitting at edge of bed with therapy. Denies chest pain. Denies shortness of breath. On 2 L nasal cannula. Follow-up for COVID-19 infection with high fever, high troponin. 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 Patient had high fever at home 103.5 Fahrenheit and coughing which she did not had during previous hospitalization 1 day ago. Patient denies any chest pain or acute shortness of breath corroborated by patient's son. Troponins are high History was taken from the patient's son and patient is patient is physically debilitated with blindness and dementia. Objective Data Lab / Micro Data Result Diagrams: 05/30/22 06:23 05/30/22 06:23 Physical Exam Narrative Physical exam Patient has mild weakness of the left side with gait incoordination/ataxia. As per the patient's son, his left leg gives out left leg is ataxic Physical exam General: Alert, Oriented x3, Cooperative HEENT: Legally blind. Atraumatic/normocephalic. Oral: No Gingival or Mucosal Lesions/ Ulcerations Neck: Supple, No JVD, Negative Carotid Bruits Lungs:? Air entry diminished in bilateral lung bases.? No crepitation/rhonchi Cardiovascular: Sinus rhythm on cardiac nurse practitioner.? Normal S1, Normal S2, No murmurs Abdomen: Bowel Sounds Present, Soft, Non Tender, Non-Distended : No renal angle tenderness.? No suprapubic tenderness. Extremities: No edema, Capillary Refill Less than 3 Seconds Skin: No rashes, No breakdown Musculoskeletal: No Tenderness to Palpation of Joints or Extremities, muscle strength 4+/5 at major joints with mild weakness in LLE. Neurological: Cranial nerves II-XII grossly intact, gait incoordination, ataxia Psych/Mental Status: Flat affect, dementia Assessment & Plan Assessment/Plan (1) Hypoxemia: (2) COVID-19: PLAN: Plan 1.? Acute hypoxic respiratory failure secondary to acute viral syndrome with [id number] supplemental oxygen to maintain O2 at or above 90%. IV Decadron. IV remdesivir. Oxygen currently stable on 2 L nasal cannula. Chest x-ray without infiltrate. D-dimer elevated. Obtain CTA to rule out PE. 2.?NSTEMI-recent echocardiogram 04/18/2022 with EF 60%, mildly enlarged left atrium, mild mitral valve insufficiency. Placed on heparin drip. Continue aspirin, beta-ronnie. Denies chest pain. 3.? Acute metabolic encephalopathy secondary to hypoxia related to #1-treat underlying processes. Complicated by underlying dementia. 4. Paroxysmal atrial fibrillation with RVR-IV Cardizem bolus on admission. Now sinus rhythm. Continue beta-ronnie.? Not on oral anticoagulation due to high fall risk. 5.? History of CVA-on aspirin, statin. 6.? Hypertension-stable, continue home regimen. 7. Hyperlipidemia- continue statin. 8. Chronic kidney disease IIIa-at baseline. 9. Type 2 diabetes pixtgamw-Oayz-Ixcge with sliding scale insulin. 10.? Anxiety/depression-on mirtazapine. 11.?Rheumatoid yzcznjaua-evv-gznd prednisone held due to decadron. 12. Dementia, unclear behavioral disturbance history-on memantine, donepezil.? Lives with family. DVT prophylaxis-Heparin drip This patient was seen by Gayle Donis NP-C under the supervision of Dr. Aburto. Time spent examining patient, reviewing data and subsequent management of care: 18 minutes This patient was seen in conjunction with FUR FINISHER TAILOR, Gayle. I have independently interviewed and examined the patient and reviewed pertinent history, examination findings, laboratory and plan of management. I have reviewed the note and agree with the documented findings with the few additional points. In brief, patient is admitted for high fever, mild cough and test came positive of COVID-19. 1. COVID-19 bilateral pneumonia with hypoxia: Patient pulse ox was 89% on room air, currently 98% on 2 L of oxygen. Mild tachypnea better. Chest CTA individually reviewed. Chronic interstitial changes with scattered patchy groundglass opacity suggesting multifocal pneumonitis suggestive of bilateral COVID-19 pneumonia. No organized infiltrate or consolidation or effusion. PE ruled out. Rapid COVID-19 antigen positive. Urinary antigens are negative. Patient on dexamethasone and remdesivir. Patient has leukocytosis with lymphopenia. Increased inflammatory markers including troponin, BNP and CRP 2. Type II AZ/non-STEMI from increased demand ischemia: History taken from patient and his son on phone. Patient does not have chest pain pressure or increased or acute shortness of breath. As per the son he does not get winded while walking within home or on hallway but he gets tired/fatigued. Recent echocardiogram 04/18/2022 with EF 60%, mildly enlarged left atrium, mild mitral valve insufficiency. Placed on heparin drip. Continue aspirin, beta-ronnie. Denies chest pain. Patient on baby aspirin. On medical management. 3. Paroxysmal A. fib with RVR: Patient was A. fib with RVR in ED converted with Cardizem IV bolus. Currently sinus rhythm heart rate in 60s. Serum magnesium 1.9. 4. Acute encephalopathy probably metabolic/infectious from COVID-19 on top of baseline advanced dementia: Patient has dementia confronted patient's son. 5 CVA with history of left-sided weakness, gait ataxia and worsening of dementia after that. 6. Other comorbidities include history of previous CVA as mentioned in MRI brain report, hypertension, dyslipidemia chronic kidney disease G3a, type 2 diabetes mellitus, rheumatoid arthritis: Continue home medications. I have discussed my assessment with FUR FINISHER TAILORGayle and orders have been reviewed. Total time of the visit including total time spent in counseling or coordination of care, (more than 50% of the total time, spent in obtaining medical information from nurses and other ancillary care providers,explaining to the patient about labs, imaging, diagnosis and management of active complex medical conditions), review of previous medical record, history taken from patient's son over phone, review of labs and imaging is 45 minutes. AMOR Araujo spent 18 minutes and I spent 27 minutes Clinical Impression(s) from Imaging Studies Chest X-Ray 05/29/22 17:25 IMPRESSION: No acute findings in the chest and unchanged when compared to 05/29/2022 at 12:13 AM. Chest CTA 05/30/22 10:11 IMPRESSION: No demonstrated PE, or thoracic aortic aneurysm or dissection Chronic interstitial changes without organized infiltrate or effusion. Evidence of chronic bronchitis with multifocal pneumonitis. Calcified coronary vessels No suspicious adenopathy Degenerative bony changes Charges/Coding Visit Charges Inpatient E&M: 53189 Subs Hosp L3
--- NOTE | 2022-05-30 10:49 | CASEMGMT ---
DIAMANTE ARAYA assessment: Call to patient's son for initial transition planning/care coordination assessment d/t hx dementia. DIAMANTE ARAYA introduced self and role at [facility], son voices understanding and consents to assessment. Son lives with pt and answers all questions for assessment. Care providers, pharmacy,?and demographics verified. ? Presentation: Pt just released from [facility] this am, son states pt became more confused/cold and unable to walk once home and brought back to ED Admitting dx: Hypoxia, COVID-19, PAF/flutter w/ RVR PCP: Zoha[facility] Specialists: Praneeth, cardio; [facility] heme; neuro-can't remember name Preferred Pharmacy: [facility] Insurance: [facility] A/B, [facility] Prescription Benefit:?Yes Living Will/HPOA: Pt has LW/HPOA on file at [facility] and son is aware. Pt's , Fareed Fisher, is HPOA and pt's daughter and son are listed and 2nd/3rd HPOA. LNOK: Gallo Fisher, son; Fareed Fisher, Living Arrangements: Pt lives with and son in 2 story home and family assists with ADL's. 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 Transportation: Pt's son drives and states no transportation concerns. DME/HHC: Pt has grab bars, pulse ox, and cpap thru [employer]. Son states no preference for DME company, if qualifies for home oxygen. Pt was set up [facility] at d/c on 05/29/22 and Porsha at [facility] aware of pt return and CM will touch base on wednesday. Pt has no hx of HHC or SNF. Son is still on board with [facility], if recommended. Pt is retired. Pt does not smoke cigarettes or drink ETOH. Son voices no further concerns/needs. CM to follow for therapy notes, home oxygen need, and any further discharge planning/needs. Advised son to ask for CM if any further questions/concerns/needs arise, voices understanding. Plan: TBD, pending therapy, home oxygen testing. [place] DIAMANTE ARAYA
--- NOTE | 2022-05-30 12:02 | CM.ED ---
had inquired on 05/29 about home oxygen for patient. AWAIS completed paperwork. requested oxygen with bleed into cpap. As it was time for worker to leave this business writer gave completed home oxygen forms and instructions to [facility], RN. On this date AWAIS noted that patient was admitted. Glenis MODI
[2022-05-30 13:26] LABS: Bedside Glucose 369 mg/dL (74-106)
[2022-05-30 18:00] LABS: Bedside Glucose 326 mg/dL (74-106)
[2022-05-30 18:01] LABS: Partial Thromboplast Time 76.7 Seconds (24.1-36.2)
[2022-05-30] MEDS: Mirtazapine 30 MG Tablet PO ×2 (21:47→21:49)
[2022-05-30] MEDS: MELATONIN 3 MG TABLET PO (21:49)
[2022-05-30] MEDS: Donepezil HCl 10 MG Tablet PO (21:49)
[2022-05-30] MEDS: Atorvastatin Calcium 40 MG Tablet PO (21:50)
[2022-05-30 22:35] LABS: Bedside Glucose 351 mg/dL (74-106)
[2022-05-31] VITALS (14 sets, daily range): BP systolic 115–134; BP diastolic 58–71; PULSE 53–64; RESP 16–18; TEMP 36.1–36.6; O2SAT 95–99
[2022-05-31 01:01] LABS: Partial Thromboplast Time 72.4 Seconds (24.1-36.2)
[2022-05-31] MEDS: Insulin Lispro 100 UNIT/ML INSULN.PEN SC ×4 (06:48→21:05)
[2022-05-31 07:03] LABS: Absolute Neutrophil Count 14.6 X10^3/uL (2.0-7.7); Basophil# 0.02 X10^3/uL; Basophil% 0.1 % (0-1); Hematocrit 30.1 % (40-54); Hemoglobin 10.2 g/dL (13.0-16.5); Lymphocyte % 6.4 % (19-41); Mean Corp Hgb Conc 33.9 g/dL (32-36); Mean Corpuscular Hgb 31.3 pg (27.0-32.0); Mean Corpuscular Volume 92.3 fL (80-94); Mean Platelet Vol. 11.5 fl (6.2-12.0); Monocyte# 5.81 X10^3/uL; Monocyte% 26.4 % (0-10); NRBC Flagged by Analyzer 0 % (0-5); Neutrophil % 66.3 % (47-70); POSITIVE DIFFERENTIAL YES; Platelet Count 145 K/mm3 (150-450); RBC Distribution Width CV 14.6 % (11.6-14.6); RBC Distribution Width SD 49.4 fl (35.1-43.9); Red Blood Count 3.26 M/mm3 (4.6-6.2)
[2022-05-31 07:06] LABS: Differential Indicated SCAN CRITERIA MET
[2022-05-31 07:15] LABS: Bedside Glucose 288 mg/dL (74-106)
[2022-05-31 07:15] LABS: Differential Comment SCANNED
[2022-05-31 07:16] LABS: Partial Thromboplast Time 57.9 Seconds (24.1-36.2)
[2022-05-31 07:32] LABS: Phosphorus 3.3 mg/dL (2.5-4.9)
[2022-05-31 07:37] LABS: ALB/GLOB Ratio 0.8 RATIO (0.9-2.4); AST(SGOT) 46 U/L (15-37); Alanine Aminotransfer ALT/SGPT 57 U/L (16-61); Albumin, Serum 2.9 g/dL (3.2-5.0); Alkaline Phosphatase 83 U/L (45-117); Anion Gap 5 (5-15); BUN 45 mg/dL (7-18); BUN/Creat Ratio 38.1 RATIO (10-20); Chloride 112 mmol/L (98-107); Creatinine, Serum 1.18 mg/dL (0.70-1.30); EST Glomerular Filtration Rate 62 mL/min (>60); Est Glom Filt Rate - Afr Amer 75 mL/min (>60); Estimated Creatinine Clearance 44.36 ml/min; Globulin 3.6 g/dL (2.2-4.2); Glucose 276 mg/dL (74-106); Potassium 4.3 mmol/L (3.5-5.1); Protein, Total 6.5 g/dL (6.4-8.2); Sodium Level 145 mmol/L (136-145); Troponin-I HS 1996 pg/mL (3.0-78.0)
[2022-05-31] MEDS: 0.9% Saline Lock 10 ML Syringe IV ×2 (10:00→21:03)
[2022-05-31] MEDS: Aspirin E.C. 81 MG Tablet PO (10:01)
[2022-05-31] MEDS: Multivitamins,Ther W-Minerals Tablet 1 TABLET PO (10:01)
[2022-05-31] MEDS: dexAMETHasone 4 MG/ML Vial 6 MG IV (10:01)
[2022-05-31] MEDS: Memantine Hydrochloride 10 MG Tablet PO ×2 (10:01→20:56)
[2022-05-31] MEDS: Metoprolol Tartrate 25 MG Tablet PO (10:01)
[2022-05-31] MEDS: Magnesium Chloride 64 MG Delay Rel.Tablet 128 MG PO (10:01)
--- NOTE | 2022-05-31 10:57 | PN.HOSP_ITS ---
Documented by User: Gayle Donis NP, [employer] 05/31/22 11:08 Subjective Subjective Patient seen and examined. Requesting to go home. Oxygen now stable on room air. Due to debility, plan for SNF/rehab at discharge. Patient denies cough, fever, chills. Objective Data Objective Data Vital Signs: Vital Signs Temp Pulse Resp BP Pulse Ox O2 Del Method O2 Flow Rate 97.9 F 61 18 119/63 98 Room Air 2 05/31/22 09:27 05/31/22 10:01 05/31/22 09:27 05/31/22 10:01 05/31/22 09:27 05/31/22 09:22 05/31/22 07:06 Oxygen Flow Rate (L/min) 2 Oxygen Delivery Method Room Air Weight: 153 lb 14.122 oz Body Mass Index (BMI) 21.3 Intake & Output: Intake and Output for Last 24 Hours 05/29/22 05/30/22 05/31/22 23:59 23:59 23:59 Intake Total 500 / 500 2866.17 / 3106.17 575.78 / 575.78 Output Total 0 / 0 Balance 500 / 500 2866.17 / 3106.17 575.78 / 575.78 Lab / Micro Data Result Diagrams: 05/31/22 06:40 05/31/22 06:40 Labs: Laboratory Results - last 24 hr 05/30/22 12:31: POC Glucose 369 H 05/30/22 17:31: POC Glucose 326 H 05/30/22 17:35: APTT 76.7 H 05/30/22 21:45: POC Glucose 351 H 05/31/22 00:30: APTT 72.4 H 05/31/22 06:40: Sodium 145, Potassium 4.3, Chloride 112 H, Carbon Dioxide 28.0, Anion Gap 5, BUN 45 H, Creatinine 1.18, Estim Creat Clear Calc 44.36, Est GFR (MDRD) Af Amer 75, Est GFR (MDRD) Non-Af 62, BUN/Creatinine Ratio 38.1 H, Glucose 276 H, Calcium 9.0, Total Bilirubin 0.30, AST 46 H, ALT 57, Alkaline Phosphatase 83, Troponin I High Sens 1995 H*, Total Protein 6.5, Albumin 2.9 L, Globulin 3.6, Albumin/Globulin Ratio 0.8 L 05/31/22 06:40: WBC 22.0 H, RBC 3.26 L, Hgb 10.2 L, Hct 30.1 L, MCV 92.3, MCH 31.3, MCHC 33.9, RDW Std Deviation 49.4 H, RDW Coeff of Zak 14.6, Plt Count 145 L, MPV 11.5, Immature Gran % (Auto) 0.800, Neut % (Auto) 66.3, Lymph % (Auto) 6.4 L, Clarke % (Auto) 26.4 H, Eos % (Auto) 0.0, Baso % (Auto) 0.1, Absolute Neuts (auto) 14.6 H, Absolute Lymphs (auto) 1.40, Nucleated RBC % 0, Differential Comment SCANNED, Diff Path Review January05/31/22 06:40: Phosphorus 3.3 05/31/22 06:40: APTT 57.9 H 05/31/22 06:47: POC Glucose 288 H Micro: Microbiology 05/30/22 00:00 Urine, Clean Catch Streptococcus pneumoniae Antigen (M - Final 05/30/22 03:45 Mucosa - Nasopharyngeal Respiratory Panel (PCR) - Final 05/29/22 17:55 Urine, Clean Catch Legionella Antigen - Final 05/29/22 17:30 Nasal Secretion SARS-CoV-2 & FLU Antigen (Rapid) - Final SARS-CoV-2 (COVID 19) Radiography Diagnostic Testing: Radiology Impression Chest CTA 05/30/22 10:11 IMPRESSION: No demonstrated PE, or thoracic aortic aneurysm or dissection Chronic interstitial changes without organized infiltrate or effusion. Evidence of chronic bronchitis with multifocal pneumonitis. Calcified coronary vessels No suspicious adenopathy Degenerative bony changes Electronically Signed: Otis Romero MD at 11:47 EDT , Physical Exam Const alert Orientation / Consciousness: oriented to person and oriented to place HEENT normocephalic and moist oral mucous membranes Eyes PERRL, EOMs intact bilaterally and conjunctivae normal Neck no lymphadenopathy Resp clear to auscultation bilaterally Auscultation: diminished lung sounds Cardio regular rate, regular rhythm and no murmurs Peripheral Pulses: pulses 2+ throughout GI normal to inspection, nondistended, normoactive bowel sounds, non-tender and non-distended Extremity normal to inspection Skin no rashes or lesions noted Lesions: no lesions Rashes: no rashes Trauma: no lacerations or abrasions Neuro CN's II-XII intact bilaterally, no focal motor deficits, no sensory deficits noted and deep tendon reflexes 2+ bilaterally Psych mental status grossly normal and affect normal Assessment & Plan Assessment/Plan (1) Hypoxemia: (2) COVID-19: PLAN: Plan 1.? Acute hypoxic respiratory failure secondary to acute viral syndrome with AQLEK-19-loispffc supplemental oxygen to maintain O2 at or above 90%.? IV Decadron.? IV remdesivir.? Chest x-ray without infiltrate.? D-dimer elevated.? CTA ruled out PE. Oxygen now stable on room air. Plan for SNF/rehab due to ongoing debility. 2.?NSTEMI-recent echocardiogram 04/18/2022 with EF 60%, mildly enlarged left atrium, mild mitral valve insufficiency. Continue aspirin, beta-ronnie. Denies chest pain. Plan for medical management with outpatient follow-up with cardiology. 3.? Acute metabolic encephalopathy secondary to hypoxia related to #1-treat underlying processes.? Complicated by underlying dementia. Now at baseline. 4. Paroxysmal atrial fibrillation with RVR-IV Cardizem bolus on admission.? Now sinus rhythm.? Continue beta-ronnie. Placed on Eliquis 2.5 mg twice daily. 5.? History of CVA-on aspirin, statin. 6.? Hypertension-stable, continue home regimen. 7. Hyperlipidemia- continue statin. 8. Chronic kidney disease IIIa-at baseline. 9. Type 2 diabetes vbotbcdi-Ybag-Szqxu with sliding scale insulin. 10.? Anxiety/depression-on mirtazapine. 11.?Rheumatoid zlgaqfhvp-ksu-yizu prednisone held due to decadron. 12. Dementia, unclear behavioral disturbance history-on memantine, donepezil.? Lives with family. DVT prophylaxis-Eliquis This patient was seen by LUIGI Asif under the supervision of Dr. Aburto. Discharge plan: Follow PT recommendations, likely SNF for rehab. Time spent examining patient, reviewing data and subsequent management of care: 14 minutes Documented by User: Dr. Joe Aburto MD 05/31/22 13:36 Subjective Subjective Patient seen and examined. Requesting to go home. Oxygen now stable on room air. Due to debility, plan for SNF/rehab at discharge. Patient denies cough, fever, chills. Follow-up for COVID-19 pneumonia. Patient does not have chest pain, cough, fever or chills. Objective Data Lab / Micro Data Result Diagrams: 05/31/22 06:40 05/31/22 06:40 Physical Exam Narrative Physical exam Patient has mild chronic weakness of the left side with gait incoordination/ataxia from previous stroke. No chest pain or cough or fever. Patient is states he wants to go home but he is weak. Physical exam General: Alert, Oriented x3, Cooperative HEENT: Legally blind. Atraumatic/normocephalic. Oral: No Gingival or Mucosal Lesions/ Ulcerations Neck: Supple, No JVD, Negative Carotid Bruits Lungs:? Air entry diminished in bilateral lung bases.? No crepitation/rhonchi Cardiovascular: Sinus rhythm on equipment monitor phototypesetting.? Normal S1, Normal S2, No murmurs Abdomen: Bowel Sounds Present, Soft, Non Tender, Non-Distended : No renal angle tenderness.? No suprapubic tenderness. Extremities: No edema, Capillary Refill Less than 3 Seconds Skin: No rashes, No breakdown Musculoskeletal: No Tenderness to Palpation of Joints or Extremities, muscle strength 4+/5 at major joints with more weakness in LLE. Exact muscle power cannot be assessed Neurological: Cranial nerves II-XII grossly intact, gait incoordination, ataxia Psych/Mental Status: Flat affect, dementia Assessment & Plan Assessment/Plan (1) Hypoxemia: (2) COVID-19: PLAN: Plan 1.? Acute hypoxic respiratory failure secondary to acute viral syndrome with [id number] supplemental oxygen to maintain O2 at or above 90%.? IV Decadron.? IV remdesivir.? Chest x-ray without infiltrate.? D-dimer elevated.? CTA ruled out PE. Oxygen now stable on room air. Plan for SNF/rehab due to ongoing debility. 2.?NSTEMI-recent echocardiogram 04/18/2022 with EF 60%, mildly enlarged left atrium, mild mitral valve insufficiency. Continue aspirin, beta-ronnie. Denies chest pain. Plan for medical management with outpatient follow-up with cardiology. 3.? Acute metabolic encephalopathy secondary to hypoxia related to #1-treat underlying processes.? Complicated by underlying dementia. Now at baseline. 4. Paroxysmal atrial fibrillation with RVR-IV Cardizem bolus on admission.? Now sinus rhythm.? Continue beta-ronnie. Placed on Eliquis 2.5 mg twice daily. 5.? History of CVA-on aspirin, statin. 6.? Hypertension-stable, continue home regimen. 7. Hyperlipidemia- continue statin. 8. Chronic kidney disease IIIa-at baseline. 9. Type 2 diabetes rfrwmuuv-Jwmb-Jwnja with sliding scale insulin. 10.? Anxiety/depression-on mirtazapine. 11.?Rheumatoid mmvfnglno-sjl-rzje prednisone held due to decadron. 12. Dementia, unclear behavioral disturbance history-on memantine, donepezil.? Lives with family. DVT prophylaxis-Eliquis This patient was seen by LUIGI Asif under the supervision of Dr. Aburto. Discharge plan: Follow PT recommendations, likely SNF for rehab. Time spent examining patient, reviewing data and subsequent management of care: 14 minutes This patient was seen by LUIGI Asif under the supervision of Dr. Aburto. Time spent examining patient, reviewing data and subsequent management of care: 18 minutes This patient was seen in conjunction with Gayle CHINCHILLA.? I have independently interviewed and examined the patient and reviewed pertinent history, examination findings, laboratory and plan of management.? I have? reviewed the note and agree with the documented findings with the few? additional points. In brief, patient is admitted for high fever, mild cough and test came positive of COVID-19. 1.? COVID-19 bilateral pneumonia with hypoxia: Patient pulse ox was 89% on room air, currently 98% on 2 L of oxygen.? Mild tachypnea better.? Chest CTA individually reviewed.? Chronic interstitial changes with scattered patchy groundglass opacity suggesting multifocal pneumonitis suggestive of bilateral COVID-19 pneumonia.? No organized infiltrate or consolidation or effusion. PE ruled out.? Rapid COVID-19 antigen positive.? Urinary antigens are negative.? Patient on dexamethasone and remdesivir.? Patient has leukocytosis with lymphopenia.? Increased inflammatory markers including troponin, BNP and CRP 05/31: Increase in WBC count probably due to steroid effect. Patient did not have fever or chills. No cough. No crepitation on lung exam. Continue treatment. 2.? Type II SC/non-STEMI from increased demand ischemia: History taken from patient and his son on phone.? Patient does not have chest pain pressure or increased or acute shortness of breath.? As per the son he does not get winded while walking within home or on hallway but he gets tired/fatigued. Recent echocardiogram 04/18/2022 with EF 60%, mildly enlarged left atrium, mild mitral valve insufficiency.? Placed on heparin drip.? Continue aspirin, beta-ronnie. Denies chest pain.? Patient on baby aspirin.? On medical management. 3.? Paroxysmal A. fib with RVR: Patient was A. fib with RVR in ED converted with Cardizem IV bolus.? Currently sinus rhythm heart rate in 60s.? Serum magnesium 1.9. 4.? Acute encephalopathy probably metabolic/infectious from COVID-19 on top of baseline advanced dementia: Patient has dementia confronted patient's son. 05/31: Acute encephalopathy is resolved. 5 CVA with history of left-sided weakness, gait ataxia and worsening of dementia after that. 6.? Other comorbidities include history of previous CVA as mentioned in MRI brain report, hypertension, dyslipidemia chronic kidney disease G3a, type 2 diabetes mellitus, rheumatoid arthritis: Continue home medications. I have discussed my assessment with Gayle CHINCHILLA and orders have been reviewed. Total time of the visit including total time spent in counseling or coordination of care, (more than 50% of the total time, spent in obtaining medical information from nurses and other ancillary care providers,explaining to the patient about labs, imaging, diagnosis and management of active complex medical conditions), review of previous medical record, history taken from patient's son over phone, review of labs and imaging is? 40 minutes. AMOR Araujo spent 14 minutes and I spent 26 minutes Charges/Coding Visit Charges Inpatient E&M: 94577 Subs Hosp L3
[2022-05-31] MEDS: Pantoprazole Sodium 40 MG Tablet PO (12:00)
[2022-05-31 12:35] LABS: Bedside Glucose 291 mg/dL (74-106)
[2022-05-31 17:56] LABS: Bedside Glucose 417 mg/dL (74-106)
[2022-05-31] MEDS: APIXABAN 2.5 MG TABLET PO (20:56)
[2022-05-31] MEDS: Atorvastatin Calcium 40 MG Tablet PO (20:56)
[2022-05-31] MEDS: MELATONIN 3 MG TABLET PO (20:57)
[2022-05-31] MEDS: Mirtazapine 30 MG Tablet PO (20:57)
[2022-05-31] MEDS: Donepezil HCl 10 MG Tablet PO (20:57)
[2022-05-31 21:31] LABS: Bedside Glucose 414 mg/dL (74-106)
[2022-06-01] VITALS (9 sets, daily range): BP systolic 131–144; BP diastolic 54–73; PULSE 50–65; RESP 18; TEMP 36.2–36.3; O2SAT 92–100
[2022-06-01 06:01] LABS: Absolute Lymphocyte Count 1.06 X10^3/uL (0.83-4.51); Absolute Neutrophil Count 12.2 X10^3/uL (2.0-7.7); Basophil# 0.01 X10^3/uL; Basophil% 0.1 % (0-1); Hematocrit 29.2 % (40-54); Hemoglobin 9.8 g/dL (13.0-16.5); Lymphocyte # 1.06 X10^3/ul (0.83-4.51); Lymphocyte % 7.3 % (19-41); Mean Corp Hgb Conc 33.6 g/dL (32-36); Mean Corpuscular Volume 92.4 fL (80-94); Mean Platelet Vol. 11.8 fl (6.2-12.0); Monocyte# 1.06 X10^3/uL; Monocyte% 7.3 % (0-10); NRBC Flagged by Analyzer 0 % (0-5); Neutrophil # 12.24 X10^3/uL (2.7-7.7); Neutrophil % 84.3 % (47-70); Platelet Count 147 K/mm3 (150-450); RBC Distribution Width CV 14.6 % (11.6-14.6); RBC Distribution Width SD 49.3 fl (35.1-43.9); Red Blood Count 3.16 M/mm3 (4.6-6.2); White Blood Count 14.5 K/mm3 (4.4-11.0)
[2022-06-01 06:23] LABS: ALB/GLOB Ratio 0.9 RATIO (0.9-2.4); AST(SGOT) 37 U/L (15-37); Alanine Aminotransfer ALT/SGPT 59 U/L (16-61); Alkaline Phosphatase 88 U/L (45-117); Anion Gap 6 (5-15); BUN 53 mg/dL (7-18); BUN/Creat Ratio 43.1 RATIO (10-20); Chloride 112 mmol/L (98-107); Creatinine, Serum 1.23 mg/dL (0.70-1.30); EST Glomerular Filtration Rate 59 mL/min (>60); Est Glom Filt Rate - Afr Amer 72 mL/min (>60); Estimated Creatinine Clearance 42.56 ml/min; Globulin 3.5 g/dL (2.2-4.2); Glucose 333 mg/dL (74-106); Potassium 4.5 mmol/L (3.5-5.1); Protein, Total 6.5 g/dL (6.4-8.2); Sodium Level 145 mmol/L (136-145)
[2022-06-01] MEDS: Insulin Lispro 100 UNIT/ML INSULN.PEN SC ×2 (06:26→11:57)
[2022-06-01 06:50] LABS: Bedside Glucose 328 mg/dL (74-106)
[2022-06-01] MEDS: Pantoprazole Sodium 40 MG Tablet PO (09:11)
[2022-06-01] MEDS: APIXABAN 2.5 MG TABLET PO (09:11)
[2022-06-01] MEDS: Magnesium Chloride 64 MG Delay Rel.Tablet 128 MG PO (09:11)
[2022-06-01] MEDS: dexAMETHasone 4 MG/ML Vial 6 MG IV (09:11)
[2022-06-01] MEDS: Aspirin E.C. 81 MG Tablet PO (09:11)
[2022-06-01] MEDS: 0.9% Saline Lock 10 ML Syringe IV (09:11)
[2022-06-01] MEDS: Metoprolol Tartrate 25 MG Tablet PO (09:12)
[2022-06-01] MEDS: Memantine Hydrochloride 10 MG Tablet PO (09:12)
[2022-06-01] MEDS: Multivitamins,Ther W-Minerals Tablet 1 TABLET PO (09:13)
--- NOTE | 2022-06-01 09:55 | CASEMGMT ---
Addendum entered by Smitha Varma 06/01/22 14:25: [facility] be [facility] on Eliquis [facility] [place] and per tech, pt's co-pay is $47. Pt/son provided Eliquis 30 day free trial card with d/c instructions. Luicla BOBBY CM Addendum entered by Smitha Varma 06/01/22 10:38: Call to pt's son, Gallo, and updated on no need for oxygen and therapy recommendations. Son states that his mother is showing signs of COVID so he is taking her to get tested. Son states his mom's sats have been fine. Son is aware he can call mom's PCP to set up HHC for her, if needed, voices understanding. Son aware that HHC will be set up for pt at discharge, voices understanding. CM to follow. Lucila BOBBY CM Original Note: Per Abigail BOBBY, pt does not qualify for home oxygen at discharge. [facility] and per therapy, no need for SNF at discharge. Porsha at [facility] to be updated with new d/c date and [facility]. CM to follow for any further discharge planning/needs. Lucila BOBBY CM
--- NOTE | 2022-06-01 12:15 | DCINST_ITS ---
Discharge Instructions Diet Discharge Diet: Low fat / Low cholesterol Activity Discharge Activity: Return to Normal Activity Dressing / Incision Call your doctor if you observe: Fever of 101 or Higher, Shortness of breath, Dizziness and Chest pain Follow Up Care Test Results: Test results from this visit will be discussed in further detail at your follow- up appointment, if applicable. Discharge Plan Admission Admit Date/Time: 05/29/22 22:00 Primary Reason for Your Visit: Covid with hypoxia Attending Provider: Chance Larkin Primary Care Provider: Sampson Penny Consulting Providers: Tawanna Funk ; Joe Aburto Instructions Patient Instructions: Coronavirus Disease 2019 (COVID-19): Caring for Yourself or Others Additional Instructions / Restrictions: Try to get a home portable pulse oximeter and closely watch your oxygen levels periodically. If you stay below 90% for more than a minute or so, and/or you are feeling like your breathing is getting worse, return to the emergency department for further evaluation. Currently, CDC recommendations state that you should stay home through day 5 of symptoms, then as long as symptoms are improving, if you need to go to work or somewhere else you may for days 6-10 as long as you are wearing a mask the entire time. If you are feeling better after day 10 you may resume life is normal. Be aware that the donepezil, memantine, and mirtazapine could cause increased drowsiness while on the new medication. If he is more drowsy than he was when he was seen in the emergency department, stop those 3 medications temporarily until 3 days after finishing the new medicine. Discharge Orders/Prescriptions Prescriptions: New Eliquis 2.5 mg Tablet 2.5 mg PO BID Qty: 60 0RF metoprolol tartrate 25 mg Tablet 25 mg PO BID 30 Days Qty: 60 0RF dexamethasone 6 mg tablet 6 mg PO DAILY 6 Days Qty: 6 0RF Continued donepezil 10 mg tablet 10 mg PO QHS memantine 10 mg tablet 10 mg PO BID aspirin [Adult Aspirin Regimen] 81 mg tablet,delayed release (DR/EC) 81 mg PO DAILY glipizide 5 mg tablet extended release 24hr 5 mg PO DAILY magnesium oxide 400 mg (241.3 mg magnesium) tablet 400 mg PO DAILY Label Comments: supplement melatonin 3 mg tablet 3 mg PO QHS Label Comments: TAKE 1 TABLET BY MOUTH at 7PM EVERY EVENING mirtazapine 30 mg tablet 30 mg PO QHS metformin 1,000 MG tablet 1,000 mg PO DAILY Label Comments: Diabetes jqvxynnl-eht-MJ-lycopen-lutein 1 EACH tablet 1 ea PO DAILY Label Comments: General health [id number] no.225 1 EACH tablet 1 ea PO DAILY Label Comments: General health atorvastatin 40 mg tablet 40 mg PO QHS Held prednisone 2.5 MG tablet 2.5 mg PO DAILY Hold Instructions: Resume on 06/08/22. Label Comments: steroid Discontinued metoprolol tartrate 25 mg tablet 12.5 mg PO BID Referrals / Follow Up: Roland Dacosta MD [Med Staff - Active Staff] - Within 2 Weeks Sampson Penny MD [Primary Care Provider] - In 1 Week Disposition Disposition (needs filled in before D/C Order can be placed): Home, Self Care
--- NOTE | 2022-06-01 12:28 | DS.PCM_ITS ---
Documented by User: Gayle Donis NP, CERTIFIED ADAPTIVE PHYSICAL EDUCATOR-C 06/01/22 12:42 Providers Date of Admission: 05/29/22 Date of Discharge: 06/01/22 Primary Care Physician: Dr. Sampson Penny MD Reason For Visit: HYPOXIA, COVID-19, PAF/FLUTTER W/ RVR Diagnosis Discharge Diagnosis (1) Hypoxemia: Status: Acute Code(s): R09.02 - Hypoxemia (2) COVID-19: Status: Acute Code(s): U07.1 - COVID-19 Medications at Discharge Home Medications B6 100 mg-FA 800 mcg-B12 200 mcg-co Q10 100 mg-herbal no.225 tablet 1 ea PO DAILY SUPPLEMENT 05/03/15 metformin 1,000 mg tablet 1,000 mg PO DAILY diabetes 05/03/15 mjajybas-oaj-wuksw acid 0.4 mg-lycopene 300 mcg-lutein 250 mcg tablet 1 ea PO DAILY vitamin 05/03/15 prednisone 2.5 mg tablet 2.5 mg PO DAILY inflammation 09/03/15 aspirin 81 mg tablet,delayed release (Adult Aspirin Regimen) 81 mg PO DAILY HEART HEALTH 08/10/19 donepezil 10 mg tablet 10 mg PO QHS mentation 08/10/19 memantine 10 mg tablet 10 mg PO BID mentation 08/10/19 glipizide 5 mg tablet, extended release 24 hr 5 mg PO DAILY DIABETES 08/13/21 magnesium oxide 400 mg (241.3 mg magnesium) tablet 400 mg PO DAILY supplement 08/13/21 melatonin 3 mg tablet 3 mg PO QHS sleep 08/13/21 mirtazapine 30 mg tablet 30 mg PO QHS mental health 08/13/21 atorvastatin 40 mg tablet 40 mg PO QHS cholesterol 05/29/22 apixaban 2.5 mg tablet (Eliquis) 2.5 mg PO BID #60 tabs 06/01/22 dexamethasone 6 mg tablet 6 mg PO DAILY 6 days #6 tabs 06/01/22 metoprolol tartrate 25 mg tablet 25 mg PO BID 30 days #60 tabs 06/01/22 Hospital Course Operations None Procedures None Summary of Care Provided Hospital Course: Patient is an 86-year-old male admitted 05/29/2022 due to cough, fever and chills. 1.? Acute hypoxic respiratory failure secondary to acute viral syndrome with COVID-19-IV Decadron and IV remdesivir during admission. Transition to oral Decadron to complete 10-day course at discharge. Chest x-ray without infiltrate.? D-dimer elevated.? CTA ruled out PE.? Oxygen now stable on room air.? Walking pulse ox completed prior to discharge and patient did not require further supplemental oxygen. PT did not recommend any ongoing therapy. Patient to return home with family. Follow-up with PCP in 1 week. 2.?NSTEMI, type II demand ischemia related to #1 as well as A. fib with RVR- recent echocardiogram 04/18/2022 with EF 60%, mildly enlarged left atrium, mild mitral valve insufficiency. Continue aspirin, beta-blocke, statin.. Denies chest pain.? Plan for medical management with outpatient follow-up with cardiology. 3.? Acute metabolic encephalopathy secondary to hypoxia related to #1-treat underlying processes.? Complicated by underlying dementia.? Now at baseline. 4. Paroxysmal atrial fibrillation with RVR-IV Cardizem bolus on admission.? Now sinus rhythm.? Continue beta-allen.? Placed on Eliquis 2.5 mg twice daily. Follow-up with cardiology at discharge. 5.? History of CVA-on aspirin, statin. 6.? Hypertension-stable, continue home regimen. 7. Hyperlipidemia- continue statin. 8. Chronic kidney disease IIIa-at baseline. 9. Type 2 diabetes mellitus-continue home regimen. Glucose elevated prior to admission related to IV steroids, covered with sliding scale. 10.? Anxiety/depression-on mirtazapine. 11.?Rheumatoid tlzzmvktp-bxg-azrc prednisone held due to decadron. 12. Dementia, unclear behavioral disturbance history-on memantine, donepezil.? Lives with family. Physical Exam Const alert Orientation / Consciousness: oriented to person and oriented to place HEENT normocephalic and moist oral mucous membranes Eyes PERRL, EOMs intact bilaterally and conjunctivae normal Neck no lymphadenopathy Resp clear to auscultation bilaterally Auscultation: diminished lung sounds Cardio regular rate, regular rhythm and no murmurs Peripheral Pulses: pulses 2+ throughout GI normal to inspection, nondistended, normoactive bowel sounds, non-tender and non-distended Extremity normal to inspection Skin no rashes or lesions noted Lesions: no lesions Rashes: no rashes Trauma: no lacerations or abrasions Neuro CN's II-XII intact bilaterally, no focal motor deficits, no sensory deficits noted and deep tendon reflexes 2+ bilaterally Psych mental status grossly normal and affect normal Patient seen and examined prior to discharge. Physical assessment as noted above. Patient is stable for discharge with follow up recommendations as noted above. This patient was seen by LUIGI Asif under the supervision of Dr. Larkin. Time spent examining patient, reviewing data and subsequent management of care: 24 minutes Weight / BMI Weight Weight: 154 lb 5.177 oz Body Mass Index (BMI) 21.3 ABG / Lab / Microbiology Data Result Diagrams: 06/01/22 05:40 06/01/22 12:35 Laboratory: Laboratory Results - last 24 hr 05/31/22 11:57: POC Glucose 291 H 05/31/22 16:58: POC Glucose 417 H 05/31/22 21:04: POC Glucose 414 H 06/01/22 05:40: WBC 14.5 H, RBC 3.16 L, Hgb 9.8 L, Hct 29.2 L, MCV 92.4, MCH 31.0, MCHC 33.6, RDW Std Deviation 49.3 H, RDW Coeff of Zak 14.6, Plt Count 147 L, MPV 11.8, Immature Gran % (Auto) 1.000 H, Neut % (Auto) 84.3 H, Lymph % (Auto) 7.3 L, [place] % (Auto) 7.3, Eos % (Auto) 0.0, Baso % (Auto) 0.1, Absolute Neuts (auto) 12.2 H, Absolute Lymphs (auto) 1.06, Nucleated RBC % 0 06/01/22 05:40: Sodium 145, Potassium 4.5, Chloride 112 H, Carbon Dioxide 27.0, Anion Gap 6, BUN 53 H, Creatinine 1.23, Estim Creat Clear Calc 42.56, Est GFR (MDRD) Af Amer 72, Est GFR (MDRD) Non-Af 59 L, BUN/Creatinine Ratio 43.1 H, Glucose 333 H, Calcium 9.0, Total Bilirubin 0.40, AST 37, ALT 59, Alkaline Phosphatase 88, Total Protein 6.5, Albumin 3.0 L, Globulin 3.5, Albumin/Globulin Ratio 0.9 06/01/22 06:25: POC Glucose 328 H Microbiology: Microbiology 05/29/22 17:55 Urine, Clean Catch Urine Culture - Final Staphylococcus epidermidis 05/29/22 16:40 Blood Culture (Wb) - Anticubital Left Blood Culture - Preliminary No growth in 48 hours. 05/29/22 16:40 Blood Culture (Wb) - Left Forearm Blood Culture - Preliminary No growth in 48 hours. 05/30/22 00:00 Urine, Clean Catch Streptococcus pneumoniae Antigen (M - Final 05/30/22 03:45 Mucosa - Nasopharyngeal Respiratory Panel (PCR) - Final 05/29/22 17:55 Urine, Clean Catch Legionella Antigen - Final 05/29/22 17:30 Nasal Secretion SARS-CoV-2 & FLU Antigen (Rapid) - Final SARS-CoV-2 (COVID 19) D/C Instructions Discharge Diet: Low fat / Low cholesterol Call your doctor if you observe: Fever of 101 or Higher, Shortness of breath, Dizziness and Chest pain Meaningful Use Info Meaningful Use Diagnoses (Choose all that apply): AMI AMI/Post PCI/Angioplasty Aspirin given w/in 24hrs of arrival?: Yes ASA at discharge?: Yes Statins at discharge?: Yes Ciaran/ARB at discharge?: No Reason Ciaran/ARB not ordered:: Not indicated Beta Allen at discharge?: Yes Done w/ Acute IN measure.: Yes Discharge Plan Admission Admit Date/Time: 05/29/22 22:00 Primary Reason for Your Visit: Covid with hypoxia Attending Provider: Chnace Larkin Primary Care Provider: Sampson Penny Consulting Providers: Tawanna Funk ; Joe Aburto Instructions Patient Instructions: Coronavirus Disease 2019 (COVID-19): Caring for Yourself or Others Additional Instructions / Restrictions: Try to get a home portable pulse oximeter and closely watch your oxygen levels periodically. If you stay below 90% for more than a minute or so, and/or you are feeling like your breathing is getting worse, return to the emergency department for further evaluation. Currently, CDC recommendations state that you should stay home through day 5 of symptoms, then as long as symptoms are improving, if you need to go to work or somewhere else you may for days 6-10 as long as you are wearing a mask the entire time. If you are feeling better after day 10 you may resume life is normal. Be aware that the donepezil, memantine, and mirtazapine could cause increased drowsiness while on the new medication. If he is more drowsy than he was when he was seen in the emergency department, stop those 3 medications temporarily until 3 days after finishing the new medicine. Discharge Orders/Prescriptions Prescriptions: New Eliquis 2.5 mg Tablet 2.5 mg PO BID Qty: 60 0RF metoprolol tartrate 25 mg Tablet 25 mg PO BID 30 Days Qty: 60 0RF dexamethasone 6 mg tablet 6 mg PO DAILY 6 Days Qty: 6 0RF Continued donepezil 10 mg tablet 10 mg PO QHS memantine 10 mg tablet 10 mg PO BID aspirin [Adult Aspirin Regimen] 81 mg tablet,delayed release (DR/EC) 81 mg PO DAILY glipizide 5 mg tablet extended release 24hr 5 mg PO DAILY magnesium oxide 400 mg (241.3 mg magnesium) tablet 400 mg PO DAILY Label Comments: supplement melatonin 3 mg tablet 3 mg PO QHS Label Comments: TAKE 1 TABLET BY MOUTH at 7PM EVERY EVENING mirtazapine 30 mg tablet 30 mg PO QHS metformin 1,000 MG tablet 1,000 mg PO DAILY Label Comments: Diabetes tnmlblae-bbh-KJ-lycopen-lutein 1 EACH tablet 1 ea PO DAILY Label Comments: General health [id number] no.225 1 EACH tablet 1 ea PO DAILY Label Comments: General health atorvastatin 40 mg tablet 40 mg PO QHS Held prednisone 2.5 MG tablet 2.5 mg PO DAILY Hold Instructions: Resume on 06/08/22. Label Comments: steroid Discontinued metoprolol tartrate 25 mg tablet 12.5 mg PO BID Referrals / Follow Up: Roland Dacosta MD [Med Staff - Active Staff] - Within 2 Weeks Sampson Penny MD [Primary Care Provider] - 06/10/22 11:20 am Disposition Disposition (needs filled in before D/C Order can be placed): Home, Self Care Documented by User: Dr. Chance Larkin MD 06/01/22 13:39 Providers Date of Admission: 05/29/22 Reason For Visit: HYPOXIA, COVID-19, PAF/FLUTTER W/ RVR Diagnosis Discharge Diagnosis (1) Hypoxemia: Status: Acute Code(s): R09.02 - Hypoxemia (2) COVID-19: Status: Acute Code(s): U07.1 - COVID-19 Medications at Discharge Home Medications B6 100 mg-FA 800 mcg-B12 200 mcg-co Q10 100 mg-herbal no.225 tablet 1 ea PO DAILY SUPPLEMENT 05/03/15 metformin 1,000 mg tablet 1,000 mg PO DAILY diabetes 05/03/15 ivdpffoq-tno-ijcig acid 0.4 mg-lycopene 300 mcg-lutein 250 mcg tablet 1 ea PO DAILY vitamin 05/03/15 prednisone 2.5 mg tablet 2.5 mg PO DAILY inflammation 09/03/15 aspirin 81 mg tablet,delayed release (Adult Aspirin Regimen) 81 mg PO DAILY HEART HEALTH 08/10/19 donepezil 10 mg tablet 10 mg PO QHS mentation 08/10/19 memantine 10 mg tablet 10 mg PO BID mentation 08/10/19 glipizide 5 mg tablet, extended release 24 hr 5 mg PO DAILY DIABETES 08/13/21 magnesium oxide 400 mg (241.3 mg magnesium) tablet 400 mg PO DAILY supplement 08/13/21 melatonin 3 mg tablet 3 mg PO QHS sleep 08/13/21 mirtazapine 30 mg tablet 30 mg PO QHS mental health 08/13/21 atorvastatin 40 mg tablet 40 mg PO QHS cholesterol 05/29/22 apixaban 2.5 mg tablet (Eliquis) 2.5 mg PO BID #60 tabs 06/01/22 dexamethasone 6 mg tablet 6 mg PO DAILY 6 days #6 tabs 06/01/22 metoprolol tartrate 25 mg tablet 25 mg PO BID 30 days #60 tabs 06/01/22 ABG / Lab / Microbiology Data Result Diagrams: 06/01/22 05:40 06/01/22 12:35 Discharge Plan Admission Admit Date/Time: 05/29/22 22:00 Primary Reason for Your Visit: Covid with hypoxia Attending Provider: Chance Larkin Primary Care Provider: Sampson Penny Consulting Providers: Tawanna Funk ; Joe Aburto Instructions Patient Instructions: Coronavirus Disease 2019 (COVID-19): Caring for Yourself or Others Additional Instructions / Restrictions: Try to get a home portable pulse oximeter and closely watch your oxygen levels periodically. If you stay below 90% for more than a minute or so, and/or you are feeling like your breathing is getting worse, return to the emergency department for further evaluation. Currently, CDC recommendations state that you should stay home through day 5 of symptoms, then as long as symptoms are improving, if you need to go to work or somewhere else you may for days 6-10 as long as you are wearing a mask the entire time. If you are feeling better after day 10 you may resume life is normal. Be aware that the donepezil, memantine, and mirtazapine could cause increased drowsiness while on the new medication. If he is more drowsy than he was when he was seen in the emergency department, stop those 3 medications temporarily un til 3 days after finishing the new medicine. Discharge Orders/Prescriptions Prescriptions: New Eliquis 2.5 mg Tablet 2.5 mg PO BID Qty: 60 0RF metoprolol tartrate 25 mg Tablet 25 mg PO BID 30 Days Qty: 60 0RF dexamethasone 6 mg tablet 6 mg PO DAILY 6 Days Qty: 6 0RF Continued donepezil 10 mg tablet 10 mg PO QHS memantine 10 mg tablet 10 mg PO BID aspirin [Adult Aspirin Regimen] 81 mg tablet,delayed release (DR/EC) 81 mg PO DAILY glipizide 5 mg tablet extended release 24hr 5 mg PO DAILY magnesium oxide 400 mg (241.3 mg magnesium) tablet 400 mg PO DAILY Label Comments: supplement melatonin 3 mg tablet 3 mg PO QHS Label Comments: TAKE 1 TABLET BY MOUTH at 7PM EVERY EVENING mirtazapine 30 mg tablet 30 mg PO QHS metformin 1,000 MG tablet 1,000 mg PO DAILY Label Comments: Diabetes pcrwhsfy-cih-ID-lycopen-lutein 1 EACH tablet 1 ea PO DAILY Label Comments: General health [id number] [id number]-bprl no.225 1 EACH tablet 1 ea PO DAILY Label Comments: General health atorvastatin 40 mg tablet 40 mg PO QHS Held prednisone 2.5 MG tablet 2.5 mg PO DAILY Hold Instructions: Resume on 06/08/22. Label Comments: steroid Discontinued metoprolol tartrate 25 mg tablet 12.5 mg PO BID Referrals / Follow Up: Roland Dacosta MD [Med Staff - Active Staff] - Within 2 Weeks Sampson Penny MD [Primary Care Provider] - 06/10/22 11:20 am Disposition Disposition (needs filled in before D/C Order can be placed): Home, Self Care Charges/Coding Addendum Addendum: Addendum: Dr. Larkin I personally examined the patient and reviewed the chart. I agree with the above. 86-year-old male who was recently in the hospital for altered speech and altered mental status, he was discharged with a CVA being ruled out however he presented on the same night of discharge with increasing shortness of breath and acute hypoxic with ambulation down to 80%. He was found to test positive for COVID and was started on remdesivir as well as Decadron. He did require oxygen intermittently throughout his stay. He has received 3 doses of remdesivir as well as 3 doses of Decadron. He is feeling much better and his confusion has resolved. Physical therapy and Occupational Therapy did not recommend any further outpatient therapy and he did not require any supplemental oxygen with ambulation so he was discharged on Decadron to complete 10 days worth. Discharge plans were discussed with his son given his dementia and his son expressed understanding of the risk benefits of going home and is okay with bringing him home today. I do recommend outpatient follow-up with his PCP and 3 to 5 days. We will continue with his home A. fib medications including Eliquis 2.5 mg p.o. twice daily. Given that he is not requiring significant oxygen wou ld recommend quarantine at home until Wednesday. Clinical time spent in all aspects of patient care including discharge plannin minutes Visit Charges Inpatient E&M: [id number] Disch Hosp
[2022-06-01 12:35] LABS: Pathologist Review Reviewed
[2022-06-01 12:42] LABS: Pathologist Review Reviewed
[2022-06-01 12:59] LABS: Glucose 581 mg/dL (74-106)
[2022-06-01] MEDS: Insulin Lispro 100 UNIT/ML INSULN.PEN 20 UNIT SC (13:30)
[2022-06-01 13:50] LABS: Bedside Glucose > 500 mg/dL (74-106)
--- NOTE | 2022-06-01 14:08 | PHA.DC.MR ---
Pharmacy Service has performed discharge medication reconciliation for this patient. The patient's discharge medication list was reviewed for discrepancies and discrepancies were resolved. Home Medications B6 100 mg-FA 800 mcg-B12 200 mcg-co Q10 100 mg-herbal no.225 tablet 1 ea PO DAILY SUPPLEMENT 05/03/15 metformin 1,000 mg tablet 1,000 mg PO DAILY diabetes 05/03/15 eqhomyux-epo-joqgh acid 0.4 mg-lycopene 300 mcg-lutein 250 mcg tablet 1 ea PO DAILY vitamin 05/03/15 prednisone 2.5 mg tablet 2.5 mg PO DAILY inflammation 09/03/15 aspirin 81 mg tablet,delayed release (Adult Aspirin Regimen) 81 mg PO DAILY HEART HEALTH 08/10/19 donepezil 10 mg tablet 10 mg PO QHS mentation 08/10/19 memantine 10 mg tablet 10 mg PO BID mentation 08/10/19 glipizide 5 mg tablet, extended release 24 hr 5 mg PO DAILY DIABETES 08/13/21 magnesium oxide 400 mg (241.3 mg magnesium) tablet 400 mg PO DAILY supplement 08/13/21 melatonin 3 mg tablet 3 mg PO QHS sleep 08/13/21 mirtazapine 30 mg tablet 30 mg PO QHS mental health 08/13/21 atorvastatin 40 mg tablet 40 mg PO QHS cholesterol 05/29/22 apixaban 2.5 mg tablet (Eliquis) 2.5 mg PO BID #60 tabs 06/01/22 dexamethasone 6 mg tablet 6 mg PO DAILY 6 days #6 tabs 06/01/22 metoprolol tartrate 25 mg tablet 25 mg PO BID 30 days #60 tabs 06/01/22
[2022-06-01 14:10] LABS: Bedside Glucose > 500 mg/dL (74-106)
[2022-06-01 14:10] LABS: Bedside Glucose > 500 mg/dL (74-106)
[2022-06-01] MEDS: Insulin Lispro 100 UNIT/ML INSULN.PEN 15 UNIT SC (14:56)
[2022-06-01 16:55] LABS: Bedside Glucose 471 mg/dL (74-106)
[2022-06-01 16:55] LABS: Bedside Glucose 413 mg/dL (74-106)
[2022-06-01 16:56] LABS: Bedside Glucose 330 mg/dL (74-106)
== END 2022-06-01 16:56 | disposition home health service (06) | DRG 177 ==
LOC: ED 21:56 → PCU 22:11
PROVIDERS: Internal Medicine; Admitting Provider Family Medicine; Emergency Provider Emergency Medicine; PCP Internal Medicine; Visit Provider Family Medicine
DX: U07.1 COVID-19 (principal); G93.41 Metabolic encephalopathy; J96.01 Acute respiratory failure with hypoxia; J12.82 Pneumonia due to coronavirus disease 2019; I21.A1 Myocardial infarction type 2; I48.92 Unspecified atrial flutter; E87.2 Acidosis; I69.354 Hemiplegia and hemiparesis following cerebral infarction affecting left non-dominant side; D63.1 Anemia in chronic kidney disease; F03.90 Unspecified dementia, unspecified severity, without behavioral disturbance, psychotic disturbance, mood disturbance, and anxiety; E11.22 Type 2 diabetes mellitus with diabetic chronic kidney disease; N18.31 Chronic kidney disease, stage 3a; I48.0 Paroxysmal atrial fibrillation; E11.65 Type 2 diabetes mellitus with hyperglycemia; D46.9 Myelodysplastic syndrome, unspecified; M06.9 Rheumatoid arthritis, unspecified; E78.5 Hyperlipidemia, unspecified; I12.9 Hypertensive chronic kidney disease with stage 1 through stage 4 chronic kidney disease, or unspecified chronic kidney disease; G47.33 Obstructive sleep apnea (adult) (pediatric); I34.0 Nonrheumatic mitral (valve) insufficiency; I69.393 Ataxia following cerebral infarction; F41.9 Anxiety disorder, unspecified; K59.09 Other constipation; H54.8 Legal blindness, as defined in USA; F32.A Depression, unspecified; R53.81 Other malaise; Z79.01 Long term (current) use of anticoagulants; Z79.82 Long term (current) use of aspirin; Z79.84 Long term (current) use of oral hypoglycemic drugs; Z79.899 Other long term (current) drug therapy; Z23 Encounter for immunization
CPT/HCPCS: 36415; 70450; 70544; 70551; 71045; 71275; 80048; 80053; 80061; 80076; 81001; 82728; 82947; 82962; 83036; 83605; 83615; 83735; 83880; 84100; 84145; 84443; 84484; 85025; 85379; 85610; 85730; 86140; 87040; 87077; 87086; 87088; 87186; 87428; 87449; 87633; 92610; 93005; 93880; 94762; 96360; 96361; 96372; 97162; 97165; 97166; 97530; 99218; 99285; J7030; J7050; P9612; Q9967; A4216; G0378; J0248

== ENCOUNTER → 2022-06-19 | Outpatient (CLI) | payer MEDICARE, OTHER, SELFPAY ==
[2016-02-13 13:00] VITALS: BMI 25.7
[2022-06-19 16:04] LABS: Absolute Neutrophil Count 2.7 X10^3/uL (2.0-7.7); Basophil# 0.01 X10^3/uL; Basophil% 0.1 % (0-1); Eosinophil# 0.01 X10^3/uL; Eosinophils% 0.1 % (0-5); Hematocrit 32.4 % (40-54); Hemoglobin 10.6 g/dL (13.0-16.5); Lymphocyte % 34.6 % (19-41); Mean Corp Hgb Conc 32.7 g/dL (32-36); Mean Corpuscular Hgb 30.6 pg (27.0-32.0); Mean Corpuscular Volume 93.6 fL (80-94); Mean Platelet Vol. 10.1 fl (6.2-12.0); Monocyte% 29.4 % (0-10); NRBC Flagged by Analyzer 0 % (0-5); Neutrophil # 2.73 X10^3/uL (2.7-7.7); POSITIVE DIFFERENTIAL YES; Platelet Count 185 K/mm3 (150-450); RBC Distribution Width CV 14.2 % (11.6-14.6); RBC Distribution Width SD 48.2 fl (35.1-43.9); Red Blood Count 3.46 M/mm3 (4.6-6.2); White Blood Count 7.8 K/mm3 (4.4-11.0)
[2022-06-19 17:06] LABS: Differential Indicated SCAN CRITERIA MET
[2022-06-19 17:08] LABS: Platelet Estimate ADEQUATE (ADEQ)
[2022-06-19 17:09] LABS: Acanthocytes 1+; Anisocytosis RARE; Macrocytosis RARE; Ovalocyte RARE; Red Cell Morphology N CHROM NORMAL (NORM C&C); Tear Drop Cell RARE
== END | disposition home or self-care (01) ==
PROVIDERS: PCP Internal Medicine; Visit Provider Nurse Practitioner Gerontology
DX: D46.9 Myelodysplastic syndrome, unspecified (principal); D63.8 Anemia in other chronic diseases classified elsewhere
CPT/HCPCS: 36415; 85025

== ENCOUNTER 2022-09-09 16:00 | Emergency (ER) | payer MEDICARE, OTHER, SELFPAY ==
[2016-02-13 13:00] VITALS: BMI 25.7
[2022-09-09 16:03] VITALS: BP 79/49; PULSE 116; RESP 14; TEMP 35.9; O2SAT 97; BMI 22.1
[2022-09-09 16:21] VITALS: BP 119/75; PULSE 69; RESP 16; O2SAT 98
--- NOTE | 2022-09-09 16:30 | EKG12_ITS ---
Test Reason : A FIB Blood Pressure : / mmHG Vent. Rate : 141 BPM Atrial Rate : 267 BPM P-R Int : 000 ms QRS Dur : 078 ms QT Int : 330 ms P-R-T Axes : 000 -31 -74 degrees QTc Int : 505 ms Atrial flutter with variable A-V block Left axis deviation Septal infarct , age undetermined Abnormal ECG Confirmed by AAKASH DUKES, BIANCA ([id number]), graphic editor [employer] ([id number]) on 09/11/2022 6:33:14 AM Referred By: NICO Confirmed By:MIGUELITO FINN MD
--- NOTE | 2022-09-09 16:46 | EX.ED.DYSGE1 ---
HPI History of Present Illness Chief Complaint: Palpitations Narrative Narrative: 86-year-old male with history of atrial flutter on Eliquis and metoprolol 25 mg p.o. twice daily presenting with a fast heart rate. Apparently he was doing routine follow-up with Dr. Penny today it was noted that his heart rate was in the 140s. His son states that he has been otherwise well. He had a little bit of a cough this week but no fevers. He is eating and drinking normally. Is making normal urine and stool. He did not know that his heart rate was going fast. Patient has not had any chest pain or shortness of breath. [facility] Medical History Anemia of chronic disease Atrial flutter with rapid ventricular response (09/2015) Cellulitis and abscess Chronic constipation Chronic rheumatic arthritis Dementia Diabetes mellitus MDS (myelodysplastic syndrome) Obstructive sleep apnea Paroxysmal atrial flutter Personal history of immunosupression therapy Stroke/cerebrovascular accident Home Medications metformin 1,000 mg tablet 1,000 mg PO DAILY diabetes 05/03/15 [History Last Taken 09/23/15] kxjwgnft-dws-wsygn acid 0.4 mg-lycopene 300 mcg-lutein 250 mcg tablet 1 ea PO DAILY vitamin 05/03/15 [History Last Taken 09/23/15] prednisone 2.5 mg tablet 2.5 mg PO DAILY inflammation 09/03/15 [History Last Taken 09/23/15] aspirin 81 mg tablet,delayed release (Adult Aspirin Regimen) 81 mg PO DAILY HEART HEALTH 08/10/19 [History Last Taken Unknown] donepezil 10 mg tablet 10 mg PO QHS mentation 08/10/19 [History Last Taken Unknown] memantine 10 mg tablet 10 mg PO BID mentation 08/10/19 [History Last Taken Unknown] glipizide 5 mg tablet, extended release 24 hr 5 mg PO DAILY DIABETES 08/13/21 [History Last Taken Unknown] magnesium oxide 400 mg (241.3 mg magnesium) tablet 400 mg PO DAILY supplement 08/13/21 [History Last Taken Unknown] melatonin 3 mg tablet 3 mg PO QHS sleep 08/13/21 [History Last Taken Unknown] mirtazapine 30 mg tablet 30 mg PO QHS mental health 08/13/21 [History Last Taken Unknown] atorvastatin 40 mg tablet 40 mg PO QHS cholesterol 05/29/22 [History Last Taken Unknown] omeprazole 20 mg capsule,delayed release 20 mg PO DAILY 06/16/22 [History Last Taken Unknown] metoprolol tartrate 25 mg tablet 25 mg PO BID 30 days #180 tabs 07/08/22 [Rx Last Taken Unknown] apixaban 2.5 mg tablet (Eliquis) 2.5 mg PO BID #60 tabs 07/29/22 [Rx Last Taken Unknown] metoprolol tartrate 50 mg tablet 50 mg PO BID #60 tabs 09/09/22 [Rx Last Taken Unknown] Allergy/AdvReac Type Severity Reaction Status Date / Time No Known Allergies Allergy Verified 09/09/22 16:03 Family History Father Cancer Diabetes Surgical History History of corneal transplant History of prostate surgery Hx of cataract surgery Social History household members: spouse and children housing: house current occupational status: retired Smoking Status: Never smoker alcohol intake: current alcohol intake frequency: other substance use type: does not use ROS ROS ED Constitutional Constitutional ED: Denies chills or fever(s) Eyes Eyes: Denies change in vision or diplopia Cardiovascular Cardiovascular: Denies chest pain or palpitations Respiratory/Chest Respiratory/Chest: Denies cough or dyspnea Gastrointestinal Gastrointestinal: Denies abdominal pain, nausea or vomiting Genitourinary Genitourinary ED: Denies dysuria or hematuria Musculoskeletal Musculoskeletal: Denies arthralgias or back pain Integumentary Denies abscess or Abrasions Neurologic Neurologic: Denies headache(s) Psychiatric Psychiatric: Denies anxiety or depression EXAM Physical Exam Const Vital Signs: 09/09/22 16:03 09/09/22 16:21 09/09/22 16:22 Temperature 96.7 F L Temperature Source Temporal Pulse Rate 116 H 69 Respiratory Rate 14 16 Respiratory Effort Normal Non-Labored Blood Pressure 79/49 L 119/75 Blood Pressure Mean 59 89 Pulse Ox 97 98 Oxygen Delivery Method Room Air Room Air 09/09/22 16:46 09/09/22 17:02 09/09/22 18:02 Temperature Temperature Source Pulse Rate 67 63 Respiratory Rate 16 17 Respiratory Effort Blood Pressure 107/56 L 110/59 L Blood Pressure Mean 73 76 Pulse Ox 97 97 Oxygen Delivery Method Room Air Room Air Room Air 09/09/22 19:52 Temperature Temperature Source Pulse Rate 69 Respiratory Rate 16 Respiratory Effort Blood Pressure 118/74 Blood Pressure Mean Pulse Ox 98 Oxygen Delivery Method Positive well nourished General Appearance ED: NAD; Negative for pallor HEENT Reports moist mucous membranes Negative for trauma Eyes PERRL and EOMs intact bilaterally Resp normal respiratory effort and clear to auscultation bilaterally Auscultation: Negative for rales, rhonchi or wheezes Cardio regular rate and regular rhythm Back/Spine no CVA tenderness Neuro CN's II-XII intact bilaterally Psych mental status grossly normal Skin no rashes or lesions noted General Skin Exam: Negative for jaundice or pallor MDM MDM MDM Narrative Medical decision making narrative: Patient presenting with tachycardia. Apparently was in the 140s in office. Initial EKG was performed on arrival and his heart rate was atrial flutter at a rate of 141 bpm. Patient spontaneously converted into a normal sinus rhythm and is now in the 70s. This is reportedly asymptomatic. Patient has been doing well per his family. CBC shows no leukocytosis. Creatinine is near baseline. Electrolytes within normal limits. High-sensitivity troponin is 15. BNP 105. Chest x-ray my interpretation shows no acute cardiopulmonary process. Radiologist interprets this and agrees. Discussed with Dr. Krishnamurthy who recommended increasing his metoprolol to 50 mg p.o. twice daily. This was discussed with the patient's family. Patient still remains in a sinus rhythm in the 70s. Patient will follow-up with Dr. Dacosta. Return precautions discussed. Impression: 1. Paroxysmal a flutter Lab Data Attestation: I reviewed the patient's lab results. Labs: Laboratory Results - last 24 hr 09/09/22 09/09/22 09/09/22 16:42 16:42 16:42 WBC 6.4 RBC 3.61 L Hgb 10.8 L Hct 33.7 L MCV 93.4 MCH 29.9 MCHC 32.0 RDW Std Deviation 51.0 H RDW Coeff of Zak 15.0 H Plt Count 185 MPV 11.4 Immature Gran % (Auto) 0.600 Neut % (Auto) 40.0 L Lymph % (Auto) 25.4 [place] % (Auto) 33.8 H Eos % (Auto) 0.2 Baso % (Auto) 0.0 Absolute Neuts (auto) 2.6 Absolute Lymphs (auto) 1.62 Nucleated RBC % 0 Differential Comment SEE COMMENT Platelet Estimate ADEQUATE RBC Morphology N CHROM Anisocytosis RARE Macrocytosis RARE Sodium 137 Potassium 4.3 Chloride 101 Carbon Dioxide 31.0 Anion Gap 5 BUN 32 H Creatinine 1.32 H Estim Creat Clear Calc 40.98 Est GFR (MDRD) Af Amer 66 Est GFR (MDRD) Non-Af 55 L BUN/Creatinine Ratio 24.2 H Glucose 208 H Calcium 9.3 Troponin I High Sens 15 B-Natriuretic Peptide 105.2 H Radiography Diagnostic Testing: Clinical Impression(s) from Imaging Studies Chest X-Ray 09/09/22 16:48 IMPRESSION: No radiographic evidence of acute cardiopulmonary disease. Electronically Signed: Phong Brewster MD at 17:15 EST , Discharge Plan Triage Chief Complaint: Palpitations ED Provider: Jhony Mistry Dx/Rx/DC Orders Instructions: ED Atrial Flutter Prescriptions: New metoprolol tartrate 50 mg tablet 50 mg PO BID Qty: 60 0RF No Action donepezil 10 mg tablet 10 mg PO QHS memantine 10 mg tablet 10 mg PO BID aspirin [Adult Aspirin Regimen] 81 mg tablet,delayed release (DR/EC) 81 mg PO DAILY glipizide 5 mg tablet extended release 24hr 5 mg PO DAILY magnesium oxide 400 mg (241.3 mg magnesium) tablet 400 mg PO DAILY Label Comments: supplement melatonin 3 mg tablet 3 mg PO QHS Label Comments: TAKE 1 TABLET BY MOUTH at 7PM EVERY EVENING mirtazapine 30 mg tablet 30 mg PO QHS omeprazole 20 mg capsule,delayed release(DR/EC) 20 mg PO DAILY metformin 1,000 MG tablet 1,000 mg PO DAILY Label Comments: Diabetes fkfwmicn-nyq-XF-lycopen-lutein 1 EACH tablet 1 ea PO DAILY Label Comments: General health prednisone 2.5 MG tablet 2.5 mg PO DAILY Hold Instructions: Resume on 06/08/22. Label Comments: steroid atorvastatin 40 mg tablet 40 mg PO QHS metoprolol tartrate 25 mg tablet 25 mg PO BID 30 Days Qty: 180 3RF Eliquis 2.5 mg tablet 2.5 mg PO BID Qty: 60 11RF Primary Care Provider: Sampson Penny Referrals: Roland Dacosta MD [Med Staff - Active Staff] - Sampson Penny MD [Primary Care Provider] - Disposition Disposition: Home, Self Care Discharge Date/Time: 09/09/22 19:53
--- NOTE | 2022-09-09 16:48 | RAD_ITS ---
EXAM: XR CHEST, 1 VIEW CLINICAL INDICATION: chest pain TECHNIQUE: Frontal view of the chest. This report was created using bluepulse report generation technology. COMPARISON: 05/29/2022 FINDINGS: LUNGS AND PLEURAL SPACES: Unremarkable. No consolidation or edema. No pneumothorax. No effusion. HEART: Unremarkable. Cardiac silhouette not enlarged. MEDIASTINUM: Central airways and mediastinal contour are unremarkable. BONES/JOINTS: Unremarkable. SOFT TISSUES: Unremarkable. RAD/Chest 1 View (Portable) IMPRESSION: No radiographic evidence of acute cardiopulmonary disease. Electronically Signed: Phong Brewster MD at 17:15 EST ,
[2022-09-09 17:02] VITALS: BP 107/56; PULSE 67; RESP 16; O2SAT 97
[2022-09-09 17:10] LABS: Absolute Lymphocyte Count 1.62 X10^3/uL (0.83-4.51); Absolute Neutrophil Count 2.6 X10^3/uL (2.0-7.7); Eosinophil# 0.01 X10^3/uL; Eosinophils% 0.2 % (0-5); Hematocrit 33.7 % (40-54); Hemoglobin 10.8 g/dL (13.0-16.5); Lymphocyte # 1.62 X10^3/ul (0.83-4.51); Lymphocyte % 25.4 % (19-41); Mean Corpuscular Hgb 29.9 pg (27.0-32.0); Mean Corpuscular Volume 93.4 fL (80-94); Mean Platelet Vol. 11.4 fl (6.2-12.0); Monocyte# 2.15 X10^3/uL; Monocyte% 33.8 % (0-10); NRBC Flagged by Analyzer 0 % (0-5); Neutrophil # 2.55 X10^3/uL (2.7-7.7); POSITIVE DIFFERENTIAL YES; Platelet Count 185 K/mm3 (150-450); Red Blood Count 3.61 M/mm3 (4.6-6.2); White Blood Count 6.4 K/mm3 (4.4-11.0)
[2022-09-09 17:16] LABS: BNP,B-Type NATRIURETIC PEPTIDE 105.2 pg/mL (0-100)
[2022-09-09 17:28] LABS: Anion Gap 5 (5-15); BUN 32 mg/dL (7-18); BUN/Creat Ratio 24.2 RATIO (10-20); Calcium,Total 9.3 mg/dL (8.5-10.1); Chloride 101 mmol/L (98-107); Creatinine, Serum 1.32 mg/dL (0.70-1.30); EST Glomerular Filtration Rate 55 mL/min (>60); Est Glom Filt Rate - Afr Amer 66 mL/min (>60); Estimated Creatinine Clearance 40.98 ml/min; Glucose 208 mg/dL (74-106); Potassium 4.3 mmol/L (3.5-5.1); Sodium Level 137 mmol/L (136-145); Troponin-I HS 15 pg/mL (3.0-78.0)
[2022-09-09 17:30] LABS: Differential Indicated SCAN CRITERIA MET
[2022-09-09 17:44] LABS: Platelet Estimate ADEQUATE (ADEQ); Red Cell Morphology N CHROM NORMAL (NORM C&C)
[2022-09-09 17:45] LABS: Anisocytosis RARE; Macrocytosis RARE
[2022-09-09 18:02] VITALS: BP 110/59; PULSE 63; RESP 17; O2SAT 97
[2022-09-09 19:52] VITALS: BP 118/74; PULSE 69; RESP 16; O2SAT 98
== END 2022-09-09 19:53 | disposition home or self-care (01) ==
PROVIDERS: Emergency Provider Student in an Organized Health Care Education/Training Program; PCP Internal Medicine; Visit Provider Student in an Organized Health Care Education/Training Program
DX: I48.92 Unspecified atrial flutter (principal); E11.9 Type 2 diabetes mellitus without complications; R00.2 Palpitations; Z79.01 Long term (current) use of anticoagulants
CPT/HCPCS: 71045; 80048; 83880; 84484; 85025; 93005; 99284

== ENCOUNTER → 2022-10-09 | Outpatient (CLI) | payer MEDICARE, OTHER, SELFPAY ==
[2016-02-13 13:00] VITALS: BMI 25.7
[2022-10-09 15:14] LABS: Absolute Lymphocyte Count 1.94 X10^3/uL (0.83-4.51); Absolute Neutrophil Count 2.2 X10^3/uL (2.0-7.7); Eosinophil# 0.01 X10^3/uL; Eosinophils% 0.2 % (0-5); Hematocrit 34.9 % (40-54); Hemoglobin 11.4 g/dL (13.0-16.5); Lymphocyte # 1.94 X10^3/ul (0.83-4.51); Lymphocyte % 33.6 % (19-41); Mean Corp Hgb Conc 32.7 g/dL (32-36); Mean Corpuscular Hgb 30.8 pg (27.0-32.0); Mean Corpuscular Volume 94.3 fL (80-94); Mean Platelet Vol. 11.2 fl (6.2-12.0); Monocyte# 1.62 X10^3/uL; NRBC Flagged by Analyzer 0 % (0-5); Neutrophil # 2.18 X10^3/uL (2.7-7.7); Neutrophil % 37.7 % (47-70); POSITIVE DIFFERENTIAL YES; Platelet Count 169 K/mm3 (150-450); RBC Distribution Width CV 14.9 % (11.6-14.6); RBC Distribution Width SD 51.1 fl (35.1-43.9); White Blood Count 5.8 K/mm3 (4.4-11.0)
[2022-10-09 15:15] LABS: Differential Indicated SCAN CRITERIA MET
[2022-10-09 15:50] LABS: AST(SGOT) 22 U/L (15-37); Alanine Aminotransfer ALT/SGPT 43 U/L (16-61); Albumin, Serum 3.8 g/dL (3.2-5.0); Alkaline Phosphatase 136 U/L (45-117); Anion Gap 7 (5-15); BUN 36 mg/dL (7-18); BUN/Creat Ratio 31.3 RATIO (10-20); Calcium,Total 9.6 mg/dL (8.5-10.1); Chloride 103 mmol/L (98-107); Creatinine, Serum 1.15 mg/dL (0.70-1.30); EST Glomerular Filtration Rate 64 mL/min (>60); Est Glom Filt Rate - Afr Amer 77 mL/min (>60); Globulin 3.7 g/dL (2.2-4.2); Glucose 149 mg/dL (74-106); Potassium 4.1 mmol/L (3.5-5.1); Protein, Total 7.5 g/dL (6.4-8.2); Sodium Level 140 mmol/L (136-145)
[2022-10-09 16:16] LABS: Differential Comment SCANNED
== END | disposition home or self-care (01) ==
LOC: MTLAB 13:49
PROVIDERS: PCP Internal Medicine; Referring Provider Internal Medicine Rheumatology; Visit Provider Internal Medicine Rheumatology
DX: M06.00 Rheumatoid arthritis without rheumatoid factor, unspecified site (principal); E11.9 Type 2 diabetes mellitus without complications
CPT/HCPCS: 36415; 80053; 85025

== ENCOUNTER 2022-12-12 17:33 | Inpatient (IN) | payer MEDICARE, OTHER, SELFPAY ==
[2016-02-13 13:00] VITALS: BMI 25.7
[2022-12-12 17:34] VITALS: BP 119/80; PULSE 140; RESP 16; TEMP 36.6; O2SAT 90; BMI 22.7
[2022-12-12] MEDS: 0.9% Normal Saline 1,000 ML 150 ML IV (18:20)
[2022-12-12] MEDS: Metoprolol Tartrate 5 MG/5 ML Vial IV (18:20)
[2022-12-12 18:25] VITALS: BP 104/75; PULSE 126; RESP 18; O2SAT 97
--- NOTE | 2022-12-12 18:25 | RAD_ITS ---
STUDY: X-RAY CHEST REASON FOR EXAM: Male, 87 years old. Cough. TECHNIQUE: Single AP portable view of the chest. COMPARISON: September 09, 2022. FINDINGS: The lungs are clear and expanded. There is no demonstrated pleural abnormality. Normal size heart. Normal mediastinum and jatinder. Normal visualized pulmonary arteries. Normal visualized aortic arch and descending thoracic aorta. There are diffuse degenerative changes of the visualized thoracic spine. There is degenerative osteoarthritis of the bilateral shoulders. There is no demonstrated abnormality of the visualized soft tissue structures of the upper abdomen. RAD/Chest 1 View (Portable) IMPRESSION: Degenerative changes, as described above. No demonstrated acute cardiopulmonary process. No major interval change. Electronically Signed: Jason Shepherd DO at 18:46 EDT ,
--- NOTE | 2022-12-12 18:28 | EX.ED.DYSGE1 ---
HPI History of Present Illness Chief Complaint: Palpitations Detail of Chief Complaint: Increased fatigue, confusion Informant: patient and family Narrative Narrative: Patient brought in by family secondary to increased fatigue and confusion. They checked his vital signs at home and noted his heart rate was fast. He does have a history of A-fib/flutter. Patient does not know when he kicks into a fast heart rhythm. Patient's family states that he is been sleeping more than normal today and seemed intermittently confused. His quetiapine was recently increased to 2 tabs daily and they noted increased fatigue with this. They have currently tapered it back to 1 tab a day but have not noticed significant improvement in his alertness. Patient denies chest pain, shortness of breath, abdominal pain. He denies nausea or vomiting. He did have his morning medication but has not had his evening pills. 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 Obstructive sleep apnea Paroxysmal atrial flutter Personal history of immunosupression therapy Stroke/cerebrovascular accident Home Medications metformin 1,000 mg tablet 1,000 mg PO DAILY diabetes 05/03/15 [History Last Taken 09/23/15] kisfuxir-yuk-drpej acid 0.4 mg-lycopene 300 mcg-lutein 250 mcg tablet 1 ea PO DAILY vitamin 05/03/15 [History Last Taken 09/23/15] prednisone 2.5 mg tablet 2.5 mg PO DAILY inflammation 09/03/15 [History Last Taken 09/23/15] aspirin 81 mg tablet,delayed release (Adult Aspirin Regimen) 81 mg PO DAILY HEART HEALTH 08/10/19 [History Last Taken Unknown] donepezil 10 mg tablet 10 mg PO QHS mentation 08/10/19 [History Last Taken Unknown] memantine 10 mg tablet 10 mg PO BID mentation 08/10/19 [History Last Taken Unknown] glipizide 5 mg tablet, extended release 24 hr 5 mg PO DAILY DIABETES 08/13/21 [History Last Taken Unknown] magnesium oxide 400 mg (241.3 mg magnesium) tablet 400 mg PO DAILY supplement 08/13/21 [History Last Taken Unknown] melatonin 3 mg tablet 3 mg PO QHS sleep 08/13/21 [History Last Taken Unknown] mirtazapine 30 mg tablet 30 mg PO QHS mental health 08/13/21 [History Last Taken Unknown] atorvastatin 40 mg tablet 40 mg PO QHS cholesterol 05/29/22 [History Last Taken Unknown] omeprazole 20 mg capsule,delayed release 20 mg PO DAILY 06/16/22 [History Last Taken Unknown] apixaban 2.5 mg tablet (Eliquis) 2.5 mg PO BID #60 tabs 07/29/22 [Rx Last Taken Unknown] metoprolol tartrate 50 mg tablet 50 mg PO BID #180 tabs 10/22/22 [Rx Last Taken Unknown] quetiapine 25 mg tablet 25 mg PO ONCE HS 10/22/22 [History Last Taken Unknown] Allergy/AdvReac Type Severity Reaction Status Date / Time No Known Allergies Allergy Verified 12/12/22 17:35 Family History Father Cancer Diabetes Surgical History History of corneal transplant History of prostate surgery Hx of cataract surgery Social History household members: spouse and children housing: house current occupational status: retired Smoking Status: Never smoker alcohol intake: current alcohol intake frequency: other substance use type: does not use ROS ROS ED Constitutional Constitutional ED: Denies chills or fever(s) Eyes Eyes: Denies discharge from eye(s) ENT ENT ED: Denies discharge from eye(s), rhinorrhea or sore throat Cardiovascular Cardiovascular: Denies chest pain or palpitations Respiratory/Chest Respiratory/Chest: Denies cough or dyspnea Gastrointestinal Gastrointestinal: Denies abdominal pain, diarrhea, nausea or vomiting Genitourinary Genitourinary ED: Denies dysuria Musculoskeletal Musculoskeletal: Denies back pain or extremity pain Integumentary Denies Abrasions or rash Neurologic Neurologic: Reports weakness; Denies headache(s) Allergic/Immunologic Allergic/Immunologic ED: Denies lip swelling or urticaria EXAM Physical Exam Const Vital Signs: 12/12/22 17:34 12/12/22 18:17 12/12/22 18:25 Temperature 97.8 F Temperature Source Temporal Pulse Rate 140 H 126 H Respiratory Rate 16 18 Respiratory Effort Normal Non-Labored Respiratory Pattern Normal Blood Pressure 119/80 104/75 Blood Pressure Mean 93 84 Pulse Ox 90 97 Oxygen Delivery Method Room Air Room Air Positive well nourished and well developed General Appearance ED: well developed HEENT Reports normocephalic and head/scalp atraumatic Eyes PERRL and EOMs intact bilaterally Neck supple Chest Wall inspection of chest normal and palpation of chest normal Resp normal respiratory effort and clear to auscultation bilaterally Cardio Rate: tachycardic Rhythm: abnormal rhythm irregularly irregular GI normal to inspection, nondistended, normoactive bowel sounds Palpation: soft Extremity normal to inspection Neuro oriented x3 Neuro Narrative: No focal neurologic deficits. Sensorium / Orientation: alert Psych mental status grossly normal Skin no rashes or lesions noted MDM MDM MDM Narrative Medical decision making narrative: Due to concern for infection causing his symptoms sepsis work-up was initiated. Swab for COVID and influenza also obtained. Portable chest x-ray obtained to evaluate for infiltrate. Lab Data Attestation: I reviewed the patient's lab results. Labs: Laboratory Results - last 24 hr 12/12/22 12/12/22 12/12/22 18:19 18:20 18:20 WBC 6.5 RBC 3.84 L Hgb 11.9 L Hct 36.5 L MCV 95.1 H MCH 31.0 MCHC 32.6 RDW Std Deviation 48.7 H RDW Coeff of Zak 14.2 Plt Count 191 MPV 11.4 Immature Gran % (Auto) 0.800 Neut % (Auto) 50.2 Lymph % (Auto) 21.1 [place] % (Auto) 27.9 H Eos % (Auto) 0.0 Baso % (Auto) 0.0 Absolute Neuts (auto) 3.3 Absolute Lymphs (auto) 1.37 Nucleated RBC % 0 Differential Comment SEE COMMENT Atypical Lymphocytes AUTO DIFF [place] Platelet Estimate ADEQUATE RBC Morphology N CHROM Anisocytosis RARE Macrocytosis RARE Sodium 135 L Potassium 4.6 Chloride 98 Carbon Dioxide 30.0 Anion Gap 7 BUN 32 H Creatinine 1.44 H Estim Creat Clear Calc 37.86 Est GFR (MDRD) Af Amer 60 Est GFR (MDRD) Non-Af 49 L BUN/Creatinine Ratio 22.2 H Glucose 296 H Lactic Acid Calcium 9.4 Troponin I High Sens 626 H* Urine Color Yellow Urine Clarity Clear Urine pH 6.0 Ur Specific [place] 1.015 Urine Protein 30 H Urine Glucose (UA) 250 H Urine Ketones Negative Urine Occult Blood 25 H Urine Nitrite Positive H Urine Bilirubin Negative Urine Urobilinogen Normal Ur Leukocyte Esterase 25 H Urine RBC 0 SEEN Urine WBC 5-10 SEEN Ur Squamous Epith Cells 0 SEEN Urine Bacteria 1+ Urine Mucus 0 SEEN 12/12/22 18:20 WBC RBC Hgb Hct MCV MCH MCHC RDW Std Deviation RDW Coeff of Zak Plt Count MPV Immature Gran % (Auto) Neut % (Auto) Lymph % (Auto) [place] % (Auto) Eos % (Auto) Baso % (Auto) Absolute Neuts (auto) Absolute Lymphs (auto) Nucleated RBC % Differential Comment Atypical Lymphocytes Platelet Estimate RBC Morphology Anisocytosis Macrocytosis Sodium Potassium Chloride Carbon Dioxide Anion Gap BUN Creatinine Estim Creat Clear Calc Est GFR (MDRD) Af Amer Est GFR (MDRD) Non-Af BUN/Creatinine Ratio Glucose Lactic Acid 3.7 H* Calcium Troponin I High Sens Urine Color Urine Clarity Urine pH Ur Specific [place] Urine Protein Urine Glucose (UA) Urine Ketones Urine Occult Blood Urine Nitrite Urine Bilirubin Urine Urobilinogen Ur Leukocyte Esterase Urine RBC Urine WBC Ur Squamous Epith Cells Urine Bacteria Urine Mucus Radiography Chest X-Ray - ED: 1 View, Read by ED Physician, Chronic Changes and No Infiltrates Diagnostic Testing: Clinical Impression(s) from Imaging Studies Chest X-Ray 12/12/22 18:25 IMPRESSION: Degenerative changes, as described above. No demonstrated acute cardiopulmonary process. No major interval change. Electronically Signed: Jason Shepherd DO at 18:46 EDT Reading Location ID and State: [address] [place] [address] Tel [phone], Service support , EKG Initial EKG: Attestation: I personally reviewed and interpreted this EKG as follows: Interpretation: Atrial Flutter (Atrial flutter with variable block, ventricular rate 136. Lateral ST depression.) Treatment and Re-Evaluation :: Patient was initially given 5 mg of IV metoprolol along with IV fluids. Heart rate came down to 108 from 140, but is currently back up in the 120s. CBC reveals normal white count with a hemoglobin of 11.9. Chemistry studies reveal a BUN of 32 and a creatinine of 1.44. It appears his baseline is around 1.2. Troponin is elevated at 626, and patient continues to deny any chest pain or shortness of breath. My suspicion is this is a type II demand ischemia event given his RVR. Urinalysis does reveal infection with positive nitrites, 5-10 white cells, 1+ bacteria. He is given a dose of IV Rocephin. Lactic acid returns at 3.7 and patient is given additional IV fluids to equal 30 cc/kg. Swab for COVID and influenza is negative. At this time I will discuss case with hospitalist regarding admission. Discharge Plan Triage Chief Complaint: Palpitations ED Provider: Beth Coleman Dx/Rx/DC Orders Clinical Impression: UTI (urinary tract infection), Atrial flutter with rapid ventricular response, Acidosis, lactic, Elevated troponin Prescriptions: No Action donepezil 10 mg tablet 10 mg PO QHS memantine 10 mg tablet 10 mg PO BID aspirin [Adult Aspirin Regimen] 81 mg tablet,delayed release (DR/EC) 81 mg PO DAILY glipizide 5 mg tablet extended release 24hr 5 mg PO DAILY magnesium oxide 400 mg (241.3 mg magnesium) tablet 400 mg PO DAILY Label Comments: supplement melatonin 3 mg tablet 3 mg PO QHS Label Comments: TAKE 1 TABLET BY MOUTH at 7PM EVERY EVENING mirtazapine 30 mg tablet 30 mg PO QHS omeprazole 20 mg capsule,delayed release(DR/EC) 20 mg PO DAILY quetiapine 25 mg tablet 25 mg PO ONCE HS Label Comments: Take 1 tablet by mouth daily at bedtime. metoprolol tartrate 50 mg tablet 50 mg PO BID Qty: 180 3RF metformin 1,000 MG tablet 1,000 mg PO DAILY Label Comments: Diabetes nghrevlp-stp-XL-lycopen-lutein 1 EACH tablet 1 ea PO DAILY Label Comments: General health prednisone 2.5 MG tablet 2.5 mg PO DAILY Hold Instructions: Resume on 06/08/22. Label Comments: steroid atorvastatin 40 mg tablet 40 mg PO QHS Eliquis 2.5 mg tablet 2.5 mg PO BID Qty: 60 11RF Primary Care Provider: Sampson Penny Referrals: Sampson Penny MD [Primary Care Provider] - Disposition Disposition: Acute Care Hospital [facility]
[2022-12-12 18:32] LABS: Mucous, Urine 0 SEEN /hpf (<or=2+); Red Blood Cells-Urine 0 SEEN /hpf (0-5); Squamous Epithelial Cells - UA 0 SEEN /hpf (0-5)
[2022-12-12 18:35] LABS: Color, Urine Yellow (Yellow); Glucose, Dipstick 250 mg/dl (Normal); Ketone-Dipstick Negative (Negative); Leukocyte Esterase-Dipstick 25 /ul (Negative); Nitrite-Dipstick Positive (Negative); Occult Blood-Urine 25 /ul (Negative); Protein-Dipstick 30 mg/dl (Negative); Specific Gravity, Urine 1.015 (1.002-1.030); Urine Bilirubin Dipstick Negative (Negative); Urine Clarity Clear (Clear); Urine Urobilinogen Normal (Normal)
[2022-12-12 18:41] LABS: Absolute Lymphocyte Count 1.37 X10^3/uL (0.83-4.51); Absolute Neutrophil Count 3.3 X10^3/uL (2.0-7.7); Hematocrit 36.5 % (40-54); Hemoglobin 11.9 g/dL (13.0-16.5); Lymphocyte # 1.37 X10^3/ul (0.83-4.51); Lymphocyte % 21.1 % (19-41); Mean Corp Hgb Conc 32.6 g/dL (32-36); Mean Corpuscular Volume 95.1 fL (80-94); Mean Platelet Vol. 11.4 fl (6.2-12.0); Monocyte# 1.81 X10^3/uL; Monocyte% 27.9 % (0-10); NRBC Flagged by Analyzer 0 % (0-5); Neutrophil # 3.25 X10^3/uL (2.7-7.7); Neutrophil % 50.2 % (47-70); POSITIVE DIFFERENTIAL YES; Platelet Count 191 K/mm3 (150-450); RBC Distribution Width CV 14.2 % (11.6-14.6); RBC Distribution Width SD 48.7 fl (35.1-43.9); Red Blood Count 3.84 M/mm3 (4.6-6.2); White Blood Count 6.5 K/mm3 (4.4-11.0)
[2022-12-12 18:45] LABS: Differential Indicated SCAN CRITERIA MET
[2022-12-12 18:45] LABS: Bacteria 1+ /hpf (None Seen); White Blood Cells 5-10 SEEN /hpf (0-5)
[2022-12-12 19:06] LABS: Anisocytosis RARE; Macrocytosis RARE; Platelet Estimate ADEQUATE (ADEQ); Red Cell Morphology N CHROM NORMAL (NORM C&C)
[2022-12-12 19:20] LABS: Anion Gap 7 (5-15); BUN 32 mg/dL (7-18); BUN/Creat Ratio 22.2 RATIO (10-20); Calcium,Total 9.4 mg/dL (8.5-10.1); Chloride 98 mmol/L (98-107); Creatinine, Serum 1.44 mg/dL (0.70-1.30); EST Glomerular Filtration Rate 49 mL/min (>60); Est Glom Filt Rate - Afr Amer 60 mL/min (>60); Estimated Creatinine Clearance 37.86 ml/min; Glucose 296 mg/dL (74-106); Potassium 4.6 mmol/L (3.5-5.1); Sodium Level 135 mmol/L (136-145); Troponin-I HS (w/2H Reflex) 626 pg/mL (3.0-78.0)
[2022-12-12 19:21] LABS: Lactic Acid 3.7 mmol/L (0.4-1.9)
[2022-12-12] MEDS: Ceftriaxone 1 GM/50 ML BAG IV (19:35)
[2022-12-12] MEDS: 0.9% Normal Saline 1,000 ML 999 ML IV (20:15)
--- NOTE | 2022-12-12 20:20 | HP.PCM.HOS_ITS ---
[facility] - General General Date of Admission: 12/12/22 Date of Service: 12/12/22 Chief Complaint: Fatigue/confusion HPI Narrative JULIANE SANDOVAL, is a 87 M who presented to the emergency department at [facility] with increased fatigue and confusion. They checked his vital signs at home and noted that he had was tachycardic and brought him in the emergency department. He has a known history of atrial fibrillation but does not have palpitations when he is in A-fib. Over the last few days he had been sleeping more than normal and was intermittently more confused than his baseline. His son noted that most of his confusion was right after he awakened which is not atypical but it was worse than normal. His Seroquel had been increased recently and they thought maybe this was contributing to his symptoms so they have backed him off back to his baseline dose of 25 mg at at bedtime. Family has not noticed any improvement in his alertness with the reduction however its not been that long since the change in medication. Per the son the patient has had no complaints. At the time of my evaluation he denies any issues and just states he is hungry and wants food. Vital signs on presentation demonstrate a temperature of 97.8, heart rate initially was 140 but reverted into sinus rhythm and was 66 at the time of my evaluation, blood pressure 119/80, Respiratory rate is 16-20, Oxygen saturations are 97 to 100% on room air. CBC shows a normal white count without any left shift but he does have a monocytosis. Hemoglobin is 11.9 which is at his baseline. Platelet counts are normal. Chemistry shows that sodium is slightly low at 135 however the rest of electrolytes appear to be normal. Serum creatinine and BUN are elevated from baseline at 32 and 1.44 respectively (baseline serum creatinine is between 1 and 1.2). Lactic acid was elevated at 3.7 and initial troponin was 626. EKG shows atrial flutter with normal intervals and no ST-T wave changes concerning for acute ischemia. This EKG was taken prior to him reverting to normal sinus rhythm. Chest x-ray was unremarkable. FORMERLY [facility], 1928–1983 Medical History Anemia of chronic disease Cellulitis and abscess Chronic constipation Chronic rheumatic arthritis COVID-19 Dementia Diabetes mellitus, type 2 Hypoxemia MDS (myelodysplastic syndrome) Myocardial infarction due to demand ischemia Obstructive sleep apnea Paroxysmal atrial flutter Personal history of immunosupression therapy Stroke/cerebrovascular accident Home Medications metformin 1,000 mg tablet 1,000 mg PO DAILY diabetes 05/03/15 [History Last Taken 09/23/15] yjiytnga-sww-hwozy acid 0.4 mg-lycopene 300 mcg-lutein 250 mcg tablet 1 ea PO DAILY vitamin 05/03/15 [History Last Taken 09/23/15] prednisone 2.5 mg tablet 2.5 mg PO DAILY inflammation 09/03/15 [History Last Taken 09/23/15] aspirin 81 mg tablet,delayed release (Adult Aspirin Regimen) 81 mg PO DAILY HEART HEALTH 08/10/19 [History Last Taken Unknown] donepezil 10 mg tablet 10 mg PO QHS mentation 08/10/19 [History Last Taken Unknown] memantine 10 mg tablet 10 mg PO BID mentation 08/10/19 [History Last Taken Unknown] glipizide 5 mg tablet, extended release 24 hr 5 mg PO DAILY DIABETES 08/13/21 [History Last Taken Unknown] magnesium oxide 400 mg (241.3 mg magnesium) tablet 400 mg PO DAILY supplement 08/13/21 [History Last Taken Unknown] melatonin 3 mg tablet 3 mg PO QHS sleep 08/13/21 [History Last Taken Unknown] mirtazapine 30 mg tablet 30 mg PO QHS mental health 08/13/21 [History Last Taken Unknown] atorvastatin 40 mg tablet 40 mg PO QHS cholesterol 05/29/22 [History Last Taken Unknown] omeprazole 20 mg capsule,delayed release 20 mg PO DAILY 06/16/22 [History Last Taken Unknown] apixaban 2.5 mg tablet (Eliquis) 2.5 mg PO BID #60 tabs 07/29/22 [Rx Last Taken Unknown] metoprolol tartrate 50 mg tablet 50 mg PO BID #180 tabs 10/22/22 [Rx Last Taken Unknown] quetiapine 25 mg tablet 25 mg PO ONCE HS 10/22/22 [History Last Taken Unknown] Allergy/AdvReac Type Severity Reaction Status Date / Time No Known Allergies Allergy Verified 12/12/22 17:35 Family History Father Cancer Diabetes Surgical History History of corneal transplant History of prostate surgery Hx of cataract surgery Social History household members: spouse and children housing: house current occupational status: retired Smoking Status: Never smoker alcohol intake: current alcohol intake frequency: other substance use type: does not use ROS Review of Systems ROS Unobtainable: other Details: Patient unable to contribute most secondary to his dementia at baseline history from family Vital Signs Vital Signs Vital Signs: 12/12/22 17:34 12/12/22 18:17 12/12/22 18:25 Temperature 97.8 F Temperature Source Temporal Pulse Rate 140 H 126 H Respiratory Rate 16 18 Respiratory Effort Normal Non-Labored Respiratory Pattern Normal Blood Pressure 119/80 104/75 Blood Pressure Mean 93 84 Pulse Ox 90 97 Oxygen Delivery Method Room Air Room Air Weight Weight: 74.072 kg Body Mass Index (BMI) 22.7 Physical Exam Const alert, no apparent distress, average body habitus and well nourished Constitutional Narrative: Elderly white male sitting up in bed, family at bedside, patient is alert but confused oriented to self, asking for food to eat, appears comfortable and nontoxic General Appearance: cooperative HEENT normocephalic, head/scalp atraumatic and moist oral mucous membranes HEENT Narrative: Edentulous, Mallampati 2, no thrush, mild hearing loss Eyes conjunctivae normal Eyes Narrative: Patient with bilateral blindness, no scleral icterus Neck no lymphadenopathy, supple, no JVD and no carotid bruits Neck Narrative: Trachea midline, no thyroid enlargement Resp normal respiratory effort, no retractions, no use of accessory muscles and clear to auscultation bilaterally Auscultation: Negative for rales, rhonchi or wheezes Cardio regular rate, regular rhythm, S1 normal heart sound, S2 normal heart sound, no murmurs, no rub, no gallops and no clicks GI normal to inspection, nondistended, normoactive bowel sounds, soft to palpation and non-tender Extremity no clubbing, cyanosis or edema Extremity Narrative: 2+ pedal pulses Skin no rashes or lesions noted, no wounds, no jaundice, no petechiae and no mottling Skin Narrative: Some mild skin tenting with turgor assessment Neuro moves all extremities and no focal motor deficits Neuro Narrative: Cranial nerve II was abnormal with blindness however the rest cranial nerves are intact, generalized weakness proximal greater than Speech: speech normal Psych Psych Narrative: Very pleasantly confused Results Lab / Micro Data Attestation: I reviewed the patient's lab results. Result Diagrams: 12/12/22 18:20 12/12/22 18:20 Labs: Laboratory Results - last 24 hr 12/12/22 18:19: Urine Color Yellow, Urine Clarity Clear, Urine pH 6.0, Ur Specific [place] 1.015, Urine Protein 30 H, Urine Glucose (UA) 250 H, Urine Ketones Negative, Urine Occult Blood 25 H, Urine Nitrite Positive H, Urine Bilirubin Negative, Urine Urobilinogen Normal, Ur Leukocyte Esterase 25 H, Urine RBC 0 SEEN, Urine WBC 5-10 SEEN, Ur Squamous Epith Cells 0 SEEN, Urine Bacteria 1+, Urine Mucus 0 SEEN 12/12/22 18:20: WBC 6.5, RBC 3.84 L, Hgb 11.9 L, Hct 36.5 L, MCV 95.1 H, MCH 31.0, MCHC 32.6, RDW Std Deviation 48.7 H, RDW Coeff of Zak 14.2, Plt Count 191, MPV 11.4, Immature Gran % (Auto) 0.800, Neut % (Auto) 50.2, Lymph % (Auto) 21.1, [place] % (Auto) 27.9 H, Eos % (Auto) 0.0, Baso % (Auto) 0.0, Absolute Neuts (auto) 3.3, Absolute Lymphs (auto) 1.37, Nucleated RBC % 0, Differential Comment SEE COMMENT, Atypical Lymphocytes AUTO DIFF OK, Platelet Estimate ADEQUATE, RBC Morphology N CHROM, Anisocytosis RARE, Macrocytosis RARE 12/12/22 18:20: Sodium 135 L, Potassium 4.6, Chloride 98, Carbon Dioxide 30.0, Anion Gap 7, BUN 32 H, Creatinine 1.44 H, Estim Creat Clear Calc 37.86, Est GFR (MDRD) Af Amer 60, Est GFR (MDRD) Non-Af 49 L, BUN/Creatinine Ratio 22.2 H, Glucose 296 H, Calcium 9.4, Troponin I High Sens 626 H* 12/12/22 18:20: Lactic Acid 3.7 H* Micro: Microbiology 12/12/22 18:19 Nasal Secretion SARS-CoV-2 & FLU Antigen (Rapid) - Final Radiology Impression Chest X-Ray 12/12/22 18:25 IMPRESSION: Degenerative changes, as described above. No demonstrated acute cardiopulmonary process. No major interval change. Electronically Signed: Jason Shepherd DO at 18:46 EDT Reading Location ID and State: [address] [place] [address] Tel [phone], Service support , Assessment & Plan Assessment/Plan (1) UTI (urinary tract infection): (2) Atrial flutter with rapid ventricular response: (3) Acidosis, lactic: (4) Elevated troponin: (5) Myocardial infarction due to demand ischemia: (6) Toxic metabolic encephalopathy: (7) Elevated serum creatinine: (8) Type 2 diabetes mellitus with hyperglycemia: PLAN: Plan A flutter with RVR -Patient has paroxysmal atrial flutter and does not feel when he is having tachycardia -By the time of my evaluation he had reverted to normal sinus rhythm with a heart rate in the 60s to 70s. -We will repeat echocardiogram given elevated troponin -Last echo was approximately 1 year ago -Continue home metoprolol -Continue home Eliquis NSTEMI due to demand ischemia -I suspect this troponin elevation is likely related to his tachycardia and dehydration -IV fluids given -Tachycardia has resolved and patient is now in sinus rhythm -Cycle cardiac enzymes and if the above is true I suspect them to come down with time -Check echocardiogram as noted above -If cardiac enzymes trend up could consider cardiology consult and initiation of heparin drip -We will monitor Lactic acidosis -Patient with no anion gap -Likely related to utilization of metformin with elevated serum creatinine from baseline as well as decreased perfusion with RVR and dehydration -Repeat after IV fluids I do expect this to normalize Toxic/metabolic encephalopathy -Family reporting some increased fatigue and confusion -Likely related to the above plus patient appears to have UTI and has been on increased dose of Seroquel -Treat UTI -Reduce dose of Seroquel to 25 mg daily as he was on previously -If this is not effective would recommend Resporal 1 mg at at bedtime -Continue to monitor clinically -Does have dementia at baseline Urinary tract infection -UA is suggestive of UTI -Start ceftriaxone IV -Cultures pending Generalized weakness/debility -PT/OT consultation -Family does intend to take the patient home at discharge Elevated serum creatinine on CKD stage II -Baseline serum creatinine appears to be between 1 and 1.2 -Current serum creatinine 1.44 -Does not meet criteria for NOAH -Patient given 2 L IV fluid in the emergency department -We will hold off on any more supplemental IV fluid at this time and repeat in a.m. -Patient is not on any diuretics DM-2 with hyperglycemia -Blood sugar on presentation was 298 -May be elevated due to acute infection with UTI -Last hemoglobin A1c was 05/29/2022 and was 6.8 which was stable compared to his previous -Hold home glipizide and metformin -Start SSI -Accu-Cheks 3 times daily and at bedtime Dementia with behavioral disturbances -Continue donepezil -Continue memantine -Continue Seroquel however this is ineffective would recommend transition from Seroquel to Risperdal 1 mg nightly GERD -Continue PPI MDS -Appears to be stable at this time RA -Continue chronic steroids with prednisone 2.5 mg daily Anemia of chronic disease -Hemoglobin stable and actually normal at this point -Current normal value may be related to dehydration History of stroke -Continue aspirin DVT prophylaxis -Continue home Eliquis CODE STATUS -Full code as per discussion with family prior to admission Charges/Coding Visit Charges Inpatient E&M: 02762 Init Hosp L3
[2022-12-12 20:34] LABS: Reflex Troponin-HS? (from REC) Y
[2022-12-12 20:36] VITALS: BP 111/56; PULSE 65; RESP 18; TEMP 36.2; O2SAT 98
[2022-12-12 21:08] VITALS: BP 121/85; PULSE 66; RESP 16; TEMP 36.5; O2SAT 100
[2022-12-12 21:18] VITALS: BMI 23.1
[2022-12-12 21:24] LABS: Troponin-I HS 1353 pg/mL (3.0-78.0)
[2022-12-12] MEDS: MELATONIN 3 MG TABLET PO (21:55)
[2022-12-12] MEDS: QUEtiapine 25 MG Tablet PO (21:55)
[2022-12-12] MEDS: Mirtazapine 30 MG Tablet PO (21:55)
[2022-12-12 21:56] VITALS: BP 121/85; PULSE 66
[2022-12-12] MEDS: Donepezil HCl 10 MG Tablet PO (21:56)
[2022-12-12] MEDS: Memantine Hydrochloride 10 MG Tablet PO (21:56)
[2022-12-12] MEDS: Metoprolol Tartrate 50 MG Tablet PO (21:56)
[2022-12-12] MEDS: Atorvastatin Calcium 40 MG Tablet PO (21:56)
[2022-12-12] MEDS: APIXABAN 2.5 MG TABLET (WCH) PO (21:56)
[2022-12-12 22:14] VITALS: BP 121/85; PULSE 66
[2022-12-12] MEDS: Digoxin 250 MCG/ML Ampul IV (22:14)
[2022-12-12 22:34] LABS: Reflex Lactate? Y
[2022-12-12 23:31] LABS: Troponin-I HS 1564 pg/mL (3.0-78.0)
[2022-12-12 23:47] LABS: Lactic Acid 2.3 mmol/L (0.4-1.9)
[2022-12-13] VITALS (12 sets, daily range): BP systolic 111–129; BP diastolic 57–85; PULSE 62–102; RESP 16–18; TEMP 36.8–37.1; O2SAT 93–96; BMI 22.6
[2022-12-13 00:06] LABS: Bedside Glucose 260 mg/dL (74-106)
[2022-12-13 03:53] LABS: Absolute Lymphocyte Count 1.98 X10^3/uL (0.83-4.51); Absolute Neutrophil Count 2.7 X10^3/uL (2.0-7.7); Hemoglobin 9.7 g/dL (13.0-16.5); Lymphocyte # 1.98 X10^3/ul (0.83-4.51); Lymphocyte % 28.3 % (19-41); Mean Corp Hgb Conc 32.3 g/dL (32-36); Mean Corpuscular Hgb 30.8 pg (27.0-32.0); Mean Corpuscular Volume 95.2 fL (80-94); Mean Platelet Vol. 11.4 fl (6.2-12.0); Monocyte# 2.27 X10^3/uL; Monocyte% 32.4 % (0-10); NRBC Flagged by Analyzer 0 % (0-5); Neutrophil # 2.72 X10^3/uL (2.7-7.7); Neutrophil % 38.9 % (47-70); POSITIVE DIFFERENTIAL YES; Platelet Count 160 K/mm3 (150-450); RBC Distribution Width CV 14.3 % (11.6-14.6); RBC Distribution Width SD 49.1 fl (35.1-43.9); Red Blood Count 3.15 M/mm3 (4.6-6.2)
[2022-12-13 04:09] LABS: International Normalized Ratio 1.3; Prothrombin Time (Protime)PT. 15.9 SECONDS (11.7-14.9)
[2022-12-13 04:10] LABS: Partial Thromboplast Time 39.7 Seconds (24.1-36.2)
[2022-12-13 04:26] LABS: AST(SGOT) 18 U/L (15-37); Alanine Aminotransfer ALT/SGPT 21 U/L (16-61); Albumin, Serum 3.1 g/dL (3.2-5.0); Alkaline Phosphatase 104 U/L (45-117); Anion Gap 1 (5-15); BUN 33 mg/dL (7-18); BUN/Creat Ratio 24.8 RATIO (10-20); Calcium,Total 8.4 mg/dL (8.5-10.1); Chloride 109 mmol/L (98-107); Creatinine, Serum 1.33 mg/dL (0.70-1.30); EST Glomerular Filtration Rate 54 mL/min (>60); Est Glom Filt Rate - Afr Amer 65 mL/min (>60); Estimated Creatinine Clearance 41.68 ml/min; Globulin 3.1 g/dL (2.2-4.2); Glucose 85 mg/dL (74-106); Magnesium 2.2 mg/dL (1.6-2.6); Phosphorus 3.2 mg/dL (2.5-4.9); Protein, Total 6.2 g/dL (6.4-8.2); Sodium Level 141 mmol/L (136-145); Thyroid Stim Hormone (TSH) 1.27 uIU/mL (0.358-3.74)
[2022-12-13 04:27] LABS: Differential Indicated SCAN CRITERIA MET
[2022-12-13] MEDS: Heparin Injection (Vial) 5,000 UNIT/ML VIAL 4000 UNIT IV (04:32)
[2022-12-13] MEDS: HEPARIN/D5w 25,000 UNITS 25,000 UNITS/250 ML IV.SOLN. 9 UNITS CONT INF (04:35)
[2022-12-13 05:04] LABS: Macrocytosis RARE
[2022-12-13 07:20] LABS: Bedside Glucose 86 mg/dL (74-106)
--- NOTE | 2022-12-13 07:41 | PN.HOSP_ITS ---
Reason for Visit Reason for Visit: Diagnoses Type 2 diabetes mellitus with hyperglycemia (12/12/22) Acidosis, unspecified (12/12/22) Other toxic encephalopathy (12/12/22) Myocardial infarction type 2 (12/12/22) Unspecified atrial flutter (12/12/22) Urinary tract infection, site not specified (12/12/22) Other specified abnormalities of plasma proteins (12/12/22) Other specified abnormal findings of blood chemistry (12/12/22) Follow-up for acute encephalopathy, A-fib with RVR. Objective Data Objective Data Vital Signs: Vital Signs Temp Pulse Resp BP Pulse Ox O2 Del Method 98.6 F 65 18 124/67 H 94 Room Air 12/13/22 03:25 12/13/22 03:25 12/13/22 03:25 12/13/22 03:25 12/13/22 07:21 12/13/22 07:21 Oxygen Delivery Method Room Air Weight: 162 lb 7.691 oz Body Mass Index (BMI) 22.6 Intake & Output: Intake and Output for Last 24 Hours 12/11/22 12/12/22 12/13/22 23:59 23:59 23:59 Intake Total 0 / 2690 880 / 880 Balance 0 / 2690 880 / 880 Lab / Micro Data Result Diagrams: 12/13/22 03:25 12/13/22 03:25 Labs: Laboratory Results - last 24 hr 12/12/22 18:19: Urine Color Yellow, Urine Clarity Clear, Urine pH 6.0, Ur Specific [place] 1.015, Urine Protein 30 H, Urine Glucose (UA) 250 H, Urine Ketones Negative, Urine Occult Blood 25 H, Urine Nitrite Positive H, Urine Bilirubin Negative, Urine Urobilinogen Normal, Ur Leukocyte Esterase 25 H, Urine RBC 0 SEEN, Urine WBC 5-10 SEEN, Ur Squamous Epith Cells 0 SEEN, Urine Bacteria 1+, Urine Mucus 0 SEEN 12/12/22 18:20: WBC 6.5, RBC 3.84 L, Hgb 11.9 L, Hct 36.5 L, MCV 95.1 H, MCH 31.0, MCHC 32.6, RDW Std Deviation 48.7 H, RDW Coeff of Zak 14.2, Plt Count 191, MPV 11.4, Immature Gran % (Auto) 0.800, Neut % (Auto) 50.2, Lymph % (Auto) 21.1, [place] % (Auto) 27.9 H, Eos % (Auto) 0.0, Baso % (Auto) 0.0, Absolute Neuts (auto) 3.3, Absolute Lymphs (auto) 1.37, Nucleated RBC % 0, Differential Comment SEE COMMENT, Atypical Lymphocytes AUTO DIFF OK, Platelet Estimate ADEQUATE, RBC Morp hology N CHROM, Anisocytosis RARE, Macrocytosis RARE 12/12/22 18:20: Sodium 135 L, Potassium 4.6, Chloride 98, Carbon Dioxide 30.0, Anion Gap 7, BUN 32 H, Creatinine 1.44 H, Estim Creat Clear Calc 37.86, Est GFR (MDRD) Af Amer 60, Est GFR (MDRD) Non-Af 49 L, BUN/Creatinine Ratio 22.2 H, Glucose 296 H, Calcium 9.4, Troponin I High Sens 626 H* 12/12/22 18:20: Lactic Acid 3.7 H* 12/12/22 20:44: Troponin I High Sens 1353 H* 12/12/22 22:19: POC Glucose 260 H 12/12/22 22:23: Troponin I High Sens 1564 H* 12/12/22 22:46: Lactic Acid 2.3 H* 12/13/22 03:25: WBC 7.0, RBC 3.15 L, Hgb 9.7 L, Hct 30.0 L, MCV 95.2 H, MCH 30.8, MCHC 32.3, RDW Std Deviation 49.1 H, RDW Coeff of Zak 14.3, Plt Count 160, MPV 11.4, Immature Gran % (Auto) 0.400, Neut % (Auto) 38.9 L, Lymph % (Auto) 28.3, [place] % (Auto) 32.4 H, Eos % (Auto) 0.0, Baso % (Auto) 0.0, Absolute Neuts (auto) 2.7, Absolute Lymphs (auto) 1.98, Nucleated RBC % 0, Macrocytosis RARE 12/13/22 03:25: Sodium 141, Potassium 4.0, Chloride 109 H, Carbon Dioxide 31.0, Anion Gap 1 L, BUN 33 H, Creatinine 1.33 H, Estim Creat Clear Calc 41.68, Est GFR (MDRD) Af Amer 65, Est GFR (MDRD) Non-Af 54 L, BUN/Creatinine Ratio 24.8 H, Glucose 85, Calcium 8.4 L, Phosphorus 3.2, Magnesium 2.2, Total Bilirubin 0.40, AST 18, ALT 21, Alkaline Phosphatase 104, Total Protein 6.2 L, Albumin 3.1 L, Globulin 3.1, Albumin/Globulin Ratio 1.0, TSH 1.27 12/13/22 03:25: PT 15.9 H, INR 1.3, APTT 39.7 H 12/13/22 07:00: POC Glucose 86 Micro: Microbiology 12/12/22 18:19 Nasal Secretion SARS-CoV-2 & FLU Antigen (Rapid) - Final Radiography Diagnostic Testing: Radiology Impression Chest X-Ray 12/12/22 18:25 IMPRESSION: Degenerative changes, as described above. No demonstrated acute cardiopulmonary process. No major interval change. Electronically Signed: Jason Shepherd DO at 18:46 EDT Reading Location ID and State: [address] [place] [address] Tel [phone], Service support , Physical Exam Narrative Seen and examined. marketing designer reviewed. Patient converted to sinus rhythm. Denies acute burning micturition, hesitancy. Micturition or new blood intact symptoms. 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 Patient does not remember ear and month but remember his age and date of . Physical exam General: Alert, Oriented to time but patient can be disoriented due to blind, Cooperative HEENT: Legally blind. Patient does not have perception of hand movement. Atraumatic, PERRLA, EOMI, Normocephalic Oral: No Gingival or Mucosal Lesions/ Ulcerations Neck: Supple, No JVD, Negative Carotid Bruits Lungs: Air entry diminished in bilateral lung bases. No crepitation/rhonchi Cardiovascular: Regular rate, Regular Rhythm, Normal S1, Normal S2, systolic murmur LLSB and right second ICS. Abdomen: Bowel Sounds Present, Soft, Non Tender, Non-Distended : No renal angle tenderness. No suprapubic tenderness. Extremities: No edema, Capillary Refill Less than 3 Seconds Skin: No rashes, No breakdown Musculoskeletal: No Tenderness to Palpation of Joints or Extremities. Muscle strength 5/5 at major joints. Neurological: Cranial nerves II-XII grossly intact, DTR 2+/4 and Symmetrical, Neuro grossly intact Psych/Mental Status: Normal Affect, Appropriate. Assessment & Plan Assessment/Plan (1) UTI (urinary tract infection): (2) Atrial flutter with rapid ventricular response: (3) Myocardial infarction due to demand ischemia: (4) Toxic metabolic encephalopathy: (5) Type 2 diabetes mellitus with hyperglycemia: PLAN: Plan 87-year-old gentleman was brought to ED for increased fatigue and confusion, found to have tachycardia, atrial flutter with RVR. Over the last few days patient also has been more somnolent fatigue confused and was attributed to recent increase of Seroquel therefore 8 was backed off to baseline dose of 25 mg at bedtime but family did not notice improvement in alertness A flutter with RVR: Patient is being admitted in PCU. Converted to sinus rhythm in the morning. Twelve-lead EKG reviewed sinus bradycardia 59 bpm.2D echo is ordered. Patient on metoprolol and Eliquis. -Patient has paroxysmal atrial flutter and does not feel when he is having tachycardia -By the time of my evaluation he had reverted to normal sinus rhythm with a heart rate in the 60s to 70s. -We will repeat echocardiogram given elevated troponin -Last echo was approximately 1 year ago -Continue home metoprolol -Continue home Eliquis NSTEMI due to demand ischemia/myocardial injury from A-fib RVR: Patient denies chest pain. Serial troponins increased 626, 1353 and 1564. Patient also has lactic acidosis may be due to metformin. Patient has not had signs and symptoms of sepsis. Photonics Engineering Technologist is consulted Toxic/metabolic encephalopathy probably due to polypharmacy/Seroquel -Family reporting some increased fatigue and confusion - Patient looks back to normal baseline. He is disoriented to time only probably due to blindness. Family denies dementia at baseline. Possible Staph aureus related cystitis:Patient does not have lower urinary tract symptoms of dysuria or new symptom. UA also has benign WBC 5-10 cells, LE 25 nitrite negative. Preliminary urine culture shows staph species more than 100,000 colonies. Continue IV ceftriaxone. 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 -Does not meet criteria for NOAH. Patient was given IV fluid in emergency room. Discontinued. DM-2 with hyperglycemia -Blood sugar on presentation was 298 -May be elevated due to acute infection with UTI -Last hemoglobin A1c was 05/29/2022 and was 6.8 which was stable compared to his previous -Hold home glipizide and metformin -Start SSI -Accu-Cheks 3 times daily and at bedtime Dementia with behavioral disturbances -Continue donepezil -Continue memantine -Continue Seroquel however this is ineffective would recommend transition from Seroquel to Risperdal 1 mg nightly GERD -Continue PPI MDS -Appears to be stable at this time RA -Continue chronic steroids with prednisone 2.5 mg daily Anemia of chronic disease -Hemoglobin stable and actually normal at this point -Current normal value may be related to dehydration History of stroke -Continue aspirin DVT prophylaxis -Continue home Eliquis CODE STATUS -Full code as per discussion with family prior to admission Charges/Coding Visit Charges Inpatient E&M: 24117 Subs Hosp L2
[2022-12-13] MEDS: Multivitamins,Ther W-Minerals Tablet 1 TABLET PO (08:33)
[2022-12-13] MEDS: predniSONE 5 MG Tablet 2.5 MG PO (08:33)
[2022-12-13] MEDS: Aspirin E.C. 81 MG Tablet PO (08:38)
[2022-12-13] MEDS: Magnesium Chloride 64 MG Delay Rel.Tablet 128 MG PO (08:38)
[2022-12-13] MEDS: Memantine Hydrochloride 10 MG Tablet PO ×2 (08:40→22:23)
[2022-12-13] MEDS: Pantoprazole Sodium 20 MG Tablet PO (08:40)
[2022-12-13] MEDS: Metoprolol Tartrate 50 MG Tablet PO ×2 (08:50→22:23)
--- NOTE | 2022-12-13 10:18 | CON.PCM.CA_ITS ---
Assessment & Plan Assessment/Plan (1) Myocardial infarction due to demand ischemia: PLAN: Patient most likely has elevated troponins because of demand ischemia. In view of his overall condition and comorbidities, recommend continuing medical management. (2) Paroxysmal atrial flutter: PLAN: Presently in normal sinus rhythm. Continue beta-blockers. Resume apixaban. (3) UTI (urinary tract infection): PLAN: As per internal medicine. Started on ceftriaxone. (4) Type 2 diabetes mellitus with hyperglycemia: PLAN: As per internal medicine. (5) Acidosis, lactic: PLAN: Likely secondary to #3 above. Manage as per internal medicine. (6) History of dementia: HPI Consult Data Date of Consult: 12/13/22 HPI Narrative Reason for Consultation: Increased troponin HPI Narrative: The patient has past medical history significant for dementia, diabetes mellitus, dyslipidemia and paroxysmal atrial fibrillation/flutter. He presented to the hospital with complaints of generalized weakness, fatigue and increasing confusion. He has been admitted with a diagnosis of a UTI and started on antibiotics. He was also noted to be in atrial flutter with rapid ventricular response upon admission. Troponins were done. These were noted to be elevated. Patient denies any chest pains or shortness of breath. Denies any complaints. [facility] Medical History (Updated 12/13/22 @ 10:[address] Carol Jackson MD) Anemia of chronic disease Cellulitis and abscess Chronic constipation Chronic rheumatic arthritis COVID-19 Dementia Diabetes mellitus, type 2 Hypoxemia MDS (myelodysplastic syndrome) Myocardial infarction due to demand ischemia Obstructive sleep apnea Paroxysmal atrial flutter Personal history of immunosupression therapy Stroke/cerebrovascular accident Home Medications metformin 1,000 mg tablet 1,000 mg PO DAILY diabetes 05/03/15 [History Last Taken 09/23/15] nmeenful-gha-amghx acid 0.4 mg-lycopene 300 mcg-lutein 250 mcg tablet 1 ea PO DAILY vitamin 05/03/15 [History Last Taken 09/23/15] prednisone 2.5 mg tablet 2.5 mg PO DAILY inflammation 09/03/15 [History Last Taken 09/23/15] aspirin 81 mg tablet,delayed release (Adult Aspirin Regimen) 81 mg PO DAILY HEART HEALTH 08/10/19 [History Last Taken Unknown] donepezil 10 mg tablet 10 mg PO QHS mentation 08/10/19 [History Last Taken Unknown] memantine 10 mg tablet 10 mg PO BID mentation 08/10/19 [History Last Taken Unknown] glipizide 5 mg tablet, extended release 24 hr 5 mg PO DAILY DIABETES 08/13/21 [H istory Last Taken Unknown] magnesium oxide 400 mg (241.3 mg magnesium) tablet 400 mg PO DAILY supplement 08/13/21 [History Last Taken Unknown] melatonin 3 mg tablet 3 mg PO QHS sleep 08/13/21 [History Last Taken Unknown] mirtazapine 30 mg tablet 30 mg PO QHS mental health 08/13/21 [History Last Taken Unknown] atorvastatin 40 mg tablet 40 mg PO QHS cholesterol 05/29/22 [History Last Taken Unknown] omeprazole 20 mg capsule,delayed release 20 mg PO DAILY Check with primary doctor 06/16/22 [History Last Taken Unknown] apixaban 2.5 mg tablet (Eliquis) 2.5 mg PO BID #60 tabs 07/29/22 [Rx Last Taken Unknown] metoprolol tartrate 50 mg tablet 50 mg PO BID #180 tabs 10/22/22 [Rx Last Taken Unknown] quetiapine 25 mg tablet 25 mg PO ONCE HS Check with primary doctor 10/22/22 [History Last Taken Unknown] Allergy/AdvReac Type Severity Reaction Status Date / Time No Known Allergies Allergy Verified 12/12/22 17:35 Family History Father Cancer Diabetes Surgical History History of corneal transplant History of prostate surgery Hx of cataract surgery Social History household members: spouse and children housing: house current occupational status: retired Smoking Status: Never smoker alcohol intake: current alcohol intake frequency: other substance use type: does not use Physical Exam Narrative Comfortable. No distress. Heart sounds 1 and 2 are normal. Chest clear to auscultation bilaterally. Patient is alert awake. No ankle edema noted. Risk Stratification Risk Stratification Applicable: No Objective Data Vital Signs: Vital Signs Temp Pulse Resp BP Pulse Ox O2 Del Method 98.7 F 69 18 111/63 94 Room Air 12/13/22 09:12 12/13/22 09:12 12/13/22 09:12 12/13/22 09:12 12/13/22 09:12 12/13/22 09:12 Oxygen Delivery Method Room Air Weight: 162 lb 7.691 oz Body Mass Index (BMI) 22.6 Intake & Output: Intake and Output for Last 24 Hours 12/11/22 12/12/22 12/13/22 23:59 23:59 23:59 Intake Total 2049 / 2689 880 / 880 Balance 2049 880 / 880 Lab / Micro Data Attestation: I reviewed the patient's lab results. Result Diagrams: 12/13/22 03:25 12/13/22 03:25 Labs: Laboratory Results - last 24 hr 12/12/22 18:19: Urine Color Yellow, Urine Clarity Clear, Urine pH 6.0, Ur Specific [place] 1.015, Urine Protein 30 H, Urine Glucose (UA) 250 H, Urine Ketones Negative, Urine Occult Blood 25 H, Urine Nitrite Positive H, Urine Bilirubin Negative, Urine Urobilinogen Normal, Ur Leukocyte Esterase 25 H, Urine RBC 0 SEEN, Urine WBC 5-10 SEEN, Ur Squamous Epith Cells 0 SEEN, Urine Bacteria 1+, Urine Mucus 0 SEEN 12/12/22 18:20: WBC 6.5, RBC 3.84 L, Hgb 11.9 L, Hct 36.5 L, MCV 95.1 H, MCH 31.0, MCHC 32.6, RDW Std Deviation 48.7 H, RDW Coeff of Zak 14.2, Plt Count 191, MPV 11.4, Immature Gran % (Auto) 0.800, Neut % (Auto) 50.2, Lymph % (Auto) 21.1, [place] % (Auto) 27.9 H, Eos % (Auto) 0.0, Baso % (Auto) 0.0, Absolute Neuts (auto) 3.3, Absolute Lymphs (auto) 1.37, Nucleated RBC % 0, Differential Comment SEE COMMENT, Atypical Lymphocytes AUTO DIFF OK, Platelet Estimate ADEQUATE, RBC Morphology N CHROM, Anisocytosis RARE, Macrocytosis RARE 12/12/22 18:20: Sodium 135 L, Potassium 4.6, Chloride 98, Carbon Dioxide 30.0, Anion Gap 7, BUN 32 H, Creatinine 1.44 H, Estim Creat Clear Calc 37.86, Est GFR (MDRD) Af Amer 60, Est GFR (MDRD) Non-Af 49 L, BUN/Creatinine Ratio 22.2 H, Glucose 296 H, Calcium 9.4, Troponin I High Sens 626 H* 12/12/22 18:20: Lactic Acid 3.7 H* 12/12/22 20:44: Troponin I High Sens 1353 H* 12/12/22 22:19: POC Glucose 260 H 12/12/22 22:23: Troponin I High Sens 1564 H* 12/12/22 22:46: Lactic Acid 2.3 H* 12/13/22 03:25: WBC 7.0, RBC 3.15 L, Hgb 9.7 L, Hct 30.0 L, MCV 95.2 H, MCH 30.8, MCHC 32.3, RDW Std Deviation 49.1 H, RDW Coeff of Zak 14.3, Plt Count 160, MPV 11.4, Immature Gran % (Auto) 0.400, Neut % (Auto) 38.9 L, Lymph % (Auto) 28.3, [place] % (Auto) 32.4 H, Eos % (Auto) 0.0, Baso % (Auto) 0.0, Absolute Neuts (auto) 2.7, Absolute Lymphs (auto) 1.98, Nucleated RBC % 0, Macrocytosis RARE 12/13/22 03:25: Sodium 141, Potassium 4.0, Chloride 109 H, Carbon Dioxide 31.0, Anion Gap 1 L, BUN 33 H, Creatinine 1.33 H, Estim Creat Clear Calc 41.68, Est GFR (MDRD) Af Amer 65, Est GFR (MDRD) Non-Af 54 L, BUN/Creatinine Ratio 24.8 H, Glucose 85, Calcium 8.4 L, Phosphorus 3.2, Magnesium 2.2, Total Bilirubin 0.40, AST 18, ALT 21, Alkaline Phosphatase 104, Total Protein 6.2 L, Albumin 3.1 L, Globulin 3.1, Albumin/Globulin Ratio 1.0, TSH 1.27 12/13/22 03:25: PT 15.9 H, INR 1.3, APTT 39.7 H 12/13/22 07:00: POC Glucose 86 Micro: Microbiology 12/12/22 18:19 Urine, Clean Catch Urine Culture - Preliminary Staphylococcus species 12/12/22 18:19 Nasal Secretion SARS-CoV-2 & FLU Antigen (Rapid) - Final Rhythm Strip Rhythm Strip: Sinus Rhythm Cardiology Labs/Tests 12/12/22 18:19: Urine Color Yellow, Urine Clarity Clear, Urine pH 6.0, Ur Specific [place] 1.015, Urine Protein 30 H, Urine Glucose (UA) 250 H, Urine Ketones Negative, Urine Occult Blood 25 H, Urine Nitrite Positive H, Urine Bilirubin Negative, Urine Urobilinogen Normal, Ur Leukocyte Esterase 25 H, Urine RBC 0 SEEN, Urine WBC 5-10 SEEN 12/12/22 18:20: WBC 6.5, RBC 3.84 L, Hgb 11.9 L, Hct 36.5 L, MCV 95.1 H, MCH 31.0, MCHC 32.6, Plt Count 191, MPV 11.4, Immature Gran % (Auto) 0.800, Neut % (Auto) 50.2, Lymph % (Auto) 21.1, [place] % (Auto) 27.9 H, Eos % (Auto) 0.0, Baso % (Auto) 0.0, Absolute Neuts (auto) 3.3, Nucleated RBC % 0 12/12/22 18:20: Sodium 135 L, Potassium 4.6, Chloride 98, Carbon Dioxide 30.0, Anion Gap 7, BUN 32 H, Creatinine 1.44 H, Est GFR (MDRD) Af Amer 60, Est GFR ( MDRD) Non-Af 49 L, BUN/Creatinine Ratio 22.2 H, Glucose 296 H, Calcium 9.4 12/12/22 18:20: Lactic Acid 3.7 H* 12/12/22 22:46: Lactic Acid 2.3 H* 12/13/22 03:25: WBC 7.0, RBC 3.15 L, Hgb 9.7 L, Hct 30.0 L, MCV 95.2 H, MCH 30.8, MCHC 32.3, Plt Count 160, MPV 11.4, Immature Gran % (Auto) 0.400, Neut % (Auto) 38.9 L, Lymph % (Auto) 28.3, [place] % (Auto) 32.4 H, Eos % (Auto) 0.0, Baso % (Auto) 0.0, Absolute Neuts (auto) 2.7, Nucleated RBC % 0 12/13/22 03:25: Sodium 141, Potassium 4.0, Chloride 109 H, Carbon Dioxide 31.0, Anion Gap 1 L, BUN 33 H, Creatinine 1.33 H, Est GFR (MDRD) Af Amer 65, Est GFR (MDRD) Non-Af 54 L, BUN/Creatinine Ratio 24.8 H, Glucose 85, Calcium 8.4 L, Phosphorus 3.2, Magnesium 2.2, Total Bilirubin 0.40 12/13/22 03:25: PT 15.9 H, INR 1.3, APTT 39.7 H Rhythm: Normal sinus rhythm to sinus bradycardia this morning EKG: EKG upon presentation showed atrial flutter with rapid ventricular response. ECHO: Stress Test: Cardiac Cath: PCI: CT Surgery: Holter monitor: EPS: PPM: CXR: Chest CT Scan: Radiography Diagnostic Testing: Radiology Impression Chest X-Ray 12/12/22 18:25 IMPRESSION: Degenerative changes, as described above. No demonstrated acute cardiopulmonary process. No major interval change. Electronically Signed: Jason Shepherd DO at 18:46 EDT Reading Location ID and State: [address] [place] [address] Tel [phone], Service support ,
--- NOTE | 2022-12-13 10:27 | ECHOL_ITS ---
Reason For Study: S/P [place] Procedure This was a limited 2D transthoracic echocardiogram. Exam performed portable in patient room. Left Ventricle Moderate concentric left ventricular hypertrophy. Normal LV size. The left ventricular ejection fraction is 50 %. LV function assessment likely affected by rhythm. Patient in atrial fibrillation with rapid ventricular response. Right Ventricle Normal RV size. Normal systolic function. Atria The left and right atria are normal. Mitral Valve The mitral valve is structurally normal. No prolapse or stenosis seen. Tricuspid Valve Pulmonary artery systolic pressure is 44 mmHg. Mild pulmonary hypertension. Moderate (2+) tricuspid valve insufficiency. Aortic Valve Normal aortic valve. Pulmonic Valve The pulmonic valve is not well visualized. Great Vessels Normal sized aortic root. Pericardium/Pleural No pericardial effusion. MMode/2D Measurements & Calculations LVIDd: 4.4 cm IVSd: 1.5 cm LAV(MOD-sp4): 53.2 ml LVIDs: 3.7 cm LVPWd: 1.2 cm FS: 17.4 % LVAd ap4: 26.2 cm2 SV(MOD-sp4): 34.5 ml SV(sp4-el): 36.6 ml LVLd ap4: 7.0 cm EDV(MOD-sp4): 81.5 ml EDV(sp4-el): 83.1 ml LVAs ap4: 17.6 cm2 LVLs ap4: 5.6 cm ESV(MOD-sp4): 47.1 ml ESV(sp4-el): 46.6 ml EF(MOD-sp4): 42.3 % EF(sp4-el): 44.0 % LA A4 area: 19.2 cm2 RA A4 area: 17.5 cm2 Doppler Measurements & Calculations TR max kyle: 311.4 cm/sec TR max P.8 mmHg ECHO/Echo, Limited Study Interpretation Summary Moderate concentric left ventricular hypertrophy. The left ventricular ejection fraction is 50 %. LV function assessment likely affected by rhythm. Patient in atrial fibrillatio n with rapid ventricular response. Moderate (2+) tricuspid valve insufficiency Mild pulmonary hypertension. . Ordering Physician: Carol Jackson Referring Physician: MD Luis Penny Performed By: Monika Fu RCS
[2022-12-13 10:45] LABS: Partial Thromboplast Time 78.6 Seconds (24.1-36.2)
[2022-12-13] MEDS: Insulin Lispro 100 UNIT/ML INSULN.PEN SC (11:05)
[2022-12-13 12:01] LABS: Bedside Glucose 165 mg/dL (74-106)
[2022-12-13] MEDS: 0.9% Saline Lock 10 ML Syringe IV (12:30)
[2022-12-13] MEDS: APIXABAN 2.5 MG TABLET (WCH) PO ×2 (12:30→22:23)
[2022-12-13 16:45] LABS: Bedside Glucose 133 mg/dL (74-106)
[2022-12-13] MEDS: Donepezil HCl 10 MG Tablet PO (22:22)
[2022-12-13] MEDS: MELATONIN 3 MG TABLET PO (22:23)
[2022-12-13] MEDS: Mirtazapine 30 MG Tablet PO (22:24)
[2022-12-13] MEDS: Atorvastatin Calcium 80 MG Tablet PO (22:29)
[2022-12-13] MEDS: QUEtiapine 25 MG Tablet PO (22:29)
[2022-12-13] MEDS: Ceftriaxone 1 GM/50 ML BAG IV (22:29)
[2022-12-13 23:00] LABS: Bedside Glucose 124 mg/dL (74-106)
[2022-12-14] VITALS (9 sets, daily range): BP systolic 101–122; BP diastolic 57–81; PULSE 61–140; RESP 15–18; TEMP 36.7–37.1; O2SAT 93–99; BMI 21.5
[2022-12-14 06:31] LABS: Bedside Glucose 141 mg/dL (74-106)
--- NOTE | 2022-12-14 08:10 | PCM.PN.HOSP ---
Reason for Visit Reason for Visit: Diagnoses Type 2 diabetes mellitus with hyperglycemia (12/12/22) Acidosis, unspecified (12/12/22) Other toxic encephalopathy (12/12/22) Myocardial infarction type 2 (12/12/22) Unspecified atrial flutter (12/12/22) Urinary tract infection, site not specified (12/12/22) Other specified abnormalities of plasma proteins (12/12/22) Other specified abnormal findings of blood chemistry (12/12/22) Personal history of other mental and behavioral disorders (12/12/22) Follow-up for paroxysmal A-fib with RVR converted to sinus rhythm. Elevated troponins. Acute encephalopathy. Objective Data Objective Data Vital Signs: Vital Signs Temp Pulse Resp BP Pulse Ox O2 Del Method 98.7 F 110 H 15 102/71 93 Room Air 12/14/22 04:30 12/14/22 04:30 12/14/22 04:30 12/14/22 04:30 12/14/22 07:07 12/14/22 07:07 Oxygen Delivery Method Room Air Weight: 154 lb 5.177 oz Body Mass Index (BMI) 21.5 Intake & Output: Intake and Output for Last 24 Hours 12/12/22 12/13/22 12/14/22 23:59 23:59 23:59 Intake Total 2049 / 2690 1745.45 / 1745.45 100 / 100 Output Total 1100 / 1100 1300 / 1300 Balance 0 / 2690 645.45 / 645.45 -1200 / -1200 Lab / Micro Data Result Diagrams: 12/13/22 03:25 12/13/22 03:25 Labs: Laboratory Results - last 24 hr 12/13/22 10:25: APTT 78.6 H 12/13/22 10:59: POC Glucose 165 H 12/13/22 15:53: POC Glucose 133 H 12/13/22 22:25: POC Glucose 124 H 12/14/22 06:11: POC Glucose 141 H Micro: Microbiology 12/12/22 18:19 Urine, Clean Catch Urine Culture - Preliminary Staphylococcus species 12/12/22 18:19 Nasal Secretion SARS-CoV-2 & FLU Antigen (Rapid) - Final Rhythm Strip Rhythm Strip: Sinus Rhythm Physical Exam Narrative Seen and examined. automobile parker reviewed. Patient is sinus rhythm. Heart rate 130s to 140s per minute. Denies acute burning micturition, hesitancy or new blood intact symptoms. 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 Physical exam General: Alert, Oriented to time but patient can be disoriented due to blind, Cooperative HEENT: Legally blind. Patient does not have perception of hand movement. Atraumatic, PERRLA, EOMI, Normocephalic Oral: No Gingival or Mucosal Lesions/ Ulcerations Neck: Supple, No JVD, Negative Carotid Bruits Lungs: Air entry diminished in bilateral lung bases. No crepitation/rhonchi Cardiovascular: Sinus tachycardia, normal S1, Normal S2, systolic murmur LLSB and right second ICS. Abdomen: Bowel Sounds Present, Soft, Non Tender, Non-Distended : No renal angle tenderness. No suprapubic tenderness. Extremities: No edema, Capillary Refill Less than 3 Seconds Skin: No rashes, No breakdown Musculoskeletal: No Tenderness to Palpation of Joints or Extremities. Muscle strength 5/5 at major joints. Neurological: Cranial nerves II-XII grossly intact, DTR 2+/4 and Symmetrical, Neuro grossly intact Psych/Mental Status: Normal Affect, Appropriate. Assessment & Plan Assessment/Plan (1) UTI (urinary tract infection): (2) Atrial flutter with rapid ventricular response: (3) Myocardial infarction due to demand ischemia: (4) Toxic metabolic encephalopathy: (5) Type 2 diabetes mellitus with hyperglycemia: PLAN: Plan 87-year-old gentleman was brought to ED for increased fatigue and confusion, found to have tachycardia, atrial flutter with RVR. Over the last few days patient also has been more somnolent fatigue confused and was attributed to recent increase of Seroquel therefore 8 was backed off to baseline dose of 25 mg at bedtime but family did not notice improvement in alertness 1. A flutter with RVR: Patient is being admitted in PCU. Converted to sinus rhythm in the morning. Twelve-lead EKG reviewed sinus bradycardia 59 bpm.2D echo is ordered. Patient on metoprolol and Eliquis. -Patient has paroxysmal atrial flutter and does not feel when he is having tachycardia -By the time of my evaluation he had reverted to normal sinus rhythm with a heart rate in the 60s to 70s. -We will repeat echocardiogram given elevated troponin -Last echo was approximately 1 year ago -Continue home metoprolol -Continue home Eliquis 4/10: Patient converted to sinus rhythm on 12/13 but having sinus tachycardia 140 per night. Patient was evaluated by patient consumer marketer and started on Cardizem 30 mg every 6 hourly. Patient BP also tenuous systolic 101-129. In the late afternoon heart rate is controlled, sinus 65/min. NSTEMI due to demand ischemia/myocardial injury from A-fib RVR: Patient denies chest pain. Serial troponins increased 626, 1353 and 1564. Patient also has lactic acidosis may be due to metformin. Patient has not had signs and symptoms of sepsis. Mess Attendant is consulted 12/14: Patient evaluated by patient consumer marketer. I agree that elevated troponin is because of demand ischemia. Continue medical management with beta-ronnie. Resume apixaban.2D echo reported EF 50% moderate TR mild pulmonary hypertension. Toxic/metabolic encephalopathy probably due to polypharmacy/Seroquel -Family reporting some increased fatigue and confusion - Patient looks back to normal baseline. He is disoriented to time only probably due to blindness. Family denies dementia at baseline. Acute encephalopathy resolved. MRSE cystitis:Patient does not have lower urinary tract symptoms of dysuria or new symptom. UA also has benign WBC 5-10 cells, LE 25 nitrite negative. Preliminary urine culture shows staph species more than 100,000 colonies: Final urine culture shows Staph epidermidis, MRSE. Antibiotic changed to doxycycline. 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 -Does not meet criteria for NOAH. Patient was given IV fluid in emergency room. Discontinued. DM-2 with hyperglycemia -Blood sugar on presentation was 298 -May be elevated due to acute infection with UTI -Last hemoglobin A1c was 05/29/2022 and was 6.8 which was stable compared to his previous -Hold home glipizide and metformin -Start SSI -Accu-Cheks 3 times daily and at bedtime Dementia with behavioral disturbances -Continue donepezil -Continue memantine -Continue Seroquel however this is ineffective would recommend transition from Seroquel to Risperdal 1 mg nightly GERD -Continue PPI MDS -Appears to be stable at this time RA -Continue chronic steroids with prednisone 2.5 mg daily Anemia of chronic disease -Hemoglobin stable and actually normal at this point -Current normal value may be related to dehydration History of stroke -Continue aspirin DVT prophylaxis -Continue home Eliquis CODE STATUS -Full code as per discussion with family prior to admission Charges/Coding Visit Charges Inpatient E&M: 94146 Subs Hosp L2
--- NOTE | 2022-12-14 08:16 | PCM.PN.CARD ---
Subjective Subjective Back in atrial fibrillation. Asymptomatic. Denies any complaints. Objective Data Vital Signs: Vital Signs Temp Pulse Resp BP Pulse Ox O2 Del Method 98.7 F 110 H 15 102/71 93 Room Air 12/14/22 04:30 12/14/22 04:30 12/14/22 04:30 12/14/22 04:30 12/14/22 07:07 12/14/22 07:07 Oxygen Delivery Method Room Air Weight: 154 lb 5.177 oz Body Mass Index (BMI) 21.5 Intake & Output: Intake and Output for Last 24 Hours 12/12/22 12/13/22 12/14/22 23:59 23:59 23:59 Intake Total 2049 / 0 1745.45 / 1745.45 100 / 100 Output Total 1100 / 1100 1300 / 1300 Balance 20490 645.45 / 645.45 -1200 / -1200 Lab / Micro Data Result Diagrams: 12/13/22 03:25 12/13/22 03:25 Labs: Laboratory Results - last 24 hr 12/13/22 10:25: APTT 78.6 H 12/13/22 10:59: POC Glucose 165 H 12/13/22 15:53: POC Glucose 133 H 12/13/22 22:25: POC Glucose 124 H 12/14/22 06:11: POC Glucose 141 H Micro: Microbiology 12/12/22 18:19 Urine, Clean Catch Urine Culture - Preliminary Staphylococcus species Rhythm Strip Rhythm Strip: A-fib Cardiology Labs/Tests 12/13/22 10:25: APTT 78.6 H Rhythm: EKG: ECHO: Stress Test: Cardiac Cath: PCI: CT Surgery: Holter monitor: EPS: PPM: CXR: Chest CT Scan: Physical Exam Narrative Comfortable. No distress. Heart sounds 1 and 2 are normal. Chest clear to auscultation bilaterally. Patient is alert awake. No ankle edema noted. Assessment & Plan Assessment/Plan (1) Myocardial infarction due to demand ischemia: PLAN: Patient most likely has elevated troponins because of demand ischemia. In view of his overall condition and comorbidities, recommend continuing medical management. Check 2D echocardiogram. (2) Paroxysmal atrial flutter: PLAN: Back in atrial fibrillation. Borderline rapid ventricular response. We will add diltiazem for better heart rate control. Continue apixaban. (3) UTI (urinary tract infection): PLAN: As per internal medicine. Started on ceftriaxone. (4) Type 2 diabetes mellitus with hyperglycemia: PLAN: As per internal medicine. (5) Acidosis, lactic: PLAN: Likely secondary to #3 above. Manage as per internal medicine. (6) History of dementia:
[2022-12-14] MEDS: Aspirin E.C. 81 MG Tablet PO (08:30)
[2022-12-14] MEDS: predniSONE 5 MG Tablet 2.5 MG PO (08:30)
[2022-12-14] MEDS: APIXABAN 2.5 MG TABLET (WCH) PO ×2 (08:30→23:06)
[2022-12-14] MEDS: Pantoprazole Sodium 20 MG Tablet PO (08:31)
[2022-12-14] MEDS: Multivitamins,Ther W-Minerals Tablet 1 TABLET PO (08:31)
[2022-12-14] MEDS: Memantine Hydrochloride 10 MG Tablet PO ×2 (08:31→23:05)
[2022-12-14] MEDS: Magnesium Chloride 64 MG Delay Rel.Tablet 128 MG PO (08:31)
[2022-12-14] MEDS: Metoprolol Tartrate 50 MG Tablet PO ×2 (08:33→23:06)
[2022-12-14] MEDS: dilTIAZem 30 MG Tablet PO ×3 (10:03→23:11)
[2022-12-14] MEDS: Lactated Ringers 500 ML 999 ML IV (10:03)
[2022-12-14] MEDS: 0.9% Saline Lock 10 ML Syringe IV ×2 (10:08→23:05)
[2022-12-14] MEDS: Insulin Lispro 100 UNIT/ML INSULN.PEN SC ×2 (12:11→17:57)
[2022-12-14 12:45] LABS: Bedside Glucose 293 mg/dL (74-106)
--- NOTE | 2022-12-14 15:20 | CASEMGMT ---
DIAMANTE ARAYA Assessment: Face to Face with pt for initial transition planning/care coordination assessment. RN QUIANA introduced self and role at [facility], pt voices understanding and consents to assessment. Pt is A/O x2, missed the year by 2 years and answers all questions appropriately at this time. Pt lying in bed in no distress. Care providers, pharmacy, and demographics verified/updated. Admitting Dx: afib with RVR and UTI PCP:Zohaib Specialists:cardio, pt is unsure of name [facility]erred [facility]acy[facility] Benef[facility]: yes LNOK: Fareed Fisher, ; Gallo Fisher, son Living Arrangements: Pt lives with and son in a two story home but use the main level with 2 steps to enter with a rail. Pt reports he is I in ADL's and denies concerns at home. Transportation: Pt son provides transportation as pt is blind. DME/HHC/SNF: Pt does not have any DME nor use AD, states he has had HHC in the past but is unsure of the name of agency, denies SNF stays. Pt states no concerns with going home at time of dc. Therapy did not recommend any further therapy. Pt states no further concerns/needs. CM to follow. Advised pt to ask CM if any further question/concerns/needs arise, voices understanding. Pt Goal: Home Plan: Home
[2022-12-14 16:45] LABS: Bedside Glucose 231 mg/dL (74-106)
[2022-12-14] MEDS: Doxycycline 100 MG CAPSULE PO (18:53)
[2022-12-14] MEDS: Donepezil HCl 10 MG Tablet PO (23:05)
[2022-12-14] MEDS: Mirtazapine 30 MG Tablet PO (23:05)
[2022-12-14] MEDS: MELATONIN 3 MG TABLET PO (23:06)
[2022-12-14] MEDS: Atorvastatin Calcium 80 MG Tablet PO (23:06)
[2022-12-14] MEDS: QUEtiapine 25 MG Tablet PO (23:06)
[2022-12-15] LABS: Bedside Glucose 127 mg/dL (74-106)
[2022-12-15 03:00] VITALS: PULSE 61
[2022-12-15 04:16] VITALS: BP 140/63; PULSE 64; RESP 18; TEMP 36.9; O2SAT 94
[2022-12-15 06:00] VITALS: BMI 22.0
[2022-12-15 06:32] LABS: Absolute Lymphocyte Count 2.06 X10^3/uL (0.83-4.51); Absolute Neutrophil Count 4.4 X10^3/uL (2.0-7.7); Basophil# 0.01 X10^3/uL; Basophil% 0.1 % (0-1); Hematocrit 31.8 % (40-54); Hemoglobin 10.6 g/dL (13.0-16.5); Lymphocyte # 2.06 X10^3/ul (0.83-4.51); Lymphocyte % 21.2 % (19-41); Mean Corp Hgb Conc 33.3 g/dL (32-36); Mean Corpuscular Hgb 31.5 pg (27.0-32.0); Mean Corpuscular Volume 94.4 fL (80-94); Mean Platelet Vol. 11.5 fl (6.2-12.0); Monocyte# 3.15 X10^3/uL; Monocyte% 32.5 % (0-10); NRBC Flagged by Analyzer 0 % (0-5); Neutrophil # 4.41 X10^3/uL (2.7-7.7); Neutrophil % 45.5 % (47-70); POSITIVE DIFFERENTIAL YES; Platelet Count 181 K/mm3 (150-450); RBC Distribution Width CV 14.2 % (11.6-14.6); RBC Distribution Width SD 48.5 fl (35.1-43.9); Red Blood Count 3.37 M/mm3 (4.6-6.2); White Blood Count 9.7 K/mm3 (4.4-11.0)
[2022-12-15 06:45] VITALS: BP 147/63; PULSE 69
[2022-12-15] MEDS: dilTIAZem 30 MG Tablet PO (06:46)
[2022-12-15 06:58] LABS: Anion Gap 1 (5-15); BUN 28 mg/dL (7-18); Calcium,Total 9.1 mg/dL (8.5-10.1); Chloride 106 mmol/L (98-107); Creatinine, Serum 1.27 mg/dL (0.70-1.30); EST Glomerular Filtration Rate 57 mL/min (>60); Est Glom Filt Rate - Afr Amer 69 mL/min (>60); Glucose 127 mg/dL (74-106); Sodium Level 137 mmol/L (136-145)
[2022-12-15 07:15] LABS: Bedside Glucose 145 mg/dL (74-106)
[2022-12-15 07:15] LABS: Differential Indicated SCAN CRITERIA MET
[2022-12-15 07:19] LABS: Differential Comment SCANNED
--- NOTE | 2022-12-15 08:08 | DCINST_ITS ---
Discharge Instructions Diet Discharge Diet: No restrictions Activity Discharge Activity: Return to Normal Activity and May Not Drive Weight Bearing Status: Weight bearing as tolerated Dressing / Incision Call your doctor if you observe: Fever of 101 or Higher, Coldness, Increased Pain, Numbness or Tingling, Change in Color, Inability to urinate, Inability to have a bowel movement, Shortness of breath, Dizziness, Fainting spells, Swelling in the ankles, Chest pain, Prolonged hiccupping, Increased palpitations (irregular heartbeat) and Calf discomfort Follow Up Care When: IN 2 WEEKS Test Results: Test results from this visit will be discussed in further detail at your follow- up appointment, if applicable. Discharge Plan Admission Admit Date/Time: 12/12/22 20:12 Attending Provider: Joe Aburto Primary Care Provider: Sampson Penny Consulting Providers: Carol Jackson ; Vivienne Suresh Instructions Additional Instructions / Restrictions: Metformin discontinued as patient had lactic acidosis with decreasing GFR. Kidney function back to normal baseline. Follow with PCP with BMP. Discharge Orders/Prescriptions Prescriptions: New doxycycline monohydrate 100 mg Capsule 100 mg PO BID 6 Days Qty: 12 0RF diltiazem HCl [Cardizem] 120 mg tablet 120 mg PO DAILY Qty: 30 2RF Continued donepezil 10 mg tablet 10 mg PO QHS memantine 10 mg tablet 10 mg PO BID aspirin [Adult Aspirin Regimen] 81 mg tablet,delayed release (DR/EC) 81 mg PO DAILY glipizide 5 mg tablet extended release 24hr 5 mg PO DAILY magnesium oxide 400 mg (241.3 mg magnesium) tablet 400 mg PO DAILY Label Comments: supplement melatonin 3 mg tablet 3 mg PO QHS Label Comments: TAKE 1 TABLET BY MOUTH at 7PM EVERY EVENING mirtazapine 30 mg tablet 30 mg PO QHS omeprazole 20 mg capsule,delayed release(DR/EC) 20 mg PO DAILY quetiapine 25 mg tablet 25 mg PO ONCE HS Label Comments: Take 1 tablet by mouth daily at bedtime. metoprolol tartrate 50 mg tablet 50 mg PO BID Qty: 180 3RF dwgjajiy-saq-IB-lycopen-lutein 1 EACH tablet 1 ea PO DAILY Label Comments: General health prednisone 2.5 MG tablet 2.5 mg PO DAILY Hold Instructions: Resume on 06/08/22. Label Comments: steroid atorvastatin 40 mg tablet 40 mg PO QHS Eliquis 2.5 mg tablet 2.5 mg PO BID Qty: 60 11RF Discontinued metformin 1,000 MG tablet 1,000 mg PO DAILY Label Comments: Diabetes Referrals / Follow Up: Carol Jackson MD [Med Staff - Active Staff] - Within 1 Month (for new onset Af ib) Sampson Penny MD [Primary Care Provider] - Disposition Disposition (needs filled in before D/C Order can be placed): Home, Self Care
[2022-12-15 08:23] VITALS: BP 144/65; PULSE 78; RESP 18; TEMP 36.9; O2SAT 93
[2022-12-15] MEDS: APIXABAN 2.5 MG TABLET (WCH) PO (08:25)
[2022-12-15] MEDS: Multivitamins,Ther W-Minerals Tablet 1 TABLET PO (08:25)
[2022-12-15] MEDS: predniSONE 5 MG Tablet 2.5 MG PO (08:26)
[2022-12-15] MEDS: Pantoprazole Sodium 20 MG Tablet PO (08:28)
[2022-12-15] MEDS: Magnesium Chloride 64 MG Delay Rel.Tablet 128 MG PO (08:28)
[2022-12-15 08:29] VITALS: PULSE 78
[2022-12-15] MEDS: Aspirin E.C. 81 MG Tablet PO (08:29)
[2022-12-15] MEDS: Metoprolol Tartrate 50 MG Tablet PO (08:29)
[2022-12-15] MEDS: Doxycycline 100 MG CAPSULE PO (08:29)
[2022-12-15] MEDS: Memantine Hydrochloride 10 MG Tablet PO (08:29)
--- NOTE | 2022-12-15 08:54 | DS.PCM_ITS ---
Providers Date of Admission: 12/12/22 Date of Discharge: 12/15/22 Primary Care Physician: Dr. Sampson Penny MD Consultations 12/13/22 01:32 Consult: Cardiology Routine Consulting Provider: Carol Jackson Reason for Consult: NSTEMI EMERGENT Consult: No MD Notified: Yes Date Notified: 12/13/22 Time Notified: 06:50 Method of Notification: Text Reason For Visit: A FIB WITH RVR AND UTI Diagnosis Discharge Diagnosis (1) UTI (urinary tract infection): Status: Acute Code(s): N39.0 - Urinary tract infection, site not specified (2) Atrial flutter with rapid ventricular response: Status: Acute Code(s): I48.92 - Unspecified atrial flutter (3) Myocardial infarction due to demand ischemia: Status: Resolved Code(s): I21.A1 - Myocardial infarction type 2 (4) Toxic metabolic encephalopathy: Status: Acute Code(s): G92.8 - Other toxic encephalopathy (5) Type 2 diabetes mellitus with hyperglycemia: Status: Acute Code(s): E11.65 - Type 2 diabetes mellitus with hyperglycemia Plan 87-year-old gentleman was brought to ED for increased fatigue and confusion, found to have tachycardia, atrial flutter with RVR. Over the last few days patient also has been more somnolent fatigue confused and was attributed to recent increase of Seroquel therefore 8 was backed off to baseline dose of 25 mg at bedtime but family did not notice improvement in alertness 1. A flutter with RVR: Patient is being admitted in PCU. Converted to sinus rhythm in the morning. Twelve-lead EKG reviewed sinus bradycardia 59 bpm.2D echo is ordered. Patient on metoprolol and Eliquis. -Patient has paroxysmal atrial flutter and does not feel when he is having tachycardia -By the time of my evaluation he had reverted to normal sinus rhythm with a heart rate in the 60s to 70s. -We will repeat echocardiogram given elevated troponin -Last echo was approximately 1 year ago -Continue home metoprolol -Continue home Eliquis 12/14: Patient converted to sinus rhythm on 12/13 but having sinus tachycardia 140 per night. Patient was evaluated by assembly manager and started on Cardizem 30 mg every 6 hourly. Patient BP also tenuous systolic 101-129. In the late afternoon heart rate is controlled, sinus 65/min. 12/15: Heart rate is controlled currently sinus rhythm 60s to 70s per blood. Discussed with the assembly manager. Patient is discharged on Cardizem CD 120 mg daily. Acute myocardial injury due to demand ischemia/myocardial injury from A-fib RVR: Patient denies chest pain. Serial troponins increased 626, 1353 and 1564. Patient also has lactic acidosis may be due to metformin. Patient has not had signs and symptoms of sepsis. Director Of Digital Marketing is consulted 12/14: Patient evaluated by assembly manager. I agree that elevated troponin is because of demand ischemia. Continue medical management with beta-ronnie. Resume apixaban.2D echo reported EF 50% moderate TR mild pulmonary hypertension. 12/15: Acute type I OK ruled out. Director Of Digital Marketing agrees. Toxic/metabolic encephalopathy probably due to polypharmacy/Seroquel -Family reporting some increased fatigue and confusion - Patient looks back to normal baseline. He is disoriented to time only probably due to blindness. Family denies dementia at baseline. Acute encephalopathy resolved. MRSE cystitis:Patient does not have lower urinary tract symptoms of dysuria or new symptom. UA also has benign WBC 5-10 cells, LE 25 nitrite negative. Preliminary urine culture shows staph species more than 100,000 colonies. 12/14: Final urine culture shows Staph epidermidis, MRSE. Antibiotic changed to doxycycline. 12/15: Patient is discharged on doxycycline to complete total of 7 days of antibiotics. 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 -Does not meet criteria for NOAH. Patient was given IV fluid in emergency room. Discontinued. DM-2 with hyperglycemia -Blood sugar on presentation was 298 -May be elevated due to acute infection with UTI -Last hemoglobin A1c was 05/29/2022 and was 6.8 which was stable compared to his previous -Hold home glipizide and metformin -Start SSI -Accu-Cheks 3 times daily and at bedtime 12/15: Metformin was discontinued because of lactic acidosis and decreasing GFR. Follow with PCP with BMP in 1 week. 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 Discharge follow-up instructions completed. Discharge process discussed with the patient and all questions were answered to patient's satisfaction. Total time spent, exact 35 minutes on discharge meds reconciliation, examination, coordination of care with nurses and ancillary staff, review of imaging and blood test and discussion with the patient on follow-up instructions. Medications at Discharge Home Medications qqhneaut-fyb-acwlx acid 0.4 mg-lycopene 300 mcg-lutein 250 mcg tablet 1 ea PO DAILY vitamin 05/03/15 prednisone 2.5 mg tablet 2.5 mg PO DAILY inflammation 09/03/15 aspirin 81 mg tablet,delayed release (Adult Aspirin Regimen) 81 mg PO DAILY HEART HEALTH 08/10/19 donepezil 10 mg tablet 10 mg PO QHS mentation 08/10/19 memantine 10 mg tablet 10 mg PO BID mentation 08/10/19 glipizide 5 mg tablet, extended release 24 hr 5 mg PO DAILY DIABETES 08/13/21 magnesium oxide 400 mg (241.3 mg magnesium) tablet 400 mg PO DAILY supplement 08/13/21 melatonin 3 mg tablet 3 mg PO QHS sleep 08/13/21 mirtazapine 30 mg tablet 30 mg PO QHS mental health 08/13/21 atorvastatin 40 mg tablet 40 mg PO QHS cholesterol 05/29/22 omeprazole 20 mg capsule,delayed release 20 mg PO DAILY Check with primary doctor 06/16/22 apixaban 2.5 mg tablet (Eliquis) 2.5 mg PO BID #60 tabs 07/29/22 metoprolol tartrate 50 mg tablet 50 mg PO BID #180 tabs 10/22/22 quetiapine 25 mg tablet 25 mg PO ONCE HS Check with primary doctor 10/22/22 diltiazem HCl 120 mg tablet (Cardizem) 120 mg PO DAILY #30 tabs 12/15/22 doxycycline monohydrate 100 mg capsule 100 mg PO BID 6 days #12 caps 12/15/22 Physical Exam Narrative Seen and examined. monitor car operator reviewed. Patient is sinus rhythm. Sinus rhythm in 70s per minute. Denies acute burning micturition, hesitancy or new blood intact symptoms. 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 Physical exam General: Alert, oriented x2, disoriented to time but patient can be disoriented due to blind, Cooperative HEENT: Legally blind. Patient does not have perception of hand movement. Atraumatic, PERRLA, EOMI, Normocephalic Oral: No Gingival or Mucosal Lesions/ Ulcerations Neck: Supple, No JVD, Negative Carotid Bruits Lungs: Air entry diminished in bilateral lung bases. No crepitation/rhonchi Cardiovascular: Sinus rhythm, normal S1, Normal S2, systolic murmur LLSB and right second ICS. Abdomen: Bowel Sounds Present, Soft, Non Tender, Non-Distended : No renal angle tenderness. No suprapubic tenderness. Extremities: No edema, Capillary Refill Less than 3 Seconds Skin: No rashes, No breakdown Musculoskeletal: No Tenderness to Palpation of Joints or Extremities. Muscle strength 5/5 at major joints. Neurological: Cranial nerves II-XII grossly intact, DTR 2+/4 and Symmetrical, Neuro grossly intact Psych/Mental Status: Normal Affect, Appropriate. Weight / BMI Weight Weight: 157 lb 13.616 oz Body Mass Index (BMI) 22.0 ABG / Lab / Microbiology Data Result Diagrams: 12/15/22 05:06 12/15/22 05:06 Laboratory: Laboratory Results - last 24 hr 12/14/22 11:04: POC Glucose 293 H 12/14/22 16:24: POC Glucose 231 H 12/14/22 23:08: POC Glucose 127 H 12/15/22 05:06: WBC 9.7, RBC 3.37 L, Hgb 10.6 L, Hct 31.8 L, MCV 94.4 H, MCH 31.5, MCHC 33.3, RDW Std Deviation 48.5 H, RDW Coeff of Zak 14.2, Plt Count 181, MPV 11.5, Immature Gran % (Auto) 0.700, Neut % (Auto) 45.5 L, Lymph % (Auto) 21.2, [place] % (Auto) 32.5 H, Eos % (Auto) 0.0, Baso % (Auto) 0.1, Absolute Neuts (auto) 4.4, Absolute Lymphs (auto) 2.06, Nucleated RBC % 0, Differential Comment SCANNED 12/15/22 05:06: Sodium 137, Potassium 4.0, Chloride 106, Carbon Dioxide 30.0, Anion Gap 1 L, BUN 28 H, Creatinine 1.27, Estim Creat Clear Calc 41.50, Est GFR (MDRD) Af Amer 69, Est GFR (MDRD) Non-Af 57 L, BUN/Creatinine Ratio 22.0 H, Glucose 127 H, Calcium 9.1 12/15/22 06:40: POC Glucose 145 H Microbiology: Microbiology 12/12/22 18:58 Blood Culture (Wb) - Right Forearm Blood Culture - Preliminary No growth in 48 hours. 12/12/22 18:20 Blood Culture (Wb) - Left Forearm Blood Culture - Preliminary No growth in 48 hours. 12/12/22 18:19 Urine, Clean Catch Urine Culture - Final Staphylococcus epidermidis 12/12/22 18:19 Nasal Secretion SARS-CoV-2 & FLU Antigen (Rapid) - Final Radiography Diagnostic Testing: Radiology Impression Echocardiogram 12/13/22 10:27 Interpretation Summary Moderate concentric left ventricular hypertrophy. The left ventricular ejection fraction is 50 %. LV function assessment likely affected by rhythm. Patient in atrial fibrillation with rapid ventricular response. Moderate (2+) tricuspid valve insufficiency Mild pulmonary hypertension. . Ordering Physician: Carol Jackson Referring Physician: MD Luis Penny Performed By: Monika Fu RCS D/C Instructions Discharge Diet: No restrictions Weight Bearing Status: Weight bearing as tolerated Call your doctor if you observe: Fever of 101 or Higher, Coldness, Increased Pain, Numbness or Tingling, Change in Color, Inability to urinate, Inability to have a bowel movement, Shortness of breath, Dizziness, Fainting spells, Swelling in the ankles, Chest pain, Prolonged hiccupping, Increased palpitations (irregular heartbeat) and Calf discomfort When: IN 2 WEEKS Meaningful Use Info Meaningful Use Diagnoses (Choose all that apply): None applicable Discharge Plan Admission Admit Date/Time: 12/12/22 20:12 Attending Provider: Joe Aburto Primary Care Provider: Sampson Penny Consulting Providers: Carol Jackson ; Vivienne Suresh Instructions Additional Instructions / Restrictions: Metformin discontinued as patient had lactic acidosis with decreasing GFR. Kidney function back to normal baseline. Follow with PCP with BMP. Discharge Orders/Prescriptions Prescriptions: New doxycycline monohydrate 100 mg Capsule 100 mg PO BID 6 Days Qty: 12 0RF diltiazem HCl [Cardizem] 120 mg tablet 120 mg PO DAILY Qty: 30 2RF Continued donepezil 10 mg tablet 10 mg PO QHS memantine 10 mg tablet 10 mg PO BID aspirin [Adult Aspirin Regimen] 81 mg tablet,delayed release (DR/EC) 81 mg PO DAILY glipizide 5 mg tablet extended release 24hr 5 mg PO DAILY magnesium oxide 400 mg (241.3 mg magnesium) tablet 400 mg PO DAILY Label Comments: supplement melatonin 3 mg tablet 3 mg PO QHS Label Comments: TAKE 1 TABLET BY MOUTH at 7PM EVERY EVENING mirtazapine 30 mg tablet 30 mg PO QHS omeprazole 20 mg capsule,delayed release(DR/EC) 20 mg PO DAILY quetiapine 25 mg tablet 25 mg PO ONCE HS Label Comments: Take 1 tablet by mouth daily at bedtime. metoprolol tartrate 50 mg tablet 50 mg PO BID Qty: 180 3RF ozqodzic-jvg-YD-lycopen-lutein 1 EACH tablet 1 ea PO DAILY Label Comments: General health prednisone 2.5 MG tablet 2.5 mg PO DAILY Hold Instructions: Resume on 06/08/22. Label Comments: steroid atorvastatin 40 mg tablet 40 mg PO QHS Eliquis 2.5 mg tablet 2.5 mg PO BID Qty: 60 11RF Discontinued metformin 1,000 MG tablet 1,000 mg PO DAILY Label Comments: Diabetes Referrals / Follow Up: Carol Jackson MD [Med Staff - Active Staff] - Within 1 Month (for new onset Afib) Sampson Penny MD [Primary Care Provider] - Disposition Disposition (needs filled in before D/C Order can be placed): Home, Self Care Charges/Coding Visit Charges Inpatient E&M: 98795 Disch Hosp >30min
--- NOTE | 2022-12-15 09:17 | PN.CARD_ITS ---
Subjective Subjective Denies any complaints. Wants to go home. Objective Data Vital Signs: Vital Signs Temp Pulse Resp BP Pulse Ox O2 Del Method 98.5 F 78 18 144/65 H 93 Room Air 12/15/22 08:23 12/15/22 08:29 12/15/22 08:23 12/15/22 08:23 12/15/22 08:23 12/15/22 08:23 Oxygen Delivery Method Room Air Weight: 157 lb 13.616 oz Body Mass Index (BMI) 22.0 Intake & Output: Intake and Output for Last 24 Hours 12/13/22 12/14/22 12/15/22 23:59 23:59 23:59 Intake Total 1745.45 / 1745.45 1720 / 1720 Output Total 1100 / 1100 2400 / 2400 500 / 500 Balance 645.45 / 645.45 -680 / -680 -500 / -500 Lab / Micro Data Result Diagrams: 12/15/22 05:06 12/15/22 05:06 Labs: Laboratory Results - last 24 hr 12/14/22 11:04: POC Glucose 293 H 12/14/22 16:24: POC Glucose 231 H 12/14/22 23:08: POC Glucose 127 H 12/15/22 05:06: WBC 9.7, RBC 3.37 L, Hgb 10.6 L, Hct 31.8 L, MCV 94.4 H, MCH 31.5, MCHC 33.3, RDW Std Deviation 48.5 H, RDW Coeff of Zak 14.2, Plt Count 181, MPV 11.5, Immature Gran % (Auto) 0.700, Neut % (Auto) 45.5 L, Lymph % (Auto) 21.2, [place] % (Auto) 32.5 H, Eos % (Auto) 0.0, Baso % (Auto) 0.1, Absolute Neuts (auto) 4.4, Absolute Lymphs (auto) 2.06, Nucleated RBC % 0, Differential Comment SCANNED 12/15/22 05:06: Sodium 137, Potassium 4.0, Chloride 106, Carbon Dioxide 30.0, Anion Gap 1 L, BUN 28 H, Creatinine 1.27, Estim Creat Clear Calc 41.50, Est GFR (MDRD) Af Amer 69, Est GFR (MDRD) Non-Af 57 L, BUN/Creatinine Ratio 22.0 H, Glucose 127 H, Calcium 9.1 12/15/22 06:40: POC Glucose 145 H Micro: Microbiology 12/12/22 18:58 Blood Culture (Wb) - Right Forearm Blood Culture - Preliminary No growth in 48 hours. 12/12/22 18:20 Blood Culture (Wb) - Left Forearm Blood Culture - Preliminary No growth in 48 hours. 12/12/22 18:19 Urine, Clean Catch Urine Culture - Final Staphylococcus epidermidis Rhythm Strip Rhythm Strip: Sinus Rhythm Cardiology Labs/Tests 12/15/22 05:06: WBC 9.7, RBC 3.37 L, Hgb 10.6 L, Hct 31.8 L, MCV 94.4 H, MCH 31.5, MCHC 33.3, Plt Count 181, MPV 11.5, Immature Gran % (Auto) 0.700, Neut % (Auto) 45.5 L, Lymph % (Auto) 21.2, [place] % (Auto) 32.5 H, Eos % (Auto) 0.0, Baso % (Auto) 0.1, Absolute Neuts (auto) 4.4, Nucleated RBC % 0 12/15/22 05:06: Sodium 137, Potassium 4.0, Chloride 106, Carbon Dioxide 30.0, Anion Gap 1 L, BUN 28 H, Creatinine 1.27, Est GFR (MDRD) Af Amer 69, Est GFR (MDRD) Non-Af 57 L, BUN/Creatinine Ratio 22.0 H, Glucose 127 H, Calcium 9.1 Rhythm: EKG: ECHO: Stress Test: Cardiac Cath: PCI: CT Surgery: Holter monitor: EPS: PPM: CXR: Chest CT Scan: Radiography Diagnostic Testing: Radiology Impression Echocardiogram 12/13/22 10:27 Interpretation Summary Moderate concentric left ventricular hypertrophy. The left ventricular ejection fraction is 50 %. LV function assessment likely affected by rhythm. Patient in atrial fibrillation with rapid ventricular response. Moderate (2+) tricuspid valve insufficiency Mild pulmonary hypertension. . Ordering Physician: Carol Jackson Referring Physician: MD Luis Penny Performed By: Monika Fu RCS Physical Exam Narrative Comfortable. No distress. Heart sounds 1 and 2 are normal. Chest clear to auscultation bilaterally. Patient is alert awake. No ankle edema noted. Assessment & Plan Assessment/Plan (1) Myocardial infarction due to demand ischemia: PLAN: Patient most likely has elevated troponins because of demand ischemia. In view of his overall condition and comorbidities, recommend continuing medical management. Check 2D echocardiogram. (2) Paroxysmal atrial flutter: PLAN: Continue apixaban. Continue beta-blockers and diltiazem. (3) UTI (urinary tract infection): PLAN: As per internal medicine. (4) Type 2 diabetes mellitus with hyperglycemia: PLAN: As per internal medicine. (5) Acidosis, lactic: PLAN: Likely secondary to #3 above. Manage as per internal medicine. (6) History of dementia:
== END 2022-12-15 11:01 | disposition home or self-care (01) | DRG 308 ==
LOC: ED 20:20 → PCU 20:25
PROVIDERS: Admitting Provider Internal Medicine; Emergency Provider Emergency Medicine; PCP Internal Medicine; Visit Provider Internal Medicine
DX: I48.92 Unspecified atrial flutter (principal); G92.8 Other toxic encephalopathy; J69.0 Pneumonitis due to inhalation of food and vomit; F03.918 Unspecified dementia, unspecified severity, with other behavioral disturbance; E87.20 Acidosis, unspecified; I24.8 Other forms of acute ischemic heart disease; N30.00 Acute cystitis without hematuria; D63.1 Anemia in chronic kidney disease; E11.65 Type 2 diabetes mellitus with hyperglycemia; I48.0 Paroxysmal atrial fibrillation; E11.22 Type 2 diabetes mellitus with diabetic chronic kidney disease; D46.9 Myelodysplastic syndrome, unspecified; E11.21 Type 2 diabetes mellitus with diabetic nephropathy; M06.9 Rheumatoid arthritis, unspecified; K21.9 Gastro-esophageal reflux disease without esophagitis; N18.2 Chronic kidney disease, stage 2 (mild); I25.2 Old myocardial infarction; H54.8 Legal blindness, as defined in USA; B95.62 Methicillin resistant Staphylococcus aureus infection as the cause of diseases classified elsewhere; R53.81 Other malaise; T43.595A Adverse effect of other antipsychotics and neuroleptics, initial encounter; Z79.01 Long term (current) use of anticoagulants; Z79.82 Long term (current) use of aspirin; Z79.84 Long term (current) use of oral hypoglycemic drugs; Z79.899 Other long term (current) drug therapy; Z86.73 Personal history of transient ischemic attack (TIA), and cerebral infarction without residual deficits; Z86.16 Personal history of COVID-19
CPT/HCPCS: 36415; 70450; 71045; 80048; 80053; 81001; 82962; 83036; 83605; 83735; 84100; 84443; 84484; 85025; 85610; 85730; 87040; 87077; 87086; 87088; 87186; 87428; 87449; 87633; 87635; 87641; 92610; 93005; 93308; 94668; 97161; 97162; 97165; 99252; 99285; J7030; J7050; J7120; A4216; G0463; J0696; U0005

== ENCOUNTER 2022-12-15 11:48 | Inpatient (IN) | payer MEDICARE, OTHER, SELFPAY ==
[2016-02-13 13:00] VITALS: BMI 25.7
[2022-12-15] VITALS (11 sets, daily range): BP systolic 102–140; BP diastolic 53–80; PULSE 71–126; RESP 16–18; TEMP 36.7–38.9; O2SAT 87–98; BMI 22.8
--- NOTE | 2022-12-15 12:05 | CT_ITS ---
HISTORY: confusion. TECHNIQUE: Multiple axial images were obtained of the head without intravenous contrast. A radiation dose optimization technique was used for this scan. 253 images. COMPARISON: 05/29/2022. FINDINGS: BRAIN PARENCHYMA: Multiple foci and zones of low attenuation in the bilateral cerebral white matter compatible with chronic small vessel ischemic gliosis. Chronic cerebellar infarcts. No acute intra-axial hemorrhage identified. CSF SPACES: Advance generalized volume loss. No midline shift or other significant mass effect. No acute extra-axial hemorrhage seen. OTHER: Intact calvarium. No significant air fluid levels in the paranasal sinuses or mastoid air cells. Bilateral lens resections. CT/Brain/Head without Contrast IMPRESSION: No acute intracranial process identified. Chronic involutional and white matter changes. Electronically Signed: Maile Recio MD at 13:28 EDT ,
--- NOTE | 2022-12-15 12:09 | EDS_ITS ---
HPI History of Present Illness Chief Complaint: Confusion Informant: patient and family Onset/Context/Timing Onset: Today Context: Gradual Onset Timing: Continuous Current Severity: Mild Maximum Severity: Mild Narrative Narrative: 87-year-old male significant past medical history of diabetes, dementia, stage IV renal insufficiency, A-fib flutter, stroke and legally blind. Was just hospitalized and discharged 1 to 2 hours ago. He was hospitalized for UTI and A-fib. He is on home antibiotics. Son said on the drive home he seemed more confused. Was talking about playing cards when he was actually playing cards. No known vomiting or diarrhea. No fever. No fall or head injury. He is on the blood thinner Eliquis for his A-fib. Prior similar symptoms: No Recent Illness/Hospitalization: Yes [facility] Medical History Anemia of chronic disease Cellulitis and abscess Chronic constipation Chronic rheumatic arthritis COVID-19 Dementia Diabetes mellitus, type 2 Hypoxemia MDS (myelodysplastic syndrome) Myocardial infarction due to demand ischemia Obstructive sleep apnea Paroxysmal atrial flutter Personal history of immunosupression therapy Stroke/cerebrovascular accident Home Medications [id number] acid 0.4 mg-lycopene 300 mcg-lutein 250 mcg tablet 1 ea PO DAILY vitamin 05/03/15 [History Last Taken 09/23/15] prednisone 2.5 mg tablet 2.5 mg PO DAILY inflammation 09/03/15 [History Last Taken 09/23/15] aspirin 81 mg tablet,delayed release (Adult Aspirin Regimen) 81 mg PO DAILY HEART HEALTH 08/10/19 [History Last Taken Unknown] donepezil 10 mg tablet 10 mg PO QHS mentation 08/10/19 [History Last Taken Unknown] memantine 10 mg tablet 10 mg PO BID mentation 08/10/19 [History Last Taken Unknown] glipizide 5 mg tablet, extended release 24 hr 5 mg PO DAILY DIABETES 08/13/21 [History Last Taken Unknown] magnesium oxide 400 mg (241.3 mg magnesium) tablet 400 mg PO DAILY supplement 08/13/21 [History Last Taken Unknown] melatonin 3 mg tablet 3 mg PO QHS sleep 08/13/21 [History Last Taken Unknown] mirtazapine 30 mg tablet 30 mg PO QHS mental health 08/13/21 [History Last Taken Unknown] atorvastatin 40 mg tablet 40 mg PO QHS cholesterol 05/29/22 [History Last Taken Unknown] omeprazole 20 mg capsule,delayed release 20 mg PO DAILY Check with primary doctor 06/16/22 [History Last Taken Unknown] apixaban 2.5 mg tablet (Eliquis) 2.5 mg PO BID #60 tabs 07/29/22 [Rx Last Taken Unknown] metoprolol tartrate 50 mg tablet 50 mg PO BID #180 tabs 10/22/22 [Rx Last Taken Unknown] quetiapine 25 mg tablet 25 mg PO ONCE HS Check with primary doctor 10/22/22 [History Last Taken Unknown] diltiazem HCl 120 mg tablet (Cardizem) 120 mg PO DAILY #30 tabs 12/15/22 [Rx Last Taken Unknown] doxycycline monohydrate 100 mg capsule 100 mg PO BID 6 days #12 caps 12/15/22 [Rx Last Taken Unknown] Allergy/AdvReac Type Severity Reaction Status Date / Time No Known Allergies Allergy Verified 12/15/22 11:52 Family History Father Cancer Diabetes Surgical History History of corneal transplant History of prostate surgery Hx of cataract surgery Social History household members: spouse and children housing: house current occupational status: retired Smoking Status: Never smoker alcohol intake: current alcohol intake frequency: other substance use type: does not use ROS ROS ED ROS Narrative Denies. Review of Systems ROS Unobtainable: Denies due to encephalopathy Constitutional Constitutional ED: Denies chills or fever(s) Eyes Eyes: Denies blurry vision ENT ENT ED: Denies ear pain Cardiovascular Cardiovascular: Denies chest pain Respiratory/Chest Respiratory/Chest: Denies cough or dyspnea Gastrointestinal Gastrointestinal: Denies abdominal pain Genitourinary Genitourinary ED: Denies dysuria or hematuria Musculoskeletal Musculoskeletal: Denies arthralgias Integumentary Denies abscess Neurologic Neurologic: Denies headache(s) Psychiatric Psychiatric: Denies anxiety or depression Endocrine Endocrinology: Denies cold intolerance Hematologic/Lymphatic Hematologic/Lymphatic: Reports none Allergic/Immunologic Allergic/Immunologic ED: Denies mouth swelling or tongue swelling EXAM Physical Exam Narrative Exam Narrative: 87-year-old male no acute distress. Vital signs are stable he does have a temperature of 99.9 temporally. Percent on room air no hypoxia. He is in no distress. H EENT exam legally blind. Moist mucous membranes. No trauma. Neck nontender no lymphadenopathy. Lungs clear to auscultation bilaterally. Heart rate in 70s. Abdomen soft nontender normal bowel sounds no peritoneal signs. No distention. Chest wall nontender. Back nontender. Moving all 4 extremities. 5/5 framing machine tender strength. Dorsi plantarflexion intact. Can lift either leg or either arm. He is awake and alert. He is answering questions following commands. He is legally blind. Son is at bedside. Const Vital Signs: 12/15/22 11:50 12/15/22 12:12 Temperature 99.9 F H Temperature Source Temporal Pulse Rate 71 84 Respiratory Rate 18 18 Blood Pressure 132/57 H 138/58 H Blood Pressure Mean 82 84 Pulse Ox 94 92 Oxygen Delivery Method Room Air Room Air Positive well nourished and well developed; Negative for obese, cachectic, contractures or unkempt General Appearance ED: well developed and NAD; Negative for unkempt, cachectic, contractures, cyanotic, diaphoretic or pallor Nutritional Appearance: Negative for cachectic or obese HEENT Reports moist mucous membranes; Denies dry mucous membranes Negative for trauma or tenderness Mouth ED: No dry mucous membranes Mouth: No dry mucous membranes Eyes EOMs intact bilaterally; Negative for PERRL Eyes Narrative: Legally blind. General Eye ED: Negative for pale conjunctiva or scleral icterus Neck no lymphadenopathy, supple and no JVD General: Negative for tenderness Chest Wall inspection of chest normal and palpation of chest normal Chest: Negative for other Resp normal respiratory effort and clear to auscultation bilaterally Effort and Inspection: Negative for retractions Auscultation: Negative for rales, rhonchi or wheezes Cardio regular rate, regular rhythm, S1 normal heart sound, S2 normal heart sound and no murmurs GI normal to inspection, nondistended, normoactive bowel sounds, non-tender, non- distended and no masses Inspection: Negative for abdominal distention Auscultation: normoactive bowel sounds Palpation: soft; Negative for tender or guarding Back/Spine no CVA tenderness General Back: Negative for CVA tenderness Cervical Spine: Negative for cervical spine tenderness Thoracic Spine / Upper Back: Negative for thoracic spinal tenderness or paraspinal muscle tenderness Lumbar Spine / Lower Back: Negative for lumbar spinal tenderness Extremity normal to inspection General Extremety ED: Negative for edema or tenderness General Extremity: Negative for edema Neuro No CN's II-XII intact bilaterally Neuro Narrative: Awake and alert. Knows where he is at. Answering questions and following commands. Sensorium / Orientation: alert; Negative for orientation impaired Motor Exam: strength 5/5 throughout Psych mental status grossly normal Appearance: Negative for unkempt Attitude: No agitated Mood & Affect: Negative for depressed, anxious or tearful Skin no rashes or lesions noted, no wounds and skin turgor normal General Skin Exam: elasticity normal; Negative for jaundice or pallor Lesions: No lesion noted Rashes: No rashes noted Trauma: Negative for abrasion Wounds: Negative for wounds noted MDM MDM MDM Narrative Medical decision making narrative: 87-year-old male history of dementia, diabetes, renal insufficiency and A-fib flutter. Little he was just discharged from the hospital in the last couple of hours. He was admitted for UTI and A-fib. Son brought him in because feels like he is more confused. He well undergo screening labs and a CAT scan of his brain due to being on blood thinners. His exam is very benign. He has a history of legal blindness. He really has no acute findings. Chest x-ray was concerning for right lower lobe pneumonia. Patient was started on IV Zosyn Due to recent hospitalization and possible aspiration. Discussed with the hospitalist he will be readmitted. History & Record Review Discussion w/independent historian: Patient and Family Lab Data Attestation: I reviewed the patient's lab results. Lab results narrative: CBC shows white count 10.3. H&H 11.5 and 33. Platelets 182. Electrolytes show sodium 133. Gap 2. BUN 29 creatinine 1.41 glucose 276. Liver enzymes are normal. Labs: Laboratory Results - last 24 hr 12/15/22 12/15/22 12/15/22 12:20 12:20 13:30 WBC 10.3 RBC 3.63 L Hgb 11.5 L Hct 33.4 L MCV 92.0 MCH 31.7 MCHC 34.4 RDW Std Deviation 46.1 H RDW Coeff of Zak 13.8 Plt Count 182 MPV 11.3 Immature Gran % (Auto) 0.500 Neut % (Auto) 51.0 Lymph % (Auto) 11.6 L [place] % (Auto) 36.7 H Eos % (Auto) 0.1 Baso % (Auto) 0.1 Absolute Neuts (auto) 5.3 Absolute Lymphs (auto) 1.19 Nucleated RBC % 0 Differential Comment SCANNED Diff Path Review January D-Dimer Quant (PE/DVT) Cancelled Sodium 133 L Potassium 4.4 Chloride 100 Carbon Dioxide 31.0 Anion Gap 2 L BUN 29 H Creatinine 1.41 H Estim Creat Clear Calc 38.86 Est GFR (MDRD) Af Amer 61 Est GFR (MDRD) Non-Af 51 L BUN/Creatinine Ratio 20.6 H Glucose 276 H Calcium 9.4 Total Bilirubin 0.80 AST 15 ALT 25 Alkaline Phosphatase 115 Total Protein 7.7 Albumin 3.7 Globulin 4.0 Albumin/Globulin Ratio 0.9 Radiography Chest X-Ray - ED: 1 View, Read by ED Physician, Read by Radiologist, Chronic Changes and Right Infiltrate Diagnostic Testing: Clinical Impression(s) from Imaging Studies Brain CT 12/15/22 12:05 IMPRESSION: No acute intracranial process identified. Chronic involutional and white matter changes. Electronically Signed: Maile Recio MD at 13:28 EDT , Chest X-Ray 12/15/22 13:00 IMPRESSION: New opacities in the left mid and right lower lung, concerning for pneumonia or aspiration. Mild right pleural effusion. Electronically Signed: Maile Recio MD at 13:31 EDT , Chest X-Ray 12/15/22 13:47 IMPRESSION: New opacities in the bilateral lungs from interstitial edema or pneumonia. Electronically Signed: Maile Recio MD at 14:20 EDT , Chest x-ray, portable, single view shows what appears to be a right lower lobe infiltrate in the left hilar infiltrate. Thiswill be treated as pneumonia. Rhythm Strip Rhythm Strip: Sinus Rhythm Rate: 73 Ectopy: None EKG Initial EKG: Attestation: I personally reviewed and interpreted this EKG as follows: Interpretation: Sinus Rhythm and No Acute Injury Pattern Comments: Normal sinus rhythm rate of 73 no acute signs of OR or ischemia. There is nonspecific ST-T wave changes but no acute change from December 13, 2022. Discharge Plan Triage Chief Complaint: Confusion ED Provider: Patrick Espinosa Dx/Rx/DC Orders Clinical Impression: Right lower lobe pneumonia, Hypoxia, Acute confusion, History of atrial fibrillation, Blind, History of diabetes mellitus Prescriptions: No Action donepezil 10 mg tablet 10 mg PO QHS memantine 10 mg tablet 10 mg PO BID aspirin [Adult Aspirin Regimen] 81 mg tablet,delayed release (DR/EC) 81 mg PO DAILY glipizide 5 mg tablet extended release 24hr 5 mg PO DAILY magnesium oxide 400 mg (241.3 mg magnesium) tablet 400 mg PO DAILY Label Comments: supplement melatonin 3 mg tablet 3 mg PO QHS Label Comments: TAKE 1 TABLET BY MOUTH at 7PM EVERY EVENING mirtazapine 30 mg tablet 30 mg PO QHS omeprazole 20 mg capsule,delayed release(DR/EC) 20 mg PO DAILY quetiapine 25 mg tablet 25 mg PO ONCE HS Label Comments: Take 1 tablet by mouth daily at bedtime. metoprolol tartrate 50 mg tablet 50 mg PO BID Qty: 180 3RF dftzppua-nnl-QE-lycopen-lutein 1 EACH tablet 1 ea PO DAILY Label Comments: General health prednisone 2.5 MG tablet 2.5 mg PO DAILY Hold Instructions: Resume on 06/08/22. Label Comments: steroid atorvastatin 40 mg tablet 40 mg PO QHS doxycycline monohydrate 100 mg Capsule 100 mg PO BID 6 Days Qty: 12 0RF diltiazem HCl [Cardizem] 120 mg tablet 120 mg PO DAILY Qty: 30 2RF Eliquis 2.5 mg tablet 2.5 mg PO BID Qty: 60 11RF Primary Care Provider: Sampson Penny Referrals: Sampson Penny MD [Primary Care Provider] - Disposition Disposition: Acute Care Hospital [facility]
[2022-12-15 12:31] LABS: Absolute Lymphocyte Count 1.19 X10^3/uL (0.83-4.51); Absolute Neutrophil Count 5.3 X10^3/uL (2.0-7.7); Basophil# 0.01 X10^3/uL; Basophil% 0.1 % (0-1); Eosinophil# 0.01 X10^3/uL; Eosinophils% 0.1 % (0-5); Hematocrit 33.4 % (40-54); Hemoglobin 11.5 g/dL (13.0-16.5); Lymphocyte # 1.19 X10^3/ul (0.83-4.51); Lymphocyte % 11.6 % (19-41); Mean Corp Hgb Conc 34.4 g/dL (32-36); Mean Corpuscular Hgb 31.7 pg (27.0-32.0); Mean Platelet Vol. 11.3 fl (6.2-12.0); Monocyte# 3.77 X10^3/uL; Monocyte% 36.7 % (0-10); NRBC Flagged by Analyzer 0 % (0-5); Neutrophil # 5.25 X10^3/uL (2.7-7.7); POSITIVE DIFFERENTIAL YES; Platelet Count 182 K/mm3 (150-450); RBC Distribution Width CV 13.8 % (11.6-14.6); RBC Distribution Width SD 46.1 fl (35.1-43.9); Red Blood Count 3.63 M/mm3 (4.6-6.2); White Blood Count 10.3 K/mm3 (4.4-11.0)
[2022-12-15] MEDS: 0.9% Normal Saline 1,000 ML 1000 ML IV (12:38)
[2022-12-15 12:46] LABS: Differential Indicated SCAN CRITERIA MET
[2022-12-15 12:47] LABS: ALB/GLOB Ratio 0.9 RATIO (0.9-2.4); AST(SGOT) 15 U/L (15-37); Alanine Aminotransfer ALT/SGPT 25 U/L (16-61); Albumin, Serum 3.7 g/dL (3.2-5.0); Alkaline Phosphatase 115 U/L (45-117); Anion Gap 2 (5-15); BUN 29 mg/dL (7-18); BUN/Creat Ratio 20.6 RATIO (10-20); Calcium,Total 9.4 mg/dL (8.5-10.1); Chloride 100 mmol/L (98-107); Creatinine, Serum 1.41 mg/dL (0.70-1.30); EST Glomerular Filtration Rate 51 mL/min (>60); Est Glom Filt Rate - Afr Amer 61 mL/min (>60); Estimated Creatinine Clearance 38.86 ml/min; Glucose 276 mg/dL (74-106); Potassium 4.4 mmol/L (3.5-5.1); Protein, Total 7.7 g/dL (6.4-8.2); Sodium Level 133 mmol/L (136-145)
[2022-12-15 12:52] LABS: Differential Comment SCANNED; Pathologist Review May foll
--- NOTE | 2022-12-15 13:00 | RAD_ITS ---
HISTORY: ms change. TECHNIQUE: XR Chest 1 View. COMPARISON: 12/12/2022. FINDINGS: CARDIOMEDIASTINAL BORDERS: Cardiac silhouette within normal limits in size. Mediastinal contour unchanged with calcification of the aorta. LUNGS: Calcified granuloma in the right midlung laterally. New opacities in the left mid and right lower lung. PLEURA: Mild right pleural effusion. OSSEOUS STRUCTURES: Degenerative change. RAD/Chest 1 View (Portable) IMPRESSION: New opacities in the left mid and right lower lung, concerning for pneumonia or aspiration. Mild right pleural effusion. Electronically Signed: Maile Recio MD at 13:31 EDT ,
--- NOTE | 2022-12-15 13:47 | RAD_ITS ---
HISTORY: hypoxia. TECHNIQUE: XR Chest 1 View. COMPARISON: 12/12/2022. FINDINGS: LINES/TUBES: None. CARDIOMEDIASTINAL BORDERS: Stable. LUNGS: Calcified granuloma in the right mid lung again seen. New interstitial and patchy opacities in the left mid and right lower lung. PLEURA: Probable trace pleural effusions. RAD/Chest 1 View (Portable) IMPRESSION: New opacities in the bilateral lungs from interstitial edema or pneumonia. Electronically Signed: Maile Recio MD at 14:20 EDT ,
--- NOTE | 2022-12-15 13:47 | ED.RN ---
[address] and pox 87% on ra. good wave form on monitor. dr. ledesma aware and pt not on any home o2 per son. cxr ordered. son at bedside reported noted cough. lungs dim post with fine crackles mid bases and poor insp effort noted . o2 on at 2l and spo2 slowly up to 90%
--- NOTE | 2022-12-15 14:43 | PCM.HP.STD ---
[facility] - General General Date of Admission: 12/15/22 Date of Service: 12/15/22 Chief Complaint: Altered mental status, confusion confusion, abnormal behavior, incoherent speech. HPI Narrative JULIANE SANDOVAL, is a 87 M who was discharged today when he was admitted for fatigue confusion, found to be A-fib RVR with MRSE UTI and was evaluated by hand inserter operator. Patient is legally blind. As per the son when he was fine in the hospital at the time of discharge but at home is confused, disoriented and thinks he was playing cards. Patient did not have nausea or vomiting but requires 2 L of oxygen while patient was on room air since 12/12/2022. Patient also spiked fever 102 Fahrenheit. As per the son, he does not have any new symptoms like cough shortness of breath but patient was on 2 L of oxygen. Chest x-ray shows new opacities in the right lower lung and left midlung. Patient started on IV antibiotics Zosyn. Sue states he sometimes he cough while sleeping therefore concern for aspiration. Patient is legally blind. Previous chest x-ray on 12/12/2022 although reported clear and expanded but shows mild right lung infiltrate although this has progressed. Patient was treated with ceftriaxone for 2 days for concern of UTI which was later changed to doxycycline after it came positive for MRSE. In ED, vitals shows temperature 99.5, 1002 Fahrenheit. No tachycardia, sinus rhythm but requires 2 L of oxygen. Labs reviewed and discussed in assessment plan. [facility] Medical History Anemia of chronic disease Cellulitis and abscess Chronic constipation Chronic rheumatic arthritis COVID-19 Dementia Diabetes mellitus, type 2 Hypoxemia MDS (myelodysplastic syndrome) Myocardial infarction due to demand ischemia Obstructive sleep apnea Paroxysmal atrial flutter Personal history of immunosupression therapy Stroke/cerebrovascular accident Home Medications uqiriuoc-ktp-dzzku acid 0.4 mg-lycopene 300 mcg-lutein 250 mcg tablet 1 ea PO DAILY vitamin 05/03/15 [History Last Taken 09/23/15] prednisone 2.5 mg tablet 2.5 mg PO DAILY inflammation 09/03/15 [History Last Taken 09/23/15] aspirin 81 mg tablet,delayed release (Adult Aspirin Regimen) 81 mg PO DAILY HEART HEALTH 08/10/19 [History Last Taken Unknown] donepezil 10 mg tablet 10 mg PO QHS mentation 08/10/19 [History Last Taken Unknown] memantine 10 mg tablet 10 mg PO BID mentation 08/10/19 [History Last Taken Unknown] glipizide 5 mg tablet, extended release 24 hr 5 mg PO DAILY DIABETES 08/13/21 [History Last Taken Unknown] magnesium oxide 400 mg (241.3 mg magnesium) tablet 400 mg PO DAILY supplement 08/13/21 [History Last Taken Unknown] melatonin 3 mg tablet 3 mg PO QHS sleep 08/13/21 [History Last Taken Unknown] mirtazapine 30 mg tablet 30 mg PO QHS mental health 08/13/21 [History Last Taken Unknown] atorvastatin 40 mg tablet 40 mg PO QHS cholesterol 05/29/22 [History Last Taken Unknown] omeprazole 20 mg capsule,delayed release 20 mg PO DAILY Check with primary doctor 06/16/22 [History Last Taken Unknown] quetiapine 25 mg tablet 25 mg PO ONCE HS Check with primary doctor 10/22/22 [History Last Taken Unknown] apixaban 2.5 mg tablet (Eliquis) 2.5 mg PO BID Check with primary doctor 12/15/22 [History Last Taken Unknown] diltiazem HCl 120 mg tablet (Cardizem) 120 mg PO DAILY Check with primary doctor 12/15/22 [History Last Taken Unknown] doxycycline monohydrate 100 mg capsule 100 mg PO BID Check with primary doctor 12/15/22 [History Last Taken Unknown] metoprolol tartrate 50 mg tablet 50 mg PO BID Check with primary doctor 12/15/22 [History Last Taken Unknown] Allergy/AdvReac Type Severity Reaction Status Date / Time No Known Allergies Allergy Verified 12/15/22 11:52 Family History Father Cancer Diabetes Surgical History History of corneal transplant History of prostate surgery Hx of cataract surgery Social History household members: spouse and children housing: house current occupational status: retired Smoking Status: Never smoker alcohol intake: current alcohol intake frequency: other substance use type: does not use ROS ROS Narrative 14 system ROS unobtainable as patient is legally blind and confused and disoriented. As per the son there is no significant change after discharge but while he is confused disoriented and abnormal behavior. Rest as described in HPI. Review of Systems ROS Unobtainable: due to encephalopathy and other Details: Patient has dementia. Vital Signs Vital Signs Vital Signs: 12/15/22 11:50 12/15/22 12:12 Temperature 99.9 F H Temperature Source Temporal Pulse Rate 71 84 Respiratory Rate 18 18 Blood Pressure 132/57 H 138/58 H Blood Pressure Mean 82 84 Pulse Ox 94 92 Oxygen Delivery Method Room Air Room Air Weight Weight: 164 lb 1.6 oz Body Mass Index (BMI) 22.8 Physical Exam Narrative Physical exam General: Awake, alert. Disoriented to time and place because of legal blind. Abnormal behavior. HEENT: Legally blind.? Patient does not have perception of hand movement.? Atraumatic, PERRLA, EOMI, Normocephalic Oral: No Gingival or Mucosal Lesions/ Ulcerations. Oral mucosa moist. Neck: Supple, No JVD, Negative Carotid Bruits Lungs:? Air entry diminished in bilateral lung bases.? Bibasilar coarse crepitation on deep breathing. Mild hypoxia Cardiovascular: Sinus rhythm, normal S1, Normal S2, systolic murmur LLSB and right second ICS. Abdomen: Bowel Sounds Present, Soft, Non Tender, Non-Distended : No renal angle tenderness.? No suprapubic tenderness. Extremities: No edema, Capillary Refill Less than 3 Seconds Skin: No rashes, No breakdown Musculoskeletal: No Tenderness to Palpation of Joints or Extremities.? Muscle strength 5/5 at major joints. Neurological: Cranial nerves II-XII grossly intact, DTR? 2+/4 and Symmetrical, Neuro grossly intact Psych/Mental Status: Flat affect, dementia. Confusion Results Lab / Micro Data Result Diagrams: 12/15/22 12:20 12/15/22 12:20 Labs: Laboratory Results - last 24 hr 12/15/22 12:20: WBC 10.3, RBC 3.63 L, Hgb 11.5 L, Hct 33.4 L, MCV 92.0, MCH 31.7, MCHC 34.4, RDW Std Deviation 46.1 H, RDW Coeff of Zak 13.8, Plt Count 182, MPV 11.3, Immature Gran % (Auto) 0.500, Neut % (Auto) 51.0, Lymph % (Auto) 11.6 L, Carson % (Auto) 36.7 H, Eos % (Auto) 0.1, Baso % (Auto) 0.1, Absolute Neuts (auto) 5.3, Absolute Lymphs (auto) 1.19, Nucleated RBC % 0, Differential Comment SCANNED, Diff Path Review January12/15/22 12:20: Sodium 133 L, Potassium 4.4, Chloride 100, Carbon Dioxide 31.0, Anion Gap 2 L, BUN 29 H, Creatinine 1.41 H, Estim Creat Clear Calc 38.86, Est GFR (MDRD) Af Amer 61, Est GFR (MDRD) Non-Af 51 L, BUN/Creatinine Ratio 20.6 H, Glucose 276 H, Calcium 9.4, Total Bilirubin 0.80, AST 15, ALT 25, Alkaline Phosphatase 115, Total Protein 7.7, Albumin 3.7, Globulin 4.0, Albumin/Globulin Ratio 0.9 12/15/22 13:30: D-Dimer Quant (PE/DVT) Cancelled Rhythm Strip Rhythm Strip: Sinus Rhythm Rate: 73 Ectopy: None Radiology Impression Brain CT 12/15/22 12:05 IMPRESSION: No acute intracranial process identified. Chronic involutional and white matter changes. Electronically Signed: Maile Recio MD at 13:28 EDT , Chest X-Ray 12/15/22 13:00 IMPRESSION: New opacities in the left mid and right lower lung, concerning for pneumonia or aspiration. Mild right pleural effusion. Electronically Signed: Maile Recio MD at 13:31 EDT , Chest X-Ray 12/15/22 13:47 IMPRESSION: New opacities in the bilateral lungs from interstitial edema or pneumonia. Electronically Signed: Maile Recio MD at 14:20 EDT , Assessment & Plan Assessment/Plan (1) Bilateral pneumonia: (2) Encephalopathy acute: PLAN: Plan 87-year-old gentleman is being admitted for confusion, altered mental status with abnormal behavior probably due to bilateral pneumonia. 1. Acute encephalopathy, multifactorial predominantly infectious, metabolic on baseline dementia, legally blind: Patient is being admitted on MedSurg floor. Patient had 1 L of normal saline bolus in ED. Started on IV Zosyn. Continue doxycycline. Pneumonia work-up with a sputum culture, blood cultures x2 COVID-19 antigen and MRSA nasal screen. Orientation cues. 2. Bilateral pneumonia, suspect aspiration pneumonia: Although patient was on antibiotics empirically ceftriaxone which was changed to doxycycline for UTI which came out to be MRSE UTI on 12/14. Patient is started on IV Zosyn and doxycycline. ID consult requested. 3. Paroxysmal A-fib/atrial flutter: Last time patient was admitted with A-fib with RVR and converted to sinus rhythm. Patient is still in sinus rhythm. Twelve-lead EKG shows normal sinus rhythm 73 bpm QTc 423 ms. Patient on metoprolol, Eliquis and Cardizem CD. During previous admission patient was evaluated by hand inserter operator and had 2D echo. At that time there is also mild elevation of troponin which was thought to be due to myocardial injury from A-fib RVR. 2D echo reported EF 50% moderate TR mild pulmonary hypertension. 4. Diabetes mellitus type 2: During previous admission patient has lactic acid probably due to metformin therefore it was discontinued. Continue glipizide. Last A1c 6.8 on 05/29/2022. A1c tomorrow AM. 5. Dementia with behavioral abnormalities/delirium: Patient on donezepil and memantine. Low-dose of Seroquel 25 mg daily at midnight. 6. 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 RA -Continue chronic steroids with prednisone 2.5 mg daily 9. Anemia of chronic disease: Hemoglobin 11.5 on baseline. 10. History of stroke and Generalized weakness/debility: PT OT and speech therapy evaluation. Patient's son takes care of him at home. Continue baby aspirin 11. DVT prophylaxis -Continue home Eliquis Living will/advanced directive/end of life care: Patient does have living will or advanced directive. After discussion of benefits/risks procedures involved with full code, DNR CC arrest and DNR CC, the patient's son opted for for full code. The patient's daughter Mrs. Colin is power of book binder for his health. Patient's son takes care of him. Patient does want artificial life support including intubation, tube feed, ventilator and/chest compression, central venous catheter, vasopressor and DC shock if needed Total time spent in [id number] encounter in discussion of advanced directive 17 minutes. Laboratory Results 12/15/22 12:20: WBC 10.3, RBC 3.63 L, Hgb 11.5 L, Hct 33.4 L, MCV 92.0, MCH 31.7, MCHC 34.4, RDW Std Deviation 46.1 H, RDW Coeff of Zak 13.8, Plt Count 182, MPV 11.3, Immature Gran % (Auto) 0.500, Neut % (Auto) 51.0, Lymph % (Auto) 11.6 L, Carson % (Auto) 36.7 H, Eos % (Auto) 0.1, Baso % (Auto) 0.1, Absolute Neuts (auto) 5.3, Absolute Lymphs (auto) 1.19, Nucleated RBC % 0, Differential Comment SCANNED, Diff Path Review May foll 12/15/22 12:20: Sodium 133 L, Potassium 4.4, Chloride 100, Carbon Dioxide 31.0, Anion Gap 2 L, BUN 29 H, Creatinine 1.41 H, Estim Creat Clear Calc 38.86, Est GFR (MDRD) Af Amer 61, Est GFR (MDRD) Non-Af 51 L, BUN/Creatinine Ratio 20.6 H, Glucose 276 H, Calcium 9.4, Total Bilirubin 0.80, AST 15, ALT 25, Alkaline Phosphatase 115, Total Protein 7.7, Albumin 3.7, Globulin 4.0, Albumin/Globulin Ratio 0.9 Clinical Impression(s) from Imaging Studies Brain CT 12/15/22 12:05 IMPRESSION: No acute intracranial process identified. Chronic involutional and white matter changes. Chest X-Ray 12/15/22 13:00 IMPRESSION: New opacities in the left mid and right lower lung, concerning for pneumonia or aspiration. Mild right pleural effusion. Chest X-Ray 12/15/22 13:47 IMPRESSION: New opacities in the bilateral lungs from interstitial edema or pneumonia. Charges/Coding Visit Charges Inpatient E&M: 28329 Init Hosp L3 Procedures Hospitalists Procedures: 21555 Advncd Care Plan 30 Min
[2022-12-15 15:56] LABS: Magnesium 1.9 mg/dL (1.6-2.6)
[2022-12-15] MEDS: 0.9% Saline Lock 10 ML Syringe IV (22:22)
[2022-12-15] MEDS: Atorvastatin Calcium 40 MG Tablet PO (22:26)
[2022-12-15] MEDS: APIXABAN 2.5 MG TABLET (WCH) PO (22:26)
[2022-12-15] MEDS: Mirtazapine 30 MG Tablet PO (22:26)
[2022-12-15] MEDS: QUEtiapine 25 MG Tablet PO (22:26)
[2022-12-15] MEDS: Donepezil HCl 10 MG Tablet PO (22:26)
[2022-12-15] MEDS: Memantine Hydrochloride 10 MG Tablet PO (22:26)
[2022-12-15] MEDS: Doxycycline 100 MG CAPSULE PO (22:26)
[2022-12-15] MEDS: Senna/Docusate Sodium 1 Tablet 2 TABLET PO (22:26)
[2022-12-15] MEDS: MELATONIN 3 MG TABLET PO (22:27)
[2022-12-15] MEDS: Metoprolol Tartrate 50 MG Tablet PO (22:27)
[2022-12-16] VITALS (11 sets, daily range): BP systolic 100–115; BP diastolic 48–78; PULSE 63–117; RESP 15–18; TEMP 36.1–36.8; O2SAT 87–98; BMI 21.8
[2022-12-16 05:25] LABS: Bacteria 0 SEEN /hpf (None Seen); Mucous, Urine 0 SEEN /hpf (<or=2+); Squamous Epithelial Cells - UA 0 SEEN /hpf (0-5); White Blood Cells 0 SEEN /hpf (0-5)
[2022-12-16 05:28] LABS: Color, Urine Yellow (Yellow); Glucose, Dipstick Normal (Normal); Ketone-Dipstick Negative (Negative); Leukocyte Esterase-Dipstick Negative /ul (Negative); Nitrite-Dipstick Negative (Negative); Occult Blood-Urine 10 /ul (Negative); Protein-Dipstick Negative (Negative); Urine Bilirubin Dipstick Negative (Negative); Urine Clarity Clear (Clear); Urine Urobilinogen Normal (Normal); Urine pH 6.5 (5.0 - 8.0)
[2022-12-16 05:35] LABS: Red Blood Cells-Urine 0-5 SEEN /hpf (0-5)
[2022-12-16 06:51] LABS: Absolute Lymphocyte Count 2.05 X10^3/uL (0.83-4.51); Absolute Neutrophil Count 4.1 X10^3/uL (2.0-7.7); Basophil# 0.01 X10^3/uL; Basophil% 0.1 % (0-1); Hematocrit 32.6 % (40-54); Lymphocyte # 2.05 X10^3/ul (0.83-4.51); Lymphocyte % 17.3 % (19-41); Mean Corp Hgb Conc 33.7 g/dL (32-36); Mean Corpuscular Hgb 31.3 pg (27.0-32.0); Mean Corpuscular Volume 92.9 fL (80-94); Mean Platelet Vol. 11.3 fl (6.2-12.0); Monocyte% 47.3 % (0-10); NRBC Flagged by Analyzer 0 % (0-5); Neutrophil # 4.13 X10^3/uL (2.7-7.7); Neutrophil % 34.8 % (47-70); POSITIVE DIFFERENTIAL YES; Platelet Count 185 K/mm3 (150-450); RBC Distribution Width SD 46.7 fl (35.1-43.9); Red Blood Count 3.51 M/mm3 (4.6-6.2); White Blood Count 11.9 K/mm3 (4.4-11.0)
[2022-12-16 07:03] LABS: Differential Indicated SCAN CRITERIA MET
[2022-12-16 07:21] LABS: Anion Gap 2 (5-15); BUN 25 mg/dL (7-18); BUN/Creat Ratio 19.1 RATIO (10-20); Calcium,Total 9.1 mg/dL (8.5-10.1); Chloride 106 mmol/L (98-107); Creatinine, Serum 1.31 mg/dL (0.70-1.30); EST Glomerular Filtration Rate 55 mL/min (>60); Est Glom Filt Rate - Afr Amer 67 mL/min (>60); Estimated Creatinine Clearance 39.73 ml/min; Glucose 188 mg/dL (74-106); Potassium 3.8 mmol/L (3.5-5.1); Sodium Level 138 mmol/L (136-145)
[2022-12-16 07:40] LABS: Hemoglobin A1c 6.2 % (3.8-5.6)
[2022-12-16 09:30] LABS: M R Staph aureus DNA By PCR Negative (Negative); Probe Check PASS; Specimen Processing Control PASS
[2022-12-16] MEDS: Aspirin E.C. 81 MG Tablet PO (10:06)
[2022-12-16] MEDS: glipiZIDE XL 5 MG Tablet PO (10:06)
[2022-12-16] MEDS: Multivitamins,Ther W-Minerals Tablet 1 TABLET PO (10:06)
[2022-12-16] MEDS: dilTIAZem CD 120 MG Capsule PO (10:07)
[2022-12-16] MEDS: Memantine Hydrochloride 10 MG Tablet PO ×2 (10:07→21:29)
[2022-12-16] MEDS: predniSONE 1 MG Tablet 2.5 MG PO (10:07)
[2022-12-16] MEDS: Doxycycline 100 MG CAPSULE PO ×2 (10:07→21:29)
[2022-12-16] MEDS: Pantoprazole Sodium 20 MG Tablet PO (10:07)
[2022-12-16] MEDS: Senna/Docusate Sodium 1 Tablet 2 TABLET PO ×2 (10:08→21:29)
[2022-12-16] MEDS: Metoprolol Tartrate 50 MG Tablet PO ×2 (10:08→22:31)
[2022-12-16] MEDS: Magnesium Chloride 64 MG Delay Rel.Tablet 128 MG PO (10:08)
[2022-12-16] MEDS: APIXABAN 2.5 MG TABLET (WCH) PO ×2 (10:08→21:29)
--- NOTE | 2022-12-16 11:01 | CASEMGMT ---
RN CM Readmission Note Previous Admission:? 12/12/22-12/15/22 Diagnosis:?A fib with RVR, UTI DC Disposition: Home with family support Current Admission? Current Diagnosis: Pneumonia, AMS Pt was discharged on 12/15/22 after being admitted for fatigue confusion, found to be A-fib RVR with MRSE UTI and was evaluated by buffing wheel former automatic. Patient is legally blind. As per the son when he was fine in the hospital at the time of discharge but at home is confused, disoriented and thinks he was playing cards. Pt brought back to the hospital within a couple of hours and readmitted. Pt on oxygen at this time and had temp up to 102. RN CM into pt room, pt sitting up in chair. Noted PT eval that no therapy is recommended. Pt agreeable to discuss dc plan with son. TC to pt son, discussed dc planning. He is agreeable to pt having a SN in the home. Pt son aware this RN CM will provide a list of HHC providers including quality and resource use data and consistent with the patient?s preferred geographic region, medical needs, and insurance network were provided from the [employer] Guide electronically. He will review list. Discussed should pt need oxygen, local in network DME providers, pt son chose [employer]. RN CM will cont to follow. ID to consult. DC Plan: Home with HHC, SN. Follow for oxygen. ?
--- NOTE | 2022-12-16 13:47 | CON.PCM.ID_ITS ---
Assessment & Plan Assessment/Plan (1) Encephalopathy acute: (2) Bilateral pneumonia: PLAN: MRSA pcr neg. Resp pcr panel neg. Will order covid. Fever to 102 here on admit. Urine Ag neg. On zosyn, will continue. Remains on po doxy for MRSE uti. Will follow, thank you. HPI Consult Data Date of Consult: 12/16/22 HPI Narrative Reason for Consultation: fever HPI Narrative: JULIANE SANDOVAL, is a 87 M who is legally blind, recent admit with MRSE uti, discharged on po doxy, returned 12/15 with one day h/o fever, chills, cough, dyspnea, confusion. Admitted here on zosyn, doxy continued. No complaints today, denies any cough, dyspnea, fever. Full ROS performed and neg except as noted above. [facility] Medical History Anemia of chronic disease Cellulitis and abscess Chronic constipation Chronic rheumatic arthritis COVID-19 Dementia Diabetes mellitus, type 2 Hypoxemia MDS (myelodysplastic syndrome) Myocardial infarction due to demand ischemia Obstructive sleep apnea Paroxysmal atrial flutter Personal history of immunosupression therapy Stroke/cerebrovascular accident Home Medications jeotgeiy-rrp-xlbvs acid 0.4 mg-lycopene 300 mcg-lutein 250 mcg tablet 1 ea PO DAILY vitamin 05/03/15 [History Last Taken 09/23/15] prednisone 2.5 mg tablet 2.5 mg PO DAILY inflammation 09/03/15 [History Last Ta darin 09/23/15] aspirin 81 mg tablet,delayed release (Adult Aspirin Regimen) 81 mg PO DAILY HEART HEALTH 08/10/19 [History Last Taken Unknown] donepezil 10 mg tablet 10 mg PO QHS mentation 08/10/19 [History Last Taken Unknown] memantine 10 mg tablet 10 mg PO BID mentation 08/10/19 [History Last Taken Unknown] glipizide 5 mg tablet, extended release 24 hr 5 mg PO DAILY DIABETES 08/13/21 [History Last Taken Unknown] magnesium oxide 400 mg (241.3 mg magnesium) tablet 400 mg PO DAILY supplement 08/13/21 [History Last Taken Unknown] melatonin 3 mg tablet 3 mg PO QHS sleep 08/13/21 [History Last Taken Unknown] mirtazapine 30 mg tablet 30 mg PO QHS mental health 08/13/21 [History Last Taken Unknown] atorvastatin 40 mg tablet 40 mg PO QHS cholesterol 05/29/22 [History Last Taken Unknown] omeprazole 20 mg capsule,delayed release 20 mg PO DAILY Check with primary doctor 06/16/22 [History Last Taken Unknown] quetiapine 25 mg tablet 25 mg PO ONCE HS Check with primary doctor 10/22/22 [History Last Taken Unknown] apixaban 2.5 mg tablet (Eliquis) 2.5 mg PO BID Check with primary doctor 12/15/22 [History Last Taken Unknown] diltiazem HCl 120 mg tablet (Cardizem) 120 mg PO DAILY Check with primary doctor 12/15/22 [History Last Taken Unknown] doxycycline monohydrate 100 mg capsule 100 mg PO BID Check with primary doctor 12/15/22 [History Last Taken Unknown] metoprolol tartrate 50 mg tablet 50 mg PO BID Check with primary doctor 12/15/22 [History Last Taken Unknown] Allergy/AdvReac Type Severity Reaction Status Date / Time No Known Allergies Allergy Verified 12/15/22 11:52 Family History Father Cancer Diabetes Surgical History History of corneal transplant History of prostate surgery Hx of cataract surgery Social History household members: spouse and children housing: house current occupational status: retired Smoking Status: Never smoker alcohol intake: current alcohol intake frequency: other substance use type: does not use Physical Exam Const alert and no apparent distress Constitutional Narrative: oriented x2 General Appearance: cooperative HEENT normocephalic and head/scalp atraumatic Eyes Eyes Narrative: blind Neck supple and No nodes Resp Auscultation: rhonchi Cardio regular rate and regular rhythm GI soft to palpation, non-tender and non-distended Extremity General Extremity: Negative for edema Skin no rashes or lesions noted Neuro CN's II-XII intact bilaterally Lab / Micro Data Attestation: I reviewed the patient's lab results. Result Diagrams: 12/16/22 06:20 12/16/22 06:20 Labs: Laboratory Results - last 24 hr 12/15/22 12:20: Magnesium 1.9 12/16/22 05:00: Urine Color Yellow, Urine Clarity Clear, Urine pH 6.5, Ur Specific [place] 1.010, Urine Protein Negative, Urine Glucose (UA) Normal, Urine Ketones Negative, Urine Occult Blood 10 H, Urine Nitrite Negative, Urine Bilirubin Negative, Urine Urobilinogen Normal, Ur Leukocyte Esterase Negative, Urine RBC 0-5 SEEN, Urine WBC 0 SEEN, Ur Squamous Epith Cells 0 SEEN, Urine Bacteria 0 SEEN, Urine Mucus 0 SEEN 12/16/22 06:00: MRSA (PCR) Negative 12/16/22 06:20: WBC 11.9 H, RBC 3.51 L, Hgb 11.0 L, Hct 32.6 L, MCV 92.9, MCH 31.3, MCHC 33.7, RDW Std Deviation 46.7 H, RDW Coeff of Zak 14.0, Plt Count 185, MPV 11.3, Immature Gran % (Auto) 0.500, Neut % (Auto) 34.8 L, Lymph % (Auto) 17.3 L, Tate % (Auto) 47.3 H, Eos % (Auto) 0.0, Baso % (Auto) 0.1, Absolute Neuts (auto) 4.1, Absolute Lymphs (auto) 2.05, Nucleated RBC % 0, Diff Path Review January12/16/22 06:20: Sodium 138, Potassium 3.8, Chloride 106, Carbon Dioxide 30.0, Anion Gap 2 L, BUN 25 H, Creatinine 1.31 H, Estim Creat Clear Calc 39.73, Est GFR (MDRD) Af Amer 67, Est GFR (MDRD) Non-Af 55 L, BUN/Creatinine Ratio 19.1, Glucose 188 H, Calcium 9.1 12/16/22 06:20: Hemoglobin A1c 6.2 H Micro: Microbiology 12/16/22 05:00 Urine Catheter - Catheter Streptococcus pneumoniae Antigen (M - Final 12/16/22 05:00 Urine Catheter - Catheter Legionella Antigen - Final 12/15/22 16:50 Mucosa - Nasopharyngeal Respiratory Panel (PCR) - Final Rhythm Strip Rhythm Strip: Sinus Rhythm Rate: 73 Ectopy: None Radiology Impression Chest X-Ray 12/15/22 13:47 IMPRESSION: New opacities in the bilateral lungs from interstitial edema or pneumonia. Electronically Signed: Maile Recio MD at 14:20 EDT ,
--- NOTE | 2022-12-16 15:35 | CASEMGMT ---
TC to pt son to confirm that he received [facility] choices. He states he did but would like to review with his sister. DIAMANTE CM to check in with him tomorrow for choices.
--- NOTE | 2022-12-16 15:45 | PN.HOSP_ITS ---
Reason for Visit Reason for Visit: Diagnoses Encephalopathy, unspecified (12/15/22) Pneumonia, unspecified organism (12/15/22) Follow-up for acute encephalopathy and pneumonia. Subjective Subjective Patient looks on his baseline. Does not have cough or shortness of breath. No labored breathing. Objective Data Objective Data Vital Signs: Vital Signs Temp Pulse Resp BP Pulse Ox O2 Del Method O2 Flow Rate 97 F L 80 18 100/78 97 Nasal Cannula 2 12/16/22 14:35 12/16/22 14:35 12/16/22 14:35 12/16/22 14:35 12/16/22 14:35 12/16/22 14:36 12/16/22 14:36 Oxygen Flow Rate (L/min) 2 Oxygen Delivery Method Nasal Cannula Weight: 155 lb 13.869 oz Body Mass Index (BMI) 21.8 Intake & Output: Intake and Output for Last 24 Hours 12/14/22 12/15/22 12/16/22 23:59 23:59 23:59 Intake Total 1100 / 1100 100 / 100 Balance 1100 / 1100 100 / 100 Lab / Micro Data Result Diagrams: 12/16/22 06:20 12/16/22 06:20 Labs: Laboratory Results - last 24 hr 12/15/22 12:20: Magnesium 1.9 12/16/22 05:00: Urine Color Yellow, Urine Clarity Clear, Urine pH 6.5, Ur Specific [place] 1.010, Urine Protein Negative, Urine Glucose (UA) Normal, Urine Ketones Negative, Urine Occult Blood 10 H, Urine Nitrite Negative, Urine Bilirubin Negative, Urine Urobilinogen Normal, Ur Leukocyte Esterase Negative, Urine RBC 0-5 SEEN, Urine WBC 0 SEEN, Ur Squamous Epith Cells 0 SEEN, Urine Bacteria 0 SEEN, Urine Mucus 0 SEEN 12/16/22 06:00: MRSA (PCR) Negative 12/16/22 06:20: WBC 11.9 H, RBC 3.51 L, Hgb 11.0 L, Hct 32.6 L, MCV 92.9, MCH 31.3, MCHC 33.7, RDW Std Deviation 46.7 H, RDW Coeff of Zak 14.0, Plt Count 185, MPV 11.3, Immature Gran % (Auto) 0.500, Neut % (Auto) 34.8 L, Lymph % (Auto) 17.3 L, Esmeralda % (Auto) 47.3 H, Eos % (Auto) 0.0, Baso % (Auto) 0.1, Absolute Neuts (auto) 4.1, Absolute Lymphs (auto) 2.05, Nucleated RBC % 0, Diff Path Review January12/16/22 06:20: Sodium 138, Potassium 3.8, Chloride 106, Carbon Dioxide 30.0, Anion Gap 2 L, BUN 25 H, Creatinine 1.31 H, Estim Creat Clear Calc 39.73, Est GFR (MDRD) Af Amer 67, Est GFR (MDRD) Non-Af 55 L, BUN/Creatinine Ratio 19.1, Glucose 188 H, Calcium 9.1 12/16/22 06:20: Hemoglobin A1c 6.2 H Micro: Microbiology 12/16/22 05:00 Urine Catheter - Catheter Streptococcus pneumoniae Antigen (M - Final 12/16/22 05:00 Urine Catheter - Catheter Legionella Antigen - Final 12/15/22 16:50 Mucosa - Nasopharyngeal Respiratory Panel (PCR) - Final Rhythm Strip Rhythm Strip: Sinus Rhythm Rate: 73 Ectopy: None Physical Exam Narrative Physical exam General: Awake, alert. Oriented to place. Disorientation to time because of legal blind. Abnormal behavior has resolved. HEENT: Legally blind.? Patient does not have perception of hand movement.? Atraumatic, PERRLA, EOMI, Normocephalic Oral: No Gingival or Mucosal Lesions/ Ulcerations. Oral mucosa moist. Neck: Supple, No JVD, Negative Carotid Bruits Lungs:? Air entry diminished in bilateral lung bases.? Occasional bibasilar coarse crepitation; improving. Mild hypoxia on 2 L of O2 Cardiovascular: Sinus rhythm, normal S1, Normal S2, systolic murmur LLSB and right second ICS. Abdomen: Bowel Sounds Present, Soft, Non Tender, Non-Distended : No renal angle tenderness.? No suprapubic tenderness. Extremities: No edema, Capillary Refill Less than 3 Seconds Skin: No rashes, No breakdown Musculoskeletal: No Tenderness to Palpation of Joints or Extremities.? Muscle strength 5/5 at major joints. Neurological: Cranial nerves II-XII grossly intact, DTR? 2+/4 and Symmetrical, Neuro grossly intact Psych/Mental Status: Flat affect, dementia. Confusion Assessment & Plan Assessment/Plan (1) Bilateral pneumonia: (2) Encephalopathy acute: PLAN: Plan 87-year-old gentleman is being admitted for confusion, altered mental status with abnormal behavior probably due to bilateral pneumonia. 1. Acute encephalopathy, multifactorial predominantly infectious, metabolic on baseline dementia, legally blind: Patient is being admitted on MedSurg floor. Patient thought he was playing cards, talking incoherent, confused and disoriented as per the son. Patient had 1 L of normal saline bolus in ED. Started on IV Zosyn. Continue doxycycline. Pneumonia work-up with a sputum culture, blood cultures x2 COVID-19 antigen and MRSA nasal screen. Orientation cues. 12/16: As I have seen the patient during previous admission it looks patient is b ack on baseline. He is quite, talking coherent. No abnormal behavior or hallucinations. UA shows 0 bacteria, 0 WBC, RBC 0-5 LE negative nitrite negative. Serum magnesium normal. 2. Bilateral pneumonia, suspect aspiration pneumonia: Although patient was on antibiotics empirically ceftriaxone which was changed to doxycycline for UTI which came out to be MRSE UTI on 12/14. Patient is started on IV Zosyn and doxycycline. ID consult requested. 12/16: Patient was evaluated by ID. Agrees with the plan of continuation of Zosyn and doxycycline.MRSA PCR and COVID-19 are pending. Mild leukocytosis. Blood cultures x2 pending.Urinary antigens and respiratory panel are negative. Previous blood culture of 12/12 are negative for more than 48 hours. New blood culture 12/16 ordered. 3. Paroxysmal A-fib/atrial flutter: Last time patient was admitted with A-fib with RVR and converted to sinus rhythm. Patient is still in sinus rhythm. Twelve-lead EKG shows normal sinus rhythm 73 bpm QTc 423 ms. Patient on metoprolol, Eliquis and Cardizem CD. During previous admission patient was evaluated by dressed poultry grader and had 2D echo. At that time there is also mild elevation of troponin which was thought to be due to myocardial injury from A- fib RVR. 2D echo reported EF 50% moderate TR mild pulmonary hypertension. 12/25 heart rate is controlled. Sinus rhythm 4. 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 Continue glipizide. Last A1c 6.8 on 05/29/2022. 12/16: A1c 6.2 reflecting good glycemic control. Patient estimated creatinine clearance about 40 mill per minute. His creatinine stays between 1.27-1.41. 5. Dementia with behavioral abnormalities/delirium: Patient on donezepil and memantine. Low-dose of Seroquel 25 mg daily at midnight. 6. 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 RA -Continue chronic steroids with prednisone 2.5 mg daily 9. Anemia of chronic disease: Hemoglobin 11.5 on baseline. 10. History of stroke and Generalized weakness/debility: PT OT and speech therapy evaluation. Patient's son takes care of him at home. Continue baby aspirin 11. DVT prophylaxis -Continue home Eliquis Living will/advanced directive/end of life care: Patient does have living will or advanced directive. After discussion of benefits/risks procedures involved with full code, DNR CC arrest and DNR CC, the patient's son opted for for full code. The patient's daughter Mrs. Colin is power of senior attorney for his health. Patient's son takes care of him. Patient does want artificial life support including intubation, tube feed, ventilator and/chest compression, central venous catheter, vasopressor and DC shock if needed Total time spent in [id number] encounter in discussion of advanced directive 17 minutes. Microbiology Past 72 Hours 12/16/22 05:00 Urine Catheter - Catheter Streptococcus pneumoniae Antigen (M - Final 12/16/22 05:00 Urine Catheter - Catheter Legionella Antigen - Final 12/15/22 16:50 Mucosa - Nasopharyngeal Respiratory Panel (PCR) - Final Laboratory Results 12/15/22 12:20: Magnesium 1.9 12/16/22 05:00: Urine Color Yellow, Urine Clarity Clear, Urine pH 6.5, Ur Specific [place] 1.010, Urine Protein Negative, Urine Glucose (UA) Normal, Urine Ketones Negative, Urine Occult Blood 10 H, Urine Nitrite Negative, Urine Bilirubin Negative, Urine Urobilinogen Normal, Ur Leukocyte Esterase Negative, Urine RBC 0-5 SEEN, Urine WBC 0 SEEN, Ur Squamous Epith Cells 0 SEEN, Urine Bacteria 0 SEEN, Urine Mucus 0 SEEN 12/16/22 06:00: MRSA (PCR) Negative 12/16/22 06:20: WBC 11.9 H, RBC 3.51 L, Hgb 11.0 L, Hct 32.6 L, MCV 92.9, MCH 31.3, MCHC 33.7, RDW Std Deviation 46.7 H, RDW Coeff of Zak 14.0, Plt Count 185, MPV 11.3, Immature Gran % (Auto) 0.500, Neut % (Auto) 34.8 L, Lymph % (Auto) 17.3 L, Esmeralda % (Auto) 47.3 H, Eos % (Auto) 0.0, Baso % (Auto) 0.1, Absolute Neuts (auto) 4.1, Absolute Lymphs (auto) 2.05, Nucleated RBC % 0, Diff Path Review January foll 12/16/22 06:20: Sodium 138, Potassium 3.8, Chloride 106, Carbon Dioxide 30.0, Anion Gap 2 L, BUN 25 H, Creatinine 1.31 H, Estim Creat Clear Calc 39.73, Est GFR (MDRD) Af Amer 67, Est GFR (MDRD) Non-Af 55 L, BUN/Creatinine Ratio 19.1, Glucose 188 H, Calcium 9.1 12/16/22 06:20: Hemoglobin A1c 6.2 H 12/16/22 14:09: COVID-19 (JESSICA) Pending Clinical Impression(s) from Imaging Studies Brain CT 12/15/22 12:05 IMPRESSION: No acute intracranial process identified. Chronic involutional and white matter changes. Chest X-Ray 12/15/22 13:00 IMPRESSION: New opacities in the left mid and right lower lung, concerning for pneumonia or aspiration. Mild right pleural effusion. Chest X-Ray 12/15/22 13:47 IMPRESSION: New opacities in the bilateral lungs from interstitial edema or pneumonia. Charges/Coding Visit Charges Inpatient E&M: 78311 Subs Hosp L2
[2022-12-16] MEDS: Atorvastatin Calcium 40 MG Tablet PO (21:29)
[2022-12-16] MEDS: Mirtazapine 30 MG Tablet PO (21:29)
[2022-12-16] MEDS: MELATONIN 3 MG TABLET PO (21:29)
[2022-12-16] MEDS: QUEtiapine 25 MG Tablet PO (21:29)
[2022-12-16] MEDS: Donepezil HCl 10 MG Tablet PO (21:29)
[2022-12-17 03:12] VITALS: BP 108/66; PULSE 53; RESP 15; TEMP 36.5; O2SAT 95
[2022-12-17 06:00] VITALS: BMI 27.8
[2022-12-17 06:52] LABS: Absolute Lymphocyte Count 2.85 X10^3/uL (0.83-4.51); Absolute Neutrophil Count 4.9 X10^3/uL (2.0-7.7); Basophil# 0.01 X10^3/uL; Basophil% 0.1 % (0-1); Hematocrit 29.6 % (40-54); Hemoglobin 9.9 g/dL (13.0-16.5); Lymphocyte # 2.85 X10^3/ul (0.83-4.51); Lymphocyte % 27.3 % (19-41); Mean Corp Hgb Conc 33.4 g/dL (32-36); Mean Corpuscular Hgb 31.1 pg (27.0-32.0); Mean Corpuscular Volume 93.1 fL (80-94); Mean Platelet Vol. 11.3 fl (6.2-12.0); Monocyte# 2.65 X10^3/uL; Monocyte% 25.4 % (0-10); NRBC Flagged by Analyzer 0 % (0-5); Neutrophil # 4.85 X10^3/uL (2.7-7.7); Neutrophil % 46.5 % (47-70); POSITIVE DIFFERENTIAL YES; Platelet Count 172 K/mm3 (150-450); RBC Distribution Width CV 13.9 % (11.6-14.6); RBC Distribution Width SD 46.9 fl (35.1-43.9); Red Blood Count 3.18 M/mm3 (4.6-6.2); White Blood Count 10.4 K/mm3 (4.4-11.0)
[2022-12-17 06:54] LABS: Differential Indicated SCAN CRITERIA MET
[2022-12-17 07:16] LABS: Differential Comment SCANNED
[2022-12-17 07:32] LABS: Anion Gap 5 (5-15); BUN 34 mg/dL (7-18); BUN/Creat Ratio 23.3 RATIO (10-20); Calcium,Total 9.1 mg/dL (8.5-10.1); Chloride 107 mmol/L (98-107); Creatinine, Serum 1.46 mg/dL (0.70-1.30); EST Glomerular Filtration Rate 49 mL/min (>60); Est Glom Filt Rate - Afr Amer 59 mL/min (>60); Estimated Creatinine Clearance 37.97 ml/min; Glucose 190 mg/dL (74-106); Potassium 3.8 mmol/L (3.5-5.1); Sodium Level 141 mmol/L (136-145)
[2022-12-17 08:55] VITALS: BP 128/63; PULSE 58; RESP 16; TEMP 36.8; O2SAT 96
--- NOTE | 2022-12-17 09:02 | CASEMGMT ---
Addendum entered by Millie Miramontes 12/17/22 15:27: RN QUIANA into pt room, pt son present. Made pt and son aware that [facility] will be the [facility] agency and will be contacting them to come out. Pt and son denied any further homegoing needs. Addendum entered by Millie Miramontes 12/17/22 15:23: [facility] is unable to accept pt, [facility] accepted. Addendum entered by Millie Miramontes 12/17/22 15:08: Received choices in [facility] for [facility] that is 1.[facility] 2. [facility] 3.[facility] 4. [facility] 5. [facility]. Referral sent to the first 3 choices at this time. Original Note: TC to pt son to obtain [facility] choice, he states he has not heard back from his sister yet in which he wants to discuss this with. He will be in to visit pt today and will ask for the RN QUIANA to give choices.
[2022-12-17] MEDS: Aspirin E.C. 81 MG Tablet PO (09:20)
[2022-12-17] MEDS: glipiZIDE XL 5 MG Tablet PO (09:21)
[2022-12-17] MEDS: predniSONE 1 MG Tablet 2.5 MG PO (09:22)
[2022-12-17] MEDS: dilTIAZem CD 120 MG Capsule PO (09:23)
[2022-12-17 09:25] VITALS: PULSE 58
[2022-12-17] MEDS: Doxycycline 100 MG CAPSULE PO ×2 (09:25→22:13)
[2022-12-17] MEDS: Metoprolol Tartrate 50 MG Tablet PO ×2 (09:25→22:12)
[2022-12-17] MEDS: Magnesium Chloride 64 MG Delay Rel.Tablet 128 MG PO (09:27)
[2022-12-17] MEDS: Memantine Hydrochloride 10 MG Tablet PO ×2 (09:28→22:12)
[2022-12-17] MEDS: Senna/Docusate Sodium 1 Tablet 2 TABLET PO ×2 (09:29→22:12)
[2022-12-17] MEDS: Pantoprazole Sodium 20 MG Tablet PO (09:29)
[2022-12-17] MEDS: Multivitamins,Ther W-Minerals Tablet 1 TABLET PO (09:30)
--- NOTE | 2022-12-17 10:30 | PCM.PN.ID ---
Physical Exam Narrative Feeling fine, no fever, no cough or SOB, no n/v/d. Const alert and no apparent distress Resp normal air movement and clear to auscultation bilaterally Cardio regular rate and regular rhythm GI soft to palpation, non-tender and non-distended Skin no rashes or lesions noted ID ID: Route of nutrition/ use of supplements: [] Nutritional Intake: [] IV Site: [] Pelaez Catheter: [] Assessment & Plan Assessment/Plan (1) Encephalopathy acute: (2) Bilateral pneumonia: PLAN: MRSA pcr neg. Resp pcr panel neg. Neg pcr for covid. Fever to 102 here on admit. Urine Ag neg. On zosyn, will narrow to ceftriaxone. Remains on po doxy for MRSE uti. Likely can leave today or tomorrow on 4 more days omnicef 300mg bid and doxy 100mg bid. Will follow
[2022-12-17] MEDS: KCL 20MEQ in 0.9% NS 20 MEQ/1,000 ML IV.SOLN. 100 MEQ IV (11:08)
[2022-12-17] MEDS: APIXABAN 2.5 MG TABLET (WCH) PO ×2 (11:10→22:12)
[2022-12-17 12:50] LABS: Pathologist Review Reviewed
[2022-12-17 13:25] LABS: Pathologist Review Reviewed
--- NOTE | 2022-12-17 13:58 | PN.HOSP_ITS ---
Reason for Visit Reason for Visit: Diagnoses Encephalopathy, unspecified (12/15/22) Pneumonia, unspecified organism (12/15/22) Follow-up for pneumonia Objective Data Objective Data Vital Signs: Vital Signs Temp Pulse Resp BP Pulse Ox O2 Del Method O2 Flow Rate 98.2 F 58 L 16 128/63 H 96 Room Air 1 12/17/22 08:55 12/17/22 09:25 12/17/22 08:55 12/17/22 08:55 12/17/22 08:55 12/17/22 08:55 12/17/22 07:51 Oxygen Flow Rate (L/min) 1 Oxygen Delivery Method Room Air Weight: 198 lb 10.184 oz Body Mass Index (BMI) 27.8 Intake & Output: Intake and Output for Last 24 Hours 12/15/22 12/16/22 12/17/22 23:59 23:59 23:59 Intake Total 1100 / 1100 150 / 350 350 / 350 Balance 1100 / 1100 150 / 350 350 / 350 Lab / Micro Data Result Diagrams: 12/17/22 06:44 12/17/22 06:44 Labs: Laboratory Results - last 24 hr 12/16/22 06:20: Diff Path Review Reviewed 12/16/22 14:09: COVID-19 (JESSICA) Not Detected 12/17/22 06:44: WBC 10.4, RBC 3.18 L, Hgb 9.9 L, Hct 29.6 L, MCV 93.1, MCH 31.1, MCHC 33.4, RDW Std Deviation 46.9 H, RDW Coeff of Zak 13.9, Plt Count 172, MPV 11.3, Immature Gran % (Auto) 0.700, Neut % (Auto) 46.5 L, Lymph % (Auto) 27.3, Whitley % (Auto) 25.4 H, Eos % (Auto) 0.0, Baso % (Auto) 0.1, Absolute Neuts (auto) 4.9, Absolute Lymphs (auto) 2.85, Nucleated RBC % 0, Differential Comment SCANNED, Diff Path Review Reviewed 12/17/22 06:44: Sodium 141, Potassium 3.8, Chloride 107, Carbon Dioxide 29.0, Anion Gap 5, BUN 34 H, Creatinine 1.46 H, Estim Creat Clear Calc 37.97, Est GFR (MDRD) Af Amer 59 L, Est GFR (MDRD) Non-Af 49 L, BUN/Creatinine Ratio 23.3 H, Glucose 190 H, Calcium 9.1 Micro: Microbiology 12/16/22 05:00 Urine Catheter - Catheter Urine Culture - Preliminary Culture exhibits no growth. 12/16/22 05:00 Urine Catheter - Catheter Streptococcus pneumoniae Antigen (M - Final 12/16/22 05:00 Urine Catheter - Catheter Legionella Antigen - Final 12/15/22 16:50 Mucosa - Nasopharyngeal Respiratory Panel (PCR) - Final Rhythm Strip Rhythm Strip: Sinus Rhythm Rate: 73 Ectopy: None Physical Exam Narrative Patient is awake and oriented. Does not have cough or shortness of breath. No tachypnea. Hypoxia resolved with Physical exam General: Awake, alert. Oriented to place. Disorientation to time because of legal blind. Abnormal behavior has resolved. HEENT: Legally blind.? Patient does not have perception of hand movement.? Atraumatic, PERRLA, EOMI, Normocephalic Oral: No Gingival or Mucosal Lesions/ Ulcerations. Oral mucosa moist. Neck: Supple, No JVD, Negative Carotid Bruits Lungs:? Air entry diminished in bilateral lung bases.? Occasional bibasilar coarse crepitation; improving. Cardiovascular: Sinus rhythm, normal S1, Normal S2, systolic murmur LLSB and right second ICS. Abdomen: Bowel Sounds Present, Soft, Non Tender, Non-Distended : No renal angle tenderness.? No suprapubic tenderness. Extremities: No edema, Capillary Refill Less than 3 Seconds Skin: No rashes, No breakdown Musculoskeletal: No Tenderness to Palpation of Joints or Extremities.? Muscle strength 5/5 at major joints. Neurological: Cranial nerves II-XII grossly intact, DTR? 2+/4 and Symmetrical, Neuro grossly intact Psych/Mental Status: Flat affect, dementia. On baseline. No confusion Assessment & Plan Assessment/Plan (1) Bilateral pneumonia: (2) Encephalopathy acute: PLAN: Plan 87-year-old gentleman is being admitted for confusion, altered mental status with abnormal behavior probably due to bilateral pneumonia. 1. Acute encephalopathy, multifactorial predominantly infectious, metabolic on baseline dementia, legally blind: Patient is being admitted on MedSur floor. Patient thought he was playing cards, talking incoherent, confused and disoriented as per the son. Patient had 1 L of normal saline bolus in ED. Started on IV Zosyn. Continue doxycycline. Pneumonia work-up with a sputum culture, blood cultures x2 COVID-19 antigen and MRSA nasal screen. Orientation cues. 12/16: As I have seen the patient during previous admission it looks patient is back on baseline. He is quite, talking coherent. No abnormal behavior or penn llucinations. UA shows 0 bacteria, 0 WBC, RBC 0-5 LE negative nitrite negative. Serum magnesium normal. 12/17: Although patient has fluctuating mental status because of blindness and disorientation but today is on baseline. Acute encephalopathy resolved. 2. Bilateral pneumonia, suspect aspiration pneumonia: Although patient was on antibiotics empirically ceftriaxone which was changed to doxycycline for UTI which came out to be MRSE UTI on 12/14. Patient is started on IV Zosyn and doxycycline. ID consult requested. 12/16: Patient was evaluated by ID. Agrees with the plan of continuation of Zosyn and doxycycline.MRSA PCR and COVID-19 are pending. Mild leukocytosis. Blood cultures x2 pending.Urinary antigens and respiratory panel are negative. Previous blood culture of 12/12 are negative for more than 48 hours. New blood culture 12/16 ordered. 12/17: Patient was seen by ID clinic follow-up today. Pneumonia work-up essentially negative with COVID-19 PCR and blood cultures repeat negative so far. Antibiotic narrowed down to ceftriaxone 2 g daily. Discharge antibiotic will be Omnicef and doxycycline.I talked to patient's son and he will be coming to the hospital in 1 hour and will discuss about discharging today or tomorrow as he is the main caregiver. 3. Paroxysmal A-fib/atrial flutter: Last time patient was admitted with A-fib with RVR and converted to sinus rhythm. Patient is still in sinus rhythm. Twelve-lead EKG shows normal sinus rhythm 73 bpm QTc 423 ms. Patient on metoprolol, Eliquis and Cardizem CD. During previous admission patient was evaluated by editorial writer and had 2D echo. At that time there is also mild elevation of troponin which was thought to be due to myocardial injury from A- fib RVR. 2D echo reported EF 50% moderate TR mild pulmonary hypertension. 12/25 heart rate is controlled. Sinus rhythm 4. 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 Continue glipizide. Last A1c 6.8 on 05/29/2022. 12/16: A1c 6.2 reflecting good glycemic control. Patient estimated creatinine clearance about 40 mill per minute. His creatinine stays between 1.27-1.41. 12/17: Patient creatinine today is 1.46 slightly elevated than baseline. IV fluid ordered. Increasing creatinine does not meet the diagnosis of NOAH. Patie nt on Accu-Chek H&H's covered with Humalog sliding. Lantus 500 subcutaneous daily added. Glipizide on hold. Metformin was discontinued during last admission discharge because of lactic acidosis and decreasing kidney function/GFR. 5. Dementia with behavioral abnormalities/delirium: Patient on donezepil and memantine. Low-dose of Seroquel 25 mg daily at midnight. 6. 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 RA -Continue chronic steroids with prednisone 2.5 mg daily 9. Anemia of chronic disease: Hemoglobin 11.5 on baseline. 10. History of stroke and Generalized weakness/debility: PT OT and speech therapy evaluation. Patient's son takes care of him at home. Continue baby aspirin 11. DVT prophylaxis -Continue home Eliquis Living will/advanced directive/end of life care: Patient does have living will or advanced directive. After discussion of benefits/risks procedures involved with full code, DNR CC arrest and DNR CC, the patient's son opted for for full code. The patient's daughter Mrs. Colin is power of employee benefits attorney for his health. Patient's son takes care of him. Patient does want artificial life support including intubation, tube feed, ventilator and/chest compression, central venous catheter, vasopressor and DC shock if needed Total time spent in [id number] encounter in discussion of advanced directive 17 minutes. Microbiology Past 72 Hours 12/16/22 05:00 Urine Catheter - Catheter Streptococcus pneumoniae Antigen (M - Final 12/16/22 05:00 Urine Catheter - Catheter Legionella Antigen - Final 12/15/22 16:50 Mucosa - Nasopharyngeal Respiratory Panel (PCR) - Final Laboratory Results 12/15/22 12:20: Magnesium 1.9 12/16/22 05:00: Urine Color Yellow, Urine Clarity Clear, Urine pH 6.5, Ur Specific [place] 1.010, Urine Protein Negative, Urine Glucose (UA) Normal, Urine Ketones Negative, Urine Occult Blood 10 H, Urine Nitrite Negative, Urine Bilirubin Negative, Urine Urobilinogen Normal, Ur Leukocyte Esterase Negative, Urine RBC 0-5 SEEN, Urine WBC 0 SEEN, Ur Squamous Epith Cells 0 SEEN, Urine Bacteria 0 SEEN, Urine Mucus 0 SEEN 12/16/22 06:00: MRSA (PCR) Negative 12/16/22 06:20: WBC 11.9 H, RBC 3.51 L, Hgb 11.0 L, Hct 32.6 L, MCV 92.9, MCH 31.3, MCHC 33.7, RDW Std Deviation 46.7 H, RDW Coeff of Zak 14.0, Plt Count 185, MPV 11.3, Immature Gran % (Auto) 0.500, Neut % (Auto) 34.8 L, Lymph % (Auto) 17.3 L, Whitley % (Auto) 47.3 H, Eos % (Auto) 0.0, Baso % (Auto) 0.1, Absolute Neuts (auto) 4.1, Absolute Lymphs (auto) 2.05, Nucleated RBC % 0, Diff Path Review January12/16/22 06:20: Sodium 138, Potassium 3.8, Chloride 106, Carbon Dioxide 30.0, Anion Gap 2 L, BUN 25 H, Creatinine 1.31 H, Estim Creat Clear Calc 39.73, Est GFR (MDRD) Af Amer 67, Est GFR (MDRD) Non-Af 55 L, BUN/Creatinine Ratio 19.1, Glucose 188 H, Calcium 9.1 12/16/22 06:20: Hemoglobin A1c 6.2 H 12/16/22 14:09: COVID-19 (JESSICA) Pending Clinical Impression(s) from Imaging Studies Brain CT 12/15/22 12:05 IMPRESSION: No acute intracranial process identified. Chronic involutional and white matter changes. Chest X-Ray 12/15/22 13:00 IMPRESSION: New opacities in the left mid and right lower lung, concerning for pneumonia or aspiration. Mild right pleural effusion. Chest X-Ray 12/15/22 13:47 IMPRESSION: New opacities in the bilateral lungs from interstitial edema or pneumonia. Charges/Coding Visit Charges Inpatient E&M: 01791 Subs Hosp L2
--- NOTE | 2022-12-17 14:10 | DCINST_ITS ---
Discharge Instructions Follow Up Care Test Results: Test results from this visit will be discussed in further detail at your follow- up appointment, if applicable. Discharge Plan Admission Admit Date/Time: 12/15/22 14:44 Primary Reason for Your Visit: hypoxia and acute encephalopathy Attending Provider: Joe Aburto Primary Care Provider: Sampson Penny Consulting Providers: Román Reyes Instructions Additional Instructions / Restrictions: Completed duration of doxycycline with 4 more days from 12/18/2022 Discharge Orders/Prescriptions Prescriptions: New cefdinir 300 mg capsule 300 mg PO BID 4 Days Qty: 8 0RF Continued donepezil 10 mg tablet 10 mg PO QHS memantine 10 mg tablet 10 mg PO BID aspirin [Adult Aspirin Regimen] 81 mg tablet,delayed release (DR/EC) 81 mg PO DAILY glipizide 5 mg tablet extended release 24hr 5 mg PO DAILY magnesium oxide 400 mg (241.3 mg magnesium) tablet 400 mg PO DAILY Label Comments: supplement melatonin 3 mg tablet 3 mg PO QHS Label Comments: TAKE 1 TABLET BY MOUTH at 7PM EVERY EVENING mirtazapine 30 mg tablet 30 mg PO QHS omeprazole 20 mg capsule,delayed release(DR/EC) 20 mg PO DAILY quetiapine 25 mg tablet 25 mg PO ONCE HS Label Comments: Take 1 tablet by mouth daily at bedtime. psmfsyot-[id number]-[id number]-lycopen-lutein 1 EACH tablet 1 ea PO DAILY Label Comments: General health prednisone 2.5 MG tablet 2.5 mg PO DAILY Hold Instructions: Resume on 06/08/22. Label Comments: steroid atorvastatin 40 mg tablet 40 mg PO QHS diltiazem HCl [Cardizem] 120 mg tablet 120 mg PO DAILY doxycycline monohydrate 100 mg capsule 100 mg PO BID metoprolol tartrate 50 mg tablet 50 mg PO BID Eliquis 2.5 mg tablet 2.5 mg PO BID Referrals / Follow Up: Sampson Penny MD [Primary Care Provider] - Within 2 Weeks Carol Jackson MD [Med Staff - Active Staff] - Within 1 Month (For new onset A-fib.) Disposition Disposition (needs filled in before D/C Order can be placed): Home Health Service
[2022-12-17 14:59] VITALS: BP 115/55; PULSE 58; RESP 16; TEMP 36.6; O2SAT 95
[2022-12-17 17:20] LABS: Bedside Glucose 278 mg/dL (74-106)
[2022-12-17] MEDS: Insulin Lispro 100 UNIT/ML INSULN.PEN SC (17:37)
[2022-12-17] MEDS: Insulin Glargine-YFGN 100 UNIT/ML Pen SC (17:39)
[2022-12-17 20:08] VITALS: BP 125/56; PULSE 63; RESP 15; TEMP 36.7; O2SAT 94
[2022-12-17 22:12] VITALS: PULSE 63
[2022-12-17] MEDS: Mirtazapine 30 MG Tablet PO (22:12)
[2022-12-17] MEDS: MELATONIN 3 MG TABLET PO (22:12)
[2022-12-17] MEDS: Atorvastatin Calcium 40 MG Tablet PO (22:12)
[2022-12-17] MEDS: Donepezil HCl 10 MG Tablet PO (22:13)
[2022-12-17] MEDS: QUEtiapine 25 MG Tablet PO (22:18)
[2022-12-17 22:40] LABS: Bedside Glucose 80 mg/dL (74-106)
[2022-12-18 05:06] VITALS: BMI 27.8
[2022-12-18 06:17] LABS: Absolute Lymphocyte Count 2.23 X10^3/uL (0.83-4.51); Basophil# 0.01 X10^3/uL; Basophil% 0.1 % (0-1); Eosinophil# 0.12 X10^3/uL; Eosinophils% 1.4 % (0-5); Hemoglobin 9.4 g/dL (13.0-16.5); Lymphocyte # 2.23 X10^3/ul (0.83-4.51); Lymphocyte % 25.7 % (19-41); Mean Corp Hgb Conc 32.4 g/dL (32-36); Mean Corpuscular Hgb 30.3 pg (27.0-32.0); Mean Corpuscular Volume 93.5 fL (80-94); Mean Platelet Vol. 11.2 fl (6.2-12.0); Monocyte# 2.25 X10^3/uL; NRBC Flagged by Analyzer 0 % (0-5); Neutrophil # 3.99 X10^3/uL (2.7-7.7); POSITIVE DIFFERENTIAL YES; Platelet Count 194 K/mm3 (150-450); RBC Distribution Width SD 47.5 fl (35.1-43.9); White Blood Count 8.7 K/mm3 (4.4-11.0)
[2022-12-18 06:26] LABS: Differential Indicated SCAN CRITERIA MET
[2022-12-18 06:30] VITALS: BP 124/68; PULSE 61; RESP 15; TEMP 36.7; O2SAT 94
[2022-12-18 06:45] LABS: Bedside Glucose 70 mg/dL (74-106)
[2022-12-18 06:49] LABS: Anion Gap 2 (5-15); BUN 26 mg/dL (7-18); BUN/Creat Ratio 20.3 RATIO (10-20); Calcium,Total 8.9 mg/dL (8.5-10.1); Chloride 110 mmol/L (98-107); Creatinine, Serum 1.28 mg/dL (0.70-1.30); EST Glomerular Filtration Rate 57 mL/min (>60); Est Glom Filt Rate - Afr Amer 68 mL/min (>60); Glucose 69 mg/dL (74-106); Potassium 3.9 mmol/L (3.5-5.1); Sodium Level 139 mmol/L (136-145)
[2022-12-18 07:19] LABS: Differential Comment SCANNED
[2022-12-18 07:44] VITALS: O2SAT 94
[2022-12-18 09:15] VITALS: BP 125/56; PULSE 63; RESP 16; TEMP 36.7; O2SAT 93
[2022-12-18] MEDS: predniSONE 1 MG Tablet 2.5 MG PO (09:41)
[2022-12-18] MEDS: Aspirin E.C. 81 MG Tablet PO (09:41)
[2022-12-18] MEDS: Multivitamins,Ther W-Minerals Tablet 1 TABLET PO (09:41)
[2022-12-18] MEDS: APIXABAN 2.5 MG TABLET (WCH) PO (09:41)
[2022-12-18] MEDS: Doxycycline 100 MG CAPSULE PO (09:42)
[2022-12-18] MEDS: Insulin Glargine-YFGN 100 UNIT/ML Pen SC (09:42)
[2022-12-18] MEDS: dilTIAZem CD 120 MG Capsule PO (09:42)
[2022-12-18 09:43] VITALS: PULSE 63
[2022-12-18] MEDS: Senna/Docusate Sodium 1 Tablet 2 TABLET PO (09:43)
[2022-12-18] MEDS: Pantoprazole Sodium 20 MG Tablet PO (09:43)
[2022-12-18] MEDS: Magnesium Chloride 64 MG Delay Rel.Tablet 128 MG PO (09:43)
[2022-12-18] MEDS: Memantine Hydrochloride 10 MG Tablet PO (09:43)
[2022-12-18] MEDS: Metoprolol Tartrate 50 MG Tablet PO (09:43)
--- NOTE | 2022-12-18 10:12 | CASEMGMT ---
Addendum entered by Millie Miramontes 12/18/22 11:05: DC instructions attached and sent via careport to [facility]. Original Note: Updated [facility] that pt did not dc yesterday via careport.
--- NOTE | 2022-12-18 11:01 | DCINST_ITS ---
Discharge Instructions Diet Discharge Diet: Low fat / Low cholesterol and Carb Control Diet Activity Discharge Activity: Return to Normal Activity Dressing / Incision Call your doctor if you observe: Fever of 101 or Higher, Shortness of breath, Dizziness, Fainting spells, Swelling in the ankles, Chest pain and Increased palpitations (irregular heartbeat) Follow Up Care Test Results: Test results from this visit will be discussed in further detail at your follow- up appointment, if applicable. Discharge Plan Admission Admit Date/Time: 12/15/22 14:44 Primary Reason for Your Visit: hypoxia and acute encephalopathy Attending Provider: Chance Larkin Primary Care Provider: Sampson Penny Consulting Providers: Román Reyes ; Joe Aburto Instructions Additional Instructions / Restrictions: Completed duration of doxycycline with 4 more days from 12/18/2022 Discharge Orders/Prescriptions Prescriptions: New cefdinir 300 mg capsule 300 mg PO BID 4 Days Qty: 8 0RF doxycycline hyclate 100 mg tablet 100 mg PO BID 4 Days Qty: 8 0RF Continued donepezil 10 mg tablet 10 mg PO QHS memantine 10 mg tablet 10 mg PO BID aspirin [Adult Aspirin Regimen] 81 mg tablet,delayed release (DR/EC) 81 mg PO DAILY glipizide 5 mg tablet extended release 24hr 5 mg PO DAILY magnesium oxide 400 mg (241.3 mg magnesium) tablet 400 mg PO DAILY Label Comments: supplement melatonin 3 mg tablet 3 mg PO QHS Label Comments: TAKE 1 TABLET BY MOUTH at 7PM EVERY EVENING mirtazapine 30 mg tablet 30 mg PO QHS omeprazole 20 mg capsule,delayed release(DR/EC) 20 mg PO DAILY quetiapine 25 mg tablet 25 mg PO ONCE HS Label Comments: Take 1 tablet by mouth daily at bedtime. [id number]-AH-lycopen-lutein 1 EACH tablet 1 ea PO DAILY Label Comments: General health prednisone 2.5 MG tablet 2.5 mg PO DAILY Hold Instructions: Resume on 06/08/22. Label Comments: steroid atorvastatin 40 mg tablet 40 mg PO QHS diltiazem HCl [Cardizem] 120 mg tablet 120 mg PO DAILY doxycycline monohydrate 100 mg capsule 100 mg PO BID metoprolol tartrate 50 mg tablet 50 mg PO BID Eliquis 2.5 mg tablet 2.5 mg PO BID Referrals / Follow Up: Carol Jackson MD [Med Staff - Active Staff] - Within 1 Month (For new onset A- fib.) Sampson Penny MD [Primary Care Provider] - Within 2 Weeks Disposition Disposition (needs filled in before D/C Order can be placed): Home Health Service
--- NOTE | 2022-12-18 14:15 | DS.PCM_ITS ---
Providers Date of Admission: 12/15/22 Primary Care Physician: Dr. Sampson Penny MD Consultations 12/15/22 16:09 Consult: Infectious Disease Routine Consulting Provider: Román Reyes Reason for Consult: PNEUMONIA, Fever, recent UTI EMERGENT Consult: No MD Notified: Yes Date Notified: 12/15/22 Time Notified: 15:29 Method of Notification: Text Reason For Visit: PNEUMONIA, AMS Diagnosis Discharge Diagnosis (1) Bilateral pneumonia: Status: Acute Code(s): J18.9 - Pneumonia, unspecified organism (2) Encephalopathy acute: Status: Acute Code(s): G93.40 - Encephalopathy, unspecified Medications at Discharge Home Medications wrcvglpu-ekb-petkg acid 0.4 mg-lycopene 300 mcg-lutein 250 mcg tablet 1 ea PO DAILY vitamin 05/03/15 prednisone 2.5 mg tablet 2.5 mg PO DAILY inflammation 09/03/15 aspirin 81 mg tablet,delayed release (Adult Aspirin Regimen) 81 mg PO DAILY HEART HEALTH 08/10/19 donepezil 10 mg tablet 10 mg PO QHS mentation 08/10/19 memantine 10 mg tablet 10 mg PO BID mentation 08/10/19 glipizide 5 mg tablet, extended release 24 hr 5 mg PO DAILY DIABETES 08/13/21 magnesium oxide 400 mg (241.3 mg magnesium) tablet 400 mg PO DAILY supplement 08/13/21 melatonin 3 mg tablet 3 mg PO QHS sleep 08/13/21 mirtazapine 30 mg tablet 30 mg PO QHS mental health 08/13/21 atorvastatin 40 mg tablet 40 mg PO QHS cholesterol 05/29/22 omeprazole 20 mg capsule,delayed release 20 mg PO DAILY Check with primary doctor 06/16/22 quetiapine 25 mg tablet 25 mg PO ONCE HS Check with primary doctor 10/22/22 apixaban 2.5 mg tablet (Eliquis) 2.5 mg PO BID Check with primary doctor 12/15/22 diltiazem HCl 120 mg tablet (Cardizem) 120 mg PO DAILY Check with primary doctor 12/15/22 doxycycline monohydrate 100 mg capsule 100 mg PO BID Check with primary doctor 12/15/22 metoprolol tartrate 50 mg tablet 50 mg PO BID Check with primary doctor 12/15/22 cefdinir 300 mg capsule 300 mg PO BID 4 days #8 caps 12/17/22 doxycycline hyclate 100 mg tablet 100 mg PO BID 4 days #8 tabs 12/17/22 Hospital Course Operations None Procedures None Summary of Care Provided Minutes Spent on Discharge: 32 Hospital Course: Per HPI: JULIANE SANDOVAL, is a 87 M who was discharged today when he was admitted for fatigue confusion, found to be A-fib RVR with MRSE UTI and was evaluated by clinical marketing manager.? Patient is legally blind.? As per the son when he was fine in the hospital at the time of discharge but at home is confused, disoriented and thinks he was playing cards.? Patient did not have nausea or vomiting but requires 2 L of oxygen while patient was on room air since 12/12/2022.? Patient al so spiked fever 102 Fahrenheit. As per the son, he does not have any new symptoms like cough shortness of breath but patient was on 2 L of oxygen.? Chest x-ray shows new opacities in the right lower lung and left midlung.? Patient started on IV antibiotics Zosyn.? Sue states he sometimes he cough while sleeping therefore concern for aspiration.? Patient is legally blind. Previous chest x-ray on 12/12/2022 although reported clear and expanded but shows mild right lung infiltrate although this has progressed.? Patient was treated with ceftriaxone for 2 days for concern of UTI which was later changed to doxycycline after it came positive for MRSE. In ED, vitals shows temperature 99.5, 1002 Fahrenheit.? No tachycardia, sinus rhythm but requires 2 L of oxygen. Labs reviewed and discussed in assessment plan. Hospital Course: 1. Acute encephalopathy due to bilateral pneumonia secondary to aspiration? 87-year-old male who does have a baseline of dementia presented to the hospital with confusion. He had been discharged and presented back to the hospital by the same evening. Infectious disease was consulted and recommended cefdinir and doxycycline. With antibiotics his fever curve normalized and his encephalopathy improved back to baseline, he does have a fluctuating mentation secondary to chronic dementia. The plan for discharge was discussed and he expressed understanding of the risk benefits going home and was willing to go home today. I do recommend that he follow-up with his PCP in 3 to 5 days. 2. Paroxysmal A-fib, type 2 diabetes, chronic kidney disease stage IIIb, dementia with behavioral abnormalities, GERD, MDS, rheumatoid arthritis, anemia of chronic disease, history of stroke are all chronic medical conditions which complicate his care. His home medications were continued where appropriate Physical Exam Narrative General: Alert, Cooperative, No apparent distress HEENT: Atraumatic, legally blind, Normocephalic Oral: Moist Mucosa Neck: Supple, No JVD Lungs: Diminished, Normal air movement, No rhonchi, No wheeze, No rales Cardiovascular: Regular rate, Regular Rhythm, Normal S1, Normal S2, murmurs Abdomen: Soft, Non Tender, Non-Distended, No Hepato-splenomegaly Extremities: No edema, Capillary Refill Less than 3 Seconds Skin: No rashes, No breakdown Musculoskeletal: No Tenderness to Palpation of Joints or Extremities Neurological: Motor Exam 5/5 strength throughout, Sensory exam intact to light touch and pain Psych/Mental Status: Flat affect, Appropriate Weight / BMI Weight Weight: 198 lb 10.184 oz Body Mass Index (BMI) 27.8 ABG / Lab / Microbiology Data Result Diagrams: 12/18/22 05:55 12/18/22 05:55 Laboratory: Laboratory Results - last 24 hr 12/17/22 16:56: POC Glucose 278 H 12/17/22 22:22: POC Glucose 80 12/18/22 05:55: WBC 8.7, RBC 3.10 L, Hgb 9.4 L, Hct 29.0 L, MCV 93.5, MCH 30.3, MCHC 32.4, RDW Std Deviation 47.5 H, RDW Coeff of Zak 14.0, Plt Count 194, MPV 11.2, Immature Gran % (Auto) 0.800, Neut % (Auto) 46.0 L, Lymph % (Auto) 25.7, Upton % (Auto) 26.0 H, Eos % (Auto) 1.4, Baso % (Auto) 0.1, Absolute Neuts (auto) 4.0, Absolute Lymphs (auto) 2.23, Nucleated RBC % 0, Differential Comment SCANNED 12/18/22 05:55: Sodium 139, Potassium 3.9, Chloride 110 H, Carbon Dioxide 27.0, Anion Gap 2 L, BUN 26 H, Creatinine 1.28, Estim Creat Clear Calc 43.30, Est GFR (MDRD) Af Amer 68, Est GFR (MDRD) Non-Af 57 L, BUN/Creatinine Ratio 20.3 H, Glucose 69 L, Calcium 8.9 12/18/22 06:23: POC Glucose 70 L Microbiology: Microbiology 12/16/22 12:25 Blood Culture (Wb) - Left Hand Blood Culture - Preliminary No growth in 48 hours. 12/16/22 12:20 Blood Culture (Wb) - Anticubital Left Blood Culture - Preliminary No growth in 48 hours. 12/16/22 05:00 Urine Catheter - Catheter Urine Culture - Final Culture exhibits no growth. 12/16/22 05:00 Urine Catheter - Catheter Streptococcus pneumoniae Antigen (M - Final 12/16/22 05:00 Urine Catheter - Catheter Legionella Antigen - Final 12/15/22 16:50 Mucosa - Nasopharyngeal Respiratory Panel (PCR) - Final D/C Instructions Discharge Diet: Low fat / Low cholesterol and Carb Control Diet Call your doctor if you observe: Fever of 101 or Higher, Shortness of breath, Dizziness, Fainting spells, Swelling in the ankles, Chest pain and Increased palpitations (irregular heartbeat) Meaningful Use Info Meaningful Use Diagnoses (Choose all that apply): None applicable Discharge Plan Admission Admit Date/Time: 12/15/22 14:44 Primary Reason for Your Visit: hypoxia and acute encephalopathy Attending Provider: Chance Larkin Primary Care Provider: Sampson Penny Consulting Providers: Román Reyes ; Joe Aburto Instructions Additional Instructions / Restrictions: Completed duration of doxycycline with 4 more days from 12/18/2022 Discharge Orders/Prescriptions Prescriptions: New cefdinir 300 mg capsule 300 mg PO BID 4 Days Qty: 8 0RF doxycycline hyclate 100 mg tablet 100 mg PO BID 4 Days Qty: 8 0RF Continued donepezil 10 mg tablet 10 mg PO QHS memantine 10 mg tablet 10 mg PO BID aspirin [Adult Aspirin Regimen] 81 mg tablet,delayed release (DR/EC) 81 mg PO DAILY glipizide 5 mg tablet extended release 24hr 5 mg PO DAILY magnesium oxide 400 mg (241.3 mg magnesium) tablet 400 mg PO DAILY Label Comments: supplement melatonin 3 mg tablet 3 mg PO QHS Label Comments: TAKE 1 TABLET BY MOUTH at 7PM EVERY EVENING mirtazapine 30 mg tablet 30 mg PO QHS omeprazole 20 mg capsule,delayed release(DR/EC) 20 mg PO DAILY quetiapine 25 mg tablet 25 mg PO ONCE HS Label Comments: Take 1 tablet by mouth daily at bedtime. [id number]-inn-WF-lycopen-lutein 1 EACH tablet 1 ea PO DAILY Label Comments: General health prednisone 2.5 MG tablet 2.5 mg PO DAILY Hold Instructions: Resume on 06/08/22. Label Comments: steroid atorvastatin 40 mg tablet 40 mg PO QHS diltiazem HCl [Cardizem] 120 mg tablet 120 mg PO DAILY doxycycline monohydrate 100 mg capsule 100 mg PO BID metoprolol tartrate 50 mg tablet 50 mg PO BID Eliquis 2.5 mg tablet 2.5 mg PO BID Referrals / Follow Up: Carol Jackson MD [Med Staff - Active Staff] - Within 1 Month (For new onset A- fib.) Sampson Penny MD [Primary Care Provider] - Within 2 Weeks Disposition Disposition (needs filled in before D/C Order can be placed): Home Health Service Charges/Coding Visit Charges Inpatient E&M: 16996 Disch Hosp >30min
--- NOTE | 2022-12-21 12:21 | NURSING ---
RN CM Discharge Follow-up Phone Call: ANEESH:Rochelle Strata:3 Date of Call:12/21/22 Time of Call:1222 Admitting Diagnosis:Pneumonia, AMS Summary of Call: Spoke with patient's son. Things are going well, patient is feeling better. He is taking prescribed medications without any issues and Home Health has made a visit. Son to make follow up appt with PCP within 2 weeks.
== END 2022-12-18 11:47 | disposition home health service (06) | DRG 177 ==
LOC: ED 14:40 → MS3 15:14
PROVIDERS: Internal Medicine Infectious Disease; Admitting Provider Internal Medicine; Emergency Provider Emergency Medicine; PCP Internal Medicine; Visit Provider Family Medicine
DX: J69.0 Pneumonitis due to inhalation of food and vomit (principal); G93.41 Metabolic encephalopathy; I48.92 Unspecified atrial flutter; F03.918 Unspecified dementia, unspecified severity, with other behavioral disturbance; N39.0 Urinary tract infection, site not specified; D63.1 Anemia in chronic kidney disease; E11.21 Type 2 diabetes mellitus with diabetic nephropathy; Z99.81 Dependence on supplemental oxygen; I48.0 Paroxysmal atrial fibrillation; N18.32 Chronic kidney disease, stage 3b; E11.22 Type 2 diabetes mellitus with diabetic chronic kidney disease; D46.9 Myelodysplastic syndrome, unspecified; M06.9 Rheumatoid arthritis, unspecified; K21.9 Gastro-esophageal reflux disease without esophagitis; I25.2 Old myocardial infarction; B95.62 Methicillin resistant Staphylococcus aureus infection as the cause of diseases classified elsewhere; H54.8 Legal blindness, as defined in USA; X58.XXXA Exposure to other specified factors, initial encounter; Z79.01 Long term (current) use of anticoagulants; Z79.82 Long term (current) use of aspirin; Z79.84 Long term (current) use of oral hypoglycemic drugs; Z79.899 Other long term (current) drug therapy; Z86.73 Personal history of transient ischemic attack (TIA), and cerebral infarction without residual deficits; Z86.16 Personal history of COVID-19
CPT/HCPCS: 36415; 70450; 71045; 80048; 80053; 81001; 82962; 83036; 83735; 85025; 87040; 87086; 87449; 87633; 87635; 87641; 92610; 93005; 94668; 97161; 97165; 99252; 99285; J7030; J7050; A4216; G0463; J0696; U0003; U0005

== ENCOUNTER 2022-12-26 06:43 | Emergency (ER) | payer MEDICARE, OTHER, SELFPAY ==
[2016-02-13 13:00] VITALS: BMI 25.7
[2022-12-26 06:43] VITALS: BP 165/61; PULSE 60; RESP 16; TEMP 36.4; O2SAT 98; BMI 21.8
--- NOTE | 2022-12-26 07:18 | CT_ITS ---
EXAM: CT HEAD WITHOUT INTRAVENOUS CONTRAST CLINICAL INDICATION: head trauma on blood thinner TECHNIQUE: Multiple axial images were obtained of the head without intravenous contrast. This CT exam was performed using one or more of the following dose reduction techniques: automated exposure control, adjustment of the mA and/or kV according to patient size, and/or use of iterative reconstruction technique. This report was created using [employer] report generation technology. COMPARISON: CT Head dated 12/15/2022 FINDINGS: BRAIN AND EXTRA-AXIAL SPACES: Areas of diminished white matter density noted within both cerebral hemispheres suggestive of chronic microvascular change. Prominence of the cortical sulci and ventricles related to volume loss change. No acute hemorrhage or mass effect. BONES/JOINTS: No suspicious lytic or blastic abnormality. SINUSES: No acute sinusitis. MASTOID AIR CELLS: Normal. Clear. ORBITS: Visualized globes, extraocular muscles, optic nerves and retrobulbar fat appear unremarkable. CT/Brain/Head without Contrast IMPRESSION: 1. No acute intracranial abnormality. 2. Stable senescent changes. Electronically Signed: Nico Gonzalez MD at 8:14 EDT ,
--- NOTE | 2022-12-26 07:19 | EDS_ITS ---
HPI HPI - Fall History of Present Illness Chief Complaint: Fall Informant: patient and family Occured/Mechanism Occurred: Today and Hours Mechanism/Context: Yes same level fall and Yes trip Usually ambulates: Without assistance Pain/Injury Pain Location: head Quality of Pain: Dull Current Severity: Mild Maximum Severity: Mild Associated Symptoms Associated Symptoms: Negative for Parasthesias, Weakness, Loss of function, Inability to ambulate, Loss of consciousness or Amnesia Narrative Narrative: 87-year-old male extensive past medical history of A-fib on Eliquis, dementia, [place], CVA, diabetes, legally blind, renal insufficiency. Lives at home. He was getting out of bed this morning he can get caught up in the sheets. Tripped and fell and went down. Landing on his buttocks and hitting the back of his head. Son is present helping with the history. Son states that it is a hard floor. No LOC. Again he is on the blood thinner Eliquis. Patient has no other complaints. Prior similar symptoms: Yes Recent Illness/Hospitalization: Yes PFSH PFS Medical History A-fib Anemia of chronic disease Atrial flutter with rapid ventricular response Cellulitis and abscess Chronic constipation Chronic rheumatic arthritis COVID-19 Dementia Diabetes mellitus, type 2 Hypoxemia MDS (myelodysplastic syndrome) Myocardial infarction due to demand ischemia Obstructive sleep apnea Paroxysmal atrial flutter Personal history of immunosupression therapy Stroke/cerebrovascular accident UTI (urinary tract infection) Home Medications qxoibgcw-tkw-uycbu acid 0.4 mg-lycopene 300 mcg-lutein 250 mcg tablet 1 ea PO DAILY vitamin 05/03/15 [History Last Taken 09/23/15] prednisone 2.5 mg tablet 2.5 mg PO DAILY inflammation 09/03/15 [History Last Taken 09/23/15] aspirin 81 mg tablet,delayed release (Adult Aspirin Regimen) 81 mg PO DAILY HEART HEALTH 08/10/19 [History Last Taken Unknown] donepezil 10 mg tablet 10 mg PO QHS mentation 08/10/19 [History Last Taken Unknown] memantine 10 mg tablet 10 mg PO BID mentation 08/10/19 [History Last Taken Unknown] glipizide 5 mg tablet, extended release 24 hr 5 mg PO DAILY DIABETES 08/13/21 [History Last Taken Unknown] magnesium oxide 400 mg (241.3 mg magnesium) tablet 400 mg PO DAILY supplement 08/13/21 [History Last Taken Unknown] melatonin 3 mg tablet 3 mg PO QHS sleep 08/13/21 [History Last Taken Unknown] mirtazapine 30 mg tablet 30 mg PO QHS mental health 08/13/21 [History Last Taken Unknown] atorvastatin 40 mg tablet 40 mg PO QHS cholesterol 05/29/22 [History Last Taken Unknown] omeprazole 20 mg capsule,delayed release 20 mg PO DAILY Check with primary doctor 06/16/22 [History Last Taken Unknown] quetiapine 25 mg tablet 25 mg PO ONCE HS Check with primary doctor 10/22/22 [History Last Taken Unknown] apixaban 2.5 mg tablet (Eliquis) 2.5 mg PO BID Check with primary doctor 12/15/22 [History Last Taken Unknown] diltiazem HCl 120 mg tablet (Cardizem) 120 mg PO DAILY Check with primary doctor 12/15/22 [History Last Taken Unknown] metoprolol tartrate 50 mg tablet 50 mg PO BID Check with primary doctor 12/15/22 [History Last Taken Unknown] doxycycline hyclate 100 mg tablet 100 mg PO BID 4 days #8 tabs 12/17/22 [Rx Last Taken Unknown] Allergy/AdvReac Type Severity Reaction Status Date / Time No Known Allergies Allergy Verified 12/26/22 06:47 Family History Father Cancer Diabetes Surgical History History of corneal transplant History of prostate surgery Hx of cataract surgery Social History household members: spouse and children housing: house current occupational status: retired Smoking Status: Never smoker alcohol intake: current alcohol intake frequency: other substance use type: does not use ROS ROS ED ROS Narrative No recent illnesses last several days. Hospitalized about 10 days ago. Review of Systems ROS Unobtainable: Denies due to encephalopathy Constitutional Constitutional ED: Denies chills or fever(s) Eyes Eyes: Denies blurry vision ENT ENT ED: Denies ear pain Cardiovascular Cardiovascular: Denies chest pain Respiratory/Chest Respiratory/Chest: Denies cough or dyspnea Gastrointestinal Gastrointestinal: Denies abdominal pain Genitourinary Genitourinary ED: Denies dysuria or hematuria Musculoskeletal Musculoskeletal: Denies arthralgias Integumentary Denies abscess Neurologic Neurologic: Denies headache(s) Psychiatric Psychiatric: Denies anxiety or depression Hematologic/Lymphatic Hematologic/Lymphatic: Denies easy bleeding Allergic/Immunologic Allergic/Immunologic ED: Denies mouth swelling EXAM Physical Exam Narrative Exam Narrative: Well-appearing older male. Vital signs stable afebrile. Son seated in the room. Patient no distress. H EENT exam legally blind. No facial trauma. Posterior scalp has no significant hematoma or laceration. No significant tenderness. C-spine nontender. Trachea midline. Back and spine nontender. No signs of trauma. Lungs clear to auscultation. Heart irregular irregular rate about 60. Chest wall and ribs nontender. Abdomen soft nontender. Pelvic girdle intact. Moves all 4 extremities. Nontender no deformity. No edema. Normal marketing regional consultant strength. Normal dorsi plantarflexion. Neurologically he is awake and alert. Answering questions and following commands. Legally blind. Const Vital Signs: 12/26/22 06:43 12/26/22 06:51 Temperature 97.5 F L Temperature Source Oral Pulse Rate 60 Respiratory Rate 16 Respiratory Effort Normal Blood Pressure 165/61 H Blood Pressure Mean 95 Pulse Ox 98 Oxygen Delivery Method Room Air Positive well nourished and well developed; Negative for obese, cachectic, contractures or unkempt General Appearance ED: well developed and NAD; Negative for unkempt, cachectic or contractures Nutritional Appearance: Negative for cachectic or obese HEENT Reports normocephalic trauma; Negative for atraumatic, contusion or hematoma Eyes PERRL and EOMs intact bilaterally General Eye ED: Negative for pale conjunctiva or scleral icterus Neck full ROM, no lymphadenopathy and supple General: Negative for tenderness Chest Wall inspection of chest normal and palpation of chest normal Chest: Negative for other Resp normal respiratory effort, no retractions and clear to auscultation bilaterally Effort and Inspection: Negative for pain with movement Auscultation: Negative for rales, rhonchi or wheezes Cardio Negative for regular rate or regular rhythm Rhythm: abnormal rhythm GI non-tender, non-distended and no masses Inspection: Negative for abdominal distention Auscultation: normoactive bowel sounds Palpation: soft; Negative for guarding Back/Spine no CVA tenderness General Back: Negative for CVA tenderness Cervical Spine: Negative for cervical spine tenderness Thoracic Spine / Upper Back: Negative for ROM limited Lumbar Spine / Lower Back: Negative for lumbar spinal tenderness Neuro moves all extremities and no focal motor deficits Ana Paula Coma Scale: document GCS findings Spontaneous Obeys Commands Oriented 15 Sensorium / Orientation: alert, oriented to person and oriented to place Motor Exam: strength 5/5 throughout Psych mental status grossly normal and thought process normal Appearance: Negative for unkempt Attitude: No agitated Mood & Affect: Negative for depressed, anxious or tearful Skin Lesions: no lesions Rashes: no rashes Trauma: Negative for abrasion or laceration MDM MDM MDM Narrative Medical decision making narrative: 87-year-old male on blood thinner fell and hit his head undergo a CAT scan if that is okay otherwise his exam is benign he will be discharged home. Repeat exam is doing well at 8:[address] of his brain is read by the radiologist and reviewed by me shows no acute intracranial bleed or any other acute abnormality. He will be discharged home with family. Son is present at bedside. Radiography Diagnostic Testing: Clinical Impression(s) from Imaging Studies Brain CT 12/26/22 07:18 IMPRESSION: 1. No acute intracranial abnormality. 2. Stable senescent changes. Electronically Signed: Nico Gonzalez MD at 8:14 EDT , Discharge Plan Triage Chief Complaint: Fall ED Provider: Patrick Espinosa Dx/Rx/DC Orders Clinical Impression: Fall, History of atrial fibrillation, Blind, Closed head injury, Chronic anticoagulation Instructions: ED Head Injury (Adult) Prescriptions: No Action donepezil 10 mg tablet 10 mg PO QHS memantine 10 mg tablet 10 mg PO BID aspirin [Adult Aspirin Regimen] 81 mg tablet,delayed release (DR/EC) 81 mg PO DAILY glipizide 5 mg tablet extended release 24hr 5 mg PO DAILY magnesium oxide 400 mg (241.3 mg magnesium) tablet 400 mg PO DAILY Label Comments: supplement melatonin 3 mg tablet 3 mg PO QHS Label Comments: TAKE 1 TABLET BY MOUTH at 7PM EVERY EVENING mirtazapine 30 mg tablet 30 mg PO QHS omeprazole 20 mg capsule,delayed release(DR/EC) 20 mg PO DAILY quetiapine 25 mg tablet 25 mg PO ONCE HS Label Comments: Take 1 tablet by mouth daily at bedtime. [id number]-dmc-NZ-lycopen-lutein 1 EACH tablet 1 ea PO DAILY Label Comments: General health prednisone 2.5 MG tablet 2.5 mg PO DAILY Hold Instructions: Resume on 06/08/22. Label Comments: steroid atorvastatin 40 mg tablet 40 mg PO QHS diltiazem HCl [Cardizem] 120 mg tablet 120 mg PO DAILY metoprolol tartrate 50 mg tablet 50 mg PO BID Eliquis 2.5 mg tablet 2.5 mg PO BID doxycycline hyclate 100 mg tablet 100 mg PO BID 4 Days Qty: 8 0RF Primary Care Provider: Sampson Penny Referrals: Sampson Penny MD [Primary Care Provider] - As Needed Activity Restrictions/Additional Instructions: Tylenol for pain. Return if severe headache, intractable vomiting or not acting himself. Disposition Disposition: Home, Self Care
== END 2022-12-26 08:42 | disposition home or self-care (01) ==
PROVIDERS: Emergency Provider Emergency Medicine; PCP Internal Medicine; Visit Provider Emergency Medicine
DX: S09.90XA Unspecified injury of head, initial encounter (principal); F03.90 Unspecified dementia, unspecified severity, without behavioral disturbance, psychotic disturbance, mood disturbance, and anxiety; I48.91 Unspecified atrial fibrillation; E11.9 Type 2 diabetes mellitus without complications; G47.33 Obstructive sleep apnea (adult) (pediatric); I25.2 Old myocardial infarction; Z86.16 Personal history of COVID-19; Z86.73 Personal history of transient ischemic attack (TIA), and cerebral infarction without residual deficits; Z79.82 Long term (current) use of aspirin; Z79.01 Long term (current) use of anticoagulants; Z79.899 Other long term (current) drug therapy; W18.30XA Fall on same level, unspecified, initial encounter; Z79.84 Long term (current) use of oral hypoglycemic drugs
CPT/HCPCS: 70450; 99282

== ENCOUNTER → 2023-01-11 | Outpatient (CLI) | payer MEDICARE, OTHER, SELFPAY ==
[2016-02-13 13:00] VITALS: BMI 25.7
[2023-01-11 14:53] LABS: Absolute Lymphocyte Count 1.95 X10^3/uL (0.83-4.51); Absolute Neutrophil Count 2.6 X10^3/uL (2.0-7.7); Basophil# 0.01 X10^3/uL; Basophil% 0.2 % (0-1); Hematocrit 35.3 % (40-54); Hemoglobin 11.5 g/dL (13.0-16.5); Lymphocyte # 1.95 X10^3/ul (0.83-4.51); Lymphocyte % 31.4 % (19-41); Mean Corp Hgb Conc 32.6 g/dL (32-36); Mean Corpuscular Hgb 30.7 pg (27.0-32.0); Mean Corpuscular Volume 94.1 fL (80-94); Monocyte# 1.64 X10^3/uL; Monocyte% 26.4 % (0-10); NRBC Flagged by Analyzer 0 % (0-5); Neutrophil # 2.58 X10^3/uL (2.7-7.7); Neutrophil % 41.4 % (47-70); POSITIVE DIFFERENTIAL YES; Platelet Count 141 K/mm3 (150-450); Red Blood Count 3.75 M/mm3 (4.6-6.2); White Blood Count 6.2 K/mm3 (4.4-11.0)
[2023-01-11 14:55] LABS: Differential Indicated SCAN CRITERIA MET
[2023-01-11 15:35] LABS: Anion Gap 6 (5-15); BUN 31 mg/dL (7-18); BUN/Creat Ratio 21.7 RATIO (10-20); Calcium,Total 9.4 mg/dL (8.5-10.1); Chloride 104 mmol/L (98-107); Creatinine, Serum 1.43 mg/dL (0.70-1.30); EST Glomerular Filtration Rate 50 mL/min (>60); Est Glom Filt Rate - Afr Amer 60 mL/min (>60); Glucose 203 mg/dL (74-106); Potassium 4.5 mmol/L (3.5-5.1); Sodium Level 141 mmol/L (136-145)
== END | disposition home or self-care (01) ==
PROVIDERS: PCP Internal Medicine; Referring Provider Nurse Practitioner Gerontology; Visit Provider Nurse Practitioner Gerontology
DX: R53.83 Other fatigue (principal)
CPT/HCPCS: 36415; 80048; 85025

== ENCOUNTER 2023-02-19 22:35 | Emergency (ER) | payer MEDICARE, OTHER, SELFPAY ==
[2016-02-13 13:00] VITALS: BMI 25.7
[2023-02-19 22:36] VITALS: BP 156/75; PULSE 51; RESP 16; TEMP 36.2; O2SAT 95
--- NOTE | 2023-02-19 23:09 | RAD_ITS ---
EXAM: XR CHEST, 1 VIEW CLINICAL INDICATION: chest pain TECHNIQUE: Frontal view of the chest. COMPARISON: Previous chest radiographs of 12/15/2022 and 12/12/2022. FINDINGS: LUNGS AND PLEURAL SPACES: The airspace disease previously seen within the right mid and lower lung have resolved. Stable benign calcified granuloma in the right midlung laterally. The previously noted right pleural effusion has resolved. No acute pulmonary infiltrates or pleural effusions are identified. No pneumothorax. HEART: Upper normal heart size with normal pulmonary vasculature. MEDIASTINUM: Stable elongation and calcification of the thoracic aorta. BONES/JOINTS: No acute osseous abnormality. Degenerative spurring again noted throughout the thoracic spine. Both humeral heads are subluxed superiorly with narrowing of each subacromial space indicating bilateral rotator cuff atrophy and/or tear. SOFT TISSUES: Unremarkable. RAD/Chest 1 View (Portable) IMPRESSION: No radiographic evidence of acute cardiopulmonary disease. Electronically Signed: Stephen Beverly MD at 0:05 EDT ,
--- NOTE | 2023-02-19 23:09 | EKG12_ITS ---
Test Reason : Blood Pressure : / mmHG Vent. Rate : 051 BPM Atrial Rate : 051 BPM P-R Int : 198 ms QRS Dur : 094 ms QT Int : 452 ms P-R-T Axes : 001 -22 -13 degrees QTc Int : 416 ms Sinus bradycardia Minimal voltage criteria for LVH, may be normal variant ( R in aVL ) Borderline ECG Confirmed by AAKASH DUKES, BIANCA ([id number]), associate editor MAXIMUS COVINGTON ([id number]) on 02/22/2023 10:55:47 A M Referred By: Confirmed By:MIGUELITO FINN MD
[2023-02-19 23:28] LABS: Absolute Lymphocyte Count 1.76 X10^3/uL (0.83-4.51); Absolute Neutrophil Count 2.1 X10^3/uL (2.0-7.7); Hematocrit 34.3 % (40-54); Hemoglobin 11.3 g/dL (13.0-16.5); Lymphocyte # 1.76 X10^3/ul (0.83-4.51); Mean Corp Hgb Conc 32.9 g/dL (32-36); Mean Corpuscular Hgb 31.1 pg (27.0-32.0); Mean Corpuscular Volume 94.5 fL (80-94); Mean Platelet Vol. 11.2 fl (6.2-12.0); Monocyte# 1.27 X10^3/uL; Monocyte% 24.6 % (0-10); NRBC Flagged by Analyzer 0 % (0-5); Neutrophil # 2.11 X10^3/uL (2.7-7.7); Neutrophil % 40.8 % (47-70); Platelet Count 162 K/mm3 (150-450); RBC Distribution Width CV 13.8 % (11.6-14.6); RBC Distribution Width SD 47.5 fl (35.1-43.9); Red Blood Count 3.63 M/mm3 (4.6-6.2); White Blood Count 5.2 K/mm3 (4.4-11.0)
[2023-02-19 23:35] LABS: Bacteria 0 SEEN /hpf (None Seen); Mucous, Urine 0 SEEN /hpf (<or=2+); Red Blood Cells-Urine 0 SEEN /hpf (0-5); Squamous Epithelial Cells - UA 0 SEEN /hpf (0-5); White Blood Cells 0 SEEN /hpf (0-5)
[2023-02-19 23:37] LABS: Color, Urine Yellow (Yellow); Glucose, Dipstick 1000 mg/dl (Normal); Ketone-Dipstick Negative (Negative); Leukocyte Esterase-Dipstick Negative /ul (Negative); Nitrite-Dipstick Negative (Negative); Occult Blood-Urine 10 /ul (Negative); Protein-Dipstick 30 mg/dl (Negative); Urine Bilirubin Dipstick Negative (Negative); Urine Clarity Clear (Clear); Urine Urobilinogen Normal (Normal)
--- NOTE | 2023-02-19 23:47 | EDS_ITS ---
HPI History of Present Illness Chief Complaint: General Illness Narrative Narrative: 87-year-old male presenting with confusion per family. They state that his blood pressure is 120/50 at home. His heart rate was in the 50s. He states that he was confused by his playing cards. Currently is acting at his baseline. He does not have any complaints. No fevers or chills. No nausea or vomiting. Family does state that he has occasionally get UTIs. He had pneumonia as well. PFSH [facility] Medical History A-fib Anemia of chronic disease Atrial flutter with rapid ventricular response Cellulitis and abscess Chronic constipation Chronic rheumatic arthritis COVID-19 Dementia Diabetes mellitus, type 2 Hypoxemia MDS (myelodysplastic syndrome) Myocardial infarction due to demand ischemia Obstructive sleep apnea Paroxysmal atrial flutter Personal history of immunosupression therapy Stroke/cerebrovascular accident UTI (urinary tract infection) Home Medications hufilfun-mlu-ubxat acid 0.4 mg-lycopene 300 mcg-lutein 250 mcg tablet 1 ea PO DAILY vitamin 05/03/15 [History Last Taken 09/23/15] prednisone 2.5 mg tablet 2.5 mg PO DAILY inflammation 09/03/15 [History Last Taken 09/23/15] aspirin 81 mg tablet,delayed release (Adult Aspirin Regimen) 81 mg PO DAILY HEART HEALTH 08/10/19 [History Last Taken Unknown] donepezil 10 mg tablet 10 mg PO QHS mentation 08/10/19 [History Last Taken Unknown] memantine 10 mg tablet 10 mg PO BID mentation 08/10/19 [History Last Taken Unknown] glipizide 5 mg tablet, extended release 24 hr 5 mg PO DAILY DIABETES 08/13/21 [History Last Taken Unknown] magnesium oxide 400 mg (241.3 mg magnesium) tablet 400 mg PO DAILY supplement 08/13/21 [History Last Taken Unknown] melatonin 3 mg tablet 3 mg PO QHS sleep 08/13/21 [History Last Taken Unknown] mirtazapine 30 mg tablet 30 mg PO QHS mental health 08/13/21 [History Last Taken Unknown] atorvastatin 40 mg tablet 40 mg PO QHS cholesterol 05/29/22 [History Last Taken Unknown] omeprazole 20 mg capsule,delayed release 20 mg PO DAILY Check with primary doctor 06/16/22 [History Last Taken Unknown] quetiapine 25 mg tablet 25 mg PO ONCE HS Check with primary doctor 10/22/22 [History Last Taken Unknown] apixaban 2.5 mg tablet (Eliquis) 2.5 mg PO BID Check with primary doctor 12/15/22 [History Last Taken Unknown] diltiazem HCl 120 mg tablet (Cardizem) 120 mg PO DAILY Check with primary doctor 12/15/22 [History Last Taken Unknown] metoprolol tartrate 50 mg tablet 25 mg PO BID Check with primary doctor 01/11/23 [History Last Taken Unknown] Allergy/AdvReac Type Severity Reaction Status Date / Time No Known Allergies Allergy Verified 01/11/23 14:13 Family History Father Cancer Diabetes Surgical History History of corneal transplant History of prostate surgery Hx of cataract surgery Social History household members: spouse and children housing: house current occupational status: retired Smoking Status: Never smoker alcohol intake: current alcohol intake frequency: other substance use type: does not use ROS ROS ED Constitutional Constitutional ED: Denies chills, fever(s) or sweats Eyes Eyes: Denies blurry vision or change in vision ENT ENT ED: Denies ear pain or sore throat Cardiovascular Cardiovascular: Denies chest pain, palpitations or racing heartbeat Respiratory/Chest Respiratory/Chest: Denies cough, dyspnea or sputum Gastrointestinal Gastrointestinal: Denies abdominal pain, constipation, diarrhea, nausea or vomiting Genitourinary Genitourinary ED: Denies dysuria, hematuria or urinary frequency Musculoskeletal Musculoskeletal: Denies arthralgias, myalgias or neck pain Integumentary Denies abscess, Abrasions or rash Neurologic Neurologic: Denies headache(s), paresthesias or weakness Psychiatric Psychiatric: Denies anxiety, depression, suicidal ideation or suicidal thoughts Endocrine Endocrinology: Denies polydipsia or polyuria EXAM Physical Exam Const Vital Signs: 02/19/23 22:36 02/19/23 23:04 02/20/23 00:29 Temperature 97.1 F L Temperature Source Temporal Pulse Rate 51 L Respiratory Rate 16 Respiratory Pattern Normal Blood Pressure 156/75 H Blood Pressure Mean 102 Pulse Ox 95 98 Oxygen Delivery Method Room Air Positive well nourished General Appearance ED: NAD; Negative for pallor HEENT Reports moist mucous membranes Eyes General Eye ED: Negative for pale conjunctiva Chest Wall inspection of chest normal Resp normal respiratory effort Auscultation: Negative for rales, rhonchi or wheezes Cardio regular rhythm Rate: bradycardia GI normal to inspection, nondistended, normoactive bowel sounds Neuro oriented x3 Sensorium / Orientation: alert Motor Exam: strength 5/5 throughout Psych mental status grossly normal Skin no wounds General Skin Exam: Negative for jaundice or pallor MDM MDM MDM Narrative Medical decision making narrative: Family brought him in for confusion. He has no complaints. He states I am feeling pretty good for an old fella. He has not had any chest pain or shortness of breath. Family concern due to his history. Differential includes ACS, pneumonia, electrolyte abnormalities, anemia, GI bleed, UTI. CBC to assess white blood cell count, hemoglobin and platelets, differential. CMP to assess renal function, electrolytes, glucose, anion gap. Urinalysis to assess for UTI. Chest x-ray to assess for pneumonia. High sensitive troponin and EKG will be obtained to rule out ischemic causes. Patient is bradycardic today but has been bradycardic in the past. EKG shows a sinus bradycardia without evidence of ischemia on my interpretation. CBC shows no leukocytosis with no evidence of count of 5.2. Hemoglobin stable 11.3. Platelets are normal at 162. Creatinine at baseline 1.48. Electrolytes unremarkable. High-sensitivity troponin is 7. BNP mildly elevated at 148 however the patient's chest x-ray shows no evidence of CHF or pneumonia on my interpretation. Urinalysis was negative. At this point I feel the patient is stable for discharge. Family is amenable to this. Return precautions were discussed. Impression: 1. Confusion 2. Bradycardia Lab Data Labs: Laboratory Results - last 24 hr 02/19/23 02/19/23 02/19/23 23:20 23:20 23:20 WBC 5.2 RBC 3.63 L Hgb 11.3 L Hct 34.3 L MCV 94.5 H MCH 31.1 MCHC 32.9 RDW Std Deviation 47.5 H RDW Coeff of Zak 13.8 Plt Count 162 MPV 11.2 Immature Gran % (Auto) 0.600 Neut % (Auto) 40.8 L Lymph % (Auto) 34.0 Bollinger % (Auto) 24.6 H Eos % (Auto) 0.0 Baso % (Auto) 0.0 Absolute Neuts (auto) 2.1 Absolute Lymphs (auto) 1.76 Nucleated RBC % 0 Sodium 140 Potassium 4.2 Chloride 102 Carbon Dioxide 34.0 H Anion Gap 4 L BUN 36 H Creatinine 1.48 H Est GFR (MDRD) Af Amer 58 L Est GFR (MDRD) Non-Af 48 L BUN/Creatinine Ratio 24.3 H Glucose 335 H Calcium 9.3 Troponin I High Sens 7 B-Natriuretic Peptide 148.9 H Urine Color Urine Clarity Urine pH Ur Specific [place] Urine Protein Urine Glucose (UA) Urine Ketones Urine Occult Blood Urine Nitrite Urine Bilirubin Urine Urobilinogen Ur Leukocyte Esterase Urine RBC Urine WBC Ur Squamous Epith Cells Urine Bacteria Urine Mucus 02/19/23 23:25 WBC RBC Hgb Hct MCV MCH MCHC RDW Std Deviation RDW Coeff of Zak Plt Count MPV Immature Gran % (Auto) Neut % (Auto) Lymph % (Auto) Bollinger % (Auto) Eos % (Auto) Baso % (Auto) Absolute Neuts (auto) Absolute Lymphs (auto) Nucleated RBC % Sodium Potassium Chloride Carbon Dioxide Anion Gap BUN Creatinine Est GFR (MDRD) Af Amer Est GFR (MDRD) Non-Af BUN/Creatinine Ratio Glucose Calcium Troponin I High Sens B-Natriuretic Peptide Urine Color Yellow Urine Clarity Clear Urine pH 7.0 Ur Specific [place] 1.010 Urine Protein 30 H Urine Glucose (UA) 1000 H Urine Ketones Negative Urine Occult Blood 10 H Urine Nitrite Negative Urine Bilirubin Negative Urine Urobilinogen Normal Ur Leukocyte Esterase Negative Urine RBC 0 SEEN Urine WBC 0 SEEN Ur Squamous Epith Cells 0 SEEN Urine Bacteria 0 SEEN Urine Mucus 0 SEEN Radiography Diagnostic Testing: Clinical Impression(s) from Imaging Studies Chest X-Ray 02/19/23 23:09 IMPRESSION: No radiographic evidence of acute cardiopulmonary disease. Electronically Signed: Stephen Beverly MD at 0:05 EDT , Discharge Plan Triage Chief Complaint: General Illness ED Provider: Jhony Mistry Dx/Rx/DC Orders Instructions: ED ALOC Prescriptions: No Action donepezil 10 mg tablet 10 mg PO QHS memantine 10 mg tablet 10 mg PO BID aspirin [Adult Aspirin Regimen] 81 mg tablet,delayed release (DR/EC) 81 mg PO DAILY glipizide 5 mg tablet extended release 24hr 5 mg PO DAILY magnesium oxide 400 mg (241.3 mg magnesium) tablet 400 mg PO DAILY Label Comments: supplement melatonin 3 mg tablet 3 mg PO QHS Label Comments: TAKE 1 TABLET BY MOUTH at 7PM EVERY EVENING mirtazapine 30 mg tablet 30 mg PO QHS omeprazole 20 mg capsule,delayed release(DR/EC) 20 mg PO DAILY quetiapine 25 mg tablet 25 mg PO ONCE HS Label Comments: Take 1 tablet by mouth daily at bedtime. metoprolol tartrate 50 mg tablet 25 mg PO BID sngeyxdl-[id number]-JF-lycopen-lutein 1 EACH tablet 1 ea PO DAILY Label Comments: General health prednisone 2.5 MG tablet 2.5 mg PO DAILY Hold Instructions: Resume on 06/08/22. Label Comments: steroid atorvastatin 40 mg tablet 40 mg PO QHS diltiazem HCl [Cardizem] 120 mg tablet 120 mg PO DAILY Eliquis 2.5 mg tablet 2.5 mg PO BID Primary Care Provider: Sampson Penny Referrals: Sampson Penny MD [Primary Care Provider] - Disposition Disposition: Home, Self Care
[2023-02-19 23:49] LABS: BNP,B-Type NATRIURETIC PEPTIDE 148.9 pg/mL (0-100)
[2023-02-19 23:52] LABS: Anion Gap 4 (5-15); BUN 36 mg/dL (7-18); BUN/Creat Ratio 24.3 RATIO (10-20); Calcium,Total 9.3 mg/dL (8.5-10.1); Chloride 102 mmol/L (98-107); Creatinine, Serum 1.48 mg/dL (0.70-1.30); EST Glomerular Filtration Rate 48 mL/min (>60); Est Glom Filt Rate - Afr Amer 58 mL/min (>60); Glucose 335 mg/dL (74-106); Potassium 4.2 mmol/L (3.5-5.1); Sodium Level 140 mmol/L (136-145); Troponin-I HS (w/2H Reflex) 7 pg/mL (3.0-78.0)
[2023-02-20 00:28] VITALS: BMI 23.2
[2023-02-20 00:29] VITALS: O2SAT 98
[2023-02-20] MEDS: Aspirin 81 MG TAB.CHEW 324 MG PO (00:30)
[2023-02-20 01:17] VITALS: BP 132/61; PULSE 59; RESP 17; O2SAT 97
[2023-02-20 01:26] LABS: Reflex Troponin-HS? (from REC) Y
== END 2023-02-20 01:50 | disposition home or self-care (01) ==
PROVIDERS: Emergency Provider Student in an Organized Health Care Education/Training Program; PCP Internal Medicine; Visit Provider Student in an Organized Health Care Education/Training Program
DX: R41.0 Disorientation, unspecified (principal); R00.1 Bradycardia, unspecified; G47.33 Obstructive sleep apnea (adult) (pediatric); Z86.16 Personal history of COVID-19; Z86.73 Personal history of transient ischemic attack (TIA), and cerebral infarction without residual deficits
CPT/HCPCS: 71045; 80048; 81001; 83880; 84484; 85025; 93005; 99284; A4216

== ENCOUNTER → 2023-04-22 | Outpatient (CLI) | payer MEDICARE, OTHER, SELFPAY ==
[2016-02-13 13:00] VITALS: BMI 25.7
[2023-04-22 17:04] LABS: Absolute Lymphocyte Count 1.69 X10^3/uL (0.83-4.51); Absolute Neutrophil Count 3.1 X10^3/uL (2.0-7.7); Eosinophil# 0.01 X10^3/uL; Eosinophils% 0.2 % (0-5); Hematocrit 36.6 % (40-54); Hemoglobin 11.8 g/dL (13.0-16.5); Lymphocyte # 1.69 X10^3/ul (0.83-4.51); Lymphocyte % 28.9 % (19-41); Mean Corp Hgb Conc 32.2 g/dL (32-36); Mean Corpuscular Hgb 30.1 pg (27.0-32.0); Mean Corpuscular Volume 93.4 fL (80-94); Mean Platelet Vol. 11.3 fl (6.2-12.0); Monocyte# 1.02 X10^3/uL; Monocyte% 17.4 % (0-10); NRBC Flagged by Analyzer 0 % (0-5); Neutrophil # 3.09 X10^3/uL (2.7-7.7); Neutrophil % 52.8 % (47-70); Platelet Count 165 K/mm3 (150-450); RBC Distribution Width CV 14.4 % (11.6-14.6); RBC Distribution Width SD 48.5 fl (35.1-43.9); Red Blood Count 3.92 M/mm3 (4.6-6.2); White Blood Count 5.9 K/mm3 (4.4-11.0)
[2023-04-22 17:34] LABS: ALB/GLOB Ratio 1.2 RATIO (0.9-2.4); AST(SGOT) 32 U/L (15-37); Alanine Aminotransfer ALT/SGPT 67 U/L (16-61); Albumin, Serum 3.9 g/dL (3.2-5.0); Alkaline Phosphatase 126 U/L (45-117); Anion Gap 3 (5-15); BUN 29 mg/dL (7-18); BUN/Creat Ratio 24.6 RATIO (10-20); Calcium,Total 9.5 mg/dL (8.5-10.1); Chloride 108 mmol/L (98-107); Creatinine, Serum 1.18 mg/dL (0.70-1.30); EST Glomerular Filtration Rate 62 mL/min (>60); Est Glom Filt Rate - Afr Amer 75 mL/min (>60); Globulin 3.3 g/dL (2.2-4.2); Glucose 184 mg/dL (74-106); Potassium 4.4 mmol/L (3.5-5.1); Protein, Total 7.2 g/dL (6.4-8.2); Sodium Level 141 mmol/L (136-145)
== END | disposition home or self-care (01) ==
LOC: LAB 16:05
PROVIDERS: PCP Internal Medicine; Referring Provider Internal Medicine Rheumatology; Visit Provider Internal Medicine Rheumatology
DX: M06.00 Rheumatoid arthritis without rheumatoid factor, unspecified site (principal); Z79.52 Long term (current) use of systemic steroids
CPT/HCPCS: 36415; 80053; 85025

== ENCOUNTER 2023-05-26 04:45 | Emergency (ER) | payer MEDICARE, OTHER, SELFPAY ==
[2016-02-13 13:00] VITALS: BMI 25.7
[2023-05-26 04:47] VITALS: BP 154/63; PULSE 53; RESP 18; TEMP 36.2; O2SAT 97; BMI 22.6
--- NOTE | 2023-05-26 04:56 | CT_ITS ---
INDICATION: confusion stroke hx EXAMINATION: CT BRAIN - CT Head or Brain W/O Contrast Injection TECHNIQUE: Multiple axial images were obtained of the head without intravenous contrast. A radiation dose optimization technique was used for this scan. IV Contrast dosage and agent: None. COMPARISON: December 26, 2022 CT. May 29, 2022 MRI FINDINGS: BRAIN PARENCHYMA: Scattered encephalomalacia within this cerebellar hemispheres compatible with old infarcts. No intra- or extra-axial hemorrhage. No evidence of acute infarct. No intracranial mass or mass effect. Moderate patchy periventricular and subcortical white matter hypodense chronic small vessel white matter ischemic change. There is preservation of the ho/white matter interface. Carotid and vertebral atherosclerosis. CSF SPACES: Moderate global cerebral volume loss. No hydrocephalus. Basal cisterns are patent. CALVARIUM, SKULL BASE, PARANASAL SINUSES AND MASTOID AIR CELLS: No acute osseous finding. Paransasal sinuses are clear. Mastoid air cells are clear. ORBITS: Both globes, extraocular muscles, optic nerves and retrobulbar fat appear unremarkable. ASPECTS Score for Acute Strokes: 10 CT/Brain/Head without Contrast IMPRESSION: No CT evidence of acute intracranial hemorrhage or injury. MRI could further evaluate as clinically indicated. Moderate senescent changes with atherosclerosis and sequela of prior cerebellar infarcts. Electronically Signed: Stanislaw Shipley MD at 5:26 EDT ,
--- NOTE | 2023-05-26 04:57 | EKG12_ITS ---
Test Reason : Blood Pressure : / mmHG Vent. Rate : 054 BPM Atrial Rate : 054 BPM P-R Int : 196 ms QRS Dur : 094 ms QT Int : 434 ms P-R-T Axes : 024 -26 -11 degrees QTc Int : 411 ms Sinus bradycardia Minimal voltage criteria for LVH, may be normal variant ( R in aVL ) Borderline ECG Confirmed by AAKASH DUKES, BIANCA ([id number]), video editor GLORIA ROSAS ([id number]) on 05/31/2023 2:09:23 PM Referred By: Confirmed By:MIGUELITO FINN MD
--- NOTE | 2023-05-26 05:05 | EDS_ITS ---
HPI History of Present Illness Chief Complaint: Confusion Informant: patient and family Narrative Narrative: Patient presents after an episode of confusion that is now resolved. The patient's son sleeps near him. He was awoken with the patient doing some mild thrashing and vocalizing in bed. It appeared as though he was having a nightmare. They woke him up. He kept saying something but it was hard to understand. But then he mentions something about Aunt Michelle. Currently this person many years ago. May be as much is 50 years ago. Patient does not recall this event. The son states he remains somewhat confused as they got him into the car to drive here but now he is back to normal. No reported seizures. He has been perfectly fine up until this event. The patient does have some dementia. He has a history of prior stroke. He is on Eliquis and is taking it. Patient has no complaint at all. He is a bit hard of hearing but he states he feels perfectly fine. He does not remember any of the above event at all. He has no complaints whatsoever. [facility] Medical History A-fib Anemia of chronic disease Atrial flutter with rapid ventricular response Cellulitis and abscess Chronic constipation Chronic rheumatic arthritis COVID-19 Dementia Diabetes mellitus, type 2 Hypoxemia MDS (myelodysplastic syndrome) Myocardial infarction due to demand ischemia Obstructive sleep apnea Paroxysmal atrial flutter Personal history of immunosupression therapy Stroke/cerebrovascular accident UTI (urinary tract infection) Home Medications fexfbgvk-icq-qibeh acid 0.4 mg-lycopene 300 mcg-lutein 250 mcg tablet 1 ea PO DAILY vitamin 05/03/15 [History Last Taken 09/23/15] prednisone 2.5 mg tablet 2.5 mg PO DAILY inflammation 09/03/15 [History Last Taken 09/23/15] aspirin 81 mg tablet,delayed release (Adult Aspirin Regimen) 81 mg PO DAILY HEART HEALTH 08/10/19 [History Last Taken Unknown] donepezil 10 mg tablet 10 mg PO QHS mentation 08/10/19 [History Last Taken Unknown] memantine 10 mg tablet 10 mg PO BID mentation 08/10/19 [History Last Taken Unknown] magnesium oxide 400 mg (241.3 mg magnesium) tablet 400 mg PO DAILY supplement 08/13/21 [History Last Taken Unknown] melatonin 3 mg tablet 3 mg PO QHS sleep 08/13/21 [History Last Taken Unknown] atorvastatin 40 mg tablet 40 mg PO QHS cholesterol 05/29/22 [History Last Taken Unknown] quetiapine 25 mg tablet 25 mg PO ONCE HS Check with primary doctor 10/22/22 [History Last Taken Unknown] apixaban 2.5 mg tablet (Eliquis) 2.5 mg PO BID Check with primary doctor 12/15/22 [History Last Taken Unknown] diltiazem HCl 120 mg tablet (Cardizem) 120 mg PO DAILY Check with primary doctor #90 tabs 03/19/23 [Rx Last Taken Unknown] glipizide 5 mg tablet, extended release 24 hr 7.5 mg PO DAILY DIABETES 04/22/23 [History Last Taken Unknown] metoprolol tartrate 50 mg tablet 25 mg PO QHS Check with primary doctor 04/22/23 [History Last Taken Unknown] mirtazapine 30 mg tablet 15 mg PO QHS mental health 04/22/23 [History Last Taken Unknown] Allergy/AdvReac Type Severity Reaction Status Date / Time No Known Allergies Allergy Verified 05/26/23 04:53 Family History Father Cancer Diabetes Surgical History History of corneal transplant History of prostate surgery Hx of cataract surgery Social History household members: spouse and children housing: house current occupational status: retired Smoking Status: Never smoker alcohol intake: current alcohol intake frequency: other substance use type: does not use ROS ROS ED Constitutional Constitutional ED: Denies chills, fever(s) or sweats Eyes Eyes: Reports other Details: Has been blind for some time. ENT ENT ED: Denies sore throat Cardiovascular Cardiovascular: Denies chest pain or palpitations Respiratory/Chest Respiratory/Chest: Denies cough or dyspnea Gastrointestinal Gastrointestinal: Denies abdominal pain, nausea or vomiting Genitourinary Genitourinary ED: Reports other Details: Had UTIs in the past but has no symptoms of 1 now. ; Denies dysuria Musculoskeletal Musculoskeletal: Denies myalgias Integumentary Denies rash Neurologic Neurologic: Reports other Details: Chronic mild weakness from prior stroke but its not new or different. He is still very mobile and ambulatory. ; Denies headache(s) Endocrine Endocrinology: Denies polydipsia Hematologic/Lymphatic Hematologic/Lymphatic: Reports easy bleeding and easy bruising Allergic/Immunologic Allergic/Immunologic ED: Denies urticaria EXAM Physical Exam Narrative Exam Narrative: CONSTITUTIONAL: Patient is nontoxic in appearance. The patient looks comfor table. Work of breathing looks normal. HEENT: No notable trauma. Mucous membranes moist. EYES: No conjunctival injection. Patient is blind. Pupils are small. He likely has a significant cataract or postoperative changes in the right. NECK: No meningismus. No JVD. CARDIOVASCULAR: Mildly bradycardic rate. Normal blood pressure. No symptoms of this. Regular rhythm. No notable murmur. No JVD. RESPIRATORY: No respiratory distress. Breathing is unlabored. No wheezes. No rhonchi. No rales. No pain with a deep breath. GASTROINTESTINAL: Not distended. Bowel sounds are normal. No tenderness. No guarding. No rebound. No palpable mass. No bruit. GENITOURINARY: No tenderness over the bladder. No CVA tenderness. MUSCULOSKELETAL: Atraumatic. No peripheral edema. No cord. No tenderness along t he deep venous system. No asymmetry. NEUROLOGICAL: Patient is alert and oriented to person, [place] [facility], year, and president [facility]. He is actually very quick to respond to all questions. He cooperates with physical exam easily and I only have to ask him to do each maneuver a single time. He is more responsive and quicker than the majority of patients who I see who do not have a complaint of confusion. No focal deficit noted. NIH stroke scale is 0. SKIN: No noted rashes. No diaphoresis. No vesicles noted. No notable pallor. PSYCHIATRIC: Patient is calm. Mood is appropriate. Const Vital Signs: 05/26/23 04:47 Temperature 97.1 F L Temperature Source Temporal Pulse Rate 53 L Respiratory Rate 18 Blood Pressure 154/63 H Blood Pressure Mean 93 Pulse Ox 97 Oxygen Delivery Method Room Air MDM MDM MDM Narrative Medical decision making narrative: Patient CBC shows mild anemia but normal white count. He also has just minimally low platelets. I do not think this is the cause of his symptoms. Patient's electrolytes show mild creatinine elevation but really at baseline. BUN to creatinine ratio was slightly high showing some subtle dehydration. Slight electrolyte abnormalities and slightly elevated glucose at 237. My independent her potation CT scan of his head shows some mild atrophy but no acute process. This is consistent with the final reading that was reviewed. Patient does not feel as though he needs to urinate. Evidently he urinated just before coming to the hospital. With some mild dehydration I will give a little bit of IV fluids. I talked options with the patient and son. Although he is not having symptoms of UTI he has had them several times in the past and they have caused confusion. I still think he can go home even if he shows signs of UTI. If this urine shows signs of infection we will get him home with antibiotics. Otherwise we will get him home without as the patient is back to normal. I think overall he likely had a dream and he woke up and was confused for a while and took a little time to orient. This would not be uncommon in the middle the night at 87 years old with dementia. I will either get this urine test or turn the patient over to the oncoming physician with the plan as above. Patient is pending his urinalysis at this time. Lab Data Attestation: I reviewed the patient's lab results. Labs: Laboratory Results - last 24 hr 05/26/23 05:03 WBC 8.1 RBC 3.43 L Hgb 10.6 L Hct 32.3 L MCV 94.2 H MCH 30.9 MCHC 32.8 RDW Std Deviation 48.8 H RDW Coeff of Zak 14.4 Plt Count 135 L MPV 11.6 Immature Gran % (Auto) 0.400 Neut % (Auto) 42.7 L Lymph % (Auto) 24.5 Steele % (Auto) 32.4 H Eos % (Auto) 0.0 Baso % (Auto) 0.0 Absolute Neuts (auto) 3.5 Absolute Lymphs (auto) 1.98 Nucleated RBC % 0 Platelet Estimate SLT DEC Acanthocytes (Spur) 1+ Sodium 143 Potassium 4.1 Chloride 108 H Carbon Dioxide 34.0 H Anion Gap 1 L BUN 29 H Creatinine 1.39 H Estim Creat Clear Calc 36.22 Est GFR (MDRD) Af Amer 62 Est GFR (MDRD) Non-Af 51 L BUN/Creatinine Ratio 20.9 H Glucose 237 H Calcium 8.8 Radiography Diagnostic Testing: Clinical Impression(s) from Imaging Studies Brain CT 05/26/23 04:56 IMPRESSION: No CT evidence of acute intracranial hemorrhage or injury. MRI could further evaluate as clinically indicated. Moderate senescent changes with atherosclerosis and sequela of prior cerebellar infarcts. Electronically Signed: Stanislaw Shipley MD at 5:26 EDT , EKG Initial EKG: Comments: NoIndependent interpretation of the patient's EKG shows a sinus rhythm but slightly bradycardic rate of 54. Regular ectopy. No acute ST elevation or depression consistent with infarct or ischemia. Mild nonspecific changes possibly related to LVH. HI interval QRS duration and QTc are within normal limits Discharge Plan Triage Chief Complaint: Confusion ED Provider: Kuldip Wang Dx/Rx/DC Orders Clinical Impression: Transient confusion, History of dementia, History of stroke, Medication induced coagulopathy Instructions: ED Confusion Prescriptions: No Action donepezil 10 mg tablet 10 mg PO QHS memantine 10 mg tablet 10 mg PO BID aspirin [Adult Aspirin Regimen] 81 mg tablet,delayed release (DR/EC) 81 mg PO DAILY magnesium oxide 400 mg (241.3 mg magnesium) tablet 400 mg PO DAILY Patient Comments: supplement melatonin 3 mg tablet 3 mg PO QHS Patient Comments: TAKE 1 TABLET BY MOUTH at 7PM EVERY EVENING glipizide 5 mg tablet extended release 24hr 7.5 mg PO DAILY mirtazapine 30 mg tablet 15 mg PO QHS quetiapine 25 mg tablet 25 mg PO ONCE HS Patient Comments: Take 1 tablet by mouth daily at bedtime. metoprolol tartrate 50 mg tablet 25 mg PO QHS [id number]-[id number]-MJ-lycopen-lutein 1 EACH tablet 1 ea PO DAILY Patient Comments: General health prednisone 2.5 MG tablet 2.5 mg PO DAILY Hold Instructions: Resume on 06/08/22. Patient Comments: steroid atorvastatin 40 mg tablet 40 mg PO QHS Eliquis 2.5 mg tablet 2.5 mg PO BID diltiazem HCl [Cardizem] 120 mg tablet 120 mg PO DAILY Qty: 90 3RF Primary Care Provider: Sampson Penny Referrals: Sampson Penny MD [Primary Care Provider] - 3-5 Days if not improving Disposition Disposition: Home, Self Care
[2023-05-26 05:16] LABS: Absolute Lymphocyte Count 1.98 X10^3/uL (0.83-4.51); Absolute Neutrophil Count 3.5 X10^3/uL (2.0-7.7); Hematocrit 32.3 % (40-54); Hemoglobin 10.6 g/dL (13.0-16.5); Lymphocyte # 1.98 X10^3/ul (0.83-4.51); Lymphocyte % 24.5 % (19-41); Mean Corp Hgb Conc 32.8 g/dL (32-36); Mean Corpuscular Hgb 30.9 pg (27.0-32.0); Mean Corpuscular Volume 94.2 fL (80-94); Mean Platelet Vol. 11.6 fl (6.2-12.0); Monocyte# 2.62 X10^3/uL; Monocyte% 32.4 % (0-10); NRBC Flagged by Analyzer 0 % (0-5); Neutrophil # 3.46 X10^3/uL (2.7-7.7); Neutrophil % 42.7 % (47-70); POSITIVE DIFFERENTIAL YES; Platelet Count 135 K/mm3 (150-450); RBC Distribution Width CV 14.4 % (11.6-14.6); RBC Distribution Width SD 48.8 fl (35.1-43.9); Red Blood Count 3.43 M/mm3 (4.6-6.2); White Blood Count 8.1 K/mm3 (4.4-11.0)
[2023-05-26 05:39] LABS: Anion Gap 1 (5-15); BUN 29 mg/dL (7-18); BUN/Creat Ratio 20.9 RATIO (10-20); Calcium,Total 8.8 mg/dL (8.5-10.1); Chloride 108 mmol/L (98-107); Creatinine, Serum 1.39 mg/dL (0.70-1.30); EST Glomerular Filtration Rate 51 mL/min (>60); Est Glom Filt Rate - Afr Amer 62 mL/min (>60); Estimated Creatinine Clearance 36.22 ml/min; Glucose 237 mg/dL (74-106); Potassium 4.1 mmol/L (3.5-5.1); Sodium Level 143 mmol/L (136-145)
[2023-05-26 05:49] LABS: Differential Indicated SCAN CRITERIA MET
[2023-05-26 05:50] LABS: Platelet Estimate SLT DEC (ADEQ)
[2023-05-26 05:51] LABS: Acanthocytes 1+
[2023-05-26] MEDS: 0.9% Normal Saline (500mL Bag) 500 ML 999 ML IV (06:42)
[2023-05-26 08:10] VITALS: BP 140/70; PULSE 72; RESP 16; O2SAT 95
[2023-05-26 08:23] LABS: Mucous, Urine 0 SEEN /hpf (<or=2+); Red Blood Cells-Urine 0 SEEN /hpf (0-5); Squamous Epithelial Cells - UA 0 SEEN /hpf (0-5)
[2023-05-26 08:29] LABS: Color, Urine Yellow (Yellow); Glucose, Dipstick 100 mg/dl (Normal); Ketone-Dipstick Negative (Negative); Leukocyte Esterase-Dipstick 25 /ul (Negative); Nitrite-Dipstick Negative (Negative); Occult Blood-Urine 10 /ul (Negative); Protein-Dipstick 15 mg/dl (Negative); Urine Bilirubin Dipstick Negative (Negative); Urine Clarity Sl. Cloudy (Clear); Urine Urobilinogen Normal (Normal); Urine pH 6.5 (5.0 - 8.0)
[2023-05-26 08:46] LABS: Bacteria 2+ /hpf (None Seen); White Blood Cells 5-10 SEEN /hpf (0-5)
== END 2023-05-26 09:02 | disposition home or self-care (01) ==
PROVIDERS: Emergency Provider Emergency Medicine; PCP Internal Medicine; Visit Provider Emergency Medicine
DX: R41.0 Disorientation, unspecified (principal); F03.90 Unspecified dementia, unspecified severity, without behavioral disturbance, psychotic disturbance, mood disturbance, and anxiety; E11.9 Type 2 diabetes mellitus without complications; G47.33 Obstructive sleep apnea (adult) (pediatric); R79.1 Abnormal coagulation profile; I25.2 Old myocardial infarction; Z79.01 Long term (current) use of anticoagulants; Z79.82 Long term (current) use of aspirin; Z86.73 Personal history of transient ischemic attack (TIA), and cerebral infarction without residual deficits; Z86.16 Personal history of COVID-19; Z79.84 Long term (current) use of oral hypoglycemic drugs
CPT/HCPCS: 70450; 80048; 81001; 85025; 93005; 96360; 99283; J7030; A4216

== ENCOUNTER → 2023-07-20 | Outpatient (CLI) | payer MEDICARE, OTHER, SELFPAY ==
[2016-02-13 13:00] VITALS: BMI 25.7
[2023-07-20 17:10] LABS: Absolute Lymphocyte Count 1.56 X10^3/uL (0.83-4.51); Absolute Neutrophil Count 3.1 X10^3/uL (2.0-7.7); Basophil# 0.01 X10^3/uL; Basophil% 0.1 % (0-1); Eosinophil# 0.01 X10^3/uL; Eosinophils% 0.1 % (0-5); Hematocrit 35.9 % (40-54); Hemoglobin 11.5 g/dL (13.0-16.5); Lymphocyte # 1.56 X10^3/ul (0.83-4.51); Lymphocyte % 22.9 % (19-41); Mean Corpuscular Hgb 30.2 pg (27.0-32.0); Mean Corpuscular Volume 94.2 fL (80-94); Mean Platelet Vol. 11.5 fl (6.2-12.0); Monocyte% 30.8 % (0-10); NRBC Flagged by Analyzer 0 % (0-5); Neutrophil # 3.08 X10^3/uL (2.7-7.7); Neutrophil % 45.4 % (47-70); POSITIVE DIFFERENTIAL YES; Platelet Count 226 K/mm3 (150-450); RBC Distribution Width CV 14.7 % (11.6-14.6); RBC Distribution Width SD 50.5 fl (35.1-43.9); Red Blood Count 3.81 M/mm3 (4.6-6.2); White Blood Count 6.8 K/mm3 (4.4-11.0)
[2023-07-20 17:17] LABS: Differential Indicated SCAN CRITERIA MET
[2023-07-20 17:29] LABS: Differential Comment SCANNED; Erythrocyte Sedimentation Rate 1 mm/hr (0-20)
[2023-07-20 17:51] LABS: ALB/GLOB Ratio 1.1 RATIO (0.9-2.4); AST(SGOT) 19 U/L (15-37); Alanine Aminotransfer ALT/SGPT 33 U/L (16-61); Albumin, Serum 3.7 g/dL (3.2-5.0); Alkaline Phosphatase 123 U/L (45-117); Anion Gap 7 (5-15); BUN 23 mg/dL (7-18); BUN/Creat Ratio 15.2 RATIO (10-20); CRP 4.28 mg/L (0.0-3.0); Calcium,Total 9.3 mg/dL (8.5-10.1); Chloride 102 mmol/L (98-107); Creatinine, Serum 1.51 mg/dL (0.70-1.30); EST Glomerular Filtration Rate 47 mL/min (>60); Est Glom Filt Rate - Afr Amer 56 mL/min (>60); Globulin 3.5 g/dL (2.2-4.2); Glucose 290 mg/dL (74-106); Potassium 4.3 mmol/L (3.5-5.1); Protein, Total 7.2 g/dL (6.4-8.2); Sodium Level 138 mmol/L (136-145)
== END | disposition home or self-care (01) ==
LOC: LAB 16:03
PROVIDERS: PCP Internal Medicine; Referring Provider Internal Medicine Rheumatology; Visit Provider Internal Medicine Rheumatology
DX: M06.00 Rheumatoid arthritis without rheumatoid factor, unspecified site (principal); Z79.52 Long term (current) use of systemic steroids
CPT/HCPCS: 36415; 80053; 85025; 85652; 86140

== ENCOUNTER → 2023-11-15 | Outpatient (CLI) | payer MEDICARE, OTHER, SELFPAY ==
[2016-02-13 13:00] VITALS: BMI 25.7
[2023-11-15 17:34] LABS: Absolute Lymphocyte Count 2.52 X10^3/uL (0.83-4.51); Absolute Neutrophil Count 2.7 X10^3/uL (2.0-7.7); Basophil# 0.01 X10^3/uL; Basophil% 0.1 % (0-1); Eosinophil# 0.01 X10^3/uL; Eosinophils% 0.1 % (0-5); Hematocrit 34.6 % (40-54); Hemoglobin 11.2 g/dL (13.0-16.5); Lymphocyte # 2.52 X10^3/ul (0.83-4.51); Lymphocyte % 34.5 % (19-41); Mean Corp Hgb Conc 32.4 g/dL (32-36); Mean Corpuscular Hgb 30.6 pg (27.0-32.0); Mean Corpuscular Volume 94.5 fL (80-94); Monocyte# 2.02 X10^3/uL; Monocyte% 27.7 % (0-10); NRBC Flagged by Analyzer 0 % (0-5); Neutrophil # 2.71 X10^3/uL (2.7-7.7); Neutrophil % 37.2 % (47-70); POSITIVE DIFFERENTIAL YES; Platelet Count 296 K/mm3 (150-450); RBC Distribution Width CV 15.7 % (11.6-14.6); RBC Distribution Width SD 53.8 fl (35.1-43.9); Red Blood Count 3.66 M/mm3 (4.6-6.2); White Blood Count 7.3 K/mm3 (4.4-11.0)
[2023-11-15 17:50] LABS: AST(SGOT) 24 U/L (15-37); Alanine Aminotransfer ALT/SGPT 27 U/L (16-61); Albumin, Serum 3.6 g/dL (3.2-5.0); Alkaline Phosphatase 96 U/L (45-117); Anion Gap 1 (5-15); BUN 27 mg/dL (7-18); BUN/Creat Ratio 24.8 RATIO (10-20); CRP < 2.90 mg/L (0.0-3.0); Calcium,Total 9.5 mg/dL (8.5-10.1); Chloride 107 mmol/L (98-107); Creatinine, Serum 1.09 mg/dL (0.70-1.30); EST Glomerular Filtration Rate 68 mL/min (>60); Est Glom Filt Rate - Afr Amer 82 mL/min (>60); Globulin 3.6 g/dL (2.2-4.2); Glucose 119 mg/dL (74-106); Potassium 3.9 mmol/L (3.5-5.1); Protein, Total 7.2 g/dL (6.4-8.2); Sodium Level 141 mmol/L (136-145)
[2023-11-15 17:58] LABS: Differential Indicated SCAN CRITERIA MET
[2023-11-15 18:02] LABS: Anisocytosis RARE; Macrocytosis RARE; Platelet Estimate ADEQUATE (ADEQ); Red Cell Morphology N CHROM NORMAL (NORM C&C)
[2023-11-15 18:04] LABS: Erythrocyte Sedimentation Rate 1 mm/hr (0-20)
== END | disposition home or self-care (01) ==
LOC: LAB 16:53
PROVIDERS: PCP Internal Medicine; Referring Provider Internal Medicine Rheumatology; Visit Provider Internal Medicine Rheumatology
DX: M06.00 Rheumatoid arthritis without rheumatoid factor, unspecified site (principal); Z79.52 Long term (current) use of systemic steroids
CPT/HCPCS: 36415; 80053; 85025; 85652; 86140

== ENCOUNTER → 2024-06-27 | Outpatient (CLI) | payer MEDICARE, OTHER, SELFPAY ==
[2016-02-13 13:00] VITALS: BMI 25.7
== END | disposition home or self-care (01) ==
LOC: LABSPEC 13:17
PROVIDERS: PCP Internal Medicine; Referring Provider Emergency Medicine; Visit Provider Emergency Medicine
DX: R10.9 Unspecified abdominal pain (principal)
CPT/HCPCS: 87086; 87088